=== PATIENT | female | born 1945 | race Caucasian/White ===

== ENCOUNTER 2018-05-29 00:16 | Outpatient (CLI) | payer MEDICARE, MEDICAID, SELFPAY ==
--- NOTE | 2018-05-29 15:05 | DI.MAMMO_ITS ---
SYMPTOMS/DIAGNOSIS: SCREENING, [facility], Z00.00 BILATERAL SCREENING MAMMOGRAM: Comparison is made with exams from 2015 through 2018. The exam is somewhat limited by the patient's inability to stand and somewhat limited tolerance of compression. The breasts are composed of scattered fibroglandular densities, breast density category B. No suspicious masses or suspicious microcalcifications are seen. There has been no significant change. IMPRESSION: Category 1B, negative mammogram. Yearly screening mammography is recommended. [facility] ASSESSMENT OF FINDINGS: Negative. Category 1. Patient will receive a letter notifying them of these results. BI-RADS category B. There are scattered areas of fibroglandular density.
== END 2018-05-29 00:36 ==
PROVIDERS: PCP Physician Assistant Medical; Visit Provider Physician Assistant Medical
DX: Z12.31 Encounter for screening mammogram for malignant neoplasm of breast (principal)
CPT/HCPCS: 77063; 77067

== ENCOUNTER 2018-10-02 02:36 | Outpatient (CLI) | payer MEDICARE, MEDICAID, SELFPAY ==
[2018-10-02 10:41] LABS: ALT 36 U/L (12-78); AST 23 U/L (15-37); Albumin 3.4 g/dL (3.4-5.0); Alkaline Phosphatase 76 U/L (46-116); BUN 20 mg/dL (7-18); Bilirubin, Total 0.8 mg/dL (0.2-1.0); CREATININE 1.03 mg/dL (0.55-1.02); Calcium 9.5 mg/dL (8.5-10.1); Chloride 105 mmol/L (98-107); Cholesterol 167 mg/dL (50-200); Estimated GFR 52.82 (mL/min/1.73m2); Glucose 110 mg/dL (70-100); HDL Cholesterol 54 mg/dL (40-60); LDL CHOLESTEROL 93 mg/dL (<100); Potassium 4.2 mmol/L (3.5-5.1); Sodium 143 mmol/L (136-145); Total Protein 7.1 g/dL (6.4-8.2); Triglyceride 191 mg/dL (30-150)
== END 2018-10-02 02:56 ==
PROVIDERS: PCP Physician Assistant Medical; Visit Provider Physician Assistant Medical
DX: I10 Essential (primary) hypertension (principal); E78.5 Hyperlipidemia, unspecified
CPT/HCPCS: 36415; 80053; 80061; 83721

== ENCOUNTER 2018-10-15 08:51 | Outpatient (CLI) | payer MEDICARE, MEDICAID, SELFPAY ==
[2018-10-15 10:11] LABS: Hemoglobin A1C 5.5 % (4.5-6.2)
== END 2018-10-15 09:11 ==
PROVIDERS: PCP Physician Assistant Medical; Visit Provider Physician Assistant Medical
DX: R73.01 Impaired fasting glucose (principal)
CPT/HCPCS: 83036

== ENCOUNTER 2018-12-16 00:20 | Outpatient (CLI) | payer MEDICARE, MEDICAID, SELFPAY ==
--- NOTE | 2018-12-16 10:06 | DI.US_ITS ---
SYMPTOMS/DIAGNOSIS: F/U [facility], I71.4 ULTRASOUND EXAMINATION OF THE ABDOMINAL AORTA: The proximal abdominal aorta measures 1.7 x 2.2 cm, the mid abdominal aorta 1.7 x 1.9 cm. The right iliac measures 1 x 1.2 cm, the left iliac 1 x 1.1 cm. 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 On a prior study of 06/28/2014, the distal aorta measured 2.9 x 2.8 cm.
== END 2018-12-16 00:40 ==
PROVIDERS: PCP Physician Assistant Medical; Visit Provider Physician Assistant Medical
DX: I71.4 Abdominal aortic aneurysm, without rupture (principal)
CPT/HCPCS: 76775

== ENCOUNTER 2019-05-31 01:09 | Outpatient (CLI) | payer MEDICARE, MEDICAID, SELFPAY ==
--- NOTE | 2019-05-31 09:37 | DI.MAMMO_ITS ---
EXAM: MG MAMMO SCREENING 60 MIN DUR CLINICAL HISTORY: SCREENING, [facility], Z12.31 TECHNIQUE: Bilateral full field digital CC and MLO mammographic images were obtained with 3D tomosyn thesis and utilizing computer aided detection (CAD). COMPARISON: Available for comparison. FINDINGS: Masses/Architectural Distortion: None seen. Microcalcifications: No suspicious pleomorphic-type are seen. Skin Thickening/Nipple Retraction: None. IMPRESSION: 1. No significant interval change with no specific features of malignancy noted. 2. Unless there is more urgent need, screening mammography is recommended, as per [place] [employer] guidelines. ACR BI-RAD Category- 1 Negative Breast Density - Category B - Scattered areas of fibroglandular density A negative radiographic report should not delay biopsy if a dominant or clinically suspicious mass is present. Up to ten percent of cancers are not identified on mammography. A negative report may reinforce clinical impression. Adenosis and dense breasts may obscure an underlying neoplasm. False positive reports average 6 to 10%. Patient will receive a letter notifying them of these results.
== END 2019-05-31 01:29 ==
PROVIDERS: PCP Physician Assistant Medical; Visit Provider Physician Assistant Medical
DX: Z12.31 Encounter for screening mammogram for malignant neoplasm of breast (principal)
CPT/HCPCS: 77063; 77067

== ENCOUNTER 2019-10-26 03:31 | Outpatient (CLI) | payer OTHER, MEDICAID, SELFPAY ==
[2019-10-26 10:24] LABS: Hemoglobin A1C 5.5 % (3.8-5.6)
[2019-10-26 10:40] LABS: ALT 28 U/L (14-59); AST 20 U/L (15-37); Albumin 3.3 g/dL (3.4-5.0); Alkaline Phosphatase 77 U/L (46-116); Anion Gap 8.9 mmol/L (3-11); BUN 15 mg/dL (7-18); Bilirubin, Total 0.7 mg/dL (0.2-1.0); CO2 27.1 mmol/L (21.0-32.0); CREATININE 1.07 mg/dL (0.55-1.02); Calcium 9.7 mg/dL (8.5-10.1); Calculated LDL 81 mg/dL (<100); Chloride 107 mmol/L (98-107); Cholesterol 155 mg/dL (<200); Estimated GFR 50.41 (mL/min/1.73m2); Glucose 98 mg/dL (74-106); HDL Cholesterol 52 mg/dL (40-60); Potassium 4.2 mmol/L (3.5-5.1); Sodium 143 mmol/L (136-145); Total Protein 7.2 g/dL (6.4-8.2); Triglyceride 113 mg/dL (<150)
== END 2019-10-26 03:51 ==
PROVIDERS: PCP Physician Assistant Medical; Visit Provider Nurse Practitioner Family
DX: I10 Essential (primary) hypertension (principal); E78.5 Hyperlipidemia, unspecified; R73.03 Prediabetes
CPT/HCPCS: 36415; 80053; 80061; 83036

== ENCOUNTER 2019-12-13 00:53 | Outpatient (CLI) | payer OTHER, MEDICAID, SELFPAY ==
--- NOTE | 2019-12-13 10:04 | DI.US_ITS ---
EXAM: US [facility] DIAGNOSTIC CLINICAL HISTORY: F/U [facility],I71.4 COMPARISON: No exams were available for comparison FINDINGS: Abdominal Aorta: Proximal: 2.6 cm Mid: 2.5 x 2.5 cm Distal: 3.1 x 3.3 cm Iliac's: Right: 1.2 cm Left: 1.4 cm Calcification and mild mural thrombus is seen throughout.. IMPRESSION: Atherosclerotic changes with mild dilatation of the distal abdominal aorta to 3.3 cm.. DATA REPOSITORY:
== END 2019-12-13 01:13 ==
PROVIDERS: PCP Physician Assistant Medical; Visit Provider Nurse Practitioner Family
DX: I71.4 Abdominal aortic aneurysm, without rupture (principal)
CPT/HCPCS: 76775

== ENCOUNTER 2020-04-17 07:50 | Inpatient (IN) | payer MEDICARE, OTHER, MEDICAID, SELFPAY ==
[2020-04-17] VITALS (31 sets, daily range): BP systolic 124–164; BP diastolic 64–69; PULSE 78–105; RESP 1–30; TEMP 36–38.3; O2SAT 89–98
--- NOTE | 2020-04-17 07:45 | RT.EKG_ITS ---
APPROVED REPORT Exam: Resting ECG Patient Location: E HR:98 bpm ECG Measurements Heart Rate 98 AXIS CO 241 P 38 QRSd 89 QRS 42 QT 333 T 41 QTc 426 Conclusion Sinus rhythm...normal P axis, V-rate 60- 99 Prolonged CO interval...CO >215, V-rate 91-120 Probable left atrial enlargement...P >50mS, <-0.10mV V1 Probable left ventricular hypertrophy...multiple LVH criteria
--- NOTE | 2020-04-17 08:06 | ED.GENADUL_ITS ---
Discharge Plan Disposition Patient Disposition: [facility] INPATIENT Condition: Stable Discharge Details Clinical Impression: Pneumonia, Mass of right lung, Fever, Fall at home, Contusion of left knee, Contusion of arm, left Admit Date/Time: 04/17/20 10:21 Admit Provider: Perry Alan Attending Provider: Perry Alan Primary Care Provider: Rolo Nieves ED Provider: Gertrude Pelaez Discharge Data Discharge Date/Time-TO BE ENTERED AT DEPARTURE: 04/17/20 11:50 Medical Decision Making 0800 -- 74 year-old female with history of hypertension, hyperlipidemia, COPD, CVA with chronic left-sided weakness for which she uses a walker and wheelchair presents for fall this morning out of bed onto her left side and shortness of breath and cough with yellow sputum for the past 2 weeks. Oxygen saturation 80s on room air on arrival. Temp 101 on arrival. She appears dehydrated but nontoxic. Her skin is quite warm to touch. She has scattered wheezing throughout. Abdomen nontender. No meningeal signs. We will obtain CT head, cervical spine, chest abdomen pelvis and left knee x- ray. Will give duo nebs, steroids and fluids and obtain an infectious work-up. Differential diagnosis includes bronchitis, pneumonia, coronavirus, UTI. 0945 --labs and imaging reviewed. White blood cell count of 10. Lactate 1.4. Troponin negative. CT chest notes large right lower lobe pneumonia. CT head and left knee x-ray negative. We will treat for community-acquired pneumonia. Considering patient's age and history, will admit for IV antibiotics, IV fluids and PT. Case discussed with daughter over the phone who feels that patient likely will require increased assistance at home or possibly even assisted living as she has been having increased falls and likely requires more than 3 hours of home health a day. Case discussed with hospitalist who accepts patient for admission. Final CT chest/abdomen report notes: IMPRESSION: 1. There is a large right lower lobe mass which appears malignant with surrounding smaller masses. There is ipsilateral hilar as well as mediastinal adenopathy and subcarinal adenopathy also evident. These findings are superimposed upon severe COPD-emphysematous changes. No large pleural effusions. Minimal amount of increased pleural fluid on the right. No rib destruction. 2. No evidence of obvious soft tissue metastatic disease in the abdomen and pelvis. However, there are lucencies in both sides of the osseous hemipelvis- iliac bones which are probably metastatic. 3. Uterus is slightly prominent as is the endometrial cavity. This could be further studied with ultrasound for added specificity. There are no abnormal adnexal masses and no free fluid in the pelvis. 4. Fusiform infrarenal abdominal aortic aneurysm with maximum diameter 3.2 centimetres. No evidence of leak at this time. These findings were discussed with patient and her daughter. Findings also discussed with the hospitalist who will proceed accordingly with likely follow- up with oncology for bronchoscopy. Medical Records Medical records reviewed: Yes I reviewed the patient's medical records. Imaging Data Radiologic Study: Radiologist's impression: CT HEAD CERVICAL SPINE WO CLINICAL HISTORY: s/p fall, r/o intracranial injury, cerv fx. TECHNIQUE: Imaging Protocol: Axial computed tomography images with coronal and sagittal reformatted images were created and reviewed COMPARISON: No exams were available for comparison FINDINGS: CT Head: There is evidence of prior right craniotomy. Aneurysm clip noted midline. There is no evidence of skull fracture nor layering fluid in the visualized paranasal sinuses and mastoid air cells. Some mucosal thickening is noted in the frontal sinuses. There is no evidence of intracranial hemorrhage, mass effect, or shift of midline structures. There are no extra-axial fluid collections. Ventricles appear symmetrical. There is a large area of encephalomalacia off in the right frontal parietal region which is superimposed upon abundant bilateral periventricular white matter hypodensity. This finding does not have an acute appearance and is most probably related to the prior intracranial event and postsurgical changes. There is symmetrical calcification in the basal ganglia incidentally noted. CT Cervical Spine: Bones: No acute fracture or subluxation. Multilevel chronic degenerative disc disease and facet joint degenerative changes are noted. There is no facet malalignment. IMPRESSION: 1. Evidence of prior right craniotomy. Midline aneurysm clip + prominent area of encephalomalacia right frontal parietal region superimposed upon abundant bilateral periventricular white matter ischemic chronic changes. There are no acute intracranial findings. 2. No acute fracture or subluxation in the cervical spine. CT CHEST PE ABD PELVIS W CLINICAL HISTORY: cough, sob, hypoxia, fall w/ L hip pain. TECHNIQUE: Imaging Protocol: Axial CT angiography was performed with multi- slice acquisition and multi-planar and/or 3D reconstructions. CONTRAST MATERIAL: Intravenous: Omnipaque 350 Contrast volume:100 cc COMPARISON: No exams were available for comparison FINDINGS: Lungs: There is a prominent mass in the right lower lobe suspicious for neoplasm and with adjacent neoplastic appearing nodular densities also evident. The mass measures approximately 7.5 by a 4 centimetres. There is a minimal amount of ipsilateral pleural fluid noted. No invasion of the overlying rib cage. This finding is superimposed upon severe COPD-emphysematous changes. Benign- appearing increased markings are noted in the opposite-left lung base. There are no findings in the trachea and mainstem bronchi. Mediastinum: There is right hilar adenopathy. Also subcarinal adenopathy. Also abnormally enlarged pre and paratracheal lymph nodes. No adenopathy in the opposite-left hilum. Visualized thyroid appears unremarkable. Cardiac: Heart size is upper normal. There is no pericardial effusion. Caliber of the thoracic aorta is within normal limits. No dissection evident. No significant mediastinal hematoma. Pulmonary arteries: No obvious central pulmonary emboli. Osseous: No fractures nor lytic osseous lesions. Abdomen: There is no ascites. There are no focal hepatic lesions seen. No dilatation of intrahepatic ducts. Gallstones are noted. No gallbladder wall edema. CBD is not dilated. No obvious pancreatic mass. No dilatation of the pancreatic duct. The spleen is not enlarged. There are no intrasplenic lesions. The splenic and portal veins are patent. No significant adrenal masses. Small benign cyst in the anterior cortex of the left kidney measuring 10 x 10 millimeters. Slightly smaller cyst is noted in the anterior aspect of the opposite-right kidney. There are no solid renal masses. No calculi nor hydronephrosis.. Slight thickening of the anterior right side of the urinary bladder is noted. Possibly significant. There is an infrarenal abdominal aortic aneurysm which exhibits a maximum diameter of 3.2 centimetres. Abdominal aorta is calcified and common iliac arteries are also calcified but not dilated. There is no para-aortic adenopathy. There is no evidence of significant anterior abdominal hernia. No bowel obstruction or free air. Pelvis: No evidence of appendicitis nor acute diverticulitis. There is no intrapelvic nor inguinal adenopathy. Uterus is slightly prominent as is the endometrial cavity. There are no abnormal adnexal masses and no free fluid no free fluid in the pelvis. Bone windows reveal a round lucent lesion in the left hemipelvis measuring 12 x 12 millimeters. Appears to be associated with some mild cortical thinning. This may be metastatic. No other smaller similar-appearing lesion is seen in the right hemipelvis. There are no fractures evident. IMPRESSION: 1. There is a large right lower lobe mass which appears malignant with surrounding smaller masses. There is ipsilateral hilar as well as mediastinal adenopathy and subcarinal adenopathy also evident. These findings are superimposed upon severe COPD-emphysematous changes. No large pleural e ffusions. Minimal amount of increased pleural fluid on the right. No rib destruction. 2. No evidence of obvious soft tissue metastatic disease in the abdomen and pelvis. However, there are lucencies in both sides of the osseous hemipelvis- iliac bones which are probably metastatic. 3. Uterus is slightly prominent as is the endometrial cavity. This could be further studied with ultrasound for added specificity. There are no abnormal adnexal masses and no free fluid in the pelvis. 4. Fusiform infrarenal abdominal aortic aneurysm with maximum diameter 3.2 centimetres. No evidence of leak at this time. XR KNEE LT 3V AP,LAT,EVELYN CLINICAL HISTORY: No fracture identified. TECHNIQUE: 2D digital imaging was performed. COMPARISON: CR RIGHT KNEE 3 VIEWS from 01/31/2014 FINDINGS: There is no evidence of fracture nor prominent joint effusion. No prominent joint space narrowing. No osseous lesions. Lab Data Lab results reviewed: Yes I reviewed the patient's lab results. Labs: 04/17/20 09:00 Blood Blood Culture - Pending 04/17/20 08:53 Blood Blood Culture - Pending Laboratory Tests Range/Units 04/17/20 04/17/20 04/17/20 08:15 08:15 08:15 WBC (4.4-10.8) 10^3/uL 10.94 H RBC (3.93-5.22) 10^6/uL 5.41 H Hgb (11.2-15.7) g/dL 14.9 Hct (36.0-46.0) % 46.8 H MCV (80-95) fL 86.5 MCH (27.0-33.0) pg 27.5 MCHC (32.0-36.0) % 31.8 L RDW (11.7-14.6) % 14.2 Plt Count (130-400) 10^3/uL 279 MPV (8.0-11.0) fL 9.5 Immature Gran % 0.4 Neutrophils % 70.3 Lymphocytes % 16.1 Monocytes % 9.1 Eosinophils % 3.6 Basophils % 0.5 Nucleated RBC % % 0 Absolute Neutrophils (1.2-6.7) 10^3/uL 7.69 H Absolute Lymphocytes (1.2-3.4) 10^3/uL 1.76 Absolute Monocytes (0.1-0.8) 10^3/uL 1.00 H Absolute Eosinophils (0.0-0.7) 10^3/uL 0.39 Absolute Basophils (0.0-0.2) 10^3/uL 0.05 PT (9.3-11.0) sec INR (0.9-1.1) APTT (21.0-27.5) sec VBG Lactate (0.6-1.4) mmol/L 1.4 Sodium (136-145) mmol/L 138 Potassium (3.5-5.1) mmol/L 4.1 Chloride (98-107) mmol/L 104 Carbon Dioxide (21.0-32.0) mmol/L 28.2 Anion Gap (3-11) mmol/L 5.8 BUN (7-18) mg/dL 11 Creatinine (0.55-1.02) mg/dL 0.88 Estimated GFR/1.73 m2 (mL/min/1.73m2) >= 60.00 Glucose (74-106) mg/dL 103 Calcium (8.5-10.1) mg/dL 9.0 Magnesium (1.8-2.4) mg/dL 1.8 Total Bilirubin (0.2-1.0) mg/dL 0.7 AST (15-37) U/L 21 ALT (14-59) U/L 12 L Alkaline Phosphatase (46-116) U/L 75 Troponin I (<0.06) ng/mL < 0.05 Total Protein (6.4-8.2) g/dL 7.5 Albumin (3.4-5.0) g/dL 2.6 L Procalcitonin ng/mL Urine Color (Yellow) Urine Clarity (Clear) Urine pH (5-8) Ur Specific [place] (1.005-1.025) Urine Protein (Negative) mg/dL Urine Ketones (Negative) mg/dL Urine Blood (Negative) Urine Nitrite (Negative) Urine Bilirubin (Negative) Urine Urobilinogen (Up TO 0.2) EU/dL Ur Leukocyte Esterase (Negative) Urine Glucose (Negative) mg/dL SARS-CoV-2 Source SARS-CoV-2 (PCR) Patient Race Patient Ethnicity Ref Test Method Range/Units 04/17/20 04/17/20 04/17/20 08:15 08:15 08:45 WBC (4.4-10.8) 10^3/uL RBC (3.93-5.22) 10^6/uL Hgb (11.2-15.7) g/dL Hct (36.0-46.0) % MCV (80-95) fL MCH (27.0-33.0) pg MCHC (32.0-36.0) % RDW (11.7-14.6) % Plt Count (130-400) 10^3/uL MPV (8.0-11.0) fL Immature Gran % Neutrophils % Lymphocytes % Monocytes % Eosinophils % Basophils % Nucleated RBC % % Absolute Neutrophils (1.2-6.7) 10^3/uL Absolute Lymphocytes (1.2-3.4) 10^3/uL Absolute Monocytes (0.1-0.8) 10^3/uL Absolute Eosinophils (0.0-0.7) 10^3/uL Absolute Basophils (0.0-0.2) 10^3/uL PT (9.3-11.0) sec 11.1 H INR (0.9-1.1) 1.1 APTT (21.0-27.5) sec 28.1 H VBG Lactate (0.6-1.4) mmol/L Sodium (136-145) mmol/L Potassium (3.5-5.1) mmol/L Chloride (98-107) mmol/L Carbon Dioxide (21.0-32.0) mmol/L Anion Gap (3-11) mmol/L BUN (7-18) mg/dL Creatinine (0.55-1.02) mg/dL Estimated GFR/1.73 m2 (mL/min/1.73m2) Glucose (74-106) mg/dL Calcium (8.5-10.1) mg/dL Magnesium (1.8-2.4) mg/dL Total Bilirubin (0.2-1.0) mg/dL AST (15-37) U/L ALT (14-59) U/L Alkaline Phosphatase (46-116) U/L Troponin I (<0.06) ng/mL Total Protein (6.4-8.2) g/dL Albumin (3.4-5.0) g/dL Procalcitonin ng/mL < 0.1 Urine Color (Yellow) Urine Clarity (Clear) Urine pH (5-8) Ur Specific [place] (1.005-1.025) Urine Protein (Negative) mg/dL Urine Ketones (Negative) mg/dL Urine Blood (Negative) Urine Nitrite (Negative) Urine Bilirubin (Negative) Urine Urobilinogen (Up TO 0.2) EU/dL Ur Leukocyte Esterase (Negative) Urine Glucose (Negative) mg/dL SARS-CoV-2 Source Cancelled SARS-CoV-2 (PCR) Cancelled Patient Race Cancelled Patient Ethnicity Cancelled Ref Test Method Cancelled Range/Units 04/17/20 10:05 WBC (4.4-10.8) 10^3/uL RBC (3.93-5.22) 10^6/uL Hgb (11.2-15.7) g/dL Hct (36.0-46.0) % MCV (80-95) fL MCH (27.0-33.0) pg MCHC (32.0-36.0) % RDW (11.7-14.6) % Plt Count (130-400) 10^3/uL MPV (8.0-11.0) fL Immature Gran % Neutrophils % Lymphocytes % Monocytes % Eosinophils % Basophils % Nucleated RBC % % Absolute Neutrophils (1.2-6.7) 10^3/uL Absolute Lymphocytes (1.2-3.4) 10^3/uL Absolute Monocytes (0.1-0.8) 10^3/uL Absolute Eosinophils (0.0-0.7) 10^3/uL Absolute Basophils (0.0-0.2) 10^3/uL PT (9.3-11.0) sec INR (0.9-1.1) APTT (21.0-27.5) sec VBG Lactate (0.6-1.4) mmol/L Sodium (136-145) mmol/L Potassium (3.5-5.1) mmol/L Chloride (98-107) mmol/L Carbon Dioxide (21.0-32.0) mmol/L Anion Gap (3-11) mmol/L BUN (7-18) mg/dL Creatinine (0.55-1.02) mg/dL Estimated GFR/1.73 m2 (mL/min/1.73m2) Glucose (74-106) mg/dL Calcium (8.5-10.1) mg/dL Magnesium (1.8-2.4) mg/dL Total Bilirubin (0.2-1.0) mg/dL AST (15-37) U/L ALT (14-59) U/L Alkaline Phosphatase (46-116) U/L Troponin I (<0.06) ng/mL Total Protein (6.4-8.2) g/dL Albumin (3.4-5.0) g/dL Procalcitonin ng/mL Urine Color (Yellow) Yellow Urine Clarity (Clear) Clear Urine pH (5-8) 5.5 Ur Specific [place] (1.005-1.025) 1.010 Urine Protein (Negative) mg/dL Negative Urine Ketones (Negative) mg/dL Negative Urine Blood (Negative) Negative Urine Nitrite (Negative) Negative Urine Bilirubin (Negative) Negative Urine Urobilinogen (Up TO 0.2) EU/dL 0.2 Ur Leukocyte Esterase (Negative) Negative Urine Glucose (Negative) mg/dL Negative SARS-CoV-2 Source SARS-CoV-2 (PCR) Patient Race Patient Ethnicity Ref Test Method ECG Data Attestation: I personally reviewed and interpreted this ECG (s) as follows: Interpretation: Rate of 98, sinus, prolonged WA interval at 241. No acute ST-T wave ischemic changes. QRS 89. QTc 426. HPI General Mode of arrival: EMS . Date/Time Provider Initiated Documentation: 04/17/20 08:37 . Limitations to Documentation: physical limitation . Information obtained by: patient . HPI Narrative: Patient is a 74-year-old female with a history of hypertension, hyperlipidemia, CVA with chronic left- sided weakness for which she uses a walker and sometimes a wheelchair who presents for fall out of bed this morning when her wheelchair was not locked. Patient states she attempted to grab off her wheelchair which was not fully locked and she fell out of bed onto her left side. She is complaining of pain in her left upper arm, left hip and left knee. She states she is unsure if she hit her head but denies any LOC or vomiting, headache or neck pain. She states she has also had shortness of breath and a cough with yellow sputum for the past few weeks. She also states her left knee has been bothering her for the past few weeks but denies any injury before today. Patient lives alone and has 2 caregivers that spend approximately 3 hours with her throughout the day to help her with various activities. She was unaware that she had a fever. She is also complaining of fatigue. She states she was at [facility] a few weeks ago to be fitted for a brace for her left leg. She denies any recent travel, recent known sick contacts, recent hospital admissions or recent antibiotics. She denies any recent change in her medications. She denies any chest pain, abdominal pain, nausea, vomiting, diarrhea or urinary symptoms. She states she has no change in her appetite and has been eating well. Related Data Home Medications Medication Instructions Recorded Confirmed ibuprofen 600 mg PO TID PRN 09/20/12 04/17/20 hydrochlorothiazide 12.5 mg PO DAILY 04/27/13 04/17/20 lamotrigine 300 mg PO DIRECTED 04/27/13 04/17/20 omega-3 fatty acids-fish oil [Fish 1 cap PO TID 04/27/13 04/17/20 Oil 1,000 mg Capsule] potassium chloride [Klor-Con M20] 20 meq PO DAILY 04/27/13 04/17/20 simvastatin 40 mg PO DAILY 04/27/13 04/17/20 conjugated estrogens [Premarin 0.5 g VG DAILY #1 tube 11/24/13 04/17/20 Vaginal Cream] albuterol sulfate [ProAir HFA] 2 puff INHALATION Q4H PRN PRN 04/17/20 04/17/20 alendronate 70 mg PO QWEEK 04/17/20 04/17/20 aspirin 81 mg PO DAILY 04/17/20 04/17/20 carboxymethylcellulose sodium 1 drp OPHTHALMIC (EYE) QID PRN PRN 04/17/20 04/17/20 [Refresh Celluvisc] docusate sodium [DOK] 100 mg PO TID 04/17/20 04/17/20 escitalopram oxalate 5 mg PO DAILY 04/17/20 04/17/20 fluticasone propion-salmeterol 1 inh INHALATION BID 04/17/20 04/17/20 polyethylene glycol 3350 17 g PO DAILY PRN PRN 04/17/20 04/17/20 Allergies Allergy/AdvReac Type Severity Reaction Status Date / Time No Known Allergies Allergy Unverified 04/17/20 10:35 General Stated Complaint: GenMedical EDUARDO: 3 Review of Systems All systems reviewed & are unremarkable except as noted in HPI and below Constitutional Constitutional: Reports as per HPI, Denies chills, Reports fatigue and Denies fever(s) Eyes Eyes: Denies blurry vision ENT Ears, Nose, Mouth, and Throat: Denies dizziness, Denies sore throat and Denies throat swelling Cardiovascular Cardiovascular: Denies chest pain and Reports dyspnea Respiratory Respiratory: Reports cough and Reports dyspnea Gastrointestinal Gastrointestinal: Denies abdominal pain, Denies diarrhea and Denies vomiting Genitourinary Genitourinary: Denies hematuria and Denies dysuria Musculoskeletal Musculoskeletal: Denies back pain, Denies numbness and Reports other (L upper arm, hip, knee pain) Integumentary/Breasts Skin/Breast: Denies lesions and Denies rash Neurologic Neurologic: Denies dizziness, Denies localized weakness and Denies numbness Endocrine Endocrine: Reports fatigue Allergic/Immunologic Allergic/Immunologic: Denies throat swelling [facility] Medical History (Updated 04/17/20 @ 11:23 by Gertrude Pelaez DO) Asthma Cerebrovascular accident Depression Essential hypertension Gastroesophageal reflux disease Hemiplegia Hyperlipidemia Polyp of colon Surgical History Cerebral aneurysm repair. Family History Mother Personal history of malignant neoplasm colon cancer Father Heart disease Social History Smoking/Tobacco Use Status: Former Tobacco Use Smoking risk assessment performed?: Yes Alcohol Intake: never Drug use: Never Substance use type: does not use Do you feel safe at home: Yes Do you feel safe in your relationship?: Yes Exam Const General: cooperative and no acute distress Orientation: alert, awake and oriented x3 HENMT Head: normal to inspection Ears: hearing grossly normal bilaterally, external ears normal and TM's normal bilaterally General nose exam: external nose normal Face and sinus: normal facial exam Mouth: oral mucosae normal Teeth and gingiva: dentition normal Throat: posterior oropharynx normal Eyes General: appearance normal, both eyes and all related structures Eyelids: eyelids normal Pupils: PERRL EOM: EOM intact bilaterally Neck Neck: normal visual inspection Lymphatic: no lymphadenopathy noted Chest Chest: normal inspection of the chest Resp Effort & Inspection: normal respiratory effort and able to speak in complete sentences Auscultation: wheezes scattered wheezes Cardio Rate: regular rate Rhythm: regular rhythm GI Inspection: normal to inspection Palpation: soft, not firm, no guarding, no hepatosplenomegaly, no masses and nontender Auscultation: normal bowel sounds Back/Spine/Pelvis Cervical Spine: No cervical spinal tenderness Thoracic/Lumbar Spine: thoracic and lumbar spine normal to inspection, No thoracic spinal tenderness and No lumbar spinal tenderness Pelvis: no pain with anterior-posterior compression Skin General skin exam: no rashes or lesions noted Neuro General: patient alert and patient awake Cognition: normal cognition Speech: speech normal Gait: normal gait Motor: muscle tone normal throughout and strength abnormal (4/5 muscle strength LUE/RUE chronic s/p cva, 5/5 MS RUE/RLE) Sensory Exam: no sensory deficits noted Extrem General: normal to inspection, full ROM and capillary refill normal Psych Appearance: grossly normal Mental Status: mental status grossly normal Speech and Movement: speech and movement normal Affect: normal affect Thought Process: normal Course Vital Signs Vital signs: Vital Signs Temperature 101.0 F H 04/17/20 07:44 Pulse 105 H 04/17/20 07:44 Blood Pressure 164/68 H 04/17/20 07:44 Pulse Oximetry 94 04/17/20 07:44 Temperature 101.0 F H 04/17/20 07:44 Temperature Source Temporal Artery Scan 04/17/20 07:44 Pulse 105 H 04/17/20 07:44 Respiratory Effort Non-Labored 04/17/20 07:50 Blood Pressure 164/68 H 04/17/20 07:44 Blood Pressure Position Supine 04/17/20 07:44 Pulse Oximetry 94 04/17/20 07:44 Oxygen Delivery Method Nasal Cannula 04/17/20 07:44 Oxygen Flow Rate 4 04/17/20 07:44 Pain Level 8 04/17/20 07:44
[2020-04-17 08:30] LABS: Abs Immature Grans 0.04 10^3/uL (0.0-0.06); Absolute Eosinophil Count 0.39 10^3/uL (0.0-0.7); Absolute Lymphocyte Count 1.76 10^3/uL (1.2-3.4); Absolute Neutrophil Count 7.69 10^3/uL (1.2-6.7); Basophils % 0.5; Eosinophils % 3.6; HCT 46.8 % (36.0-46.0); HGB 14.9 g/dL (11.2-15.7); Immature Grans % 0.4; Lactate 1.4 mmol/L (0.6-1.4); Lymphocytes % 16.1; MCH 27.5 pg (27.0-33.0); MCHC 31.8 % (32.0-36.0); MCV 86.5 fL (80-95); MPV 9.5 fL (8.0-11.0); Monocytes % 9.1; Neutrophils % 70.3; Nucleated RBC 0 %; Platelet Count 279 10^3/uL (130-400); RBC 5.41 10^6/uL (3.93-5.22); RDW 14.2 % (11.7-14.6); RDW-SD 44.4 fL; WBC 10.94 10^3/uL (4.4-10.8)
--- NOTE | 2020-04-17 08:30 | DI.CT_ITS ---
EXAM: CT HEAD CERVICAL SPINE WO CLINICAL HISTORY: s/p fall, r/o intracranial injury, cerv fx. TECHNIQUE: Imaging Protocol: Axial computed tomography images with coronal and sagittal reformatted images were created and reviewed COMPARISON: No exams were available for comparison FINDINGS: CT Head: There is evidence of prior right craniotomy. Aneurysm clip noted midline. There is no evidence of s kull fracture nor layering fluid in the visualized paranasal sinuses and mastoid air cells. Some muc osal thickening is noted in the frontal sinuses. There is no evidence of intracranial hemorrhage, mass effect, or shift of midline structures. There are no extra-axial fluid collections. Ventricles appear symmetrical. There is a large area of encep halomalacia off in the right frontal parietal region which is superimposed upon abundant bilateral pe riventricular white matter hypodensity. This finding does not have an acute appearance and is most p robably related to the prior intracranial event and postsurgical changes. There is symmetrical calcification in the basal ganglia incidentally noted. CT Cervical Spine: Bones: No acute fracture or subluxation. Multilevel chronic degenerative disc disease and facet joint degenerative changes are noted. There is no facet malalignment. IMPRESSION: 1. Evidence of prior right craniotomy. Midline aneurysm clip + prominent area of encephalomalacia ri ght frontal parietal region superimposed upon abundant bilateral periventricular white matter ischemi c chronic changes. There are no acute intracranial findings. 2. No acute fracture or subluxation in the cervical spine. RADIATION DOSE DELIVERED: 1,354.02mGy.cm Total DLP DATA REPOSITORY: All CT scans at this facility are submitted to the National Radiology Data Registry (NRDR) Dose Index Registry (DIR) with the [employer] ([employer]). RADIATION OPTIMIZATION: All CT scans at this facility use at least one of these dose optimization te chniques: automated exposure control; mA and/or kV adjustment per patient size (includes targeted exa ms where dose is matched to clinical indication); or iterative reconstruction.
--- NOTE | 2020-04-17 08:30 | DI.CT_ITS ---
EXAM: CT CHEST PE ABD PELVIS W CLINICAL HISTORY: cough, sob, hypoxia, fall w/ L hip pain. TECHNIQUE: Imaging Protocol: Axial CT angiography was performed with multi-slice acquisition and mu lti-planar and/or 3D reconstructions. CONTRAST MATERIAL: Intravenous: Omnipaque 350 Contrast volume:100 cc COMPARISON: No exams were available for comparison FINDINGS: Lungs: There is a prominent mass in the right lower lobe suspicious for neoplasm and with adjacent ne oplastic appearing nodular densities also evident. The mass measures approximately 7.5 by a 4 centim etres. There is a minimal amount of ipsilateral pleural fluid noted. No invasion of the overlying r ib cage. This finding is superimposed upon severe COPD-emphysematous changes. Benign-appearing incr eased markings are noted in the opposite-left lung base. There are no findings in the trachea and ma instem bronchi. Mediastinum: There is right hilar adenopathy. Also subcarinal adenopathy. Also abnormally enlarged pre and paratracheal lymph nodes. No adenopathy in the opposite-left hilum. Visualized thyroid appe ars unremarkable. Cardiac: Heart size is upper normal. There is no pericardial effusion. Caliber of the thoracic aort a is within normal limits. No dissection evident. No significant mediastinal hematoma. Pulmonary arteries: No obvious central pulmonary emboli. Osseous: No fractures nor lytic osseous lesions. Abdomen: There is no ascites. There are no focal hepatic lesions seen. No dilatation of intrahepatic ducts. Gallstones are noted. No gallbladder wall edema. CBD is not dilated. No obvious pancreatic mass. No dilatation of the pancreatic duct. The spleen is not enlarged. Ther e are no intrasplenic lesions. The splenic and portal veins are patent. No significant adrenal mass es. Small benign cyst in the anterior cortex of the left kidney measuring 10 x 10 millimeters. Slig htly smaller cyst is noted in the anterior aspect of the opposite-right kidney. There are no solid r enal masses. No calculi nor hydronephrosis.. Slight thickening of the anterior right side of the ur inary bladder is noted. Possibly significant. There is an infrarenal abdominal aortic aneurysm which exhibits a maximum diameter of 3.2 centimetres . Abdominal aorta is calcified and common iliac arteries are also calcified but not dilated. There is no para-aortic adenopathy. There is no evidence of significant anterior abdominal hernia. No bowel obstruction or free air. Pelvis: No evidence of appendicitis nor acute diverticulitis. There is no intrapelvic nor inguinal adenopathy. Uterus is slightly prominent as is the endometrial cavity. There are no abnormal adnexal masses and no free fluid no free fluid in the pelvis. Bone windows reveal a round lucent lesion in the left hemipelvis measuring 12 x 12 millimeters. Appe ars to be associated with some mild cortical thinning. This may be metastatic. No other smaller sim ilar-appearing lesion is seen in the right hemipelvis. There are no fractures evident. IMPRESSION: . 1. There is a large right lower lobe mass which appears malignant with surrounding smaller masses. T here is ipsilateral hilar as well as mediastinal adenopathy and subcarinal adenopathy also evident. These findings are superimposed upon severe COPD-emphysematous changes. No large pleural effusions. Minimal amount of increased pleural fluid on the right. No rib destruction. 2. No evidence of obvious soft tissue metastatic disease in the abdomen and pelvis. However, there a re lucencies in both sides of the osseous hemipelvis-iliac bones which are probably metastatic. 3. Uterus is slightly prominent as is the endometrial cavity. This could be further studied with ult rasound for added specificity. There are no abnormal adnexal masses and no free fluid in the pelvis. 4. Fusiform infrarenal abdominal aortic aneurysm with maximum diameter 3.2 centimetres. No evidence of leak at this time. RADIATION DOSE DELIVERED: 1,197.63mGy.cm Total DLP DATA REPOSITORY: All CT scans at this facility are submitted to the National Radiology Data Registry (NRDR) Dose Index Registry (DIR) with the [employer] (ACR). RADIATION OPTIMIZATION: All CT scans at this facility use at least one of these dose optimization te chniques: automated exposure control; mA and/or kV adjustment per patient size (includes targeted exa ms where dose is matched to clinical indication); or iterative reconstruction.
[2020-04-17 08:35] LABS: Absolute Basophil Count 0.05 10^3/uL (0.0-0.2)
[2020-04-17 08:46] LABS: INR 1.1 (0.9-1.1); PTT Activated 28.1 sec (21.0-27.5); Prothrombin Time 11.1 sec (9.3-11.0)
[2020-04-17 08:48] LABS: ALT 12 U/L (14-59); AST 21 U/L (15-37); Albumin 2.6 g/dL (3.4-5.0); Alkaline Phosphatase 75 U/L (46-116); Anion Gap 5.8 mmol/L (3-11); BUN 11 mg/dL (7-18); Bilirubin, Total 0.7 mg/dL (0.2-1.0); CO2 28.2 mmol/L (21.0-32.0); CREATININE 0.88 mg/dL (0.55-1.02); Chloride 104 mmol/L (98-107); Glucose 103 mg/dL (74-106); Magnesium 1.8 mg/dL (1.8-2.4); Potassium 4.1 mmol/L (3.5-5.1); Sodium 138 mmol/L (136-145); Total Protein 7.5 g/dL (6.4-8.2)
[2020-04-17 08:55] LABS: Troponin I < 0.05 ng/mL (<0.06)
[2020-04-17] MEDS: Omnipaque 350 MG/ML 100 ML BTL IV (09:06)
[2020-04-17] MEDS: Normal Saline - Diluent 50 ML VIAL IV (09:22)
--- NOTE | 2020-04-17 09:32 | DI.RAD_ITS ---
EXAM: XR KNEE LT 3V AP,LAT,EVELYN CLINICAL HISTORY: No fracture identified. TECHNIQUE: 2D digital imaging was performed. COMPARISON: CR RIGHT KNEE 3 VIEWS from 01/31/2014 FINDINGS: There is no evidence of fracture nor prominent joint effusion. No prominent joint space narrowing. No osseous lesions. IMPRESSION: DATA REPOSITORY: RADIATION DOSE DELIVERED:
[2020-04-17] MEDS: methylPREDNISolone SUCC 125 MG VIAL IVP (09:50)
[2020-04-17] MEDS: Normal Saline 1,000 ML 1000 ML IV (09:50)
[2020-04-17] MEDS: ACETAMINOPHEN 1,000 MG/100 ML BTL 400 MG IVPB (09:51)
[2020-04-17] MEDS: Normal Saline Flush 10 ML SYR IVP ×2 (09:51→22:39)
[2020-04-17] MEDS: Albuterol/Ipratropium 3 ML UPD VIAL UPD ×4 (09:52→23:01)
[2020-04-17 10:18] LABS: Bilirubin Negative (Negative); Blood Negative (Negative); Clarity Clear (Clear); Glucose Negative (Negative); Ketones Negative (Negative); Leukocyte Esterase Negative (Negative); Nitrite Negative (Negative); Urobilinogen 0.2 EU/dL (Up TO 0.2); pH 5.5 (5-8)
[2020-04-17] MEDS: cefTRIAXone 1 GM/50 ML BAG IVPB (10:27)
[2020-04-17] MEDS: DOXYCYCLINE 100 MG in Normal Saline 100 ML IVPB ×2 (10:27→22:39)
--- NOTE | 2020-04-17 11:06 | NUR.NOTE ---
called patient's daughter, Karlene, to let her know that patient is requesting her leg brace, eye glasses and ipad to be dropped off.
[2020-04-17] MEDS: Enoxaparin 40 MG/0.4 ML SYR SC (12:39)
--- NOTE | 2020-04-17 13:08 | RESPIRATORY ---
Spoke with patient concerning if she normally has O2 at home. Patient stated she doesn't normally it and is currently using 4L NC.
[2020-04-17] MEDS: Docusate Sodium 100 MG CAP PO ×2 (13:22→19:42)
[2020-04-17 13:37] LABS: Procalcitonin < 0.1 ng/mL
[2020-04-17] MEDS: Omega-3 Fatty Acids 1000 MG CAP PO ×2 (14:11→19:43)
--- NOTE | 2020-04-17 15:49 | HPE_ITS ---
Date of service: 04/17/20 Time of Service: 15:53 Assessment and Plan Assessment and plan (1) Pneumonia: Status: Acute Assessment and plan: + fever, cough with sputum. No elevated WBC count or procalcitonin. Cont Rocephin and Doxycycline. (2) Mass of right lung: Status: Acute Assessment and plan: Will discuss with [place] [facility] Discuss the possibility of transport [place] [facility] [place] bx and then back to [facility] vs transfer to inpatient at [facility]. (3) Cerebrovascular accident: Status: None Assessment and plan: History of aneurysm rupture / bleed. Residual L sided weakness. Uses a walker or wheelchair for ambulation. PT/OT consults. (4) Asthma: Status: None Assessment and plan: Likely with exacerbation. Hypoxic on admission. Supplemental O2. Duonebs Q6H Prn albuterol nebs. Prednisone 40mg daily. Received IV solu-medrol 125mg in the ED History of Present Illness History of Present Illness Chief Complaint: Left arm, hip, knee after a fall. Narrative: This is a 74 yo female with a h/o asthma, CVA/hemorrhagic, HTN, HLD. She presented to the ED after reaching for her wheelchair from her bed, the wheelchair was not locked, and she fell to the floor onto her left side. She was unsure of whether or not she hit her head. No WELLS, neck pain. She did endorse SOA, cough with yellow sputum for several weeks. No noted fever, abd pain, N/V, CP, palpitations. She lives alone but has caregivers that spend appx 3 hours throughout the day to give her assistance. In the ED her initial O2 saturation was in the 80's on RA. Her temperature was 101F. WBC count was 10. Troponin negative. Procalcitonin was <0.1. CT chest showed a large R lower lobe mass with smaller adjacent masses with malignant appearance. CT head and L knee were negative. She was started on Rocephin and IV doxycycline for presumed CAP. Review of Systems All systems reviewed & are unremarkable except as noted in HPI and below PFSH Medical History Asthma Cerebrovascular accident Depression Essential hypertension Gastroesophageal reflux disease Hemiplegia Hyperlipidemia Polyp of colon Surgical History Cerebral aneurysm repair. Family History Mother Personal history of malignant neoplasm colon cancer Father Heart disease Social History Smoking/Tobacco Use Status: Former Tobacco Use Smoking risk assessment performed?: Yes Alcohol Intake: never Drug use: Never Substance use type: does not use Do you feel safe at home: Yes Do you feel safe in your relationship?: Yes Meds Home Medications and Allergies Home Medications Medication Instructions Recorded Confirmed Type ibuprofen 600 mg PO TID PRN 09/20/12 04/17/20 History hydrochlorothiazide 12.5 mg PO DAILY 04/27/13 04/17/20 History lamotrigine 300 mg PO DIRECTED 04/27/13 04/17/20 History omega-3 fatty acids-fish oil [Fish 1 cap PO TID 04/27/13 04/17/20 History Oil 1,000 mg Capsule] potassium chloride [Klor-Con M20] 20 meq PO DAILY 04/27/13 04/17/20 History simvastatin 40 mg PO DAILY 04/27/13 04/17/20 History conjugated estrogens [Premarin 0.5 g VG DAILY #1 tube 11/24/13 04/17/20 History Vaginal Cream] albuterol sulfate [ProAir HFA] 2 puff INHALATION Q4H PRN PRN 04/17/20 04/17/20 History alendronate 70 mg PO QWEEK 04/17/20 04/17/20 History aspirin 81 mg PO DAILY 04/17/20 04/17/20 History carboxymethylcellulose sodium 1 drp OPHTHALMIC (EYE) QID PRN PRN 04/17/20 04/17/20 History [Refresh Celluvisc] docusate sodium [DOK] 100 mg PO TID 04/17/20 04/17/20 History escitalopram oxalate 5 mg PO DAILY 04/17/20 04/17/20 History fluticasone propion-salmeterol 1 inh INHALATION BID 04/17/20 04/17/20 History polyethylene glycol 3350 17 g PO DAILY PRN PRN 04/17/20 04/17/20 History Allergies Allergy/AdvReac Type Severity Reaction Status Date / Time No Known Allergies Allergy Unverified 04/17/20 10:35 Exam Const General: cooperative and no acute distress (Eating lunch.) Nutritional Appearance: overweight Orientation: alert Eyes Sclera: sclerae normal Pupils: PERRL Resp Effort & Inspection: normal respiratory effort Auscultation: clear to auscultation bilaterally Cardio Rate: regular rate Rhythm: regular rhythm Heart Sounds: S1 normal and S2 normal GI Palpation: soft and nontender Auscultation: normal bowel sounds Skin General skin exam: no rashes or lesions noted Neuro General: patient alert and oriented Patient Orientation: Person and Place Speech: other (mild dysarthria) Motor: other (LLE with 4/5 strength, RLE with 5/5 strength. LUE and RUE with FROM.) Extrem General: no pedal edema and no calf tenderness Results Labs Result diagrams: 04/17/20 08:15 04/17/20 08:15 Labs: Laboratory Results - last 24 hr 04/17/20 04/17/20 04/17/20 08:15 08:15 08:15 WBC 10.94 H RBC 5.41 H Hgb 14.9 Hct 46.8 H MCV 86.5 MCH 27.5 MCHC 31.8 L RDW 14.2 Plt Count 279 MPV 9.5 Immature Gran % 0.4 Neutrophils % 70.3 Lymphocytes % 16.1 Monocytes % 9.1 Eosinophils % 3.6 Basophils % 0.5 Nucleated RBC % 0 Absolute Neutrophils 7.69 H Absolute Lymphocytes 1.76 Absolute Monocytes 1.00 H Absolute Eosinophils 0.39 Absolute Basophils 0.05 PT INR APTT VBG Lactate 1.4 Sodium 138 Potassium 4.1 Chloride 104 Carbon Dioxide 28.2 Anion Gap 5.8 BUN 11 Creatinine 0.88 Estimated GFR/1.73 m2 >= 60.00 Glucose 103 Calcium 9.0 Magnesium 1.8 Total Bilirubin 0.7 AST 21 ALT 12 L Alkaline Phosphatase 75 Troponin I < 0.05 Total Protein 7.5 Albumin 2.6 L Procalcitonin Urine Color Urine Clarity Urine pH Ur Specific [place] Urine Protein Urine Ketones Urine Blood Urine Nitrite Urine Bilirubin Urine Urobilinogen Ur Leukocyte Esterase Urine Glucose SARS-CoV-2 Source SARS-CoV-2 (PCR) Patient Race Patient Ethnicity Ref Test Method 04/17/20 04/17/20 04/17/20 08:15 08:15 08:45 WBC RBC Hgb Hct MCV MCH MCHC RDW Plt Count MPV Immature Gran % Neutrophils % Lymphocytes % Monocytes % Eosinophils % Basophils % Nucleated RBC % Absolute Neutrophils Absolute Lymphocytes Absolute Monocytes Absolute Eosinophils Absolute Basophils PT 11.1 H INR 1.1 APTT 28.1 H VBG Lactate Sodium Potassium Chloride Carbon Dioxide Anion Gap BUN Creatinine Estimated GFR/1.73 m2 Glucose Calcium Magnesium Total Bilirubin AST ALT Alkaline Phosphatase Troponin I Total Protein Albumin Procalcitonin < 0.1 Urine Color Urine Clarity Urine pH Ur Specific [place] Urine Protein Urine Ketones Urine Blood Urine Nitrite Urine Bilirubin Urine Urobilinogen Ur Leukocyte Esterase Urine Glucose SARS-CoV-2 Source Cancelled SARS-CoV-2 (PCR) Cancelled Patient Race Cancelled Patient Ethnicity Cancelled Ref Test Method Cancelled 04/17/20 10:05 WBC RBC Hgb Hct MCV MCH MCHC RDW Plt Count MPV Immature Gran % Neutrophils % Lymphocytes % Monocytes % Eosinophils % Basophils % Nucleated RBC % Absolute Neutrophils Absolute Lymphocytes Absolute Monocytes Absolute Eosinophils Absolute Basophils PT INR APTT VBG Lactate Sodium Potassium Chloride Carbon Dioxide Anion Gap BUN Creatinine Estimated GFR/1.73 m2 Glucose Calcium Magnesium Total Bilirubin AST ALT Alkaline Phosphatase Troponin I Total Protein Albumin Procalcitonin Urine Color Yellow Urine Clarity Clear Urine pH 5.5 Ur Specific [place] 1.010 Urine Protein Negative Urine Ketones Negative Urine Blood Negative Urine Nitrite Negative Urine Bilirubin Negative Urine Urobilinogen 0.2 Ur Leukocyte Esterase Negative Urine Glucose Negative SARS-CoV-2 Source SARS-CoV-2 (PCR) Patient Race Patient Ethnicity Ref Test Method Last Vital Signs Temp 36.8 C 04/17/20 12:10 Pulse 78 04/17/20 13:15 Resp 20 04/17/20 13:15 BP 134/69 04/17/20 12:10 Pulse Ox 98 04/17/20 13:15 COVID-19 Screening Have you, or household traveled for leisure in last 14 days?: No Had IN PERSON contact w/suspected or confirmed C-19 person: No
[2020-04-17] MEDS: Simvastatin 40 MG TAB PO (19:42)
[2020-04-17] MEDS: lamoTRIgine 100 MG TAB PO (19:42)
[2020-04-17] MEDS: Budesonide/Formoterol 160/4.5 6 GM 60 PUFF INH IH (19:43)
[2020-04-17] MEDS: Acetaminophen 325 MG TAB 650 MG PO (20:00)
[2020-04-18] VITALS (11 sets, daily range): BP systolic 126–143; BP diastolic 67; PULSE 73–87; RESP 1–24; TEMP 36.4–36.9; O2SAT 92–95
[2020-04-18] MEDS: Albuterol/Ipratropium 3 ML UPD VIAL UPD ×4 (05:05→23:19)
[2020-04-18 07:32] LABS: Abs Immature Grans 0.06 10^3/uL (0.0-0.06); Absolute Basophil Count 0.04 10^3/uL (0.0-0.2); Absolute Eosinophil Count 0.06 10^3/uL (0.0-0.7); Absolute Lymphocyte Count 2.59 10^3/uL (1.2-3.4); Absolute Monocyte Count 1.28 10^3/uL (0.1-0.8); Basophils % 0.3; Eosinophils % 0.5; HCT 42.6 % (36.0-46.0); HGB 13.7 g/dL (11.2-15.7); Immature Grans % 0.5; Lymphocytes % 20.2; MCH 27.7 pg (27.0-33.0); MCHC 32.2 % (32.0-36.0); MCV 86.1 fL (80-95); Neutrophils % 68.5; Nucleated RBC 0 %; Platelet Count 293 10^3/uL (130-400); RBC 4.95 10^6/uL (3.93-5.22); RDW 14.2 % (11.7-14.6); RDW-SD 44.6 fL; WBC 12.81 10^3/uL (4.4-10.8)
[2020-04-18 07:38] LABS: Absolute Neutrophil Count 8.77 10^3/uL (1.2-6.7)
[2020-04-18 07:46] LABS: Anion Gap 5.2 mmol/L (3-11); BUN 16 mg/dL (7-18); CO2 26.8 mmol/L (21.0-32.0); CREATININE 0.83 mg/dL (0.55-1.02); Calcium 9.1 mg/dL (8.5-10.1); Chloride 110 mmol/L (98-107); Glucose 92 mg/dL (74-106); Potassium 3.6 mmol/L (3.5-5.1); Sodium 142 mmol/L (136-145)
[2020-04-18 08:24] LABS: COVID-19 RT-PCR UVMMC Result Negative (Negative)
--- NOTE | 2020-04-18 08:26 | INITIAL_ITS ---
- If Service Date Differs Date of service: 04/18/20 Time of Service: 08:26 Care Management Initial Assess REASON FOR HOSPITALIZATION:: Pneumonia PAST MEDICAL HISTORY/PAST SURGICAL HISTORY:: Medical History . Asthma. Cerebrovascular accident. Depression. Essential hypertension. Gastroesophageal reflux disease. Hemiplegia. Hyperlipidemia. Polyp of colon. Surgical History . Cerebral aneurysm repair. PREVIOUS FUNCTIONAL STATUS/SOCIAL/FAMILY SUPPORTS:: Francie lives alone at the [facility] in [place], [place] She has [facility] highest needs through the [place] [facility] and her employment case manager is Thania Barbosa. Francie has caregivers who spend about 3 hours a day caring for her. She generally receives one hour in the morning and 2 in the evening. Francie has 3 children and 4 grandsons who are all in the area. She states they are supportive and willing to help her as time allows. Francie uses a walker and wheelchair and occasionally a quad cane. She does require assistance with ADLs which her caregivers provide. CURRENT FUNCTIONAL STATUS:: Francie was sitting up in a chair when CM met with her. She was receptive to conversation and engaged readily with CM. Francie shared that she had a cerebral aneurysm about 12 years ago that left her with left sided weakness. She required several months of hospitalization at [facility] as well as time in rehab in [place] and at [facility]. 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 ADVANCE DIRECTIVES:: none on file - in process, has forms Has patient been provided with info about the portal/API?: Yes Did the patient sign up for the portal?: Yes (previously) CODE STATUS:: Full Code INSURANCE COVERAGE / FINANCIAL ISSUES:: [facility] (Medicare repplacement) CURRENT HOME/COMMUNITY SERVICES/EQUIPMENT:: [employer]- high highest. walker, wheelchair. quadcane. caregivers 3 hours per day PRIMARY CARE PHYSICIAN:: Rolo Nieves POTENTIAL DISCHARGE NEEDS:: Follow up with PCP and discharge plan of care PATIENT/FAMILY EDUCATION NEEDS:: Discharge plan, limitations, follow up plan, Ask Me Three TRANSPORTATION:: via W/C van with RCT PLAN:: Francie will be discharged home with a resumption of caregiver services through [facility]. She may also receive PT for strengthening and conditioning. Francie will transport via w/c van with [facility] and follow up with her community providers. CM will continue to support Francie, her family and discharge planning needs.
[2020-04-18] MEDS: hydroCHLOROthiazide 12.5 MG TAB PO (08:52)
[2020-04-18] MEDS: cefTRIAXone 1 GM/50 ML BAG IVPB (08:52)
[2020-04-18] MEDS: Docusate Sodium 100 MG CAP PO ×3 (08:52→19:32)
[2020-04-18] MEDS: Aspirin E.C. 81 MG TABEC PO (08:52)
[2020-04-18] MEDS: predniSONE 20 MG TAB 40 MG PO (08:52)
[2020-04-18] MEDS: Escitalopram 10 MG TAB 5 MG PO (08:53)
[2020-04-18] MEDS: Omega-3 Fatty Acids 1000 MG CAP PO ×3 (08:53→19:32)
[2020-04-18] MEDS: Potassium Chloride 20 MEQ TABCR PO (08:53)
[2020-04-18] MEDS: lamoTRIgine 100 MG TAB 200 MG PO (08:53)
[2020-04-18] MEDS: Budesonide/Formoterol 160/4.5 6 GM 60 PUFF INH IH ×2 (09:20→19:33)
--- NOTE | 2020-04-18 09:43 | OT.INIE ---
Occupational Therapy Notes Inpatient Occupational Therapy Evaluation Date: 04/18/20 Referring Doctor: Perry Alan MD OT Orders: Non-Urgent, limited ability Precautions: Fall, standard, Full PATIENT PROFILE/ADMITTING DIAGNOSIS: Pt is a 74 year old female who presented to the ED on 04/17/20 and was admitted to Med Surg with a dx of Penumonia, mass on her (R) lung, CVA and asthma. Past Medical History: Medical History Asthma Cerebrovascular accident Depression Essential hypertension Gastroesophageal reflux disease Hemiplegia Hyperlipidemia Polyp of colon Surgical History Cerebral aneurysm repair. Social History/Home Situation: Pt reports that she lives at the [facility] which is somewhat handicap accessible. She states that she has (A) with her bathing, dressing and online communications manager. She states that she transfers to and from the wheelchair and performs everything else as much as she can (I). Equipment owned/DME: wheelchair SUBJECTIVE: Pt was sitting in bed when OT arrived and she was agreeable to OT session. OBJECTIVE: General Observation: pleasant and appropriate, slight verbal slur- not sure if this is patients baseline, IV (R) UE Mental Status: A&Ox3 Pain: no c/o pain ROM: RUE AROM WFL L UE AROM WFL STRENGTH: RUE 4/5 throughout globally LUE 4/5 throughout globally FUNCTIONAL MOBILITY/ADLS: Transfers to and from wheelchair OT went in to assess pts ADLs at todays session, pt states that she would like to hold for today and is able to demonstrate ideal ROM for performance of her ADLs. OT will continue to assess this once pt transfers to a different room and is able to access the bathroom/toilet setting. TOILETING sukumar VAUGHN in place, pt reports that she is (I) with this but is unable to fit her wheelchair into the bathroom. EATING sitting in bed (I) with eating routine. BALANCE: Static sitting Normal Dynamic Sitting Normal SPECIAL TESTS: Daily Activity Limitations Standardized Measure [facility] AM -PAC ?6 clicks? Daily Activity Inpatient Short Form: Raw score: 13 Standardized score: 32.03 CMS score: 63.03% INFORMED CONSENT/EDUCATION: Pt instructed in purpose of OT Consult and plan of care. ASSESSMENT: Patient is a 74-year-old female referred to occupational therapy services with diagnosis of pneumonia, mass (R) lung, CVA, asthma. Patient presents with clinical signs and symptoms consistent with dx, as demonstrated by the following impairment level findings/ functional limitations: Impairments in ADL/IADL and leisure activities, decreased functional activity tolerance, reports of weakness in (B) LE, decreased functional mobility required for ADLs at this time. AMPAC score 13 Patient is assessed as a Low 03935 complexity based on the following: History: see above Examination: see functional limitations as noted above Presentation: evolving Decision Making: AMPAC score 13 GOALS Goals x1 week 1. Grooming- (I) with oral hygiene and brushing hair 2. Dressing- seated position (I) UE 3. Bathing- (I) UE and mod (A) LE 4. Toileting- on toilet (I) 5. Eating- (I) PLAN OF CARE/TREATMENT PLAN: 1x/day, 5 days/ week x 1week Initiate Occupational Therapy Services for bathing, dressing, grooming, toileting, eating, transfer training. DISCHARGE RECOMMENDATIONS Based on pts current level of function, OT recommends that pt return home when medically cleared per MD vs. short term stay at SNF. OT will continue to assess pts level of function and make appropriate recommendations. TREATMENT TIME/MINUTES/CODES 07243, 20 minutes (08:25) [facility]
[2020-04-18] MEDS: DOXYCYCLINE 100 MG in Normal Saline 100 ML IVPB ×2 (09:46→21:57)
--- NOTE | 2020-04-18 09:51 | W.NUTRFU ---
Date of service: 04/18/20 Time of Service: 09:51 Nutritional Follow up NOTE: 74 year old female admitted after fall at home with PNA. PMH: CVA, asthma, HTN, HLD, also presents with lung mass. Following Heart Heatlhy Diet with adequate intake to meet nutrient and fluid needs at this time. Will continue to follow. Time Spent in Nutritional Counseling and Treatment: 0
[2020-04-18] MEDS: Refresh PLUS Eye Drops 0.4ml OP ×3 (10:48→21:59)
[2020-04-18] MEDS: Acetaminophen 325 MG TAB 650 MG PO ×2 (11:28→22:11)
--- NOTE | 2020-04-18 12:35 | PHA.REVIEW ---
Pharmacy Admission Review - Admission Clinical Review (Last Updated 04/17/20 @ 16:10 by Perry Alan MD) Pneumonia (Acute) Mass of right lung (Acute) Fever (Acute) Fall at home (Acute) Contusion of left knee (Acute) Contusion of arm, left (Acute) No Known Allergies Allergy (Unverified 04/17/20 10:35) Height 5 ft 6 in Weight 79.6 kg - Renal Dosing Renal Dosing: BUN 16 mg/dL (7-18) 04/18/20 06:58 Creatinine 0.83 mg/dL (0.55-1.02) 04/18/20 06:58 Medications needing adjustments: Reviewed - Anticoagulation Anticoagulation: Hgb 13.7 g/dL (11.2-15.7) 04/18/20 06:58 Hct 42.6 % (36.0-46.0) 04/18/20 06:58 Plt Count 293 10^3/uL (130-400) 04/18/20 06:58 INR 1.1 (0.9-1.1) 04/17/20 08:15 Creatinine 0.83 mg/dL (0.55-1.02) 04/18/20 06:58 DVT Prohphylaxis: Reviewed Medications: Enoxaparin - Opiate Usage Evaluate Pain Scale/Pains Meds: N/A - Relevant Labs Sodium 142 mmol/L (136-145) 04/18/20 06:58 Potassium 3.6 mmol/L (3.5-5.1) 04/18/20 06:58 Chloride 110 mmol/L (98-107) H 04/18/20 06:58 Magnesium 1.8 mg/dL (1.8-2.4) 04/17/20 08:15 Electrolytes, C-Reactive P, ESR: Reviewed - DM Control DM Control: Glucose 92 mg/dL (74-106) 04/18/20 06:58 Insulin Dosing: N/A - Heart Failure/UT Heart Failure/UT: Troponin I < 0.05 ng/mL (<0.06) 04/17/20 08:15 EF%, WHITLEY's, B-Blockers, Diuretics: Reviewed (HCTZ) - BP Control BP Control: Blood Pressure 135/67 If elevated: Reviewed - Qtc Review List meds needing interventions: QTc 426 - IV to PO Switch IV Medications: Reviewed - Home Meds Home Med List reviewed: Reviewed Relevent Home Meds Not ordered & why?: All ordered; Note: per external RX record lamotrigine has not been refilled since June and at that time directions were 200mg BID - Current meds Current Medication Order Review: Reviewed - Comments Comments/Follow Ups: Ceftriaxone + Doxycycline for CAP; palliative consult today
[2020-04-18] MEDS: Enoxaparin 40 MG/0.4 ML SYR SC (13:01)
--- NOTE | 2020-04-18 13:48 | W.PM.PROGNOT ---
Date of Service Date of service: 04/18/20 Time of Service: 13:48 Assessment and Plan Assessment and plan (1) Cerebrovascular accident: Status: None Assessment and plan: H/O aneurysmal bleed with Left sided residual weakness. Stable Qualifiers: Precerebral and cerebral artery: unspecified cerebral artery (2) COPD (chronic obstructive pulmonary disease): Status: Chronic Assessment and plan: CT chest showed extensive emphysematous changes. Now on Symbicort and Duonebs. PRN albuterol Prednisone 40mg daily. (3) Mass of right lung: Status: Acute Assessment and plan: CT chest sent to IR at [facility] [place] for evaluation on viability of obtaining tissue for pathology. (4) Pneumonia: Status: Acute Assessment and plan: WBC count increased from 10.94 to 12.81, but is on steroids. Cont rocephin and IV doxycycline. Supplemental O2 requirement has improved. Subjective Subjective Patient reports: no new complaints, feels better and tolerating a regular diet; denies nausea and vomiting Interval history since last seen: Cough has improved. Tm was at 0951 yesterday; 38.3 No chills. Exam Const General: cooperative and no acute distress Nutritional Appearance: overweight Orientation: alert and oriented x3 Resp Effort & Inspection: normal respiratory effort Auscultation: diminished lung sounds Cardio Rate: regular rate Rhythm: regular rhythm Heart Sounds: S1 normal and S2 normal GI Palpation: soft and nontender Auscultation: normal bowel sounds Skin General skin exam: no rashes or lesions noted Extrem General: no pedal edema and no calf tenderness Objective Last Vital Signs Temp 36.8 C 04/18/20 08:51 Pulse 77 04/18/20 12:17 Resp 20 04/18/20 12:17 BP 135/67 04/18/20 08:51 Pulse Ox 92 04/18/20 12:17 Laboratory Results - last 24 hr 04/17/20 04/18/20 04/18/20 08:45 06:58 06:58 WBC 12.81 H RBC 4.95 Hgb 13.7 Hct 42.6 MCV 86.1 MCH 27.7 MCHC 32.2 RDW 14.2 Plt Count 293 MPV 9.0 Immature Gran % 0.5 Neutrophils % 68.5 Lymphocytes % 20.2 Monocytes % 10.0 Eosinophils % 0.5 Basophils % 0.3 Nucleated RBC % 0 Absolute Neutrophils 8.77 H Absolute Lymphocytes 2.59 Absolute Monocytes 1.28 H Absolute Eosinophils 0.06 Absolute Basophils 0.04 Sodium 142 Potassium 3.6 Chloride 110 H Carbon Dioxide 26.8 Anion Gap 5.2 BUN 16 Creatinine 0.83 Estimated GFR/1.73 m2 >= 60.00 Glucose 92 Calcium 9.1 COVID-19 PCR Negative Nasopharyn COVID-19 PCR Not Applicable Ref Test Perform Site [facility]
--- NOTE | 2020-04-18 15:02 | CHAPLAIN ---
Francie was up in here chair when I visited. She told me about her three daughters and four grandsons, all of whom live nearby. It seems like her daughters are good supports for her. We did not talk about Francie's medical issues, but I will continue to visit.
--- NOTE | 2020-04-18 16:35 | IN_ITS ---
Date of service: 04/18/20 Time of Service: 16:35 PT Notes Visit Reasons: COMMUNITY ACQUIRED PNEUMONIA Physical Therapy Inpatient Initial Evaluation Date: 04/18/2020 Referring Doctor: Perry Alan MD PT Orders: PT CONSULT: Eval/treat Precautions: Fall. Standard. Activity as tolerated. L AFO and shoes on when out of bed. 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 Patient is diagnosed with pneumonia and a mass in the right lung. PMHX: Medical History Asthma Cerebrovascular accident Depression Essential hypertension Gastroesophageal reflux disease Hemiplegia Hyperlipidemia Polyp of colon Surgical History Cerebral aneurysm repair. Social History/Home Situation: Lives alone on the second floor of the [facility] in [place], [place]. Receives aide assistance one hour each day 6x/week in the mornings and has [facility] home assistants 2-3 hours everyday during the evening. Is able to self-transfer from bed to chair using a stand squat transfer without an assistive device. Requires assistance with wheelchair transport over ramp at the entrance of the building and through the elevator to her apartment with her wheelchair. Equipment Owned/DME: hospital bed, FWW, wheelchair Subjective: Pleasant and cooperative. States that she has fallen 2-3 times already in the past 12 months. In the mornings, her wheelchair is usually placed bby yht side of her bed with one brake put on and the other off so that she can pull on the wheelchair close to bed, lock it, and hold onto it to transfer. She failed to reach the other brake and the wheelchair rolled from under her causing her to fall onto the floor hitting her L arm, hip, and knee. She is hoping to find a place where she can stay in and have somebody look after her needs 09/12. Objective: General Observation: Supine in bed with HOB elevated to about 30 degrees. Mild contusion noted on bilateral knees. Mental Status: Alert and oriented x4 Pain: 8?9/10 pain in the left knee with ambulation activity ROM: Right Upper Extremity: Shoulder Flexion WFL. Shoulder abduction WFL. Elbow flexion WFL. Wrist flexion WFL. Opening and closing of hand WFL. Left Upper Extremity: Shoulder Flexion allows up to 90 degrees. Shoulder abduction allows up to 80 degrees. Elbow flexion WFL. Wrist flexion WFL. Opening and closing of hand WFL. Right Lower Extremity: Hip flexion WFL. Hip abduction WFL. Knee flexion WFL. Ankle dorsiflexion WFL. Ankle plantarflexion WFL. Left Lower Extremity: Hip flexion allows up to 80 degrees. Hip abduction allows up to 20 degrees. Knee flexion up to 80 degrees. Ankle dorsiflexion none beyond neutral. Ankle plantarflexion 10 degrees. Strength: Right Upper Extremity: Shoulder flexors 5/5. Shoulder abductors 5/5. Elbow flexors 5/5. Elbow extensors 5/5. Mess Attendant strong. Left Upper Extremity: Shoulder flexors 3-5. Shoulder abductors 4-/5. Elbow flexors 4-/5. Elbow extensors 4-/5. Mess Attendant weak but functional. Right Lower Extremity: Hip flexors 4/5. Hip abductors 4/5. Knee flexors 4/5. Knee extensors 4/5. Ankle dorsiflexors 4/5. Ankle plantarflexors 4/5. Left Lower Extremity: Hip flexors 3-/5. Hip abductors 3-/5. Knee flexors 3-/5. Knee extensors 3-/5. Ankle dorsiflexors 3-/5. Ankle plantarflexors 3-/5. Sensation: Intact as to pain and pressure on bilateral lower extremities. Bed Mobility/Transfers: Supine to sit moderate assist Sit to stand contact guard assist with FWW and with L AFO and shoes on Stand to sit contact guard assist with FWW and with L AFO and shoes on Bed to chair contact guard assist with FWW and with L AFO and shoes on. Reported 8-9/10 pain in the L knee during activity. Gait: Assisted with and guided through short distance in-room ambulation of 8 small steps from bedside to reclining chair with report of 8-9/10 pain in the L knee. Required use of FWW and cntact guard assist for safety. L AFO and shoes added considerable stability to the ankle. Step height and length decreased. Balance: Static Sitting: Good Dynamic Sitting: Good Static Standing: Fair Dynamic Standing: Fair Special Tests: Mobility Limitations Standardized Measure [facility] AM-PAC 6 clicks Basic Mobility Inpatient Short Form: Raw Score: 14 CMS Score: 61% deficit Informed Consent/Education: Patient instructed in purpose of PT consult and plan of care. Assessment: Francie demonstrates functional mobility decline requiring the use of a front wheeled walker and assistance of 1 person for all transfers and short distance ambulation, generalized weakness, decreased activity tolerance, pain in in the left knee, difficulty with walking, and increased risk for falls due to admitting diagnoses and comorbidities. Patient presents with clinical signs and symptoms consistent with current/admitting diagnoses that have resulted to mobility limitations, gait instability, generalized weakness, and impairment of motor control as demonstrated by the following impairment level findings: 1. Decreased strength to left UE/LE major muscle groups 2. Impaired sitting/standing balance 3. Impaired activity tolerance 4. Limitation of joint range of motion in left UE/LE 5. Pain in the left knee aggravated with weight bearing Impairments are contributing to the following functional limitations: 1. Dependent bed mobility skills 2. Increased dependence with transfers 3. Inability to safely ambulate without assistive device and physical as sistance 4. Increase completion time for mobility ADL performance 5. Increased fall risk 6. Inability to negotiate steps alone safely Patient is assessed as a 50624 high complexity based on the following: History: 74-year-old female with impairment level findings, functional limitations, and past medical history as indicated above Examination: Demonstrable impairment in strength, balance, and mobility level with underlying impairments and functional limitations as documented above Presentation:Evolving Decision Makin high complexity Goals: Goals X1 week 1. Supine-Sit independent using bed rails 2. Sit-Supine independent using bed rails 3. Sit-Stand independent with FWW 4. Stand-Sit independent with FWW 5. Bed-Chair independent with FWW 6. Chair-Bed independent with FWW 7. Standby assist on gait on level surface with use of front wheeled walker for at least 50 feet without report of pain nor dyspnea 8. Good static and dynamic standing balance/tolerance Plan of Care/Treatment Plan: 1-2x/day, 7 days/week x 1 week. Plan of care has been reviewed with the PRESS WRITER providing the service under Physical Therapy direction. Initiate Physical Therapy intervention for strengthening, bed mobility, transfers, gait, stairs, balance training, use of assistive device. DISCHARGE RECOMMENDATIONS: Patient will benefit from home health PT services in order to progress mobility level using front wheeled walker, assess home safety, identify additional equipment needs, and establish a functional maintenance program that will increase ability of patient to remain at home. TREATMENT CODE/TIME: 25749 x 25 minutes, 9753 0 x 12 minutes beginning at 4:35 PM. Thank you for the opportunity to participate in the care of this patient. Jayne Dickerson PT, DPT, CLT [facility] [place], [place]
[2020-04-18] MEDS: Lidocaine 5% Patch 1 PATCH TP (17:21)
[2020-04-18] MEDS: Simvastatin 40 MG TAB PO (19:32)
[2020-04-18] MEDS: lamoTRIgine 100 MG TAB PO (19:33)
--- NOTE | 2020-04-18 20:43 | W.PALLCONSUL ---
Date of service: 04/18/20 History of Present Illness History of Present Illness Chief Complaint: new diagnosis of lung mass in ex-smoker Narrative: I used to be Gerda's (Francie goes by Gerda) PCP years ago, soon after her hemorrhagic stroke in 2004 until 2012. Gerda reports that she had a cough for a couple of weeks before she came to the hospital. She has been notably weaker for about a month. It was hard for her to take a shower. She felt something must be wrong. She had a few falls. Her children became quite worried about her and started talking to her about moving out of her independent living apartment at [facility] to a community prison. They had not yet begun this search in earnest when Gerda fell again and came to the [facility] ER for evaluation. She was found to be febrile, with an elevated white count, and both a pneumonia and a new lung mass on xray. She was in bed, anxious, scared, glad to see a familiar face when I came to see her for palliative care. Consults Consult date: 04/18/20 Requesting physician: Perry Alan Assessment and Plan Assessment and plan (1) Mass of right lung: Status: Chronic Assessment and plan: We discussed the process of her getting a lung biopsy at [facility] [place] Alan was hoping she can go down to [facility] [place] and back, but usually IR can't do biopsy in this manner. Will likely be done as outpatient. Explained that biopsy will determine what kind of cancer she has--if the mass is a cancer, which it appears to be. Then the oncology team will develop a plan, which could include radiation and/or chemo and/or immunotherapy. She definitely wants to proceed with treatment. Despite her stroke and hemiparesis, her QOL is good. She is happy to be alive and wants to continue living. (2) Frequent falls: Status: Chronic Assessment and plan: Gerda reports that she's been falling for the last 2 months, 1-2 x per week. She knew that this meant something was going on. Not losing weight, just weaker. (3) Goals of care, counseling/discussion: Status: Acute Assessment and plan: We did not discuss COLST/CODE STATUS or other bigger issues today. Just focused on her wishes around her lung mass. She does want a full workup and is willing to undergo treatment that will extend her life, as long as the trade-off aren't too serious. (4) Palliative care patient: Status: Chronic Assessment and plan: Will continue to follow. Note that I did try to reach her daughter Vimal (who is her health care agent) ericka, at [phone]. No answer. Left a message. (5) COPD (chronic obstructive pulmonary disease): Status: Chronic Assessment and plan: Used to smoke heavily from age [age]. No surprise at this diagnosis. Dr Alan started her on an inhaler. May qualify for home oxygen at discharge due to this dx, her lung cancer, and hypoxia on room air. (6) Pneumonia: Status: Acute Assessment and plan: on ceftraixone and doxycycline responding to tx was initially on 4L of oxygen, now down to 2 L. No longer febrile. Defer to hospitalist for length of treatment and d/c planning. Review of Systems Constitutional Constitutional: Reports fatigue, Reports fever(s), Reports frequent falls, Reports lethargy and Reports weakness Eyes Eyes: Reports requires corrective lenses ENT Ears, Nose, Mouth, and Throat: Reports dry mouth and Reports disequilibrium Cardiovascular Cardiovascular: Reports dyspnea and Reports dyspnea on exertion Respiratory Respiratory: Reports cough, Denies hemoptysis, Reports dyspnea and Reports dyspnea on exertion Gastrointestinal Gastrointestinal: Reports constipation and Reports early satiety Genitourinary Genitourinary: Reports urinary incontinence Musculoskeletal Musculoskeletal: Reports abnormal gait (in a wheelchair nearly all the time since her stroke), Reports atrophy and Reports muscle weakness Integumentary/Breasts Skin/Breast: Reports dry skin Neurologic Neurologic: Reports abnormal gait (in a wheelchair nearly all the time since her stroke), Reports frequent falls, Reports disequilibrium and Reports weakness Comments: Has residual deficits since her stroke Psychiatric Psychiatric: Reports anxiety and Reports difficulty concentrating Endocrine Endocrine: Reports fatigue Hematologic/Lymphatic Hematologic/Lymphatic: Reports easy bruising [facility] Medical History (Updated 04/18/20 @ 21:18 by Carmen Clifton MD) Asthma Cerebrovascular accident Depression Essential hypertension Frequent falls Gastroesophageal reflux disease Goals of care, counseling/discussion Hemiplegia History of hemorrhagic stroke with residual hemiparesis History of smoking 25-50 pack years Hyperlipidemia Palliative care patient Polyp of colon Wheelchair bound Surgical History Cerebral aneurysm repair. Family History (Updated 04/18/20 @ 20:56 by Carmen Clifton MD) Mother Personal history of malignant neoplasm colon cancer Father Heart disease Daughter No problems noted. Daughter No problems noted. Daughter No problems noted. Social History (Updated 04/18/20 @ 21:01 by Carmen Clifton MD) Smoking/Tobacco Use Status: Former Tobacco Use Tobacco: How many years used: 40 Smoking risk assessment performed?: Yes Alcohol Intake: never Drug use: Never Substance use type: does not use Caregiver/Support person: No Household members: none Housing: apartment Number of Children: 3 number of grandchildren: 4 Communication Needs: Corrective Lenses Education Level: high school Do you need help understanding health information?: Always current occupation: disabled since stroke age 59 Sexually active: No Current gender identity: female What is your relationship status?: How often do you talk on the phone with friends or family?: three or more times per week How often do you get together with friends or relatives?: never Panel score (0-1 are the most socially isolated patients): 1 What type of physical activity do you participate in: occasional exercise and wheelchair-bound Duration: 15-30 minutes/day Frequency: 3-4 times per week Special jac needs: No Seatbelt use: always Working smoke detector in home: Yes Fire extinguisher in home: Yes Do you feel safe at home: Yes Do you feel safe in your relationship?: Yes Additional Social history: Gerda and her late ex- Ismael after her stroke. He then of cancer soon thereafter. Gerda has 3 daughters, all of whom she is close to. Vimal, her eldest, is her DPOA. She has 4 grandsons, too. She is very proud of all of them. She has not smoked since her stroke. She lives at the [facility]. Her daughters have talked to her about moving into a place with 24/7 care, such as a community prison or SNF or Assisted Living. She has not investigated this seriously yet but now facing her likely new cancer diagnosis, she wants more help. Exam Const General: cooperative and anxious Nutritional Appearance: overweight Orientation: alert, awake and oriented x3 HENMT Head: normocephalic and atraumatic Ears: hearing grossly normal bilaterally General nose exam: external nose normal Face and sinus: normal facial exam and face symmetric Eyes Conjunctivae: conjunctivae normal Sclera: sclerae normal Neck Neck: no lymphadenopathy and no JVD Resp Effort & Inspection: normal respiratory effort, able to speak in complete sentences, not labored and other (feels better wearing her oxygen; 92% on 2 L, was 85% on RA) Auscultation: diminished lung sounds Cardio Jugular venous pressure: no JVD Rate: regular rate Rhythm: regular rhythm Heart Sounds: S1 normal and S2 normal GI Inspection: normal to inspection Palpation: soft Auscultation: normal bowel sounds Skin General skin exam: ecchymosis and pallor Lesions: no lesions Rashes: no rashes Trauma: abrasion Nails: clubbing Neuro General: patient alert, patient awake and patient oriented x3 Cognition: normal cognition Speech: speech normal (slight expressive aphasia) Gait: gait assisted Method: wheelchair bound Motor: muscle tone abnormal and strength abnormal Results Last Vital Signs Temp 98.4 F 04/18/20 16:14 Pulse 87 04/18/20 18:21 Resp 20 04/18/20 18:21 BP 143/67 H 04/18/20 16:14 Pulse Ox 95 04/18/20 18:21 Labs Result diagrams: 04/18/20 06:58 04/18/20 06:58 Labs: Laboratory Results - last 24 hr 04/17/20 04/18/20 04/18/20 08:45 06:58 06:58 WBC 12.81 H RBC 4.95 Hgb 13.7 Hct 42.6 MCV 86.1 MCH 27.7 MCHC 32.2 RDW 14.2 Plt Count 293 MPV 9.0 Immature Gran % 0.5 Neutrophils % 68.5 Lymphocytes % 20.2 Monocytes % 10.0 Eosinophils % 0.5 Basophils % 0.3 Nucleated RBC % 0 Absolute Neutrophils 8.77 H Absolute Lymphocytes 2.59 Absolute Monocytes 1.28 H Absolute Eosinophils 0.06 Absolute Basophils 0.04 Sodium 142 Potassium 3.6 Chloride 110 H Carbon Dioxide 26.8 Anion Gap 5.2 BUN 16 Creatinine 0.83 Estimated GFR/1.73 m2 >= 60.00 Glucose 92 Calcium 9.1 COVID-19 PCR Negative Nasopharyn COVID-19 PCR Not Applicable Ref Test Perform Site [facility]
[2020-04-18] MEDS: Normal Saline Flush 10 ML SYR IVP (21:59)
[2020-04-19] VITALS (13 sets, daily range): BP systolic 123–146; BP diastolic 61–78; PULSE 79–103; RESP 2–24; TEMP 36.4–36.6; O2SAT 83–93
[2020-04-19] MEDS: Albuterol/Ipratropium 3 ML UPD VIAL UPD ×3 (05:41→18:12)
[2020-04-19] MEDS: Budesonide/Formoterol 160/4.5 6 GM 60 PUFF INH IH ×2 (08:00→19:47)
[2020-04-19] MEDS: cefTRIAXone 1 GM/50 ML BAG IVPB (08:02)
--- NOTE | 2020-04-19 08:05 | OT.INTREAT ---
Date of service: 04/19/20 Time of Service: 07:45 Occupational Therapy Notes Occupational Therapy Inpatient Treatment Note Date: 04/19/20 PRECAUTIONS: Fall, Standard, full SUBJECTIVE: Pt was sitting in bed when OT arrived. She was agreeable to OT session and notes that she would like to get washed up today. She reports that she would be interested in a shower although doesn't want to perform this till later. She is agreeable to OT session. OBJECTIVE: PAIN:c/o (B) knee pain FUNCTIONAL MOBILITY Rolling L/R: (I) Supine-sit: (I) with (B) UE reach and grab to railings on bed Sit-supine: (I) BATHING: sitting in bed with max (A) set up/clean up Upper Body: (I) face, (B) UE and abdomen, max (A) back Lower Body: (I) linda area, max (A) (B) LE DRESSING: sitting in bed Upper Extremity: min (A) don and doffing [facility] gown Lower Extremity: Max (A) don and doffing (B) socks at this time. GROOMING: sitting in bed (I) with brushing hair ASSESSMENT/PLAN: Pt was an active participant in todays session. She was able to perform with increased (I) but continues to report weakness and fatigue throughout session. She is unable to access the bathroom as her wheelchair will not fit, however she said she would be switching rooms soon. OT will continue to work with pt towards goals established at initial evaluation. TREATMENT CODES/TIME: 37015, 15 minutes (07:45) [facility]
[2020-04-19] MEDS: Polyethylene Glycol 3350 17 GM PACKET PO (08:08)
[2020-04-19] MEDS: Potassium Chloride 20 MEQ TABCR PO (08:09)
[2020-04-19] MEDS: Escitalopram 10 MG TAB 5 MG PO (08:09)
[2020-04-19] MEDS: Docusate Sodium 100 MG CAP PO ×3 (08:09→19:47)
[2020-04-19] MEDS: Omega-3 Fatty Acids 1000 MG CAP PO ×3 (08:10→19:47)
[2020-04-19] MEDS: Aspirin E.C. 81 MG TABEC PO (08:10)
[2020-04-19] MEDS: lamoTRIgine 100 MG TAB 200 MG PO (08:11)
[2020-04-19] MEDS: predniSONE 20 MG TAB 40 MG PO (08:12)
[2020-04-19] MEDS: hydroCHLOROthiazide 12.5 MG TAB PO (08:13)
[2020-04-19] MEDS: Normal Saline Flush 10 ML SYR IVP ×4 (08:13→21:25)
[2020-04-19 09:42] LABS: Abs Immature Grans 0.06 10^3/uL (0.0-0.06); Absolute Eosinophil Count 0.21 10^3/uL (0.0-0.7); Absolute Lymphocyte Count 2.31 10^3/uL (1.2-3.4); Absolute Monocyte Count 1.01 10^3/uL (0.1-0.8); Absolute Neutrophil Count 7.62 10^3/uL (1.2-6.7); Basophils % 0.4; Eosinophils % 1.9; HCT 44.6 % (36.0-46.0); HGB 13.9 g/dL (11.2-15.7); Immature Grans % 0.5; Lymphocytes % 20.5; MCH 27.5 pg (27.0-33.0); MCHC 31.2 % (32.0-36.0); MCV 88.1 fL (80-95); MPV 8.7 fL (8.0-11.0); Neutrophils % 67.7; Nucleated RBC 0 %; Platelet Count 308 10^3/uL (130-400); RBC 5.06 10^6/uL (3.93-5.22); RDW 14.3 % (11.7-14.6); RDW-SD 45.8 fL; WBC 11.25 10^3/uL (4.4-10.8)
[2020-04-19] MEDS: DOXYCYCLINE 100 MG in Normal Saline 100 ML IVPB ×2 (09:45→21:25)
[2020-04-19 10:00] LABS: Absolute Basophil Count 0.05 10^3/uL (0.0-0.2)
[2020-04-19] MEDS: Enoxaparin 40 MG/0.4 ML SYR SC (11:39)
[2020-04-19] MEDS: guaiFENesin 600 MG TABCR PO ×2 (11:39→19:47)
--- NOTE | 2020-04-19 13:25 | W.PM.PROGNOT ---
Date of Service Date of service: 04/19/20 Time of Service: 13:26 Assessment and Plan Assessment and plan (1) Frequent falls: Status: Chronic Assessment and plan: Most recent falls were mechanical. PT working with patient and would benefit from further PT upon d/c. (2) History of hemorrhagic stroke with residual hemiparesis: Status: Acute Assessment and plan: PT/OT (3) COPD (chronic obstructive pulmonary disease): Status: Chronic Assessment and plan: LIkely with exacerbation; improving Now on Symbicort and scheduled Duonebs. Prednsione 40mg daily. Now on supplemental O2. Not on at home. (4) Pneumonia: Status: Acute Assessment and plan: Modest WBC count elevation; could be steroid effect. On Rocephin and doxycyclne. Change to oral antibiotic, possibly, tomorrow. (5) Mass of right lung: Status: Chronic Assessment and plan: Planning outpt evaluation, biopsy. Subjective Subjective Patient reports: no new complaints, tolerating a regular diet, shortness of breath (with exertion) and afebrile Exam Const General: cooperative and no acute distress Nutritional Appearance: overweight Orientation: alert and oriented x3 Resp Effort & Inspection: normal respiratory effort Auscultation: crackles on the right at the base and diminished lung sounds bilaterally in the lower lung west Cardio Rate: regular rate Rhythm: regular rhythm Heart Sounds: S1 normal and S2 normal Extrem General: no pedal edema and no calf tenderness Objective Last Vital Signs Temp 36.5 C 04/19/20 07:06 Pulse 102 H 04/19/20 11:08 Resp 24 04/19/20 11:31 BP 146/78 H 04/19/20 07:06 Pulse Ox 88 L 04/19/20 11:31 Laboratory Results - last 24 hr 04/19/20 09:25 WBC 11.25 H RBC 5.06 Hgb 13.9 Hct 44.6 MCV 88.1 MCH 27.5 MCHC 31.2 L RDW 14.3 Plt Count 308 MPV 8.7 Immature Gran % 0.5 Neutrophils % 67.7 Lymphocytes % 20.5 Monocytes % 9.0 Eosinophils % 1.9 Basophils % 0.4 Nucleated RBC % 0 Absolute Neutrophils 7.62 H Absolute Lymphocytes 2.31 Absolute Monocytes 1.01 H Absolute Eosinophils 0.21 Absolute Basophils 0.05
--- NOTE | 2020-04-19 13:56 | CMPROGNOTE_ITS ---
- If Service Date Differs Date of service: 04/19/20 Time of Service: 13:56 Care Management Progress Note S/O:Francie was sitting up in bed when CM met with her. Dr. Clifton was also present and raised the issue of placement post hospitalization. Per provider, Karlene, one of Francie's daughters, indicated that she felt Francie was no longer safe at home without 24/7 caregivers and was hoping that she could be placed in a SNF for short term rehab then emt intermediate care. Francie currently has [facility] and has caregivers for [address] Clifton advised that SNF placement during the time of Covid can be problematic and suggested that she return home. Francie agreed but then later shared with CM that she would prefer to go to an [facility] home or have 24/7 care givers with her. CM informed her that those would be longer term plans and that she will likely be ready for discharge in a day or 2. PT has indicated that based on their assessment she would be safe to return home with the support that she has. CM contacted Phoebe Barbosa Francie's case hardener through [facility] and advised her of Francie and Karlene's concerns and Phoebe indicated that she would begin the process of investigating alternative living situations for her. A: Francie is a 74 year old woman admitted on 04/17/20 with community acquired pneumonia P:Francie will likely be discharged home with a resumption of caregiver services through [facility]. She may also receive PT for strengthening and conditioning. Francie will transport via w/c van with [facility] and follow up with her community providers. CM will continue to support Francie, her family and discharge planning needs.
[2020-04-19] MEDS: Refresh PLUS Eye Drops 0.4ml OP (15:08)
--- NOTE | 2020-04-19 15:23 | PT.INTREAT ---
Date of service: 04/19/20 Time of Service: 15:23 PT Notes Visit Reasons: COMMUNITY ACQUIRED PNEUMONIA Physical Therapy Inpatient Treatment Note Date: 04/19/2020 Precautions: Fall. Standard. Activity as tolerated. L AFO and shoes on when out of bed. Subjective: Highly anxious about going home and being alone for several hours each day. She hopes to find a place where she can have 24/7 care. Agreeable to session in morning and afternoon. Complained of less pain in L knee. Indicates that today her L leg has turned in more. Patient clarifies that this leg has this tendency even before. Compained of mild to moderate shortness of breath with ambulation activity. Objective: General Observation: RT Ceballos and CRISTHIAN Grace starting with gait oximetry in hallway when PT sawpatient Mental Status: Alert and oriented x4 Pain: 5/10 pain in the left knee with ambulation activity Bed Mobility/Transfers: Supine to sit moderate assist Sit to stand minimal assist from wheelchair with FWW and with L AFO and shoes on Stand to sit contact guard assist with FWW and with L AFO and shoes on Bed to chair minimal assist with FWW and with L AFO and shoes on Gait: Assisted with and guided through level surface ambulation of 40 feet +80 feet in the morning and 40 feet +40 feet +100 feet in the afternoon. Left rotation noticeable and limiting stability of walking. Decreased left knee flexion. Verbal cueing provided to maximize walker management to minimize left LE from hitting the left hind leg of the walker. Patient is on 2 to 4 L of oxygen per minute throughout ambulation with oxygen saturation high of 94% and low of 82% in the morning and 84% and 95% in the afternoon. Morning session gait oximetry was done with RT Ceballos and CRISTHIAN Grace. Balance: Static Sitting: Good Dynamic Sitting: Good Static Standing: Fair Dynamic Standing: Fair Assessment: Francie is anxious about being alone for the majority of the day at home. She does not feel safe to go home at this time even with previous support in place. She is agreeable to continued PT work so she can regain independence with transfers, increase her activity tolerance to improve her breathing, and decreasing her risk for falls at this hospital. DISCHARGE RECOMMENDATIONS: Patient will benefit from [facility] placement for continued skilled physical therapy services in order to progress mobility level, strength, and balance in preparation for a safe discharge to home. TREATMENT CODE/TIME: Session 1??[id number] x 27 minutes beginning at 10:28 AM. Session 2??[id number] x 39 minutes beginning at 1520 3 PM.
--- NOTE | 2020-04-19 16:27 | PGE_ITS ---
Date of Service Date of service: 04/19/20 Time of Service: 16:27 Assessment and Plan Assessment and plan (1) Frequent falls: Status: Chronic Assessment and plan: Questionably progressive weakness per daughter. She is opposed to SNF for rehab. Discussing home with home health and increased services, including PT/OT. Care Management involved. (2) Palliative care patient: Status: Chronic Assessment and plan: Dr Clifton consult appreciated. (3) History of hemorrhagic stroke with residual hemiparesis: Status: Acute Assessment and plan: PT/OT (4) COPD (chronic obstructive pulmonary disease): Status: Chronic Assessment and plan: Likely exacerbation Was not on medications for COPD at home. Now on Symbicort, Duonebs, prednisone. Supplemental O2 currently required. (5) Mass of right lung: Status: Chronic Assessment and plan: Planning outpt biopsy; likely with IR at [facility] (6) Pneumonia: Status: Acute Assessment and plan: On Ceftriaxone and Doxycycline. Planning to change to oral antibiotics tomorrow. Subjective Subjective Patient reports: feels better, shortness of breath and afebrile; denies diarrhea, nausea and vomiting Interval history since last seen: Cough with occasional sputum. No CP. Exam Const General: cooperative and no acute distress Nutritional Appearance: overweight Orientation: alert and oriented x3 Resp Effort & Inspection: normal respiratory effort Auscultation: crackles on the right at the base and diminished lung sounds Cardio Rate: regular rate Rhythm: regular rhythm Heart Sounds: S1 normal and S2 normal GI Palpation: soft and nontender Auscultation: normal bowel sounds Neuro General: patient alert and moves all extremities (Left sided weakness) Speech: abnormal speech (dysarthria but intelligable.) Extrem General: no pedal edema and no calf tenderness Objective Last Vital Signs Temp 36.6 C 04/19/20 15:06 Pulse 89 04/19/20 15:06 Resp 17 04/19/20 15:06 BP 123/61 04/19/20 15:06 Pulse Ox 91 L 04/19/20 15:06 Laboratory Results - last 24 hr 04/19/20 09:25 WBC 11.25 H RBC 5.06 Hgb 13.9 Hct 44.6 MCV 88.1 MCH 27.5 MCHC 31.2 L RDW 14.3 Plt Count 308 MPV 8.7 Immature Gran % 0.5 Neutrophils % 67.7 Lymphocytes % 20.5 Monocytes % 9.0 Eosinophils % 1.9 Basophils % 0.4 Nucleated RBC % 0 Absolute Neutrophils 7.62 H Absolute Lymphocytes 2.31 Absolute Monocytes 1.01 H Absolute Eosinophils 0.21 Absolute Basophils 0.05
[2020-04-19] MEDS: Acetaminophen 325 MG TAB 650 MG PO (18:45)
[2020-04-19] MEDS: lamoTRIgine 100 MG TAB PO (19:48)
[2020-04-19] MEDS: Simvastatin 40 MG TAB PO (19:48)
--- NOTE | 2020-04-19 20:10 | W.PALPGNOTE ---
Date of service: 04/19/20 Assessment and Plan Assessment and plan (1) Goals of care, counseling/discussion: Status: Acute Assessment and plan: She is not feeling safe to go home alone. Daughters agree she needs more care. She would prefer to stay at [facility] on swing bed, if possible. Care management aware. Long-term, she would do better in a community detention than in a SNF, at least for now. Too isolating at a SNF. (2) Frequent falls: Status: Chronic Assessment and plan: Unclear how often she is falling. Spoke to PT and they say they can keep her on Swing bed for REHAB. She has concrete goals she can work on. Has been in her WC 95%+ since July 2004, when she had her hemorrhagic stroke. (3) Mass of right lung: Status: Chronic Assessment and plan: Suspicious for cancer. Gerda is VERY afraid of this. Ex-, Ismael, of cancer a few years ago. He had a hard course. She's worried she's facing the same. Advised that many newer treatments for lung cancer, for which she may be eligible. One step at a time. (4) Oxygen dependent: Status: Acute Assessment and plan: Not sure if temporary or permanent. Has not been as active last 6+ months since [facility] shut down [facility]. She was unaware that she had COPD until recent CT Scan of lungs. Not surprising given her smoking history. Ex- was also a very heavy smoker. (5) Lung cancer: Status: Suspected Assessment and plan: Not definite yet. Will have biopsy. Wants to be aggressive in her cancer care. Subjective Subjective Patient reports: no new complaints Interval history since last seen: Gerda has decided she will definitely get a biopsy as an outpatient. Dr Alan has helped arrange an outpt visit with [facility]. She is very worried about returning home. She feels anxious about living alone now. She lives in the [facility] and has caregivers for 3-4 hrs per day, but she would like 24/7 caregivers available. Explained that this can take a while to set up. She has not had any hemoptysis. No weight loss. She has fallen more than she reported initially. Daughter Vimal very worried about recurrent falls. She says she has no energy. The oxygen is helping her feel better. She was only 85% on RA and is 92% on 2L. Exam Const General: cooperative and no acute distress Nutritional Appearance: overweight Orientation: alert and oriented x3 Resp Effort & Inspection: normal respiratory effort Auscultation: clear to auscultation bilaterally Cardio Rate: regular rate Rhythm: regular rhythm Heart Sounds: S1 normal and S2 normal Skin General skin exam: no rashes or lesions noted Extrem General: no pedal edema and no calf tenderness Objective Last Vital Signs Temp 97.5 F L 04/19/20 19:28 Pulse 96 H 04/19/20 19:28 Resp 18 04/19/20 19:28 BP 129/75 04/19/20 19:28 Pulse Ox 89 L 04/19/20 19:28 Laboratory Results - last 24 hr 04/19/20 09:25 WBC 11.25 H RBC 5.06 Hgb 13.9 Hct 44.6 MCV 88.1 MCH 27.5 MCHC 31.2 L RDW 14.3 Plt Count 308 MPV 8.7 Immature Gran % 0.5 Neutrophils % 67.7 Lymphocytes % 20.5 Monocytes % 9.0 Eosinophils % 1.9 Basophils % 0.4 Nucleated RBC % 0 Absolute Neutrophils 7.62 H Absolute Lymphocytes 2.31 Absolute Monocytes 1.01 H Absolute Eosinophils 0.21 Absolute Basophils 0.05
[2020-04-20] VITALS (13 sets, daily range): BP systolic 136–157; BP diastolic 71–78; PULSE 66–89; RESP 8–19; TEMP 36–36.9; O2SAT 88–99
[2020-04-20] MEDS: Albuterol/Ipratropium 3 ML UPD VIAL UPD ×4 (01:02→18:03)
[2020-04-20] MEDS: Budesonide/Formoterol 160/4.5 6 GM 60 PUFF INH IH ×2 (07:42→19:55)
[2020-04-20] MEDS: Docusate Sodium 100 MG CAP PO ×3 (08:35→19:53)
[2020-04-20] MEDS: guaiFENesin 600 MG TABCR PO ×2 (08:35→19:54)
[2020-04-20] MEDS: cefTRIAXone 1 GM/50 ML BAG IVPB (08:35)
[2020-04-20] MEDS: Omega-3 Fatty Acids 1000 MG CAP PO ×3 (08:35→19:53)
[2020-04-20] MEDS: Polyethylene Glycol 3350 17 GM PACKET PO (08:35)
[2020-04-20] MEDS: hydroCHLOROthiazide 12.5 MG TAB PO (08:35)
[2020-04-20] MEDS: Escitalopram 10 MG TAB 5 MG PO (08:35)
[2020-04-20] MEDS: lamoTRIgine 100 MG TAB 200 MG PO (08:35)
[2020-04-20] MEDS: Aspirin E.C. 81 MG TABEC PO (08:35)
[2020-04-20] MEDS: predniSONE 20 MG TAB 40 MG PO (08:35)
[2020-04-20] MEDS: Potassium Chloride 20 MEQ TABCR PO (08:44)
--- NOTE | 2020-04-20 09:30 | OT.INNT ---
Date of service: 04/20/20 Time of Service: 09:10 Occupational Therapy Notes 04/20/20 OT attempted to see pt, and pt states that she would like to hold till later this afternoon. She was speaking with MD when OT arrived and notes that she is nervous about the next step for her biopsy and that they are getting ready to place an IV into her (R) UE so she wants to hold for today. She states that she would like to resume services tomorrow. Camille Toscano, OTR/[facility] [place]
--- NOTE | 2020-04-20 11:02 | RESPIRATORY ---
RT accompanied PT during exercise walk today to monitor for O2 needs and possible changes. Resting on RA, pt's vitals were SpO2 87%, HR 85, RR 18, RT titrated up to 1L O2. Resting on 1L pt's vitals were SpO2 91%, HR 88, RR 16. We walked with the pt from her room to the nurses station and back with 2 breaks total. During this walk, the pt's O2 needs rapidly increased from 1L to 6L to maintain SpO2 >89%. RT used both the finger probe and the ear probe for comparison and confirmation of this. Compared to the previous day's exercise oximetry test and report from fellow RT, the pt does not appear to have progressed.
--- NOTE | 2020-04-20 12:06 | PDOC.CMPRO ---
- If Service Date Differs Date of service: 04/20/20 Time of Service: 12:06 Care Management Progress Note S/O: Francie was sitting up in a chair when CM met with her. She seemed anxious and distracted and shared that she is really worried that she has lung cancer. She noted that both Dr. Clifton and Dr. Alan have told her that the mass on her chest XRAY is suspicious for cancer and she is really starting to believe it is. She again asserted that she does not want to go home alone because she is afraid. When asked what she is afraid of, she said cancer and falling. At Francie's request, CM again called her daughter Karlene to update her. Karlene noted that Francie is anxious as well. She has instructed her Mom to call one of the 3 girls (her daughters) if she is feeling frightened and/or needs to talk to someone. Dr. Alan is waiting to hear from [facility] re: possible down and back for a lung biopsy to be done in IR. A: Francie is a 74 year old woman admitted on 04/17/20 with community acquired pneumonia P:Francie will likely be discharged home with a resumption of caregiver services through [facility]. She may also receive PT for strengthening and conditioning. Francie will transport via w/c van with [facility] and follow up with her community providers. CM will continue to support Francie, her family and discharge planning needs.
[2020-04-20] MEDS: Acetaminophen 325 MG TAB 650 MG PO (12:33)
[2020-04-20] MEDS: DOXYCYCLINE 100 MG in Normal Saline 100 ML IVPB (12:33)
[2020-04-20] MEDS: Enoxaparin 40 MG/0.4 ML SYR SC (12:33)
--- NOTE | 2020-04-20 12:36 | PGE_ITS ---
Date of Service Date of service: 04/20/20 Time of Service: 10:36 Assessment and Plan Assessment and plan (1) COPD (chronic obstructive pulmonary disease): Status: Chronic Assessment and plan: No previous use of supplemental O2. Now on 2-3 liters Cont Symbicort (previously on Advair at home), Duonebs, Prednisone. (2) Mass of right lung: Status: Chronic Assessment and plan: Her information was sent to [facility] for evaluation by Interventional Radiology. My goal would be for her to go to [facility] for bx of lung mass and return here. (3) Pneumonia: Status: Acute Assessment and plan: Not clear of whether pneumonia is present or not. Change to oral antibiotic. (4) Acute respiratory failure: Status: Acute Assessment and plan: Related to COPD and likely the new findings of lung masses. Titrate supplemental O2 to maintain saturations above 89%. Subjective Subjective Patient reports: tolerating a regular diet and afebrile Interval history since last seen: Ongoing cough but improving. + sputum; character of sputum not known. Pt does look at the sputum C/O left mid back discomfort. Exam Const General: cooperative and no acute distress Nutritional Appearance: overweight Orientation: alert and oriented x3 Resp Effort & Inspection: normal respiratory effort Auscultation: clear to auscultation bilaterally Cardio Rate: regular rate Rhythm: regular rhythm Heart Sounds: S1 normal and S2 normal Skin General skin exam: no rashes or lesions noted Extrem General: no pedal edema and no calf tenderness Objective Last Vital Signs Temp 36.4 C L 04/20/20 11:40 Pulse 89 04/20/20 11:40 Resp 18 04/20/20 11:40 BP 136/71 04/20/20 11:40 Pulse Ox 94 04/20/20 11:40
[2020-04-20] MEDS: Ketorolac 30 MG/ML VIAL IVP (12:40)
--- NOTE | 2020-04-20 15:36 | PT.INTREAT ---
Date of service: 04/20/20 Time of Service: 10:20 PT Notes Visit Reasons: COMMUNITY ACQUIRED PNEUMONIA Inpatient Physical Therapy Treatment Note [facility] Date: 04/20/2020 PRECAUTIONS: Fall, L AFO SUBJECTIVE: Francie is pleasant and agreeable to participating in PT. She reports that she woke up with rib pain this morning, and that is limiting her mobility. She also reports that her L foot is turning in during gait training more than at baseline. OBJECTIVE: PAIN: Patient complained of L rib pain with activity and coughing BED MOBILITY/TRANSFERS Sit-stand: Min a Stand-sit: CGA GAIT Assistive Device: FWW Weight bearing: Full Assist: CGA Distance: 60' x2 in a.m.; 120' in p.m. Deviation: Seated rest x1, c/o L leg turning in, tactile cues for FWW mechanics in a.m.; c/o feeling hot, c/o L foot turning in TOILETING: Patient toileted with SBA for transfers, utilized rail on wall to transfer without physical assist WHEELCHAIR MOBILITY: Patient performed self-propulsion of personal wheelchair x10' in room without assist. ASSESSMENT: Patient tolerated a progression in gait distance utilizing FWW support with CGA. She would benefit from continued gait training as well as global strengthening for overall improved mobility and activity tolerance. PLAN: Continue with global strengthening as well as gait and transfer training TREATMENT CODE/TIME: Session 1: 25 minutes; [id number] x2 Session 2: 20 minutes; [id number]
[2020-04-20] MEDS: Refresh PLUS Eye Drops 0.4ml OP (16:14)
--- NOTE | 2020-04-20 18:30 | NUR.NOTE ---
Nursing Note: Per Balbir, RT, pt. was titrated from 2L of oxygen to 1L of oxygen via nasal cannula at this time. Per RT, pt.'s oxygen saturation is 92 percent on 1L of oxygen. Per RT, pt. has a history of COPD, and this oxygen saturation level is fine. Oxygen saturation checked on pt.'s left ear lobe. Primary RN notified. RN will reassess as necessary.
[2020-04-20] MEDS: Simvastatin 40 MG TAB PO (19:53)
[2020-04-20] MEDS: Amoxicillin 875/Clav. 125 TAB PO (19:54)
[2020-04-20] MEDS: lamoTRIgine 100 MG TAB PO (19:54)
[2020-04-21] VITALS (11 sets, daily range): BP systolic 130–172; BP diastolic 55–76; PULSE 78–87; RESP 2–20; TEMP 36.1–36.7; O2SAT 86–98
[2020-04-21] MEDS: Albuterol/Ipratropium 3 ML UPD VIAL UPD ×5 (00:30→23:50)
[2020-04-21] MEDS: Acetaminophen 325 MG TAB 650 MG PO (05:11)
[2020-04-21 06:44] LABS: HCT 45.9 % (36.0-46.0); HGB 14.3 g/dL (11.2-15.7); MCH 27.4 pg (27.0-33.0); MCHC 31.2 % (32.0-36.0); MCV 87.9 fL (80-95); MPV 8.7 fL (8.0-11.0); Platelet Count 317 10^3/uL (130-400); RBC 5.22 10^6/uL (3.93-5.22); RDW 14.3 % (11.7-14.6); RDW-SD 46.1 fL; WBC 11.27 10^3/uL (4.4-10.8)
--- NOTE | 2020-04-21 07:55 | OTTR_ITS ---
Date of service: 04/21/20 Time of Service: 07:05 Occupational Therapy Notes Occupational Therapy Inpatient Treatment Note Date: 04/21/20 PRECAUTIONS: Fall, Standard, Full SUBJECTIVE: Pt was lying in bed when OT arrived. She has c/o pain in her (R) ribs/back which she states has been worse since last night. OBJECTIVE: PAIN:9/10 pain in (R) back FUNCTIONAL MOBILITY Rolling L/R: (I) Supine-sit: Min (A) Sit-stand: Mod (A) Stand-sit: Mod (A) Bed-Chair: FWW CGA, Stand pivot to wheel chair then (I) in WC BATHING: sitting at sink in wheelchair with max (A) Set up/clean up Upper Body: (I) face, (B) UE and abdomen, max (A) back Lower Body: (I) (B) LE to knees, max (A) below knees DRESSING: sitting in wheelchair at sink Upper Extremity: Min (A) don and doffing hopsital gown Lower Extremity: Sitting on side of the bed max (A) don and doffing (B) sneakers with brace on (L) LE. GROOMING: sitting at the sink in wheelchair (I) with brushing teeth, and (I) with brushing hair TOILETING: Device: commode Assist: min (A) ASSESSMENT/PLAN: Pt was able to perform her functional activities and ADL routines with increased (I). She is progressing well with increased functional activity tolerance. And is able to tolerate her ADLs well. TREATMENT CODES/TIME: [id number], 45 minutes (07:05) Camille Toscano OTR/[facility]
[2020-04-21] MEDS: Budesonide/Formoterol 160/4.5 6 GM 60 PUFF INH IH ×2 (08:03→19:39)
[2020-04-21] MEDS: hydroCHLOROthiazide 12.5 MG TAB PO (08:57)
[2020-04-21] MEDS: Polyethylene Glycol 3350 17 GM PACKET PO (08:57)
[2020-04-21] MEDS: Amoxicillin 875/Clav. 125 TAB PO ×2 (08:57→19:39)
[2020-04-21] MEDS: guaiFENesin 600 MG TABCR PO ×2 (08:57→19:39)
[2020-04-21] MEDS: Docusate Sodium 100 MG CAP PO ×3 (08:57→19:39)
[2020-04-21] MEDS: Omega-3 Fatty Acids 1000 MG CAP PO ×3 (08:58→19:39)
[2020-04-21] MEDS: lamoTRIgine 100 MG TAB 200 MG PO (08:58)
[2020-04-21] MEDS: Potassium Chloride 20 MEQ TABCR PO (08:58)
[2020-04-21] MEDS: Aspirin E.C. 81 MG TABEC PO (08:59)
[2020-04-21] MEDS: Escitalopram 10 MG TAB 5 MG PO (08:59)
[2020-04-21] MEDS: predniSONE 20 MG TAB 40 MG PO (09:00)
[2020-04-21] MEDS: Baclofen 10 MG TAB PO (09:05)
--- NOTE | 2020-04-21 09:30 | PDOC.CMPRO ---
- If Service Date Differs Date of service: 04/21/20 Time of Service: 09:30 Care Management Progress Note S/O: Francie was sitting up in a chair when CM came to see her. She was pleasant and agreeable to conversation. Francie stated that she slept better last night and did not have any pain in her foot or legs. She had requested to keep her [place] stockings on for the night and she feels that helped. She again discussed the fact that she may have cancer and that she is frightened of that. When asked what was the most concerning, she talked about the treatments which might include chemotherapy and/or radiation. She shared that her was treated for cancer and that the process was very difficult. [facility] has not scheduled the lung biopsy as of this time; Francie states that she is anxious to get the information that the biopsy can provide. CM also discussed the possibility of transitioning Francie into SB-1 status early next week if other options for of a safe discharge plan cannot be formulated. A: Francie is a 74 year old woman admitted on 04/17/20 with community acquired pneumonia P:Francie will likely be discharged home with a resumption of caregiver services through [facility]. She may transition into SB-1 statues first for additional PT prior to discharge. Francie may also receive PT for strengthening and conditioning. Francie will transport via w/c van with [facility] and follow up with her community providers. CM will continue to support Francie, her family and discharge planning needs.
--- NOTE | 2020-04-21 10:17 | PGE_ITS ---
Date of Service Date of service: 04/21/20 Time of Service: 10:17 Assessment and Plan Assessment and plan (1) Acute respiratory failure: Status: Acute Assessment and plan: Improving. Cont suppelmental O2 to maintain saturations of 89% or above Etiology: COPD, bronchitis vs pneumonia, pulmonary masses/likely malignant Qualifiers: Respiratory failure complication: hypoxia Qualified Code(s): J96.01 - Acute respiratory failure with hypoxia (2) History of hemorrhagic stroke with residual hemiparesis: Status: Acute Assessment and plan: Stable. Working with PT/OT (3) COPD (chronic obstructive pulmonary disease): Status: Chronic Assessment and plan: Cont Symbicort, Duonebs. Prednisone taper. (4) Pneumonia: Status: Acute Assessment and plan: Vs bronchitis. Now on Augmentin. (5) Mass of right lung: Status: Chronic Assessment and plan: Request made to [facility] [place] of [place] by IR. Waiting for their response after their evaluation of her records. Subjective Subjective Patient reports: no new complaints, still having pain (Left mid back / intermittent. spasm), tolerating a regular diet, shortness of breath (with exertion and improving.) and afebrile; denies nausea and vomiting Exam Const General: cooperative and no acute distress Nutritional Appearance: overweight Orientation: alert and oriented x3 Resp Effort & Inspection: normal respiratory effort Auscultation: diminished lung sounds and rales on the right at the base Cardio Rate: regular rate Rhythm: regular rhythm Heart Sounds: S1 normal and S2 normal GI Palpation: soft and nontender Auscultation: normal bowel sounds Extrem General: no pedal edema and no calf tenderness Objective Last Vital Signs Temp 36.7 C 04/21/20 07:37 Pulse 83 04/21/20 07:37 Resp 18 04/21/20 07:37 BP 172/55 H 04/21/20 07:37 Pulse Ox 93 04/21/20 08:05 Laboratory Results - last 24 hr 04/21/20 06:20 WBC 11.27 H RBC 5.22 Hgb 14.3 Hct 45.9 MCV 87.9 MCH 27.4 MCHC 31.2 L RDW 14.3 Plt Count 317 MPV 8.7
[2020-04-21] MEDS: Lisinopril 20 MG TAB PO (10:18)
--- NOTE | 2020-04-21 15:33 | PTTR_ITS ---
Date of service: 04/21/20 Time of Service: 11:30 PT Notes Visit Reasons: COMMUNITY ACQUIRED PNEUMONIA Inpatient Physical Therapy Treatment Note [facility] Date: 04/21/2020 PRECAUTIONS: Fall, L AFO SUBJECTIVE: Francie is pleasant and agreeable to participating in PT. She reports that she is experiencing L kneecap pain today and that is limiting her mobility. She also reports that her L foot is turning in during gait training more than at baseline. OBJECTIVE: PAIN: Patient complained of L kneecap pain with ther ex and gait training BED MOBILITY/TRANSFERS Supine-sit: I with HOB flat Sit-supine: I with HOB flat Sit-stand: SBA with FWW stabilization Stand-sit: CGA Performed chair?wheelchair transfer requiring stabilization of wheelchair for safety with SBA. Also performed stand?pivot transfer from wheelchair?bed with supervision with stabilization of wheelchair for safety. GAIT Assistive Device: FWW Weight bearing: Full Assist: CGA Distance: ~20' in a.m.; 10' + 80' in p.m. Deviation: L foot turns in, increased SOB VITALS: SaO2: 87-97% on 2?5L O2 via NC with both gait training and at rest TOILETING: Patient toileted with SBA for transfers, utilized rail on wall to transfer without physical assist WHEELCHAIR MOBILITY: Patient performed self-propulsion of personal wheelchair x120', independently. ASSESSMENT: Patient tolerated a progression in self propulsion of wheelchair. She continues to demonstrate increased SOB with gait training with FWW support and CGA, requiring increased oxygen due to decreased oxygen saturations. She w ould benefit from continued gait training as well as global strengthening for overall improved mobility and activity tolerance. PLAN: Continue with global strengthening as well as gait and transfer training TREATMENT CODE/TIME: Session 1: 20 minutes; [id number] Session 2: 25 minutes; 71032, [id number]
--- NOTE | 2020-04-21 16:07 | CHAPLAIN ---
Francie is waiting to hear if she will be transferred to [facility] for a lung biopsy, waiting to hear if a bed is available. She has shared with her [employer] Civil Engineer Bushra that she is worried about the possibility of needing chemo and radiation.
[2020-04-21] MEDS: Lidocaine 5% Patch 1 PATCH TP (18:34)
[2020-04-21] MEDS: lamoTRIgine 100 MG TAB PO (19:40)
[2020-04-21] MEDS: Simvastatin 40 MG TAB PO (19:40)
[2020-04-21] MEDS: Refresh PLUS Eye Drops 0.4ml OP (19:41)
[2020-04-22] VITALS (8 sets, daily range): BP systolic 119–130; BP diastolic 62–73; PULSE 79; RESP 2–19; TEMP 36.4–36.7; O2SAT 91–95
[2020-04-22 01:28] LABS: C Diff PCR Negative (Negative)
[2020-04-22] MEDS: Acetaminophen 325 MG TAB 650 MG PO ×2 (02:45→13:12)
[2020-04-22] MEDS: Albuterol/Ipratropium 3 ML UPD VIAL UPD ×3 (06:59→18:05)
[2020-04-22] MEDS: Budesonide/Formoterol 160/4.5 6 GM 60 PUFF INH IH ×2 (07:57→19:57)
[2020-04-22] MEDS: guaiFENesin 600 MG TABCR PO ×2 (08:49→19:56)
[2020-04-22] MEDS: Omega-3 Fatty Acids 1000 MG CAP PO ×3 (08:49→19:56)
[2020-04-22] MEDS: Escitalopram 10 MG TAB 5 MG PO (08:50)
[2020-04-22] MEDS: Aspirin E.C. 81 MG TABEC PO (08:50)
[2020-04-22] MEDS: predniSONE 10 MG TAB 30 MG PO (08:50)
[2020-04-22] MEDS: Pantoprazole 40 MG TABCR PO (08:51)
[2020-04-22] MEDS: lamoTRIgine 100 MG TAB 200 MG PO (08:51)
[2020-04-22] MEDS: hydroCHLOROthiazide 12.5 MG TAB PO (08:51)
[2020-04-22] MEDS: Docusate Sodium 100 MG CAP PO ×3 (08:51→19:56)
[2020-04-22] MEDS: Lisinopril 20 MG TAB PO (08:52)
[2020-04-22] MEDS: Potassium Chloride 20 MEQ TABCR PO (08:52)
[2020-04-22] MEDS: Amoxicillin 875/Clav. 125 TAB PO ×2 (08:52→19:56)
[2020-04-22] MEDS: Lidocaine 5% Patch 1 PATCH TP ×2 (08:54→18:40)
[2020-04-22] MEDS: Heparin 5,000 UNITS/ML VIAL 5000 UNITS SC ×2 (08:55→16:53)
--- NOTE | 2020-04-22 09:02 | DI.RAD_ITS ---
EXAM: XR PORTABLE CHEST AP CLINICAL HISTORY: follow up PNA TECHNIQUE: COMPARISON: CR CHEST 2 VIEWS PA,LAT from 06/28/2014 FINDINGS: The heart is not enlarged. There are patchy bilateral intrapulmonary radiodensities including areas of relatively dense consolidation in the right mid lung and right lower lung field with obscuration o f the diaphragm on the right. Upper lung zones are mostly clear with question minimal fluffy perihil ar infiltrates. No gross effusion on this frontal film. IMPRESSION: The appearance is suggestive of a bibasilar pneumonia, right greater than left. Appropriate follow-u p films requested. RADIATION DOSE DELIVERED: Total DLP Total DLP
[2020-04-22] MEDS: Refresh PLUS Eye Drops 0.4ml OP ×2 (09:03→19:57)
--- NOTE | 2020-04-22 09:06 | CMPROGNOTE_ITS ---
- If Service Date Differs Date of service: 04/22/20 Time of Service: 09:06 Care Management Progress Note S/O: Francie is sitting in a chair watching television when CM comes to meet with her. She is pleasant and easily engages in conversation. She very clearly states she does not wish to return home as she feels unsafe at home due to having fallen several times. Her preference would be to go to an AFC home. CM discusses with her the possibility of her transitioning to SB1 status prior to discharge from the hospital. Francie required a duo neb last night as her oxygen saturation level dropped to the mid 80s while on O2. A chest x-ray done this morning finds patchy opacities in the right base that may represent mutifocal pneumonia. Francie remains on antibiotics. CM will continue to follow. A: Francie is a 74 year old female admitted to [facility] on 04/17/20 for a community acquired pneumonia. P: No change in plan. Francie will likely be discharged home with a resumption of caregiver services through [facility]. She may transition into SB-1 status first for additional PT prior to discharge. Francie may also receive PT for strengthening and conditioning. Francie will transport via w/c van with [facility] and follow up with her community providers. CM will continue to support Francie, her family and discharge planning needs.
--- NOTE | 2020-04-22 09:19 | DI.VRAD_ITS ---
PROCEDURE INFORMATION: Exam: XR Chest, 1 View Exam date and time: 04/22/2020 9:03 AM Age: 74 years old Clinical indication: Pain; Pleuordynia; Patient HX: F/u pna TECHNIQUE: Imaging protocol: XR of the chest Views: 1 view. COMPARISON: CT CHEST PE ABD PELVIS W 04/17/2020 9:18 AM FINDINGS: Lungs: Patchy opacities in the right base may represent multifocal pneumonia including COVID-19. Pleural space: Unremarkable. No pleural effusion. No pneumothorax. Heart/Mediastinum: Unremarkable. No cardiomegaly. Bones/joints: Unremarkable. IMPRESSION: Patchy opacities in the right base may represent multifocal pneumonia including COVID-19. Dictated and Authenticated by: Jessi Salazar MD. Ordering:CELIA Freitas MD
--- NOTE | 2020-04-22 12:07 | PT.INTREAT ---
PT Notes Visit Reasons: COMMUNITY ACQUIRED PNEUMONIA Inpatient Physical Therapy Treatment Note [facility] Date: 04/22/2020 PRECAUTIONS:fall, L AFO and shoes on when OOB SUBJECTIVE: Francie states that she is doing well today with the exception of left knee pain. OBJECTIVE: [] PAIN: left patella BED MOBILITY/TRANSFERS Sit-stand: SBA/CGA Stand-sit: SBA/CGA GAIT Assistive Device: FWW Weight bearing: AT left Assist: CGA Distance: 25' x 6. Deviation: 3 L of O2 THEREX: global LE strength and stabilization. Attempted right quad strengthening, however held d/t pain. See flowsheet for details. ASSESSMENT: tolerated session well, despite c/o left knee pain. No c/o SOB. PLAN: continue with PT POC, progressing to tolerance. TREATMENT CODE/TIME: 35 min. [id number], [id number].
--- NOTE | 2020-04-22 14:35 | PGE_ITS ---
Date of Service Date of service: 04/22/20 Time of Service: 14:35 Assessment and Plan Assessment and plan (1) Bilateral pneumonia: Status: Acute Assessment and plan: Present on admission. There is probably a post-obstructive component as well as atelectasis. Clinically, the patient is improving, so we will not change her antibiotics today. Encourage IS (2) Acute exacerbation of chronic obstructive pulmonary disease (COPD): Status: Acute Assessment and plan: Due to pneumonia above. Improving. Continue augmentin, scheduled + prn nebs, symbicort, prednisone taper. (3) Hypoxia: Status: Acute Assessment and plan: Down to 1L today, from 4L on admission. Not normally requiring O2 at home. Will need to assess exercise oximetry prior to discharge. (4) Mass of right lung: Status: Acute Assessment and plan: I have placed a call with [facility] transfer center to find out the status of the referral for CT-guided bx. (5) Left knee pain: Status: Acute Assessment and plan: Schedule tylenol. Continue lidocaine patch. Offer cold compresses. (6) DVT prophylaxis: Status: Acute Assessment and plan: SC heparin (7) Discharge planning issues: Status: Acute Assessment and plan: Full code Awaiting [facility] IR plans. Subjective Subjective Interval history since last seen: Ms Marrufo states she is feeling a little better from respiratory stand point - her cough is nonproductive. It does hurt to cough and take a deep breath in her L lower ribs. She denies dizziness, chest pain other than what is described, still somewhat SOB, but better. Denies n/v. Reports occasional L knee pain. Exam Narrative Exam Narrative: General: pleasant middle-aged female, sitting up in a chair HEENT: EOMI, MMM Heart: RRR, no m/r/g Lungs: coarse breath sounds at B base Abdomen: soft, nontender, nondistended Extremities: L knee in a brace, trace edema BLE's Objective Last Vital Signs Temp 36.7 C 04/22/20 07:54 Pulse 79 04/22/20 07:54 Resp 17 04/22/20 07:54 BP 119/62 04/22/20 07:54 Pulse Ox 95 04/22/20 08:55 Laboratory Results - last 24 hr 04/22/20 00:23 Stl C.difficile Tox PCR Negative Objective Narrative Objective Narrative: CXR: The appearance is suggestive of a bibasilar pneumonia, right greater than left. Appropriate follow-up films requested.
[2020-04-22] MEDS: Simvastatin 40 MG TAB PO (19:56)
[2020-04-22] MEDS: lamoTRIgine 100 MG TAB PO (19:56)
[2020-04-22] MEDS: Benzonatate 100 MG CAP PO (19:56)
[2020-04-22] MEDS: Acetaminophen 500 MG TAB 1000 MG PO (21:31)
[2020-04-22] MEDS: Baclofen 10 MG TAB 5 MG PO (21:34)
[2020-04-23] VITALS (7 sets, daily range): BP systolic 113–130; BP diastolic 58–68; PULSE 74–81; RESP 2–24; TEMP 36.3–36.7; O2SAT 90–92
[2020-04-23] MEDS: Heparin 5,000 UNITS/ML VIAL 5000 UNITS SC ×3 (00:05→16:13)
[2020-04-23] MEDS: Albuterol/Ipratropium 3 ML UPD VIAL UPD ×5 (00:05→23:15)
[2020-04-23] MEDS: Acetaminophen 500 MG TAB 1000 MG PO ×3 (06:29→22:15)
[2020-04-23 06:49] LABS: Abs Immature Grans 0.04 10^3/uL (0.0-0.06); Absolute Basophil Count 0.04 10^3/uL (0.0-0.2); Absolute Eosinophil Count 0.24 10^3/uL (0.0-0.7); Absolute Neutrophil Count 6.14 10^3/uL (1.2-6.7); Basophils % 0.4; Eosinophils % 2.4; HCT 43.4 % (36.0-46.0); HGB 13.7 g/dL (11.2-15.7); Immature Grans % 0.4; Lymphocytes % 25.1; MCH 27.2 pg (27.0-33.0); MCHC 31.6 % (32.0-36.0); MCV 86.1 fL (80-95); MPV 8.7 fL (8.0-11.0); Neutrophils % 61.7; Nucleated RBC 0 %; Platelet Count 292 10^3/uL (130-400); RBC 5.04 10^6/uL (3.93-5.22); RDW 14.4 % (11.7-14.6); RDW-SD 45.2 fL; WBC 9.96 10^3/uL (4.4-10.8)
[2020-04-23 07:01] LABS: BUN 13 mg/dL (7-18); CREATININE 0.93 mg/dL (0.55-1.02); Calcium 9.2 mg/dL (8.5-10.1); Chloride 107 mmol/L (98-107); Glucose 88 mg/dL (74-106); Potassium 3.5 mmol/L (3.5-5.1); Sodium 139 mmol/L (136-145)
[2020-04-23 07:55] LABS: NT-proBNP 94 pg/mL (<300)
[2020-04-23] MEDS: Budesonide/Formoterol 160/4.5 6 GM 60 PUFF INH IH ×2 (08:02→20:14)
[2020-04-23] MEDS: Polyethylene Glycol 3350 17 GM PACKET PO (08:05)
[2020-04-23] MEDS: guaiFENesin 600 MG TABCR PO ×2 (08:05→20:14)
[2020-04-23] MEDS: predniSONE 10 MG TAB 30 MG PO (08:06)
[2020-04-23] MEDS: hydroCHLOROthiazide 12.5 MG TAB PO (08:06)
[2020-04-23] MEDS: Docusate Sodium 100 MG CAP PO ×2 (08:06→13:42)
[2020-04-23] MEDS: Aspirin E.C. 81 MG TABEC PO (08:06)
[2020-04-23] MEDS: Amoxicillin 875/Clav. 125 TAB PO ×2 (08:06→20:14)
[2020-04-23] MEDS: Potassium Chloride 20 MEQ TABCR PO (08:06)
[2020-04-23] MEDS: lamoTRIgine 100 MG TAB 200 MG PO (08:06)
[2020-04-23] MEDS: Lisinopril 20 MG TAB PO (08:06)
[2020-04-23] MEDS: Omega-3 Fatty Acids 1000 MG CAP PO ×3 (08:06→20:14)
[2020-04-23] MEDS: Benzonatate 100 MG CAP PO ×3 (08:06→20:14)
[2020-04-23] MEDS: Pantoprazole 40 MG TABCR PO (08:06)
[2020-04-23] MEDS: Escitalopram 10 MG TAB 5 MG PO (08:07)
--- NOTE | 2020-04-23 11:49 | PT.INTREAT ---
PT Notes Visit Reasons: COMMUNITY ACQUIRED PNEUMONIA Inpatient Physical Therapy Treatment Note [facility] Date: 04/23/20 SUBJECTIVE: Francie states that she is tired today. She is not sure how much she will be able to do for me today. She continues to c/o left knee pain. When can I have real food. I am staving. OBJECTIVE: [] PAIN: left knee pain. BED MOBILITY/TRANSFERS Sit-stand: SBA Stand-sit:SBA GAIT Assistive Device:FWW Weight bearing:AT Assist:CGA Distance: 200' Deviation: wc to follow. 2L of O2 VITALS: sats ranged from 87%-94% THEREX: LE strength and stabilization on right. Functional mobility. See flowsheet for details. ASSESSMENT: tolerated session well. Significant progress made with ambulation. Her knee only seems to bother with AROM and quad engagement. No c/o SOB during ambulation, however she report SOB once back to room and sitting. O2 sats recovered after approx 40 sec of deep breathing. PLAN: continue following POC. TREATMENT CODE/TIME: 35 min. [id number], [id number].
[2020-04-23] MEDS: Refresh PLUS Eye Drops 0.4ml OP ×2 (13:43→23:16)
--- NOTE | 2020-04-23 14:32 | PGE_ITS ---
Date of Service Date of service: 04/23/20 Time of Service: 14:32 Assessment and Plan Assessment and plan (1) Bilateral pneumonia: Status: Acute Assessment and plan: Present on admission. Likely with a post-obstructive component as well as atelectasis. Symptoms are improving. No fever, leukocytosis resolved. Continue IS. Continue Augmentin, currently day #7. (2) Acute exacerbation of chronic obstructive pulmonary disease (COPD): Status: Acute Assessment and plan: Due to pneumonia above. Improving. Continue augmentin, scheduled + prn nebs, symbicort, prednisone taper. (3) Hypoxia: Status: Acute Assessment and plan: Down to 1L today, from 4L on admission. She does not have home oxygen. Will need to assess exercise oximetry prior to discharge. (4) Mass of right lung: Status: Acute Assessment and plan: She has been referred to [facility] for CT-guided bx. NPO after midnight for possible procedure tomorrow. (5) Left knee pain: Status: Acute Assessment and plan: Pain began when she fell out of bed and landed on her L knee. Knee x-ray negative. Continue scheduled APAP, offer cold compresses, muscle relaxer as needed. Voltaren gel ordered. Consider further imaging if pain persists. (6) Diarrhea: Status: Acute Assessment and plan: C-diff negative. Add probiotics. (7) DVT prophylaxis: Status: Acute Assessment and plan: SC heparin. Hold after this 1600 dose for possible biopsy tomorrow. (8) Discharge planning issues: Status: Acute Assessment and plan: Full code Awaiting [facility] IR plans. She does not feel comfortable returning to her apartment alone. She would consider living in a community nursing home. She does not want to go to a group home. She will likely require rehab at SNF or swing bed. Follow up with Palliative after discharged. Sooner as needed. Subjective Subjective Interval history since last seen: Francie reports that her breathing is better, she is not SOB at rest, she does have SOB with activity. She is coughing less, her cough is nonproductive, no wheezing. She denies CP/pressure or palpitations. She is eating well, she was on a clear liquid diet for a few days, she was happy to eat solid foods. She denies N/V, she has been having loose stools. She reports fatigue and weakness prior to coming into the hospital. She is sleeping well at night. She is worried about what the biopsy will show. She wants to get it done as soon as possible. She continues to have left knee pain both laterally and superiorly. She has little pain at rest, the pain increases with activity. She also describes intermittent muscle spasms, especially when she is in bed. She fell out of bed prior to presenting at the hospital and landed on her knee. Exam Narrative Exam Narrative: General: very pleasant 74 year old female, appears stated age, sitting up in chair, awake, alert and oriented. HEENT: normocephalic, atraumatic, EOMI, mucous membranes moist. Neck: supple. Cardiovascular: heart has regular rate and rhythm, nontachycardic, no murmur appreciated. Respiratory: respirations appear even and unlabored, no coughing during exam, lungs sound clear, no wheezing or rales noted. GI: normoactive bowel sounds, abdomen soft, nontender on palpation, nondistended. Extremities: left knee with minimal tenderness on palpation to lateral aspect and superiorly, +pain with active ROM, primarily lifting her left leg while sitting. Brace to Left ankle. No significant edema. Objective Last Vital Signs Temp 36.7 C 04/23/20 06:34 Pulse 81 04/23/20 06:34 Resp 24 04/23/20 06:34 BP 130/61 04/23/20 06:34 Pulse Ox 90 L 04/23/20 11:24 Laboratory Results - last 24 hr 04/23/20 04/23/20 06:19 06:19 WBC 9.96 RBC 5.04 Hgb 13.7 Hct 43.4 MCV 86.1 MCH 27.2 MCHC 31.6 L RDW 14.4 Plt Count 292 MPV 8.7 Immature Gran % 0.4 Neutrophils % 61.7 Lymphocytes % 25.1 Monocytes % 10.0 Eosinophils % 2.4 Basophils % 0.4 Nucleated RBC % 0 Absolute Neutrophils 6.14 Absolute Lymphocytes 2.50 Absolute Monocytes 1.00 H Absolute Eosinophils 0.24 Absolute Basophils 0.04 Sodium 139 Potassium 3.5 Chloride 107 Carbon Dioxide 25.0 Anion Gap 7.0 BUN 13 Creatinine 0.93 Estimated GFR/1.73 m2 59.10 Glucose 88 Calcium 9.2 Magnesium 2.0 NT-Pro-B Natriuret Pep 94
--- NOTE | 2020-04-23 15:22 | PDOC.CMPRO ---
- If Service Date Differs Date of service: 04/23/20 Time of Service: 15:22 Care Management Progress Note S/O: Francie is sitting in a chair watching television when CM enters the room. She reports feeling better with an improved ability to breathe, though she continues to have shortness of breath with activity. [facility] [place] [place] still has not provided an appointment date and time for the biopsy. Francie is understandably worried about what the biopsy will find. Her diet was advanced to solid food today, which she is very happy about. Francie again reiterates her desire to go into an AFC home and asks that CM contact Yaz, her [facility] case filler at [place] [facility], to ensure Yaz is working on finding her an AFC home. CM will continue to follow. A: Francie is a 74 year old female admitted to [facility] on 04/17/20 for a community acquired pneumonia. P: No change in plan. Francie will likely be discharged home with a resumption of caregiver services through [facility] while she awaits an AFC home placement. She may transition into SB-1 status first for additional PT prior to discharge. Francie may also receive PT for strengthening and conditioning. Francie will transport via w/c van with [facility] and follow up with her community providers. CM will continue to support Francie, her family and discharge planning needs.
[2020-04-23] MEDS: Diclofenac 1% Gel 100 GM TUBE TP ×2 (16:13→20:13)
[2020-04-23] MEDS: Lidocaine 5% Patch 1 PATCH TP (18:25)
[2020-04-23] MEDS: Lactobacillus Acidophilus CAP 1 CAP PO (20:14)
[2020-04-23] MEDS: Simvastatin 40 MG TAB PO (20:15)
[2020-04-23] MEDS: lamoTRIgine 100 MG TAB PO (20:15)
[2020-04-23] MEDS: Baclofen 10 MG TAB 5 MG PO (23:15)
[2020-04-24 03:15] VITALS: BP 122/56; PULSE 87; RESP 18; TEMP 37; O2SAT 89
[2020-04-24] MEDS: Acetaminophen 500 MG TAB 1000 MG PO ×2 (05:40→13:13)
[2020-04-24] MEDS: Albuterol/Ipratropium 3 ML UPD VIAL UPD ×2 (05:41→11:37)
[2020-04-24 06:54] LABS: Abs Immature Grans 0.04 10^3/uL (0.0-0.06); Absolute Eosinophil Count 0.27 10^3/uL (0.0-0.7); Absolute Lymphocyte Count 2.77 10^3/uL (1.2-3.4); Basophils % 0.2; Eosinophils % 2.2; HCT 44.4 % (36.0-46.0); HGB 13.7 g/dL (11.2-15.7); Immature Grans % 0.3; Lymphocytes % 22.9; MCH 27.1 pg (27.0-33.0); MCHC 30.9 % (32.0-36.0); MCV 87.7 fL (80-95); MPV 9.1 fL (8.0-11.0); Monocytes % 9.9; Neutrophils % 64.5; Nucleated RBC 0 %; Platelet Count 309 10^3/uL (130-400); RBC 5.06 10^6/uL (3.93-5.22); RDW 14.4 % (11.7-14.6); RDW-SD 46.2 fL; WBC 12.08 10^3/uL (4.4-10.8)
[2020-04-24 06:56] LABS: Absolute Basophil Count 0.02 10^3/uL (0.0-0.2); Absolute Neutrophil Count 7.79 10^3/uL (1.2-6.7)
[2020-04-24 06:59] LABS: Anion Gap 7.8 mmol/L (3-11); BUN 20 mg/dL (7-18); CO2 26.2 mmol/L (21.0-32.0); Calcium 9.4 mg/dL (8.5-10.1); Chloride 106 mmol/L (98-107); Estimated GFR 54.35 (mL/min/1.73m2); Glucose 100 mg/dL (74-106); Magnesium 1.9 mg/dL (1.8-2.4); Potassium 3.6 mmol/L (3.5-5.1); Sodium 140 mmol/L (136-145)
[2020-04-24 07:20] VITALS: BP 126/66; PULSE 81; RESP 18; TEMP 36.5; O2SAT 93
[2020-04-24] MEDS: Budesonide/Formoterol 160/4.5 6 GM 60 PUFF INH IH (07:47)
[2020-04-24] MEDS: Aspirin E.C. 81 MG TABEC PO (07:50)
[2020-04-24] MEDS: Pantoprazole 40 MG TABCR PO (07:50)
[2020-04-24] MEDS: Omega-3 Fatty Acids 1000 MG CAP PO ×2 (07:50→13:14)
[2020-04-24] MEDS: Docusate Sodium 100 MG CAP PO (07:50)
[2020-04-24] MEDS: predniSONE 10 MG TAB 30 MG PO (07:50)
[2020-04-24] MEDS: Benzonatate 100 MG CAP PO ×2 (07:50→13:13)
[2020-04-24] MEDS: Escitalopram 10 MG TAB 5 MG PO (07:50)
[2020-04-24] MEDS: hydroCHLOROthiazide 12.5 MG TAB PO (07:50)
[2020-04-24] MEDS: Lactobacillus Acidophilus CAP 1 CAP PO ×2 (07:50→13:13)
[2020-04-24] MEDS: lamoTRIgine 100 MG TAB 200 MG PO (07:50)
[2020-04-24] MEDS: guaiFENesin 600 MG TABCR PO (07:50)
[2020-04-24] MEDS: Lisinopril 20 MG TAB PO (07:50)
[2020-04-24] MEDS: Amoxicillin 875/Clav. 125 TAB PO (07:50)
[2020-04-24] MEDS: Potassium Chloride 20 MEQ TABCR PO (07:51)
--- NOTE | 2020-04-24 08:09 | OT.INNT ---
Date of service: 04/24/20 Time of Service: 08:09 Occupational Therapy Notes 04/24/20 OT attempted to see pt who reports that she performed her ADLs (I) this morning. She denies the need for skilled OT services at this time. Camille Toscano, OTR/L [facility]
--- NOTE | 2020-04-24 10:23 | NUR.NOTE ---
Pt being discharged from acute to swingbed. Nursing Note:
[2020-04-24 10:35] LABS: Bilirubin Negative (Negative); Blood Negative (Negative); Clarity Clear (Clear); Glucose Negative (Negative); Ketones Negative (Negative); Leukocyte Esterase Negative (Negative); Nitrite Negative (Negative); Specific Gravity >= 1.030 (1.005-1.025); Urobilinogen 0.2 EU/dL (Up TO 0.2); pH 5.5 (5-8)
[2020-04-24] MEDS: Refresh PLUS Eye Drops 0.4ml OP (10:59)
--- NOTE | 2020-04-24 11:03 | DSE_ITS ---
Date of service: 04/24/20 Time of Service: 11:03 DS: Diagnosis Discharge Diagnosis (1) Bilateral pneumonia: Status: Resolved Asessment and Plan: Found on admission, cough and fever, bibasilar pneumonia, right greater than left by imaging. Improving, sputum with normal phil, Blood cultures no growth, she was transitioned to augmentin and will finish the course of treatment for 2 more days for a total of 10 days. At this time she is awaiting biopsy with IR for right lung mass. She is a COPD. At 1 liter at this time of oxygen, Denies cough, afebrile. Continue IS Leukocytosis resolved. She will be placed in SB status until able to have this done, likely toward end of week. (2) Acute exacerbation of chronic obstructive pulmonary disease (COPD): Start date: 04/24/20 Start time: 11:10 Status: Resolved Asessment and Plan: Due to pneumonia as above. Continue nebs prn, symbicort and prednisone taper (3) Hypoxia: Start date: 04/24/20 Start time: 11:12 Status: Acute Asessment and Plan: Down to 1 L from 4 on admission. Likely cause is from below COVID negative (4) Mass of right lung: Start date: 04/24/20 Start time: 11:13 Status: Acute Asessment and Plan: She has been referred to [facility] for [place]-guided bx. Waiting to schedule procedure for down and back, likely at the end of the week. Will make npo night before and hold heparin day before scheduled procedure, not scheduled at this time. (5) Left knee pain: Start date: 04/24/20 Start time: 11:14 Status: Chronic Asessment and Plan: Per patient chronic pain Knee xray negative, RICE, scheduled APAP, voltaren gel, muscle relaxer prn (6) Diarrhea: Start date: 04/24/20 Start time: 11:15 Status: Acute Asessment and Plan: cdiff r/o above case discussed with Dr. Aragon who is in agreement. Discharge Plan Disposition Patient Disposition: [facility] SWING BED LEVEL 1 Condition: Stable Discharge Details Reason For Visit: COMMUNITY ACQUIRED PNEUMONIA Admit Date/Time: 04/17/20 10:21 Admit Provider: Perry Alan Attending Provider: Perry Alan Primary Care Provider: Rolo Nieves Hospital Course Hospital Course: This is a 74 yo female with a h/o asthma, CVA/hemorrhagic, HTN, HLD. She presented to the ED after reaching for her wheelchair from her bed, the wheelchair was not locked, and she fell to the floor onto her left side. She was unsure of whether or not she hit her head. No WELLS, neck pain. She did endorse SOA, cough with yellow sputum for several weeks. No noted fever, abd pain, N/V, CP, palpitations. She lives alone but has caregivers that spend appx 3 hours throughout the day to give her assistance. In the ED her initial O2 saturation was in the 80's on RA. Her temperature was 101F. WBC count was 10. Troponin negative. Procalcitonin was <0.1. CT chest showed a large R lower lobe mass with smaller adjacent masses with malignant appearance. CT head and L knee were negative. She was started on Rocephin and IV doxycycline for presumed CAP, and admitted for further management. She was transitioned to augmentin, afebrile, leukocytosis resolved. She was started on steroid taper, she improved with treatment. Due to right sided mass on imaging, [facility] was consulted for biopsy. She has improved and is feeling better, oxygen level down to 1 L from 4 L on admission. She did have loose stool on admission, cdiff negative and stools have improved. She has been having muscle spasms and pain with movement but improving. She would benefit from rehabilitation, however at this time she is being placed into SB 1 status until bx completed. She is requiring PT/OT at this time. She denies CP, SOB, N/V/D. Home Meds and New Rx's Prescriptions: No Action Premarin 45 GM cream 0.5 g VG DAILY Qty: 1 RF: 2 ibuprofen 600 MG tablet 600 mg PO TID PRNRF: 0 lamotrigine 200 MG tablet 300 mg PO DIRECTED RF: 0 simvastatin 40 MG tablet 40 mg PO DAILY RF: 0 potassium chloride [Klor-Con M20] 20 MEQ tablet,ER particles/crystals 20 meq PO DAILY RF: 0 hydrochlorothiazide 25 MG tablet 12.5 mg PO DAILY RF: 0 Fish Oil 1 EACH capsule 1 cap PO TID RF: 0 aspirin 81 mg tablet,delayed release (DR/EC) 81 mg PO DAILY RF: 0 escitalopram oxalate 10 mg tablet 5 mg PO DAILY RF: 0 alendronate 70 mg tablet 70 mg PO QWEEK RF: 0 Refresh Celluvisc 1 % dropperette,gel 1 drp ophthalmic (eye) QID PRN PRN (Reason: Eye Irritation) RF: 0 fluticasone propion-salmeterol 250-50 mcg/dose blister with device 1 inh INHALATION BID RF: 0 albuterol sulfate [ProAir HFA] 90 mcg/actuation HFA aerosol inhaler 2 puff inhalation Q4H PRN PRNRF: 0 docusate sodium [DOK] 100 mg capsule 100 mg PO TID RF: 0 polyethylene glycol 3350 17 gram/dose powder 17 g PO DAILY PRN PRNRF: 0 Discharge Instructions Additional Instructions: Transition to SB status Activity:: Activity as Tolerated Equipment/Supplies:: No Equipment Needed Diet:: Low Sodium Discharge Orders Discharge Orders: Discharge Order (Routine); Ordered 04/24/20 Ordered By: Christina Moreno DS: Summary Status at Discharge Functional status at discharge: wheelchair bound Overall status at discharge: patient is not back to baseline Mental Status: mental status grossly normal Speech and Movement: speech and movement normal Mood: congruent mood Affect: normal affect Exam Narrative Exam Narrative: General: very pleasant 74 year old female, appears stated age, sitting up in chair, awake, alert and oriented. HEENT: normocephalic, atraumatic, EOMI, mucous membranes moist. Neck: supple. Cardiovascular: heart has regular rate and rhythm, nontachycardic, no murmur appreciated. Respiratory: respirations appear even and unlabored, no coughing during exam, lungs sound clear, no wheezing or rales noted. GI: normoactive bowel sounds, abdomen soft, nontender on palpation, nondistended. Extremities: left knee with minimal tenderness on palpation to lateral aspect and superiorly, +pain with active ROM, primarily lifting her left leg while sitting. Brace to Left ankle. No significant edema. Psych Mental Status: mental status grossly normal Speech and Movement: speech and movement normal Mood: congruent mood Affect: normal affect DS: Data Vitals/I&O Vitals and I&O: Vital Signs Temperature 36.5 C 04/24/20 07:20 Temperature Source Temporal Artery Scan 04/24/20 07:20 Pulse 81 04/24/20 07:20 Pulse Rhythm Regular 04/24/20 07:22 Pulse 84 04/17/20 11:50 Respiratory Rate 18 04/24/20 07:20 Respiratory Effort Non-Labored 04/24/20 07:22 Respiratory Depth Normal 04/24/20 07:22 Respiratory Pattern Normal 04/24/20 07:22 Blood Pressure 126/66 04/24/20 07:20 Blood Pressure Mean 92 04/17/20 07:45 Blood Pressure Position Supine 04/17/20 07:44 Pulse Oximetry 93 04/24/20 07:20 Oxygen Delivery Method Nasal Cannula 04/24/20 07:20 Oxygen Flow Rate 1.5 04/24/20 07:20 Pain Level 1 04/24/20 07:20 Comment 04/23/20 06:34 Intake & Output 04/23/20 04/23/20 04/24/20 11:59 23:59 11:59 Intake Total 540 / 1020 480 / 1020 Output Total 150 / 150 Balance 540 / 870 330 / 870 Intake: Oral 540 / 1020 480 / 1020 Output: Urine 150 / 150 Other: Urine Color Yellow Yellow Yellow Urine Appearance Clear Urine Odor Strong Comment Mixed with stool. Stool Size Small Small Stool Characteristics Soft Soft Liquid Brown Brown Voiding Methods Bedside Commode Bedside Commode Data Completed and Pending Pending studies at discharge: Exam(s) a CT:CT chest PE abd & pelvis w EXAM: CT CHEST PE ABD PELVIS W CLINICAL HISTORY: cough, sob, hypoxia, fall w/ L hip pain. TECHNIQUE: Imaging Protocol: Axial CT angiography was performed with multi- slice acquisition and multi-planar and/or 3D reconstructions. CONTRAST MATERIAL: Intravenous: Omnipaque 350 Contrast volume:100 cc COMPARISON: No exams were available for comparison FINDINGS: Lungs: There is a prominent mass in the right lower lobe suspicious for neoplasm and with adjacent neoplastic appearing nodular densities also evident. The mass measures approximately 7.5 by a 4 centimetres. There is a minimal amount of ipsilateral pleural fluid noted. No invasion of the overlying rib cage. This finding is superimposed upon severe COPD-emphysematous changes. Benign-appearing increased markings are noted in the opposite-left lung base. There are no findings in the trachea and mainstem bronchi. Mediastinum: There is right hilar adenopathy. Also subcarinal adenopathy. Also abnormally enlarged pre and paratracheal lymph nodes. No adenopathy in the opposite-left hilum. Visualized thyroid appears unremarkable. Cardiac: Heart size is upper normal. There is no pericardial effusion. Caliber of the thoracic aorta is within normal limits. No dissection evident. No significant mediastinal hematoma. Pulmonary arteries: No obvious central pulmonary emboli. Osseous: No fractures nor lytic osseous lesions. Abdomen: There is no ascites. There are no focal hepatic lesions seen. No dilatation of intrahepatic ducts. Gallstones are noted. No gallbladder wall edema. CBD is not dilated. No obvious pancreatic mass. No dilatation of the pancreatic duct. The spleen is not enlarged. There are no intrasplenic lesions. The splenic and portal veins are patent. No significant adrenal masses. Small benign cyst in the anterior cortex of the left kidney measuring 10 x 10 millimeters. Slightly smaller cyst is noted in the anterior aspect of the opposite-right kidney. There are no solid renal masses. No calculi nor hydronephrosis.. Slight thickening of the anterior right side of the urinary bladder is noted. Possibly significant. There is an infrarenal abdominal aortic aneurysm which exhibits a maximum diameter of 3.2 centimetres. Abdominal aorta is calcified and common iliac arteries are also calcified but not dilated. There is no para-aortic adenopathy. There is no evidence of significant anterior abdominal hernia. No bowel obstruction or free air. Pelvis: No evidence of appendicitis nor acute diverticulitis. There is no intrapelvic nor inguinal adenopathy. Uterus is slightly prominent as is the endometrial cavity. There are no abnormal adnexal masses and no free fluid no free fluid in the pelvis. Bone windows reveal a round lucent lesion in the left hemipelvis measuring 12 x 12 millimeters. Appears to be associated with some mild cortical thinning. This may be metastatic. No other smaller similar-appearing lesion is seen in the right hemipelvis. There are no fractures evident. IMPRESSION: . 1. There is a large right lower lobe mass which appears malignant with surrounding smaller masses. There is ipsilateral hilar as well as mediastinal adenopathy and subcarinal adenopathy also evident. These findings are superimposed upon severe COPD-emphysematous changes. No large pleural effusions. Minimal amount of increased pleural fluid on the right. No rib destruction. 2. No evidence of obvious soft tissue metastatic disease in the abdomen and pelvis. However, there are lucencies in both sides of the osseous hemipelvis- iliac bones which are probably metastatic. 3. Uterus is slightly prominent as is the endometrial cavity. This could be further studied with ultrasound for added specificity. There are no abnormal adnexal masses and no free fluid in the pelvis. 4. Fusiform infrarenal abdominal aortic aneurysm with maximum diameter 3.2 centimetres. No evidence of leak at this time. FINDINGS: CT Head: There is evidence of prior right craniotomy. Aneurysm clip noted midline. There is no evidence of skull fracture nor layering fluid in the visualized paranasal sinuses and mastoid air cells. Some mucosal thickening is noted in the frontal sinuses. There is no evidence of intracranial hemorrhage, mass effect, or shift of midline structures. There are no extra-axial fluid collections. Ventricles appear symmetrical. There is a large area of encephalomalacia off in the right frontal parietal region which is superimposed upon abundant bilateral periventricular white matter hypodensity. This finding does not have an acute appearance and is most probably related to the prior intracranial event and postsurgical changes. There is symmetrical calcification in the basal ganglia incidentally noted. CT Cervical Spine: Bones: No acute fracture or subluxation. Multilevel chronic degenerative disc disease and facet joint degenerative changes are noted. There is no facet malalignment. IMPRESSION: 1. Evidence of prior right craniotomy. Midline aneurysm clip + prominent area of encephalomalacia right frontal parietal region superimposed upon abundant bilateral periventricular white matter ischemic chronic changes. There are no acute intracranial findings. 2. No acute fracture or subluxation in the cervical spine. Exam(s) a RAD:XR knee LT 3V AP,lat,adriana EXAM: XR KNEE LT 3V AP,LAT,ADRIANA CLINICAL HISTORY: No fracture identified. TECHNIQUE: 2D digital imaging was performed. COMPARISON: CR RIGHT KNEE 3 VIEWS from 01/31/2014 FINDINGS: There is no evidence of fracture nor prominent joint effusion. No prominent joint space narrowing. No osseous lesions. Exam(s) PROCEDURE INFORMATION: Exam: XR Chest, 1 View Exam date and time: 04/22/2020 9:03 AM Age: 74 years old Clinical indication: Pain; Pleuordynia; Patient HX: F/u pna TECHNIQUE: Imaging protocol: XR of the chest Views: 1 view. COMPARISON: CT CHEST PE ABD PELVIS W 04/17/2020 9:18 AM FINDINGS: Lungs: Patchy opacities in the right base may represent multifocal pneumonia including COVID-19. Pleural space: Unremarkable. No pleural effusion. No pneumothorax. Heart/Mediastinum: Unremarkable. No cardiomegaly. Bones/joints: Unremarkable. IMPRESSION: Patchy opacities in the right base may represent multifocal pneumonia including COVID-19. Labs on day of discharge: Labs from last 24 hours 04/24/20 04/24/20 04/24/20 10:10 06:26 06:26 WBC 12.08 H RBC 5.06 Hgb 13.7 Hct 44.4 MCV 87.7 MCH 27.1 MCHC 30.9 L RDW 14.4 Plt Count 309 MPV 9.1 Immature Gran % 0.3 Neutrophils % 64.5 Lymphocytes % 22.9 Monocytes % 9.9 Eosinophils % 2.2 Basophils % 0.2 Nucleated RBC % 0 Absolute Neutrophils 7.79 H Absolute Lymphocytes 2.77 Absolute Monocytes 1.20 H Absolute Eosinophils 0.27 Absolute Basophils 0.02 Sodium 140 Potassium 3.6 Chloride 106 Carbon Dioxide 26.2 Anion Gap 7.8 BUN 20 H D Creatinine 1.00 Estimated GFR/1.73 m2 54.35 Glucose 100 Calcium 9.4 Magnesium 1.9 Urine Color Yellow Urine Clarity Clear Urine pH 5.5 Ur Specific [place] >= 1.030 H Urine Protein Negative Urine Ketones Negative Urine Blood Negative Urine Nitrite Negative Urine Bilirubin Negative Urine Urobilinogen 0.2 Ur Leukocyte Esterase Negative Urine Glucose Negative [facility] Medical History Asthma Cerebrovascular accident Depression Essential hypertension Frequent falls Gastroesophageal reflux disease Goals of care, counseling/discussion Hemiplegia History of hemorrhagic stroke with residual hemiparesis History of smoking 25-50 pack years Hyperlipidemia Lung cancer Oxygen dependent Palliative care patient Polyp of colon Wheelchair bound Surgical History Cerebral aneurysm repair. Family History Mother Personal history of malignant neoplasm colon cancer Father Heart disease Daughter No problems noted. Daughter No problems noted. Daughter No problems noted. Social History Smoking/Tobacco Use Status: Former Tobacco Use Tobacco: How many years used: 40 Smoking risk assessment performed?: Yes Alcohol Intake: never Drug use: Never Substance use type: does not use Caregiver/Support person: No Household members: none Housing: apartment Number of Children: 3 number of grandchildren: 4 Communication Needs: Corrective Lenses Education Level: high school Do you need help understanding health information?: Always current occupation: disabled since stroke age 59 Sexually active: No Current gender identity: female What is your relationship status?: How often do you talk on the phone with friends or family?: three or more times per week How often do you get together with friends or relatives?: never Panel score (0-1 are the most socially isolated patients): 1 What type of physical activity do you participate in: occasional exercise and wheelchair-bound Duration: 15-30 minutes/day Frequency: 3-4 times per week Special jac needs: No Seatbelt use: always Working smoke detector in home: Yes Fire extinguisher in home: Yes Do you feel safe at home: Yes Do you feel safe in your relationship?: Yes Additional Social history: Gerda and her late ex- Ismael aft er her stroke. He then of cancer soon thereafter. Gerda has 3 daughters, all of whom she is close to. Vimal, her eldest, is her DPOA. She has 4 grandsons, too. She is very proud of all of them. She has not smoked since her stroke. She lives at the [facility]. Her daughters have talked to her about moving into a place with 24/7 care, such as a community prison or SNF or Assisted Living. She has not investigated this seriously yet but now facing her likely new cancer diagnosis, she wants more help.
--- NOTE | 2020-04-24 11:10 | PT.INDS ---
Date of service: 04/24/20 Time of Service: 11:10 PT Notes Visit Reasons: COMMUNITY ACQUIRED PNEUMONIA Physical Therapy Inpatient Discharge Summary Date: 04/24/2020 Dates of service: 04/18/2020 through 04/24/2020 Referring Doctor: Perry Alan MD PT Orders: PT CONSULT: Eval/treat Precautions: Fall. Standard. Activity as tolerated. L AFO and shoes on when out of bed. 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 Patient is diagnosed with pneumonia and a mass in the right lung. Marissa converts to swing bed level 1 as of today and will be re-evaluated for continued physical therapy services with receipt of another referral. PMHX: Medical History Asthma Cerebrovascular accident Depression Essential hypertension Gastroesophageal reflux disease Hemiplegia Hyperlipidemia Polyp of colon Surgical History Cerebral aneurysm repair. Social History/Home Situation: Lives alone on the second floor of the [facility] in [place], [place]. Receives aide assistance one hour each day 6x/week in the mornings and has [facility] home assistants 2-3 hours everyday during the evening. Is able to self-transfer from bed to chair using a stand squat transfer without an assistive device. Requires assistance with wheelchair transport over ramp at the entrance of the building and through the elevator to her apartment with her wheelchair. Equipment Owned/DME: hospital bed, FWW, wheelchair Subjective: Pleasant and cooperative. Anxious about being able to go to [facility] today for her lung biopsy. Has been NPO since last noc. Objective: General Observation: Seated on reclining chair. L AFO and shoes on. Mental Status: Alert and oriented x4 Pain: 8?9/10 pain in the left knee with ambulation activity ROM: Right Upper Extremity: Shoulder Flexion WFL. Shoulder abduction WFL. Elbow flexion WFL. Wrist flexion WFL. Opening and closing of hand WFL. Left Upper Extremity: Shoulder Flexion allows up to 110 degrees. Shoulder abduction allows up to 100 degrees. Elbow flexion WFL. Wrist flexion WFL. Opening and closing of hand WFL. Right Lower Extremity: Hip flexion WFL. Hip abduction WFL. Knee flexion WFL. Ankle dorsiflexion WFL. Ankle plantarflexion WFL. Left Lower Extremity: Hip flexion allows up to 80 degrees. Hip abduction allows up to 20 degrees. Knee flexion up to 80 degrees. Ankle dorsiflexion none beyond neutral. Ankle plantarflexion 10 degrees. Strength: Right Upper Extremity: Shoulder flexors 5/5. Shoulder abductors 5/5. Elbow flexors 5/5. Elbow extensors 5/5. Application Helper strong. Left Upper Extremity: Shoulder flexors 4-5. Shoulder abductors 4-/5. Elbow flexors 4-/5. Elbow extensors 4-/5. Application Helper weak but functional. Right Lower Extremity: Hip flexors 4/5. Hip abductors 4/5. Knee flexors 4/5. Knee extensors 4/5. Ankle dorsiflexors 4/5. Ankle plantarflexors 4/5. Left Lower Extremity: Hip flexors 3-/5. Hip abductors 3-/5. Knee flexors 3-/5. Knee extensors 3-/5. Ankle dorsiflexors 3-/5. Ankle plantarflexors 3-/5. Sensation: Intact as to pain and pressure on bilateral lower extremities. Bed Mobility/Transfers: Sit to stand contact guard assist with FWW, L AFO and shoes needed. FWW needs to be stabilized by PT for safety. Stand to sit contact guard assist with FWW, L AFO and shoes needed. FWW needs to be stabilized by PT for safety. Bed to chair contact guard assist with FWW, L AFO and shoes needed. Reports to 8-9/10 pain in the L knee during and after activity. Gait: Able to navigate level surface ambulation of up to 200 feet using front wheeled walker and contact-guard assist with wheelchair follow of his second caregiver. Left AFO loose and ill fitting which results to to increase left tibial internal rotation decreased left knee extension and left foot supination contributing to increase left knee pain. Balance: Static Sitting: Good Dynamic Sitting: Good Static Standing: Fair Dynamic Standing: Fair Assessment: Francie continues to demonstrate functional mobility decline requiring the use of a front wheeled walker and assistance of 1 person for all transfers and wheelchair follow short distance ambulation, lack of coordination, impulsiveness, generalized weakness, decreased activity tolerance, pain in in the left knee, difficulty with walking, and increased risk for falls due to admitting diagnoses and co-morbidities. Patient continues to present with clinical signs and symptoms consistent with current/admitting diagnoses that have resulted to mobility limitations, gait instability, generalized weakness, and impairment of motor control as demonstrated by the following impairment level findings: 1. Decreased strength to left UE/LE major muscle groups 2. Impaired sitting/standing balance 3. Impaired activity tolerance 4. Limitation of joint range of motion in left UE/LE 5. Pain in the left knee aggravated with weight bearing Impairments are continuing to contribute to the following functional limitations: 1. Dependent bed mobility skills 2. Increased dependence with transfers 3. Inability to safely ambulate without assistive device and physical assistance 4. Increase completion time for mobility ADL performance 5. Increased fall risk 6. Inability to negotiate steps alone safely Goals: Goals X1 week 1. Supine-Sit independent using bed rails NOT MET 2. Sit-Supine independent using bed rails NOT MET 3. Sit-Stand independent with FWW NOT MET 4. Stand-Sit independent with FWW NOT MET 5. Bed-Chair independent with FWW NOT MET 6. Chair-Bed independent with FWW NOT MET 7. Standby assist on gait on level surface with use of front wheeled walker for at least 50 feet without report of pain nor dyspnea NOT MET 8. Good static and dynamic standing balance/tolerance NOT MET DISCHARGE RECOMMENDATIONS: For continued physical therapy services under swing bed level 1 upon receipt of new referral. Patient will benefit from [facility] facility placement for continued skilled physical therapy services in order to progress mobility level, strength, and balance in preparation for a safe discharge to home. TREATMENT CODE/TIME: 75537 x 32 minutes beginning at 11:10 PM. Thank you for the opportunity to participate in the care of this patient. Jayne Dickerson PT, DPT, CLT [facility] [place], [place]
[2020-04-24 11:37] VITALS: RESP 1; RESP 18
[2020-04-24] MEDS: Diclofenac 1% Gel 100 GM TUBE TP (11:45)
--- NOTE | 2020-04-24 16:44 | PDOC.CMPRO ---
- If Service Date Differs Date of service: 04/24/20 Time of Service: 16:44 Care Management Progress Note S/O: Francie was sitting up in a chair when CM met with her. She again expressed disappointment at not going to [facility] for the lung biopsy. She stated that she feels that the results of the biopsy are necessary for her to be able to formulate a safe plan. PT identified that Francie's AFO brace needs replacement. CM was able to determine that she was seen and measured on 04/11/20 and that the company ([employer]) is awaiting medical documentation from her PCP to process the order. Additionally, CM was able to ascertain that her pillowcase sewer Phoebe Barbosa through [facility] has sent referrals to [facility] and [facility] seeking placement in an AFC home. A: Francie is a 74 year old woman admitted on 04/17/21 with community acquired pneumonia. P: Francie will transition to SB-1 today for continued PT. She will likely be discharged home with a resumption of caregiver services through [facility] while she awaits an AFC home placement. Francie will transport via w/c van with [facility] and follow up with her community providers. CM will continue to support Francie, her family and discharge planning needs.
--- NOTE | 2020-04-25 07:18 | OT.INDS ---
Date of service: 04/25/20 Time of Service: 07:18 Occupational Therapy Notes Occupational Therapy Inpatient Discharge Summary Date: 04/25/20 for 04/24/20 Dates of Service: 04/18/20-04/24/20 Referring Doctor: Perry Alan MD OT Orders: Non-Urgent, limited ability Precautions: Fall, standard, Full *This document serves as a summary of care, no skilled OT services provided for this documentation* PATIENT PROFILE/ADMITTING DIAGNOSIS: Pt is a 74 year old female who presented to the ED on 04/17/20 and was admitted to Med Surg with a dx of Penumonia, mass on her (R) lung, CVA and asthma. Past Medical History: Medical History Asthma Cerebrovascular accident Depression Essential hypertension Gastroesophageal reflux disease Hemiplegia Hyperlipidemia Polyp of colon Surgical History Cerebral aneurysm repair. Social History/Home Situation: Pt reports that she lives at the [facility] which is somewhat handicap accessible. She states that she has (A) with her bathing, dressing and bottom brusher. She states that she transfers to and from the wheelchair and performs everything else as much as she can (I). Equipment owned/DME: wheelchair SUBJECTIVE: NT OBJECTIVE: ROM: RUE AROM WFL L UE AROM WFL STRENGTH: RUE 4/5 throughout globally LUE 4/5 throughout globally FUNCTIONAL MOBILITY/ADLS: Rolling L/R: (I) Supine-sit: Min (A) Sit-stand: Mod (A) Stand-sit: Mod (A) Bed-Chair: FWW CGA, Stand pivot to wheel chair then (I) in WC BATHING: sitting at sink in wheelchair with max (A) Set up/clean up Upper Body: (I) face, (B) UE and abdomen, max (A) back Lower Body: (I) (B) LE to knees, max (A) below knees DRESSING: sitting in wheelchair at sink Upper Extremity: Min (A) don and doffing hopsital gown Lower Extremity: Sitting on side of the bed max (A) don and doffing (B) sneakers with brace on (L) LE. GROOMING: sitting at the sink in wheelchair (I) with brushing teeth, and (I) with brushing hair TOILETING: Device: commode Assist: min (A) BALANCE: Static sitting Normal Dynamic Sitting Normal ASSESSMENT: Patient is a 74-year-old female referred to occupational therapy services with diagnosis of pneumonia, mass (R) lung, CVA, asthma. Pt was seen for 3 skilled OT sessions, she is making increased gains towards her baseline level of function. She transitioned under [facility] B1 level of care on 04/24/20 and is formally discharged from acute level of care. OT will re-assess under [facility]. GOALS 1. Grooming- (I) with oral hygiene and brushing hair- met 2. Dressing- seated position (I) UE- not met 3. Bathing- (I) UE and mod (A) LE- met 4. Toileting- on toilet (I)- not met 5. Eating- (I)- met PLAN OF CARE/TREATMENT PLAN: Discharge from acute level of care and re-evaluate under [facility] level of care. DISCHARGE RECOMMENDATIONS Based on pts current level of function, OT recommends that pt return home when medically cleared per MD vs. short term stay at SNF. OT will continue to assess pts level of function and make appropriate recommendations. TREATMENT TIME/MINUTES/CODES N/A Camille Toscano OTR/L [facility]
== END 2020-04-24 14:33 | disposition swing bed (61) | DRG 193 ==
LOC: ER 11:23 → MS 11:53
PROVIDERS: General Practice; Internal Medicine; Nurse Practitioner Family; Admitting Provider Family Medicine; Emergency Provider Physician Assistant; PCP Physician Assistant Medical; Visit Provider Family Medicine
DX: J18.9 Pneumonia, unspecified organism (principal); J96.01 Acute respiratory failure with hypoxia; I69.354 Hemiplegia and hemiparesis following cerebral infarction affecting left non-dominant side; J44.0 Chronic obstructive pulmonary disease with (acute) lower respiratory infection; R09.02 Hypoxemia; I10 Essential (primary) hypertension; E78.5 Hyperlipidemia, unspecified; K21.9 Gastro-esophageal reflux disease without esophagitis; Z87.891 Personal history of nicotine dependence; R29.6 Repeated falls; R53.1 Weakness; R91.8 Other nonspecific abnormal finding of lung field; M25.562 Pain in left knee; R19.7 Diarrhea, unspecified; W06.XXXA Fall from bed, initial encounter
CPT/HCPCS: 36410; 36415; 71275; 73562; 74177; 80048; 80053; 84145; 85027; 87040; 87493; 93005; 94618; 94640; 96361; 96365; 96367; 96368; 96375; 97110; 97163; 97165; 97530; 97535; 99222; 99232; 99233; 99239; 99255; 99285; J1650; U0003; 70450; 71045; 72125; 81003; 83605; 83735; 83880; 84484; 85025; 85610; 85730; 87070; 87205; 93010; 94668; J0131; J0696; J1644; J1885; J2930; J3490; J7512; J7620

== ENCOUNTER 2020-04-24 11:28 | Inpatient (IN) | payer OTHER, MEDICAID, SELFPAY ==
--- NOTE | 2020-04-24 11:30 | HPE_ITS ---
Date of service: 04/24/20 Time of Service: 11:30 Assessment and Plan Assessment and plan (1) Mass of right lung: Start date: 04/24/20 Start time: 11:32 Status: Acute Assessment and plan: Found by imaging on admission. Awaiting for lung bx at [facility], they will call with scheduled time, will make NPO the night before and hold heparin Denies unintentional wt loss, likely cancer with mets Anxious for the procedure and results. Continues to require one liter of oxygen down from 4 continue symbicort, inhalers and duonebs (2) Bilateral pneumonia: Start date: 04/24/20 Start time: 11:32 Status: Resolved Assessment and plan: Found on admission, cough and fever, bibasilar pneumonia, right greater than left by imaging. Improving, sputum with normal phil, Blood cultures no growth, she was transitioned to augmentin and will finish the course of treatment for 2 more days for a total of 10 days. At this time she is awaiting biopsy with IR for right lung mass. She is a COPD. At 1 liter at this time of oxygen, Denies cough, afebrile. Continue IS Leukocytosis resolved. (3) Hypoxia: Start date: 04/24/20 Start time: 11:34 Status: Acute Assessment and plan: Due to above (4) Ambulatory dysfunction: Start date: 04/24/20 Start time: 11:34 Status: Acute Assessment and plan: Fall at home from , placed in SB status for further work with PT/OT. Would benefit from SNIF above case discussed with Dr Aragon who is in agreement. History of Present Illness History of Present Illness Chief Complaint: Mass of right lung, ambulatory dysfunction Narrative: This is a 74 yo female with a h/o asthma, CVA/hemorrhagic, HTN, HLD. She presented to the ED after reaching for her wheelchair from her bed, the wheelchair was not locked, and she fell to the floor onto her left side. She was unsure of whether or not she hit her head. No WELLS, neck pain. She did endorse SOA, cough with yellow sputum for several weeks. No noted fever, abd pain, N/V, CP, palpitations. She lives alone but has caregivers that spend appx 3 hours throughout the day to give her assistance. In the ED her initial O2 saturation was in the 80's on RA. Her temperature was 101F. WBC count was 10. Troponin negative. Procalcitonin was <0.1. CT chest showed a large R lower lobe mass with smaller adjacent masses with malignant appearance. CT head and L knee were negative. She was started on Rocephin and IV doxycycline for presumed CAP, and admitted for further management. She was transitioned to augmentin, afebrile, leukocytosis resolved. She was started on steroid taper, she improved with treatment. Due to right sided mass on imaging, [facility] was consulted for biopsy. She has improved and is feeling better, oxygen level down to 1 L from 4 L on admission. She did have loose stool on admission, cdiff negative and stools have improved. She has been having muscle spasms and pain with movement but improving. She would benefit from rehabilitation, however at this time she is being placed into SB 1 status until bx completed. She is requiring PT/OT at this time. She denies CP, SOB, N/V/D. Review of Systems All systems reviewed & are unremarkable except as noted in HPI and below PFSH Medical History Asthma Cerebrovascular accident Depression Essential hypertension Frequent falls Gastroesophageal reflux disease Goals of care, counseling/discussion Hemiplegia History of hemorrhagic stroke with residual hemiparesis History of smoking 25-50 pack years Hyperlipidemia Lung cancer Oxygen dependent Palliative care patient Polyp of colon Wheelchair bound Surgical History Cerebral aneurysm repair. Family History Mother Personal history of malignant neoplasm colon cancer Father Heart disease Daughter No problems noted. Daughter No problems noted. Daughter No problems noted. Social History Smoking/Tobacco Use Status: Former Tobacco Use Tobacco: How many years used: 40 Smoking risk assessment performed?: Yes Alcohol Intake: never Drug use: Never Substance use type: does not use Caregiver/Support person: No Household members: none Housing: apartment Number of Children: 3 number of grandchildren: 4 Communication Needs: Corrective Lenses Education Level: high school Do you need help understanding health information?: Always current occupation: disabled since stroke age 59 Sexually active: No Current gender identity: female What is your relationship status?: How often do you talk on the phone with friends or family?: three or more times per week How often do you get together with friends or relatives?: never Panel score (0-1 are the most socially isolated patients): 1 What type of physical activity do you participate in: occasional exercise and wheelchair-bound Duration: 15-30 minutes/day Frequency: 3-4 times per week Special jac needs: No Seatbelt use: always Working smoke detector in home: Yes Fire extinguisher in home: Yes Do you feel safe at home: Yes Do you feel safe in your relationship?: Yes Additional Social history: Gerda and her late ex- Ismael after her stroke. He then of cancer soon thereafter. Gerda has 3 daughters, all of whom she is close to. Vimal, her eldest, is her DPOA. She has 4 grandsons, too. She is very proud of all of them. She has not smoked since her stroke. She lives at the [facility]. Her daughters have talked to her about moving into a place with 24/7 care, such as a community shelter or SNF or Assisted Living. She has not investigated this seriously yet but now facing her likely new cancer diagnosis, she wants more help. Meds Home Medications and Allergies Home Medications Medication Instructions Recorded Confirmed Type ibuprofen 600 mg PO TID PRN 09/20/12 04/17/20 History hydrochlorothiazide 12.5 mg PO DAILY 04/27/13 04/17/20 History lamotrigine 300 mg PO DIRECTED 04/27/13 04/17/20 History omega-3 fatty acids-fish oil [Fish 1 cap PO TID 04/27/13 04/17/20 History Oil 1,000 mg Capsule] potassium chloride [Klor-Con M20] 20 meq PO DAILY 04/27/13 04/17/20 History simvastatin 40 mg PO DAILY 04/27/13 04/17/20 History conjugated estrogens [Premarin 0.5 g VG DAILY #1 tube 11/24/13 04/17/20 History Vaginal Cream] albuterol sulfate [ProAir HFA] 2 puff INHALATION Q4H PRN PRN 04/17/20 04/17/20 History alendronate 70 mg PO QWEEK 04/17/20 04/17/20 History aspirin 81 mg PO DAILY 04/17/20 04/17/20 History carboxymethylcellulose sodium 1 drp OPHTHALMIC (EYE) QID PRN PRN 04/17/20 04/17/20 History [Refresh Celluvisc] docusate sodium [DOK] 100 mg PO TID 04/17/20 04/17/20 History escitalopram oxalate 5 mg PO DAILY 04/17/20 04/17/20 History fluticasone propion-salmeterol 1 inh INHALATION BID 04/17/20 04/17/20 History polyethylene glycol 3350 17 g PO DAILY PRN PRN 04/17/20 04/17/20 History Allergies Allergy/AdvReac Type Severity Reaction Status Date / Time No Known Allergies Allergy Unverified 04/17/20 10:35 Exam Narrative Exam Narrative: General: very pleasant 74 year old female, appears stated age, sitting up in chair, awake, alert and oriented. HEENT: normocephalic, atraumatic, EOMI, mucous membranes moist. Neck: supple. Cardiovascular: heart has regular rate and rhythm, nontachycardic, no murmur appreciated. Respiratory: respirations appear even and unlabored, no coughing during exam, lungs sound clear, no wheezing or rales noted. GI: normoactive bowel sounds, abdomen soft, nontender on palpation, nondistended. Extremities: left knee with minimal tenderness on palpation to lateral aspect and superiorly, +pain with active ROM, primarily lifting her left leg while sitting. Brace to Left ankle. No significant edema. Mental Status: mental status grossly normal Speech and Movement: speech and movement normal Mood: congruent mood Affect: normal affect COVID-19 Screening Have you, or household traveled for leisure in last 14 days?: No
--- NOTE | 2020-04-24 13:50 | PT.INIE ---
Date of service: 04/24/20 Time of Service: 13:50 PT Notes Visit Reasons: MASS OF RIGHT LUNG, AMBULATORY DYSFUNCTION Physical Therapy Inpatient Swing Bed Level 1 Initial Evaluation Date: 04/24/2020 Referring Doctor: Perry Alan MD PT Orders: PT CONSULT: Eval/treat Precautions: Fall. Standard. Activity as tolerated. L AFO and shoes on when out of bed. 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 Patient is diagnosed with pneumonia and a mass in the right lung. Francie converts to swing bed level 1 as of today and is re-evaluated for continued physical therapy services. PMHX: Medical History Asthma Cerebrovascular accident Depression Essential hypertension Gastroesophageal reflux disease Hemiplegia Hyperlipidemia Polyp of colon Surgical History Cerebral aneurysm repair. Social History/Home Situation: Lives alone on the second floor of the [facility] in [place], [place]. Receives aide assistance one hour each day 6x/week in the mornings and has [facility] home assistants 2-3 hours everyday during the evening. Is able to self-transfer from bed to chair using a stand squat transfer without an assistive device. Requires assistance with wheelchair transport over ramp at the entrance of the building and through the elevator to her apartment with her wheelchair. Equipment Owned/DME: hospital bed, FWW, wheelchair Subjective: Pleasant and cooperative. Anxious about being able to go to [facility] today for her lung biopsy. Has been NPO since last noc. Objective: General Observation: Seated on reclining chair. L AFO and shoes on. Mental Status: Alert and oriented x4 Pain: 8?9/10 pain in the left knee with ambulation activity ROM: Right Upper Extremity: Shoulder Flexion WFL. Shoulder abduction WFL. Elbow flexion WFL. Wrist flexion WFL. Opening and closing of hand WFL. Left Upper Extremity: Shoulder Flexion allows up to 110 degrees. Shoulder abduction allows up to 100 degrees. Elbow flexion WFL. Wrist flexion WFL. Opening and closing of hand WFL. Right Lower Extremity: Hip flexion WFL. Hip abduction WFL. Knee flexion WFL. Ankle dorsiflexion WFL. Ankle plantarflexion WFL. Left Lower Extremity: Hip flexion allows up to 80 degrees. Hip abduction allows up to 20 degrees. Knee flexion up to 80 degrees. Ankle dorsiflexion none beyond neutral. Ankle plantarflexion 10 degrees. Strength: Right Upper Extremity: Shoulder flexors 5/5. Shoulder abductors 5/5. Elbow flexors 5/5. Elbow extensors 5/5. Registered Nurses strong. Left Upper Extremity: Shoulder flexors 4-5. Shoulder abductors 4-/5. Elbow flexors 4-/5. Elbow extensors 4-/5. Registered Nurses weak but functional. Right Lower Extremity: Hip flexors 4/5. Hip abductors 4/5. Knee flexors 4/5. Knee extensors 4/5. Ankle dorsiflexors 4/5. Ankle plantarflexors 4/5. Left Lower Extremity: Hip flexors 3-/5. Hip abductors 3-/5. Knee flexors 3-/5. Knee extensors 3-/5. Ankle dorsiflexors 3-/5. Ankle plantarflexors 3-/5. Sensation: Intact as to pain and pressure on bilateral lower extremities. Bed Mobility/Transfers: Sit to stand:contact guard assist with FWW, L AFO and shoes needed. FWW needs to be stabilized by PT for safety. Maximal cues given to avoid patient from letting go of both hands simultaneously to grab the walker. Stand to sit:contact guard assist with FWW, L AFO and shoes needed. FWW needs to be stabilized by PT for safety. Maximal cues given to avoid patient from letting go of both hands simultaneously to grab the walker. Bed to chair:contact guard assist with FWW, L AFO and shoes needed. Reports to 8-9/10 pain in the L knee during and after activity. Maximal cues given to avoid patient from letting go of both hands simultaneously to grab the walker. Gait: Guided patient with safe ambulation over level surface ambulation of 80 feet +120 feet using front wheeled walker and contact-guard assist with wheelchair follow of his second caregiver. Left AFO loose and ill fitting which results to to increase left tibial internal rotation, decreased left knee extension, and left foot supination contributing to increase left knee pain. TALYA ACT: Worked on task segmentation for sit<>stand transfer skills as follows: 1. forward scoot in chair 2. B LE positioning 3. B UE/hand placement 4. COG forward placement/trunk flexion 5. maintain squat position while hands are on arm rests 6. walker management 7. static standing with FWW Balance: Static Sitting: Normal Dynamic Sitting: Normal Static Standing: Fair Dynamic Standing: Fair Assessment: Francie continues to demonstrate functional mobility decline requiring the use of a front wheeled walker and assistance of 1 person for all transfers and wheelchair follow for short distance ambulation, lack of coordination, impulsiveness, generalized weakness, decreased activity tolerance, pain in in the left knee, difficulty with walking, and increased risk for falls due to admitting diagnoses and co-morbidities. Her L AFO has not been replaced since five years ago and is now ill-fitting which has resulted to increased L tibial internal rotation, L foot supination, and decreased L knee extension throughout the gait cycle which contribute to L knee pain, impaired gait pattern, and increased fall risk. Swing bed level goals will focus on task segmentation for bed<>wheelchair and bed<>bedside commode transfer to increase mastery, coordination, and self-reliance in regaining premorbid independent transfer task performance. Care management team has been requested to expedite procurement of new AFO in order to facilitate achievement of swing bed level 1 goals. Patient presents with clinical signs and symptoms consistent with current/admitting diagnoses that have resulted to mobility limitations, gait instability, generalized weakness, and impairment of motor control as demonstrated by the following impairment level findings: 1. Decreased strength to left UE/LE major muscle groups 2. Impaired standing balance 3. Impaired activity tolerance 4. Limitation of joint range of motion in left UE/LE 5. Pain in the left knee aggravated with weight bearing 6. Lack of coordination, impaired motor planning 7. Increased L tibial internal rotation, L ankle supination, and decreased L knee flexion contributing to L knee pain, impaired gait mechanics, and instability Impairments are contributing to the following functional limitations: 1. Dependent bed mobility skills 2. Increased dependence with transfers 3. Inability to safely ambulate without assistive device and physical assistance 4. Increase completion time for mobility ADL performance 5. Increased fall risk 6. Inability to negotiate steps alone safely Goals: Goals X1 week 1. Supine-Sit independent using bed rails 2. Sit-Supine independent using bed rails 3. Sit-Stand independent with FWW 4. Stand-Sit independent with FWW 5. Bed-Chair independent with FWW 6. Chair-Bed independent with FWW 7. Standby assist on gait on level surface with use of front wheeled walker and proper fitting L AFO for at least 50 feet without report of L knee pain nor dyspnea 8. Good static and dynamic standing balance/tolerance DISCHARGE RECOMMENDATIONS: Patient will benefit from long term facility placement for continued skilled physical therapy services in order to progress mobility level, strength, and balance. TREATMENT CODE/TIME: 86240 x 30 minutes, 84539 x 30 minutes beginning at 13:50 PM. Thank you for the opportunity to participate in the care of this patient. Jayne Dickerson PT, DPT, CLT [facility] [place], [place]
--- NOTE | 2020-04-24 14:49 | NUR.NOTE ---
pt admitted from acute to swingbed. Nursing Note:
--- NOTE | 2020-04-24 15:05 | PHA.REVIEW ---
Pharmacy Admission Review - Admission Clinical Review (Last Reviewed 04/24/20 @ 11:31 by Christina Moreno NP) Ambulatory dysfunction (Acute) Hypoxia (Acute) Mass of right lung (Acute) No Known Allergies Allergy (Unverified 04/17/20 10:35) - Renal Dosing Medications needing adjustments: Reviewed List of meds needing interventions: ecrcl 46.9ml/min, orders ok - Anticoagulation DVT Prohphylaxis: Reviewed Medications: Heparin - Opiate Usage Evaluate Pain Scale/Pains Meds: N/A - Relevant Labs Electrolytes, C-Reactive P, ESR: N/A - DM Control Insulin Dosing: N/A - Heart Failure/MT EF%, WHITLEY's, B-Blockers, Diuretics: Reviewed - BP Control If elevated: Reviewed - Qtc Review If Elevated: N/A - IV to PO Switch IV Medications: Reviewed - Home Meds Home Med List reviewed: Reviewed Relevent Home Meds Not ordered & why?: alendronate, restasis, premarin cream - Current meds Current Medication Order Review: Reviewed - Comments Comments/Follow Ups: 2 more days of Augmentin (day 810) for tx of CAP
[2020-04-24 16:09] VITALS: BP 121/61; PULSE 68; RESP 18; TEMP 36.3; O2SAT 93
--- NOTE | 2020-04-24 17:02 | CM.SBPSYCH ---
- If Service Date Differs Date of service: 04/24/20 Time of Service: 17:02 SB Psychosocial/Act.Assessment - Hospital Admission Admission Date: 04/17/20 Admission From:: ED Diagnosis:: Community Acquired Pneumonia - Swing Bed Admission Swing Bed Admit Date:: 04/24/20 Swing Bed Level of Care: Level 1/SNF - Social Supports PREVIOUS FUNCTIONAL STATUS/SOCIAL/FAMILY SUPPORTS:: Francie lives alone at the [facility] in [place] She has [facility] highest needs through the [place] [facility] and her shoe parts caser is Thania Barbosa. Francie has caregivers who spend about 3 hours a day caring for her. She generally receives one hour in the morning and 2 in the evening. Francie has 3 children and 4 grandsons who are all in the area. She states they are supportive and willing to help her as time allows. Francie uses a walker and wheelchair and occasionally a quad cane. She does require assistance with ADLs which her caregivers provide. - Prior to Admission Living Arrangements/Environment Prior to Admission:: see above - Medical History PAST MEDICAL HISTORY/PAST SURGICAL HISTORY:: Medical History . Asthma. Cerebrovascular accident. Depression. Essential hypertension. Gastroesophageal reflux disease. Hemiplegia. Hyperlipidemia. Polyp of colon. Surgical History . Cerebral aneurysm repair.
--- NOTE | 2020-04-24 17:08 | CM.SWINGPC ---
- If Service Date Differs Date of service: 04/24/20 Time of Service: 17:08 Swingbed Plan of Care Plan of care: SWING BED PROGRAM ACTIVITIES/DISCHARGE PLAN OF CARE ACTIVITIES PLAN Date:04/24/20 Identified Need: Intervention/Plan: Initials DISCHARGE PLAN Date:04/24/20 Identified Need: Intervention/Plan: Initials
[2020-04-24] MEDS: Lidocaine 5% Patch 1 PATCH TP (17:50)
[2020-04-24 17:55] VITALS: PULSE 79; RESP 1; RESP 18; RESP 8; O2SAT 94
[2020-04-24] MEDS: Albuterol/Ipratropium 3 ML UPD VIAL UPD (17:55)
[2020-04-24] MEDS: Omega-3 Fatty Acids 1000 MG CAP PO (19:52)
[2020-04-24] MEDS: Simvastatin 40 MG TAB PO (19:52)
[2020-04-24] MEDS: Benzonatate 100 MG CAP PO (19:52)
[2020-04-24] MEDS: Amoxicillin 875/Clav. 125 TAB PO (19:52)
[2020-04-24] MEDS: guaiFENesin 600 MG TABCR PO (19:52)
[2020-04-24] MEDS: Docusate Sodium 100 MG CAP PO (19:52)
[2020-04-24] MEDS: Lactobacillus Acidophilus CAP 1 CAP PO (19:53)
[2020-04-24] MEDS: lamoTRIgine 100 MG TAB PO (19:53)
[2020-04-24] MEDS: Budesonide/Formoterol 160/4.5 6 GM 60 PUFF INH IH (19:53)
[2020-04-24] MEDS: Diclofenac 1% Gel 100 GM TUBE TP (19:54)
[2020-04-24] MEDS: Acetaminophen 500 MG TAB 1000 MG PO (22:05)
[2020-04-24] MEDS: Heparin 5,000 UNITS/ML VIAL 5000 UNITS SC (22:06)
[2020-04-25 03:10] VITALS: BP 136/65; PULSE 78; RESP 18; TEMP 37.1; O2SAT 91
[2020-04-25] MEDS: Acetaminophen 500 MG TAB 1000 MG PO ×3 (06:22→21:34)
[2020-04-25] MEDS: Albuterol/Ipratropium 3 ML UPD VIAL UPD (06:23)
[2020-04-25] MEDS: Heparin 5,000 UNITS/ML VIAL 5000 UNITS SC ×3 (06:23→21:34)
[2020-04-25 06:39] LABS: HCT 44.1 % (36.0-46.0); HGB 13.7 g/dL (11.2-15.7); MCH 27.4 pg (27.0-33.0); MCHC 31.1 % (32.0-36.0); MCV 88.2 fL (80-95); MPV 8.8 fL (8.0-11.0); Platelet Count 316 10^3/uL (130-400); RDW 14.6 % (11.7-14.6); RDW-SD 46.4 fL; WBC 12.26 10^3/uL (4.4-10.8)
[2020-04-25 07:15] VITALS: BP 136/91; PULSE 71; RESP 18; TEMP 36.5; O2SAT 93
[2020-04-25] MEDS: Budesonide/Formoterol 160/4.5 6 GM 60 PUFF INH IH ×2 (07:45→19:56)
[2020-04-25] MEDS: Diclofenac 1% Gel 100 GM TUBE TP ×3 (08:27→19:56)
[2020-04-25] MEDS: Refresh PLUS Eye Drops 0.4ml OP (08:28)
[2020-04-25] MEDS: Potassium Chloride 20 MEQ TABCR PO (08:29)
[2020-04-25] MEDS: Pantoprazole 40 MG TABCR PO (08:29)
[2020-04-25] MEDS: predniSONE 20 MG TAB PO (08:29)
[2020-04-25] MEDS: Lactobacillus Acidophilus CAP 1 CAP PO ×3 (08:29→19:55)
[2020-04-25] MEDS: Escitalopram 10 MG TAB 5 MG PO (08:29)
[2020-04-25] MEDS: guaiFENesin 600 MG TABCR PO ×2 (08:29→19:55)
[2020-04-25] MEDS: Amoxicillin 875/Clav. 125 TAB PO ×2 (08:29→19:53)
[2020-04-25] MEDS: Lisinopril 20 MG TAB PO (08:30)
[2020-04-25] MEDS: lamoTRIgine 100 MG TAB 200 MG PO (08:30)
[2020-04-25] MEDS: Aspirin E.C. 81 MG TABEC PO (08:30)
[2020-04-25] MEDS: hydroCHLOROthiazide 12.5 MG TAB PO (08:30)
[2020-04-25] MEDS: Omega-3 Fatty Acids 1000 MG CAP PO ×3 (08:30→19:54)
[2020-04-25] MEDS: Benzonatate 100 MG CAP PO ×3 (08:31→19:54)
--- NOTE | 2020-04-25 08:35 | OT.INNT ---
Date of service: 04/25/20 Time of Service: 08:35 Occupational Therapy Notes 04/25/20 OT consult received and pts chart was reviewed for initial consult for SWG B1 status. OT attempted to see pt who reports that she performed her ADLs (I) this morning including dressing, bathing and oral hygiene. She notes that she is not interested in performing any other ADLs at this time. OT will attempt to perform initial consult tomorrow. Camille Toscano, OTR/[facility]
--- NOTE | 2020-04-25 14:45 | CHAPLAIN ---
Francie was up in her chair when I visited. She said she's been in touch with one daughter. She uses her iPad to stay in touch with people because she doesn't have a cell phone. Francie was being changed to swing bed today.
[2020-04-25 15:32] VITALS: BP 137/75; PULSE 76; RESP 18; TEMP 36.5; O2SAT 88
--- NOTE | 2020-04-25 16:20 | PTTR_ITS ---
Date of service: 04/25/20 Time of Service: 16:20 PT Notes Visit Reasons: MASS OF RIGHT LUNG, AMBULATORY DYSFUNCTION Physical Therapy Inpatient Swing Bed Level 1 Treatment Note Date: 04/25/2020 Precautions: Fall. Standard. Activity as tolerated. L AFO and shoes on when out of bed. Subjective: Remains anxious about going home and being alone from 9 am through 5 pm. Hoping that she can finally get an answer about her lung mass. Objective: General Observation: Seated on reclining chair. L AFO and shoes on. Mental Status: Alert and oriented x4 Pain: 7/10 pain in the left knee with ambulation activity Transfers: Sit to stand: SBA from wheelchair and edge of bed, contact guard assist with FWW, L AFO and shoes needed. FWW needs to be stabilized by PT for safety. Maximal cues given to avoid patient from letting go of both hands simultaneously to grab the walker. Stand to sit: SBA from wheelchair and edge of bed, contact guard assist with FWW, L AFO and shoes needed. FWW needs to be stabilized by PT for safety. Maximal cues given to avoid patient from letting go of both hands simultaneously to grab the walker. Bed to chair: contact guard assist with FWW, L AFO and shoes needed. Reports to 8-9/10 pain in the L knee during and after activity. Maximal cues given to avoid patient from letting go of both hands simultaneously to grab the walker. Gait: Patient limited to bed to toilet seat ambulation only with FWW and SBA of 1 caregiver until new L AFO is procured THERA ACT: Continued to work on task segmentation for transfer skills as follows: 1. forward scoot in chair 2. B LE positioning 3. B UE/hand placement and chair push up 4. COG forward placement/trunk flexion 5. maintain squat position while hands are on arm rests 6. walker management 7. static standing with FWW Balance: Static Sitting: Normal Dynamic Sitting: Normal Static Standing: Fair Dynamic Standing: Fair Assessment: Francie continues to demonstrate the need for set up and stand by assist for all transfer task performance. Swing bed level 1 goal of achieving independence with all transfer task performance remains unachievable at this time due to the following barriers: 1) loose wheelchair breaks (will reach out to the maintenance department about tightening same); 2) loose-fitting 5-years-old L AFO; 3) additional oxygen tubing that needs to be managed to avoid tripping/entanglement that can increase fall risk; 4) impaired ability/decreased awareness/perceptual limitation to estimate distance and placement of self onto transfer surface; 5) increased impulsiveness; 6) impaired balance posterior balance awareness; and 7) limited activity tolerance due to recently diagnosed lung mass. DISCHARGE RECOMMENDATIONS: Patient will benefit from retirement facility placement for continued skilled physical therapy services in order to progress mobility level, strength, and balance. TREATMENT CODE/TIME: Session 1??27631 x 34 minutes beginning at 11:23 AM. Session 2??[id number] x 50 minutes beginning at 16:20 PM.
[2020-04-25] MEDS: Lidocaine 5% Patch 1 PATCH TP (17:09)
[2020-04-25] MEDS: lamoTRIgine 100 MG TAB PO (19:55)
[2020-04-25] MEDS: Simvastatin 40 MG TAB PO (19:55)
[2020-04-25 23:35] VITALS: BP 117/65; PULSE 81; RESP 18; TEMP 36.6; O2SAT 90
[2020-04-25 23:46] VITALS: O2SAT 92
[2020-04-26 02:29] VITALS: O2SAT 92
[2020-04-26] MEDS: Heparin 5,000 UNITS/ML VIAL 5000 UNITS SC ×3 (05:51→22:00)
[2020-04-26] MEDS: Acetaminophen 500 MG TAB 1000 MG PO ×3 (05:52→22:00)
[2020-04-26 08:01] VITALS: BP 132/69; PULSE 68; RESP 17; TEMP 35.9; O2SAT 93
[2020-04-26 08:10] VITALS: O2SAT 95
[2020-04-26] MEDS: Budesonide/Formoterol 160/4.5 6 GM 60 PUFF INH IH ×2 (08:10→20:09)
[2020-04-26] MEDS: Diclofenac 1% Gel 100 GM TUBE TP ×4 (08:29→20:11)
[2020-04-26 08:30] VITALS: O2SAT 92
[2020-04-26] MEDS: Potassium Chloride 20 MEQ TABCR PO (08:30)
[2020-04-26] MEDS: Aspirin E.C. 81 MG TABEC PO (08:30)
[2020-04-26] MEDS: Amoxicillin 875/Clav. 125 TAB PO ×2 (08:30→20:11)
[2020-04-26] MEDS: Lisinopril 20 MG TAB PO (08:30)
[2020-04-26] MEDS: hydroCHLOROthiazide 12.5 MG TAB PO (08:30)
[2020-04-26] MEDS: Omega-3 Fatty Acids 1000 MG CAP PO ×3 (08:30→20:12)
[2020-04-26] MEDS: guaiFENesin 600 MG TABCR PO ×2 (08:30→20:11)
[2020-04-26] MEDS: Escitalopram 10 MG TAB 5 MG PO (08:31)
[2020-04-26] MEDS: Docusate Sodium 100 MG CAP PO ×3 (08:31→20:13)
[2020-04-26] MEDS: Lactobacillus Acidophilus CAP 1 CAP PO ×3 (08:32→20:11)
[2020-04-26] MEDS: lamoTRIgine 100 MG TAB 200 MG PO (08:32)
[2020-04-26] MEDS: predniSONE 20 MG TAB PO (08:32)
[2020-04-26] MEDS: Pantoprazole 40 MG TABCR PO (08:32)
[2020-04-26] MEDS: Benzonatate 100 MG CAP PO ×3 (08:32→20:13)
--- NOTE | 2020-04-26 08:56 | OT.INDS ---
Date of service: 04/26/20 Time of Service: 08:25 Occupational Therapy Notes 04/26/20 OT attempted to consult with pt for SWG B1 evaluation. After discussion with pt it was determined that pt feels that she is at her baseline level of function in regards to her ADL/IADL routines. She notes that she has (A) at baseline and that she is able to perform her bathing and dressing with the same amount of (A) that she could prior to admission. Pt states that she got washed up today with set up (A). She also used the commode while OT was in the room which she was also able to perform at her baseline per pt report. OT did ask pt if she felt that she may benefit from further OT sessions and she notes that she feels that she is not totally (I) but wasn't before she came. She states that she is feeling stronger and feels that her transfers are improving with Physical Therapy. Due to refusal for further OT services, OT will formally discharge from skilled OT services at this time. Camille Toscano, OTR/L [facility] [place]
--- NOTE | 2020-04-26 13:19 | PTTR_ITS ---
Date of service: 04/26/20 Time of Service: 13:19 PT Notes Visit Reasons: MASS OF RIGHT LUNG, AMBULATORY DYSFUNCTION Physical Therapy Inpatient Swing Bed Level 1 Treatment Note Date: 04/26/2020 Precautions: Fall. Standard. Activity as tolerated. L AFO and shoes on when out of bed. Subjective: States that she goes to [facility] for more testing on her lung mass on the . Agrees that she is not safe to be transferring yet on her own with continued breathing issue. Claims that her L knee is a little swollen today. Reports significant pain in L knee as she lifts foot up and propels wheelchair forward to position it close to bed. Knows that she needs to slow down when she transfers but admits that she frequently can be impulsive about it. Objective: General Observation: Seated on reclining chair. L AFO and shoes on. L knee minimally swollen and warm. Mental Status: Alert and oriented x4 Pain: 7-8/10 pain in the left knee with movement and weight-bearing Transfers: Sit to stand: SBA from wheelchair and edge of bed, contact guard assist with FWW, L AFO and shoes needed. FWW needs to be stabilized by PT for safety. Maximal cues given to avoid patient from letting go of both hands simultaneously to grab the walker. Stand to sit: SBA from wheelchair and edge of bed, contact guard assist with FWW, L AFO and shoes needed. FWW needs to be stabilized by PT for safety. Maximal cues given to avoid patient from letting go of both hands simultaneously to grab the walker. Bed to chair: contact guard assist with FWW, L AFO and shoes needed. Reports to 7-8/10 pain in the L knee during and after activity. Maximal cues given to avoid patient from letting go of both hands simultaneously to grab the walker. Unable to safely estimate how far to back up and center self onot transfer surface, requires moderate cues for safety. Gait: Patient limited to bed to toilet seat ambulation only with FWW and SBA of 1 caregiver until new L AFO is procured THERA ACT: Continued to work on task segmentation using walker and without walker for transfer skills as follows: 1. forward scoot in chair 2. B LE positioning 3. B UE/hand placement and chair push up 4. COG forward placement/trunk flexion 5. maintain squat position while hands are on arm rests 6. walker management (if used) 7. static standing with FWW Balance: Static Sitting: Normal Dynamic Sitting: Normal Static Standing: Fair Dynamic Standing: Fair Assessment: Francie continues to demonstrate the need for set up and stand by assist for all transfer task performance. Swing bed level 1 goal of achieving independence with all transfer task performance remains unachievable at this time due to the following barriers: 1) loose wheelchair breaks (will reach out to the maintenance department about tightening same); 2) loose-fitting 5 -years-old L AFO; 3) additional oxygen tubing that needs to be managed to avoid tripping/entanglement that can increase fall risk; 4) impaired ability/decreased awareness/perceptual limitation to estimate distance and center self onto transfer surface; 5) increased impulsiveness; 6) impaired posterior balance awareness; and 7) limited activity tolerance due to recently diagnosed lung mass. DISCHARGE RECOMMENDATIONS: Patient will benefit from [facility] facility placement for continued skilled physical therapy services in order to progress mobility level, strength, and balance. TREATMENT CODE/TIME: Session 1??[id number] x 34 minutes beginning at 10:58 AM. Session 2??[id number] x 42 minutes beginning at 13:19 PM.
[2020-04-26] MEDS: Refresh PLUS Eye Drops 0.4ml OP ×2 (13:38→20:18)
--- NOTE | 2020-04-26 15:55 | PDOC.CMPRO ---
- If Service Date Differs Date of service: 04/26/20 Time of Service: 15:55 Care Management Progress Note S/O: Gerda was sitting up in a chair when CM met with her. She shared that she was disappointed that she would not be able to have her lung biopsy until later in the month. She does not understand why she can't just go down to [facility], have the procedure and return. NADIA explained that it was an outpatient procedure and that often hospitals have to prioritize their own critically ill inpatients. Gerda also talked about the possibility of going to [facility] which is an assisted living facility. NADIA explained that it was likely she would not meet criteria because her nees are greater than what can be provided in that setting. Gerda also shared the name of a home provider that she knows who is looking for a client and would like to have Gerda. At Gerda's request. NADIA contacted her friend, Fang Maza and she confirmed that she is an AF home provider through [facility] and knows Gerda and would be amenable to having her as a client. NADIA relayed this information to Gerda's upper caser at [facility]. P: Francie remains in SB1 status. She is seeking placement in an AFC home and referrals have been sent. She is working with PT on gaining more independence with transfers. She continues to maintain that she does not feel safe discharging home alone.
[2020-04-26 15:59] VITALS: BP 119/56; PULSE 75; RESP 18; TEMP 36.4; O2SAT 94
[2020-04-26] MEDS: Lidocaine 5% Patch 1 PATCH TP (17:30)
[2020-04-26] MEDS: Simvastatin 40 MG TAB PO (20:13)
[2020-04-26] MEDS: lamoTRIgine 100 MG TAB PO (20:13)
[2020-04-26 23:25] VITALS: BP 114/58; PULSE 80; RESP 17; TEMP 36.6; O2SAT 93
[2020-04-27] MEDS: Heparin 5,000 UNITS/ML VIAL 5000 UNITS SC ×3 (06:37→22:12)
[2020-04-27] MEDS: Pantoprazole 40 MG TABCR PO (06:37)
[2020-04-27] MEDS: Acetaminophen 500 MG TAB 1000 MG PO ×3 (06:37→22:12)
[2020-04-27] MEDS: Refresh PLUS Eye Drops 0.4ml OP ×2 (06:41→20:37)
[2020-04-27 07:12] LABS: HCT 48.7 % (36.0-46.0); HGB 15.1 g/dL (11.2-15.7); MCH 27.3 pg (27.0-33.0); MCV 88.1 fL (80-95); MPV 8.8 fL (8.0-11.0); Platelet Count 336 10^3/uL (130-400); RBC 5.53 10^6/uL (3.93-5.22); RDW 14.5 % (11.7-14.6); RDW-SD 46.2 fL; WBC 11.34 10^3/uL (4.4-10.8)
[2020-04-27 07:29] VITALS: BP 142/80; PULSE 68; RESP 17; TEMP 37.1; O2SAT 94
[2020-04-27 08:03] VITALS: O2SAT 95
[2020-04-27] MEDS: Budesonide/Formoterol 160/4.5 6 GM 60 PUFF INH IH ×2 (08:04→20:36)
[2020-04-27] MEDS: lamoTRIgine 100 MG TAB 200 MG PO (09:03)
[2020-04-27] MEDS: Lisinopril 20 MG TAB PO (09:04)
[2020-04-27] MEDS: Docusate Sodium 100 MG CAP PO ×3 (09:04→20:20)
[2020-04-27] MEDS: Potassium Chloride 20 MEQ TABCR PO (09:04)
[2020-04-27] MEDS: Omega-3 Fatty Acids 1000 MG CAP PO ×3 (09:04→20:19)
[2020-04-27] MEDS: guaiFENesin 600 MG TABCR PO ×2 (09:04→20:18)
[2020-04-27] MEDS: Aspirin E.C. 81 MG TABEC PO (09:04)
[2020-04-27] MEDS: hydroCHLOROthiazide 12.5 MG TAB PO (09:04)
[2020-04-27] MEDS: Benzonatate 100 MG CAP PO ×3 (09:04→20:20)
[2020-04-27] MEDS: Lactobacillus Acidophilus CAP 1 CAP PO ×3 (09:05→20:18)
[2020-04-27] MEDS: Escitalopram 10 MG TAB 5 MG PO (09:05)
[2020-04-27] MEDS: predniSONE 20 MG TAB PO (09:05)
[2020-04-27] MEDS: Diclofenac 1% Gel 100 GM TUBE TP ×4 (09:51→20:36)
--- NOTE | 2020-04-27 10:53 | W.NUTRFU ---
Date of service: 04/27/20 Time of Service: 10:54 Nutritional Follow up NOTE: Francie continues on heart healthy diet with excellent intake (>75% of meals). Weight has been stable, here for rehab services. Not at nutritional risk at this time. Will continue to follow. Time Spent in Nutritional Counseling and Treatment: 0
--- NOTE | 2020-04-27 15:39 | PTTR_ITS ---
Date of service: 04/27/20 Time of Service: 11:00 PT Notes Visit Reasons: MASS OF RIGHT LUNG, AMBULATORY DYSFUNCTION Inpatient Physical Therapy Treatment Note [facility] Date: 04/27/2020 PRECAUTIONS: Fall SUBJECTIVE: Francie is pleasant and agreeable to participating in PT. OBJECTIVE: PAIN: No complaints of pain BED MOBILITY/TRANSFERS Supine-sit: I with HOB flat Sit-supine: I with HOB flat Sit-stand: SBA Stand-sit: SBA Patient was instructed in transfer training with wheelchair, including wheelchai r<>chair, wheelchair<>toilet, wheelchair<>bed x3 each. Training focused on speed and pacing for safety, hand placement, and wheelchair positioning. Barriers to progression to independence with transfers include loose fitting AFO, loose wheelchair locks, and oxygen tubing management. Patient was also instructed on appropriate and safe ways for donning/doffing undergarments without assistance during toileting process. Patient toileted with SBA for transfers and donning/doffing undergarments. ASSESSMENT: Patient demonstrates improved ability to perform transfers to and from wheelchair, although barriers are observed at present progression to independence with these transfers, including loose fitting AFO, loose wheelchair locks, and oxygen tubing management. PLAN: Continue with transfer training and instruction for improved safety techniques. TREATMENT CODE/TIME: 30 minutes; 96189 x2
[2020-04-27 16:05] VITALS: BP 132/63; PULSE 80; RESP 16; TEMP 36.7; O2SAT 88
[2020-04-27] MEDS: Lidocaine 5% Patch 1 PATCH TP (18:07)
[2020-04-27] MEDS: Simvastatin 40 MG TAB PO (20:18)
[2020-04-27] MEDS: lamoTRIgine 100 MG TAB PO (20:19)
[2020-04-27 23:20] VITALS: BP 110/59; PULSE 70; RESP 17; TEMP 35.5; O2SAT 93
[2020-04-28] MEDS: Acetaminophen 500 MG TAB 1000 MG PO ×3 (06:32→21:40)
[2020-04-28] MEDS: Heparin 5,000 UNITS/ML VIAL 5000 UNITS SC ×3 (06:33→21:39)
[2020-04-28] MEDS: Pantoprazole 40 MG TABCR PO (06:33)
[2020-04-28] MEDS: Budesonide/Formoterol 160/4.5 6 GM 60 PUFF INH IH ×2 (07:55→20:34)
[2020-04-28 08:09] VITALS: BP 114/63; PULSE 73; RESP 18; TEMP 36.8; O2SAT 94
[2020-04-28] MEDS: Diclofenac 1% Gel 100 GM TUBE TP ×4 (08:15→20:37)
[2020-04-28] MEDS: guaiFENesin 600 MG TABCR PO (08:17)
[2020-04-28] MEDS: Escitalopram 10 MG TAB 5 MG PO (08:18)
[2020-04-28] MEDS: hydroCHLOROthiazide 12.5 MG TAB PO (08:18)
[2020-04-28] MEDS: Lactobacillus Acidophilus CAP 1 CAP PO ×3 (08:18→20:31)
[2020-04-28] MEDS: Docusate Sodium 100 MG CAP PO ×3 (08:18→20:32)
[2020-04-28] MEDS: Omega-3 Fatty Acids 1000 MG CAP PO ×3 (08:18→20:31)
[2020-04-28] MEDS: Lisinopril 20 MG TAB PO (08:19)
[2020-04-28] MEDS: Benzonatate 100 MG CAP PO ×3 (08:19→20:32)
[2020-04-28] MEDS: Potassium Chloride 20 MEQ TABCR PO (08:19)
[2020-04-28 08:20] VITALS: O2SAT 94
[2020-04-28] MEDS: predniSONE 10 MG TAB PO (08:20)
[2020-04-28] MEDS: Aspirin E.C. 81 MG TABEC PO (08:20)
[2020-04-28] MEDS: lamoTRIgine 100 MG TAB 200 MG PO (08:20)
--- NOTE | 2020-04-28 14:11 | PTTR_ITS ---
Date of service: 04/28/20 Time of Service: 11:00 PT Notes Visit Reasons: MASS OF RIGHT LUNG, AMBULATORY DYSFUNCTION Inpatient Physical Therapy Treatment Note [facility] Date: 04/28/2020 PRECAUTIONS: Fall SUBJECTIVE: Francie is pleasant and agreeable to participating in PT. She states that she would like to work on walking with a walker today. OBJECTIVE: PAIN: No complaints of pain BED MOBILITY/TRANSFERS Sit-stand: SBA Stand-sit: SBA Patient was instructed in transfer training with wheelchair, including wheelchair<>chair, wheelchair<>toilet, wheelchair<>bed x2 each. Training focused on speed and pacing for safety, hand placement, and wheelchair positioning. Barriers to progression to independence with transfers include loose fitting AFO, loose wheelchair locks, and oxygen tubing management. Patient was also instructed on appropriate and safe ways for donning/doffing und ergarments without assistance during toileting process. Patient toileted with SBA for transfers and donning/doffing undergarments. GAIT Assistive Device: FWW Weight bearing: Full Assist: SBA Distance: 30' x4 Deviation: Ill-fitting brace, unable to manage oxygen tubing independently. ASSESSMENT: Patient demonstrates improved ability to perform transfers to and from wheelchair, although barriers are observed at present progression to ind ependence with these transfers, including loose fitting AFO, loose wheelchair locks, and oxygen tubing management. PLAN: Patient unable to progress beyond SBA for transfers at this time due to equipment barriers. Will discharge from PT services. TREATMENT CODE/TIME: 30 minutes; [id number] x2
--- NOTE | 2020-04-28 16:00 | PT.INDS ---
Date of service: 05/04/20 Time of Service: 09:11 PT Notes Visit Reasons: MASS OF RIGHT LUNG, AMBULATORY DYSFUNCTION Physical Therapy Inpatient Swing Bed Level 1 Discharge Summary Date: 04/28/2020 Dates of Service: 04/18/2020 through 04/28/2020 Referring Doctor: Perry Alan MD PT Orders: PT CONSULT: Eval/treat Precautions: Fall. Standard. Activity as tolerated. L AFO and shoes on when out of bed. 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 Patient is diagnosed with pneumonia and a mass in the right lung. Francie converts to swing bed level 1 as of today and is re-evaluated for continued physical therapy services. PMHX: Medical History Asthma Cerebrovascular accident Depression Essential hypertension Gastroesophageal reflux disease Hemiplegia Hyperlipidemia Polyp of colon Surgical History Cerebral aneurysm repair. Social History/Home Situation: Lives alone on the second floor of the [facility] in [place], [place]. Receives HH aide assistance one hour each day 6x/week in the mornings and has [facility] home assistants 2-3 hours everyday during the evening. Is able to self-transfer from bed to chair using a stand squat transfer without an assistive device. Requires assistance with wheelchair transport over ramp at the entrance of the building and through the elevator to her apartment with her wheelchair. Equipment Owned/DME: hospital bed, FWW, wheelchair Subjective: NT. See most recent MANUFACTURING ASSEMBLER notes. Objective: General Observation: NT. See most recent MANUFACTURING ASSEMBLER notes. Mental Status:NT. See most recent MANUFACTURING ASSEMBLER notes. Pain: NT. See most recent MANUFACTURING ASSEMBLER notes. ROM: Right Upper Extremity: Shoulder Flexion WFL. Shoulder abduction WFL. Elbow flexion WFL. Wrist flexion WFL. Opening and closing of hand WFL. Left Upper Extremity: Shoulder Flexion allows up to 110 degrees. Shoulder abduction allows up to 100 degrees. Elbow flexion WFL. Wrist flexion WFL. Opening and closing of hand WFL. Right Lower Extremity: Hip flexion WFL. Hip abduction WFL. Knee flexion WFL. Ankle dorsiflexion WFL. Ankle plantarflexion WFL. Left Lower Extremity: Hip flexion allows up to 80 degrees. Hip abduction allows up to 20 degrees. Knee flexion up to 80 degrees. Ankle dorsiflexion none beyond neutral. Ankle plantarflexion 10 degrees. Strength: Right Upper Extremity: Shoulder flexors 5/5. Shoulder abductors 5/5. Elbow flexors 5/5. Elbow extensors 5/5. Button Sewer Hand strong. Left Upper Extremity: Shoulder flexors 4-5. Shoulder abductors 4-/5. Elbow flexors 4-/5. Elbow extensors 4-/5. Button Sewer Hand weak but functional. Right Lower Extremity: Hip flexors 4/5. Hip abductors 4/5. Knee flexors 4/5. Knee extensors 4/5. Ankle dorsiflexors 4/5. Ankle plantarflexors 4/5. Left Lower Extremity: Hip flexors 3-/5. Hip abductors 3-/5. Knee flexors 3-/5. Knee extensors 3-/5. Ankle dorsiflexors 3-/5. Ankle plantarflexors 3-/5. Sensation: Intact as to pain and pressure on bilateral lower extremities. Transfers: Sit to stand: SBA from wheelchair and edge of bed, contact guard assist with FWW, L AFO and shoes needed. FWW needs to be stabilized by PT for safety. Maximal cues given to avoid patient from letting go of both hands simultaneously to grab the walker. Stand to sit: SBA from wheelchair and edge of bed, contact guard assist with FWW, L AFO and shoes needed. FWW needs to be stabilized by PT for safety. Maximal cues given to avoid patient from letting go of both hands simultaneously to grab the walker. Bed to chair: contact guard assist with FWW, L AFO and shoes needed. Reports to 7-8/10 pain in the L knee during and after activity. Maximal cues given to avoid patient from letting go of both hands simultaneously to grab the walker. Unable to safely estimate how far to back up and center self onot transfer surface, requires moderate cues for safety. Gait: Gait: Patient limited to bed to toilet seat ambulation only with FWW and SBA of 1 caregiver until new L AFO is procured. Able to tolerate up to 120 feet using front wheeled walker and contact-guard assist with wheelchair follow of his second caregiver. However, loose and ill-fitting L AFO result to to increase left tibial internal rotation, decreased left knee extension, and left foot supination contributing to increase left knee pain. THERA ACT: For swing bed level 1, treatment focused on task segmentation using walker and without walker for transfer skills as follows: 1. forward scoot in chair 2. B LE positioning 3. B UE/hand placement and chair push up 4. COG forward placement/trunk flexion 5. maintain squat position while hands are on arm rests 6. walker management (if used) 7. static standing with FWW Balance: Static Sitting: Normal Dynamic Sitting: Normal Static Standing: Fair Dynamic Standing: Fair Assessment: Francie is now at her highest functional level requiring stand by assist for all mobility ADL performance for safety. Francie continues to demonstrate the need for set up and stand by assist for all transfer task performance. Swing bed level 1 goal of achieving independence with all transfer task performance remains unachievable at this time due to the following barriers: 1) loose-fitting 5-years-old L AFO; 2) additional oxygen tubing that needs to be managed to avoid tripping/entanglement that can increase fall risk; 3) impaired ability/decreased awareness/perceptual limitation to estimate distance and center self onto transfer surface; 4) increased impulsiveness; 6) impaired posterior balance awareness; and 5) limited activity tolerance due to recently diagnosed lung mass. Patient continues to present with clinical signs and symptoms consistent with current/admitting diagnoses that have resulted to mobility limitations, gait instability, generalized weakness, and impairment of motor control as demonstrated by the following impairment level findings: 1. Decreased strength to left UE/LE major muscle groups 2. Impaired standing balance 3. Impaired activity tolerance 4. Limitation of joint range of motion in left UE/LE 5. Pain in the left knee aggravated with weight bearing 6. Lack of coordination, impaired motor planning 7. Increased L tibial internal rotation, L ankle supination, and decreased L knee flexion contributing to L knee pain, impaired gait mechanics, and instability Impairments are continuing to contribute to the following functional limitations: 1. Inability to safely ambulate without assistive device and supervision 2. Increase completion time for mobility ADL performance 3. Increased fall risk Goals: Goals X1 week 1. Supine-Sit independent using bed rails MET 2. Sit-Supine independent using bed rails MET 3. Sit-Stand independent with FWW NOT MET 4. Stand-Sit independent with FWW NOT MET 5. Bed-Chair independent with FWW NOT MET 6. Chair-Bed independent with FWW NOT MET 7. Standby assist on gait on level surface with use of front wheeled walker and proper fitting L AFO for at least 50 feet without report of L knee pain nor dyspnea NOT MET 8. Good static and dynamic standing balance/tolerance NOT MET DISCHARGE RECOMMENDATIONS: Continue with nursing support for all transfer and short distance ambulation using the FWW. Hold off on all long distance ambulation until new AFO is delivered to avoid undue stress on the L knee and reduce fall risk. May ambulate from edge of bed to toilet seat as needed. Patient will benefit from placement in a detention with 24/7 supervision in order to ensure safety and reduce fall risk. Will look at requesting PT re-evalution once new AFOs are delivered. TREATMENT CODE/TIME: NC. Thank you for the opportunity to participate in the care of this patient. Jayne Dickerson PT, DPT, CLT [facility] [place], [place]
[2020-04-28 16:04] VITALS: BP 109/64; PULSE 75; RESP 21; TEMP 36.3; O2SAT 93
--- NOTE | 2020-04-28 17:41 | NUR.NOTE ---
1515 patient stating she is missing her foot pedals from her wheelchair from home. Patient states they have been missing and no one can find them. RN checked with Physical therapy and they mentioned she has been looking for them for 2 weeks. RN asked AFTER SCHOOL DRIVER/typing secretary Sierra to call ER and check if they have them.
[2020-04-28] MEDS: Lidocaine 5% Patch 1 PATCH TP (17:53)
[2020-04-28] MEDS: lamoTRIgine 100 MG TAB PO (20:32)
[2020-04-28] MEDS: Simvastatin 40 MG TAB PO (20:32)
[2020-04-28 23:15] VITALS: BP 124/74; PULSE 75; RESP 18; TEMP 36.4; O2SAT 96
[2020-04-29] MEDS: Acetaminophen 500 MG TAB 1000 MG PO ×3 (05:56→22:25)
[2020-04-29] MEDS: Heparin 5,000 UNITS/ML VIAL 5000 UNITS SC ×3 (05:56→22:26)
[2020-04-29 07:25] LABS: HGB 15.1 g/dL (11.2-15.7); MCH 27.7 pg (27.0-33.0); MCHC 31.5 % (32.0-36.0); MCV 87.9 fL (80-95); MPV 9.2 fL (8.0-11.0); Platelet Count 341 10^3/uL (130-400); RBC 5.46 10^6/uL (3.93-5.22); RDW 14.7 % (11.7-14.6); RDW-SD 47.2 fL; WBC 12.07 10^3/uL (4.4-10.8)
[2020-04-29] MEDS: Budesonide/Formoterol 160/4.5 6 GM 60 PUFF INH IH ×2 (07:37→19:43)
[2020-04-29 07:40] VITALS: BP 177/97; PULSE 88; RESP 18; TEMP 37.6; O2SAT 99
[2020-04-29] MEDS: Diclofenac 1% Gel 100 GM TUBE TP ×4 (09:50→19:43)
[2020-04-29] MEDS: Docusate Sodium 100 MG CAP PO ×3 (09:51→19:42)
[2020-04-29] MEDS: hydroCHLOROthiazide 12.5 MG TAB PO (09:51)
[2020-04-29] MEDS: lamoTRIgine 100 MG TAB 200 MG PO (09:51)
[2020-04-29] MEDS: predniSONE 10 MG TAB PO (09:51)
[2020-04-29] MEDS: Lactobacillus Acidophilus CAP 1 CAP PO ×3 (09:51→19:42)
[2020-04-29] MEDS: Aspirin E.C. 81 MG TABEC PO (09:52)
[2020-04-29] MEDS: Escitalopram 10 MG TAB 5 MG PO (09:52)
[2020-04-29] MEDS: Potassium Chloride 20 MEQ TABCR PO (09:52)
[2020-04-29] MEDS: Omega-3 Fatty Acids 1000 MG CAP PO ×3 (09:52→19:42)
[2020-04-29] MEDS: Pantoprazole 40 MG TABCR PO (09:53)
[2020-04-29] MEDS: Benzonatate 100 MG CAP PO ×3 (09:53→19:42)
[2020-04-29] MEDS: Lisinopril 20 MG TAB PO (09:53)
[2020-04-29 09:55] VITALS: O2SAT 99
[2020-04-29 16:09] VITALS: BP 106/62; PULSE 74; RESP 19; TEMP 36.6; O2SAT 94
[2020-04-29] MEDS: Lidocaine 5% Patch 1 PATCH TP (18:11)
[2020-04-29] MEDS: Simvastatin 40 MG TAB PO (19:42)
[2020-04-29] MEDS: lamoTRIgine 100 MG TAB PO (19:42)
[2020-04-29 23:39] VITALS: BP 110/65; PULSE 82; RESP 19; TEMP 36.2; O2SAT 94
[2020-04-30] MEDS: Heparin 5,000 UNITS/ML VIAL 5000 UNITS SC ×3 (06:50→21:02)
[2020-04-30] MEDS: Acetaminophen 500 MG TAB 1000 MG PO ×3 (06:50→21:00)
[2020-04-30] MEDS: Budesonide/Formoterol 160/4.5 6 GM 60 PUFF INH IH ×2 (07:29→19:40)
[2020-04-30 07:54] VITALS: BP 145/70; PULSE 71; RESP 18; TEMP 36.5; O2SAT 93
[2020-04-30] MEDS: Omega-3 Fatty Acids 1000 MG CAP PO ×3 (08:28→19:39)
[2020-04-30] MEDS: Diclofenac 1% Gel 100 GM TUBE TP ×3 (08:28→19:41)
[2020-04-30] MEDS: Escitalopram 10 MG TAB 5 MG PO (08:28)
[2020-04-30] MEDS: hydroCHLOROthiazide 12.5 MG TAB PO (08:28)
[2020-04-30] MEDS: lamoTRIgine 100 MG TAB 200 MG PO (08:28)
[2020-04-30] MEDS: Potassium Chloride 20 MEQ TABCR PO (08:29)
[2020-04-30] MEDS: Lactobacillus Acidophilus CAP 1 CAP PO ×3 (08:29→19:40)
[2020-04-30] MEDS: Benzonatate 100 MG CAP PO ×3 (08:29→19:40)
[2020-04-30] MEDS: Docusate Sodium 100 MG CAP PO ×2 (08:29→19:39)
[2020-04-30] MEDS: predniSONE 10 MG TAB PO (08:29)
[2020-04-30] MEDS: Pantoprazole 40 MG TABCR PO (08:29)
[2020-04-30] MEDS: Aspirin E.C. 81 MG TABEC PO (08:29)
[2020-04-30] MEDS: Lisinopril 20 MG TAB PO (08:29)
[2020-04-30] MEDS: Refresh PLUS Eye Drops 0.4ml OP ×2 (12:19→21:01)
[2020-04-30 16:11] VITALS: BP 105/61; PULSE 81; RESP 18; TEMP 37.7; O2SAT 92
[2020-04-30] MEDS: Simvastatin 40 MG TAB PO (19:39)
[2020-04-30] MEDS: lamoTRIgine 100 MG TAB PO (19:39)
[2020-04-30 23:48] VITALS: BP 110/68; PULSE 77; RESP 19; TEMP 36.5; O2SAT 95
[2020-05-01] MEDS: Acetaminophen 500 MG TAB 1000 MG PO ×3 (05:27→21:41)
[2020-05-01] MEDS: Heparin 5,000 UNITS/ML VIAL 5000 UNITS SC ×3 (05:27→21:41)
[2020-05-01 06:53] LABS: HCT 45.3 % (36.0-46.0); HGB 14.3 g/dL (11.2-15.7); MCH 27.4 pg (27.0-33.0); MCHC 31.6 % (32.0-36.0); MCV 86.9 fL (80-95); MPV 8.9 fL (8.0-11.0); Platelet Count 284 10^3/uL (130-400); RBC 5.21 10^6/uL (3.93-5.22); RDW 14.9 % (11.7-14.6); WBC 13.18 10^3/uL (4.4-10.8)
[2020-05-01] MEDS: Diclofenac 1% Gel 100 GM TUBE TP ×4 (07:24→20:12)
[2020-05-01] MEDS: Omega-3 Fatty Acids 1000 MG CAP PO ×3 (07:25→20:13)
[2020-05-01] MEDS: Refresh PLUS Eye Drops 0.4ml OP ×2 (07:25→21:43)
[2020-05-01] MEDS: Lactobacillus Acidophilus CAP 1 CAP PO ×3 (07:25→20:13)
[2020-05-01] MEDS: Potassium Chloride 20 MEQ TABCR PO (07:25)
[2020-05-01] MEDS: Escitalopram 10 MG TAB 5 MG PO (07:25)
[2020-05-01] MEDS: hydroCHLOROthiazide 12.5 MG TAB PO (07:25)
[2020-05-01] MEDS: Aspirin E.C. 81 MG TABEC PO (07:26)
[2020-05-01] MEDS: Docusate Sodium 100 MG CAP PO ×3 (07:26→20:13)
[2020-05-01] MEDS: lamoTRIgine 100 MG TAB 200 MG PO (07:26)
[2020-05-01] MEDS: Budesonide/Formoterol 160/4.5 6 GM 60 PUFF INH IH ×2 (07:26→20:11)
[2020-05-01] MEDS: Lisinopril 20 MG TAB PO (07:26)
[2020-05-01] MEDS: Benzonatate 100 MG CAP PO ×3 (07:26→20:13)
[2020-05-01] MEDS: Pantoprazole 40 MG TABCR PO (07:26)
[2020-05-01 07:34] VITALS: BP 104/62; PULSE 69; RESP 18; TEMP 36.6; O2SAT 93
[2020-05-01] MEDS: predniSONE 5 MG TAB PO (07:34)
[2020-05-01 08:02] VITALS: O2SAT 92
[2020-05-01 17:00] VITALS: BP 127/72; PULSE 93; RESP 18; TEMP 36.1; O2SAT 93
[2020-05-01] MEDS: lamoTRIgine 100 MG TAB PO (20:13)
[2020-05-01] MEDS: Simvastatin 40 MG TAB PO (20:13)
[2020-05-01 23:10] VITALS: BP 114/69; PULSE 78; RESP 18; TEMP 37.1; O2SAT 93
[2020-05-02 00:55] VITALS: O2SAT 92
[2020-05-02] MEDS: Acetaminophen 500 MG TAB 1000 MG PO ×2 (06:12→14:53)
[2020-05-02] MEDS: Heparin 5,000 UNITS/ML VIAL 5000 UNITS SC ×3 (06:13→21:40)
[2020-05-02 06:15] VITALS: O2SAT 92
[2020-05-02 07:28] VITALS: BP 120/80; PULSE 86; RESP 19; TEMP 36.5; O2SAT 94
[2020-05-02] MEDS: Aspirin E.C. 81 MG TABEC PO (08:40)
[2020-05-02] MEDS: Escitalopram 10 MG TAB 5 MG PO (08:40)
[2020-05-02] MEDS: Docusate Sodium 100 MG CAP PO ×3 (08:40→20:18)
[2020-05-02] MEDS: Lactobacillus Acidophilus CAP 1 CAP PO ×3 (08:40→20:19)
[2020-05-02] MEDS: Omega-3 Fatty Acids 1000 MG CAP PO ×3 (08:41→20:18)
[2020-05-02] MEDS: Pantoprazole 40 MG TABCR PO (08:41)
[2020-05-02] MEDS: predniSONE 5 MG TAB PO (08:41)
[2020-05-02] MEDS: hydroCHLOROthiazide 12.5 MG TAB PO (08:41)
[2020-05-02] MEDS: lamoTRIgine 100 MG TAB 200 MG PO (08:41)
[2020-05-02] MEDS: Lisinopril 20 MG TAB PO (08:42)
[2020-05-02] MEDS: Potassium Chloride 20 MEQ TABCR PO (08:42)
[2020-05-02] MEDS: Budesonide/Formoterol 160/4.5 6 GM 60 PUFF INH IH ×2 (09:16→20:15)
[2020-05-02 16:14] VITALS: BP 112/63; PULSE 75; RESP 18; TEMP 36.6; O2SAT 93
[2020-05-02] MEDS: lamoTRIgine 100 MG TAB PO (20:18)
[2020-05-02] MEDS: Simvastatin 40 MG TAB PO (20:18)
[2020-05-02] MEDS: Refresh PLUS Eye Drops 0.4ml OP (21:40)
[2020-05-02] MEDS: Acetaminophen 500 MG TAB PO (23:21)
[2020-05-02 23:46] VITALS: BP 130/70; PULSE 99; RESP 18; TEMP 36.7; O2SAT 92
[2020-05-03 00:12] VITALS: O2SAT 96
--- NOTE | 2020-05-03 01:25 | NUR.NOTE ---
Nursing Note: Pt restless on bed. , Tylenol @ 2345 given for generalized discomfort. Out of bed to bedside commode, voided in small amount., Unsteady gait even w/ left brace in used. Requested to get Voltaren ointment for left knee applied. Had right leg cramping. Repositioned on bed. Continue on O2 @ 1L/NC with O2 Sat of 97%. Continue to monitor.
[2020-05-03] MEDS: Heparin 5,000 UNITS/ML VIAL 5000 UNITS SC ×3 (05:59→22:35)
[2020-05-03 06:37] LABS: HCT 49.4 % (36.0-46.0); HGB 15.4 g/dL (11.2-15.7); MCH 27.1 pg (27.0-33.0); MCHC 31.2 % (32.0-36.0); MPV 9.1 fL (8.0-11.0); Platelet Count 274 10^3/uL (130-400); RBC 5.68 10^6/uL (3.93-5.22); RDW 15.1 % (11.7-14.6); RDW-SD 47.9 fL; WBC 12.16 10^3/uL (4.4-10.8)
[2020-05-03 07:36] VITALS: BP 107/65; PULSE 79; RESP 18; TEMP 36.7; O2SAT 97
[2020-05-03] MEDS: Budesonide/Formoterol 160/4.5 6 GM 60 PUFF INH IH ×2 (07:43→19:58)
[2020-05-03 07:46] VITALS: O2SAT 97
[2020-05-03] MEDS: Lactobacillus Acidophilus CAP 1 CAP PO ×3 (07:58→19:44)
[2020-05-03] MEDS: Escitalopram 10 MG TAB 5 MG PO (07:58)
[2020-05-03] MEDS: Docusate Sodium 100 MG CAP PO ×3 (07:58→19:45)
[2020-05-03] MEDS: predniSONE 5 MG TAB PO (07:59)
[2020-05-03] MEDS: Potassium Chloride 20 MEQ TABCR PO (07:59)
[2020-05-03] MEDS: Pantoprazole 40 MG TABCR PO (07:59)
[2020-05-03] MEDS: lamoTRIgine 100 MG TAB 200 MG PO (07:59)
[2020-05-03] MEDS: Lisinopril 20 MG TAB PO (07:59)
[2020-05-03] MEDS: Omega-3 Fatty Acids 1000 MG CAP PO ×3 (07:59→19:45)
[2020-05-03] MEDS: hydroCHLOROthiazide 12.5 MG TAB PO (07:59)
[2020-05-03] MEDS: Aspirin E.C. 81 MG TABEC PO (08:00)
--- NOTE | 2020-05-03 09:39 | PDOC.CMPRO ---
- If Service Date Differs Date of service: 05/03/20 Time of Service: 09:39 Care Management Progress Note S/O: Gerda was sitting up in a chair when CM met with her. She expressed frustration with being at [facility] for so long and indicated that she really did not want to return after her biopsy at [facility]. She clarified that she meant that she hoped to have a new place to go by then. CM contacted Gerda's human services case manager Phoebe at [facility] but she did not have any updates regarding the referrals sent for AF home placements. CM contacted another [facility] agency - [facility]. They have recently had a discharge from one of their best providers and are looking to fill the vacancy. Discussions were held with Gerda, NADIA and the agency and a formal referral was made. Although the home is in [place], a ways away, Gerda is willing to go there as the home sounds ideal. P: Francie is now in SB2 status. She is seeking placement in an AF home and referrals have been sent. A new referral was sent today to [facility] and it looks like a promising option. NADIA will continue to assist with the process as it moves forward. It is hoped that Gerda and her daughter Karlene will be able to go for a home visit soon.
[2020-05-03 09:54] VITALS: O2SAT 94
--- NOTE | 2020-05-03 12:23 | W.PALPGNOTE ---
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 She can walk short distances with a walker, at her baseline, but usually is in a WC. (2) Discharge planning issues: Status: Acute Assessment and plan: At first, Gerda was very frightened and anxious about going home. Her 3 daughters would prefer she not go back to the [facility]. She has case management services through the [facility]. SHe has a life line already. Given the shortage of community nursing home beds, she may need to go back to the [facility] with increased services until something opens up. She is feeling back to her baseline currently. (3) Mass of right lung: Status: Chronic Assessment and plan: Suspicious for lung cancer. Biopsy scheduled for 05/08/20, at [facility]. (4) Palliative care patient: Status: Chronic Assessment and plan: Will see her at home, wherever that may be, in a month. (5) Wheelchair bound: Status: Acute Subjective Subjective Patient reports: no new complaints and feels better Interval history since last seen: I saw Gerda in her room. She is now on swing bed status. Care management has been looking for community nursing home placement for her, but not many (any?) options are open currently. She understands that she may have to be discharged home with increased services at the end of her swing bed stay. She is awaiting a [id number] trip to [facility] for her lung biopsy, scheduled for 05/08. She presumes it is lung cancer, as do her doctors. We discussed that some lung cancers now can be treated to allow prolonged life expectancies, depending on their tumor markers. She's hoping that she has a cancer that can be treated. She would like to live for several more years. She is not requiring oxygen currently. She is not short of breath. If she hadn't developed an acute cough and fallen, requiring routine xrays, her cancer would not have been identified. Exam Narrative Exam Narrative: General: very pleasant 74 year old female, appears stated age, sitting up in chair, awake, alert and oriented. HEENT: normocephalic, atraumatic, EOMI, mucous membranes moist. Neck: supple. Cardiovascular: heart has regular rate and rhythm, nontachycardic, no murmur appreciated. Respiratory: respirations appear even and unlabored, no coughing during exam, lungs sound clear, no wheezing or rales noted. GI: normoactive bowel sounds, abdomen soft, nontender on palpation, nondistended. Extremities: left knee with minimal tenderness on palpation to lateral aspect and superiorly, +pain with active ROM, primarily lifting her left leg while sitting. Brace to Left ankle. No significant edema. Mental Status: mental status grossly normal Speech and Movement: speech and movement normal Mood: congruent mood Affect: normal affect Objective Last Vital Signs Temp 98.1 F 05/03/20 07:36 Pulse 79 05/03/20 07:36 Resp 18 05/03/20 07:36 BP 107/65 05/03/20 07:36 Pulse Ox 94 05/03/20 09:54 Laboratory Results - last 24 hr 05/03/20 06:30 WBC 12.16 H RBC 5.68 H Hgb 15.4 Hct 49.4 H MCV 87.0 MCH 27.1 MCHC 31.2 L RDW 15.1 H Plt Count 274 MPV 9.1
[2020-05-03 15:32] VITALS: BP 134/63; PULSE 80; RESP 19; TEMP 36.4; O2SAT 92
[2020-05-03] MEDS: Refresh PLUS Eye Drops 0.4ml OP ×2 (15:48→22:40)
[2020-05-03] MEDS: lamoTRIgine 100 MG TAB PO (19:45)
[2020-05-03] MEDS: Simvastatin 40 MG TAB PO (19:45)
[2020-05-03] MEDS: Diclofenac 1% Gel 100 GM TUBE TP (19:58)
[2020-05-03 23:40] VITALS: BP 120/59; RESP 18; TEMP 37.7
[2020-05-04] VITALS: BP 108/60; PULSE 91; RESP 18; TEMP 37.5; O2SAT 91
[2020-05-04] MEDS: Heparin 5,000 UNITS/ML VIAL 5000 UNITS SC ×2 (06:04→13:20)
[2020-05-04] MEDS: Budesonide/Formoterol 160/4.5 6 GM 60 PUFF INH IH ×2 (07:42→19:20)
[2020-05-04 07:51] VITALS: BP 127/72; PULSE 89; RESP 18; TEMP 36.5; O2SAT 90
[2020-05-04] MEDS: Potassium Chloride 20 MEQ TABCR PO (07:57)
[2020-05-04] MEDS: Omega-3 Fatty Acids 1000 MG CAP PO ×3 (07:57→19:21)
[2020-05-04] MEDS: hydroCHLOROthiazide 12.5 MG TAB PO (07:57)
[2020-05-04] MEDS: Lactobacillus Acidophilus CAP 1 CAP PO ×3 (07:57→19:21)
[2020-05-04] MEDS: Aspirin E.C. 81 MG TABEC PO (07:58)
[2020-05-04] MEDS: Pantoprazole 40 MG TABCR PO (07:58)
[2020-05-04] MEDS: lamoTRIgine 100 MG TAB 200 MG PO (07:58)
[2020-05-04] MEDS: Lisinopril 20 MG TAB PO (07:58)
[2020-05-04] MEDS: Escitalopram 10 MG TAB 5 MG PO (07:58)
[2020-05-04] MEDS: Docusate Sodium 100 MG CAP PO ×3 (07:58→19:22)
[2020-05-04] MEDS: Diclofenac 1% Gel 100 GM TUBE TP ×3 (08:00→19:20)
--- NOTE | 2020-05-04 14:08 | CHAPLAIN ---
I visited with Francie yesterday. She is very frustrated about being here as she'd like to move into an adult fci, but Care Managers have not been able to locate one for Francie. She is also scheduled to got to [facility] on 05/08, down and back for biopsy of a mass on her lungs. Doctors are assuming that it's cancerous. For Francie, it has been difficult to wait all this time for the biopsy and she was hoping not to return here afterward. According to Dr. Clifton's PC notes, she may need to go back to her apartment in the [facility], with more supports.
[2020-05-04 15:16] VITALS: BP 99/62; PULSE 84; RESP 18; TEMP 37.8; O2SAT 96
[2020-05-04] MEDS: lamoTRIgine 100 MG TAB PO (19:21)
[2020-05-04] MEDS: Simvastatin 40 MG TAB PO (19:21)
[2020-05-04] MEDS: Refresh PLUS Eye Drops 0.4ml OP (19:21)
[2020-05-04 22:55] VITALS: BP 116/57; PULSE 61; RESP 18; TEMP 36.2; O2SAT 94
[2020-05-05] MEDS: Acetaminophen 500 MG TAB PO ×2 (04:07→19:41)
[2020-05-05] MEDS: Pantoprazole 40 MG TABCR PO (06:35)
[2020-05-05] MEDS: Lactobacillus Acidophilus CAP 1 CAP PO ×3 (07:45→19:41)
[2020-05-05] MEDS: Docusate Sodium 100 MG CAP PO ×3 (07:45→19:41)
[2020-05-05] MEDS: hydroCHLOROthiazide 12.5 MG TAB PO (07:46)
[2020-05-05] MEDS: Omega-3 Fatty Acids 1000 MG CAP PO (07:46)
[2020-05-05] MEDS: Potassium Chloride 20 MEQ TABCR PO (07:46)
[2020-05-05] MEDS: Escitalopram 10 MG TAB 5 MG PO (07:46)
[2020-05-05] MEDS: Lisinopril 20 MG TAB PO (07:46)
[2020-05-05] MEDS: Aspirin E.C. 81 MG TABEC PO (07:46)
[2020-05-05] MEDS: lamoTRIgine 100 MG TAB 200 MG PO (07:46)
[2020-05-05] MEDS: Diclofenac 1% Gel 100 GM TUBE TP ×2 (07:48→19:43)
[2020-05-05 07:53] VITALS: BP 119/61; PULSE 79; RESP 17; TEMP 36.2; O2SAT 91
[2020-05-05] MEDS: Budesonide/Formoterol 160/4.5 6 GM 60 PUFF INH IH ×2 (09:16→19:42)
[2020-05-05 15:25] VITALS: BP 112/67; PULSE 60; RESP 20; TEMP 36.1; O2SAT 95
[2020-05-05] MEDS: Simvastatin 40 MG TAB PO (19:40)
[2020-05-05] MEDS: lamoTRIgine 100 MG TAB PO (19:41)
[2020-05-05] MEDS: Refresh PLUS Eye Drops 0.4ml OP (19:43)
[2020-05-05 23:26] VITALS: BP 109/56; PULSE 67; RESP 18; TEMP 37.4; O2SAT 94
--- NOTE | 2020-05-06 | DI.RAD_ITS ---
EXAM: XR PORTABLE CHEST AP CLINICAL HISTORY: Fever, cough TECHNIQUE: 2D digital imaging was performed. COMPARISON: CT CT CHEST PE ABD PELVIS W from 04/17/2020 CR,XR XR PORTABLE CHEST AP from 04/22/2020 FINDINGS: MEDIASTINUM: Normal. HEART: Normal. PULMONARY VASCULATURE: Normal. LUNGS: The lungs are hyperinflated consistent with underlying COPD. There is again seen a right lowe r lobe pulmonary mass and pulmonary nodules present. There are bilateral interstitial infiltrates pr esent. PLEURAL SPACE: There is blunting of the right costophrenic angle suggesting a small right pleural eff usion. No left pleural effusion is seen. No pneumothorax is present. BONE:Within normal limits for the patient's age. OTHER FINDINGS:Normal. IMPRESSION: 1. Bilateral pulmonary infiltrates which may represent atelectasis or pneumonia. 2. Right lower lobe pulmonary mass and pulmonary nodules most suggestive of a neoplasm and metastatic disease. 3. Small right pleural effusion. DATA REPOSITORY: RADIATION DOSE DELIVERED:
[2020-05-06] MEDS: Pantoprazole 40 MG TABCR PO (07:38)
[2020-05-06] MEDS: lamoTRIgine 100 MG TAB 200 MG PO (07:38)
[2020-05-06] MEDS: Docusate Sodium 100 MG CAP PO ×3 (07:38→20:11)
[2020-05-06] MEDS: Lisinopril 20 MG TAB PO (07:38)
[2020-05-06] MEDS: Potassium Chloride 20 MEQ TABCR PO (07:38)
[2020-05-06] MEDS: hydroCHLOROthiazide 12.5 MG TAB PO (07:38)
[2020-05-06] MEDS: Escitalopram 10 MG TAB 5 MG PO (07:39)
[2020-05-06] MEDS: Lactobacillus Acidophilus CAP 1 CAP PO ×3 (07:39→20:11)
[2020-05-06 07:46] VITALS: BP 108/69; PULSE 90; RESP 18; TEMP 36.7; O2SAT 92
[2020-05-06] MEDS: Budesonide/Formoterol 160/4.5 6 GM 60 PUFF INH IH ×2 (07:53→20:10)
[2020-05-06] MEDS: Preparation H 28 GM TUBE PR (13:10)
[2020-05-06] MEDS: Benzonatate 100 MG CAP PO (14:54)
[2020-05-06 15:35] VITALS: BP 99/59; PULSE 88; RESP 18; TEMP 37.9; O2SAT 90
[2020-05-06 15:43] VITALS: TEMP 38
[2020-05-06] MEDS: Diclofenac 1% Gel 100 GM TUBE TP ×2 (15:46→20:11)
[2020-05-06 16:15] LABS: Source Nasopharynx
--- NOTE | 2020-05-06 16:44 | DI.VRAD_ITS ---
PROCEDURE INFORMATION: Exam: XR Chest, 1 View Exam date and time: 05/06/2020 4:27 PM Age: 74 years old Clinical indication: Other: Fever, cough TECHNIQUE: Imaging protocol: XR of the chest Views: 1 view. COMPARISON: CR XR PORTABLE CHEST AP 04/22/2020 8:50 AM FINDINGS: Lungs: Bilateral pulmonary infiltrates, right greater than left. Multilobar pneumonia is suspected. Pleural space: Unremarkable. No pleural effusion. No pneumothorax. Heart/Mediastinum: Unremarkable. No cardiomegaly. Vasculature: Atherosclerosis. Bones/joints: Unremarkable. IMPRESSION: Bilateral pulmonary infiltrates, right greater than left. Multilobar pneumonia is suspected. Consider CT for further evaluation. Dictated and Authenticated by: Agusto Smith MD. Ordering:CELIA Freitas MD
[2020-05-06 16:55] LABS: COVID-19 PCR Negative (Negative); Influenza A PCR Negative (Negative); Influenza B PCR Negative (Negative); RSV PCR Negative (Negative)
[2020-05-06 16:58] LABS: HCT 46.7 % (36.0-46.0); HGB 14.8 g/dL (11.2-15.7); MCH 27.8 pg (27.0-33.0); MCHC 31.7 % (32.0-36.0); MCV 87.8 fL (80-95); MPV 9.4 fL (8.0-11.0); Platelet Count 232 10^3/uL (130-400); RBC 5.32 10^6/uL (3.93-5.22); RDW 15.5 % (11.7-14.6); RDW-SD 48.8 fL; WBC 11.53 10^3/uL (4.4-10.8)
[2020-05-06] MEDS: levoFLOXacin 500 MG, levoFLOXacin 250 MG 750 MG PO (18:07)
[2020-05-06] MEDS: Acetaminophen 500 MG TAB PO (18:07)
[2020-05-06] MEDS: lamoTRIgine 100 MG TAB PO (20:11)
[2020-05-06] MEDS: Simvastatin 40 MG TAB PO (20:11)
[2020-05-06 20:30] VITALS: RESP 17; TEMP 36.5; O2SAT 93
[2020-05-07 01:16] VITALS: BP 110/70; PULSE 75; RESP 17; TEMP 36.4; O2SAT 90
[2020-05-07 02:46] LABS: Bilirubin Negative (Negative); Blood Negative (Negative); Clarity Clear (Clear); Glucose Negative (Negative); Ketones Negative (Negative); Leukocyte Esterase Small (Negative); Nitrite Negative (Negative); Specific Gravity 1.025 (1.005-1.025); Urobilinogen 0.2 EU/dL (Up TO 0.2); pH 5.5 (5-8)
[2020-05-07 02:51] LABS: Bacteria Few HPF (Negative); C & S Indicated? C&S Done As Ordered; Casts Negative LPF (Negative); Crystals Negative HPF (Negative); Epithelial Cells Moderate HPF (Negative); Mucus Negative (Negative); RBC 0-2 HPF (0-2)
[2020-05-07 07:56] VITALS: BP 111/59; PULSE 77; RESP 17; TEMP 36.1; O2SAT 90
[2020-05-07] MEDS: Budesonide/Formoterol 160/4.5 6 GM 60 PUFF INH IH ×2 (08:13→19:53)
[2020-05-07] MEDS: Escitalopram 10 MG TAB 5 MG PO (08:17)
[2020-05-07] MEDS: Lisinopril 20 MG TAB PO (08:18)
[2020-05-07] MEDS: Lactobacillus Acidophilus CAP 1 CAP PO ×3 (08:18→19:52)
[2020-05-07] MEDS: Docusate Sodium 100 MG CAP PO ×3 (08:18→19:52)
[2020-05-07] MEDS: lamoTRIgine 100 MG TAB 200 MG PO (08:18)
[2020-05-07] MEDS: Pantoprazole 40 MG TABCR PO (08:18)
[2020-05-07] MEDS: hydroCHLOROthiazide 12.5 MG TAB PO (08:18)
[2020-05-07] MEDS: Refresh PLUS Eye Drops 0.4ml OP ×2 (08:19→19:54)
[2020-05-07] MEDS: Potassium Chloride 20 MEQ TABCR PO (08:20)
--- NOTE | 2020-05-07 11:26 | PGE_ITS ---
Date of Service Date of service: 05/07/20 Time of Service: 11:26 Assessment and Plan Assessment and plan (1) Bilateral pneumonia: Status: Acute Assessment and plan: Likely recurrent PNA. Started on levofloxacin (today is day 2), improving. Continue levofloxacin. This should not delay the patient's getting biopsy tomorrow. (2) Hypoxia: Status: Acute Assessment and plan: Wean O2 as tolerated. Encourage IS. (3) Mass of right lung: Status: Chronic Assessment and plan: Planned for biopsy tomorrow. Will ensure paperwork is filled out. Subjective Subjective Interval history since last seen: Patient seen in light of a temp of 38.0 at the same time as resumption of supplemental O2 (1.5 L at this time). Her CXR was suggestive of bibasilar PNA. COVID/Flu/RSV negative. The patient states that she did feel more short of breath yesterday and weaker overall. She feels better today. Denies dizziness, chest pain, shortness of breath while on 1.5 L of O2, nausea, abdominal pain. Endorses skin irritation in the left groin. Exam Narrative Exam Narrative: General: middle-aged female, awake, sitting up in a chair with supplemental O2 on (1.5 L), no dyspnea/tachypnea/cyanosis/cough HEENT: EOMI, MMM Heart: RRR with an occasional gallop Lungs: Diminished at B bases Abdomen: soft, nontender, nondistended Extremities: no edema BLE's Objective Last Vital Signs Temp 36.1 C L 05/07/20 07:56 Pulse 77 05/07/20 07:56 Resp 17 05/07/20 07:56 BP 111/59 L 05/07/20 07:56 Pulse Ox 90 L 05/07/20 07:56 Laboratory Results - last 24 hr 05/06/20 05/06/20 05/07/20 16:08 16:50 02:26 WBC 11.53 H RBC 5.32 H Hgb 14.8 Hct 46.7 H MCV 87.8 MCH 27.8 MCHC 31.7 L RDW 15.5 H Plt Count 232 MPV 9.4 Urine Color Yellow Urine Clarity Clear Urine pH 5.5 Ur Specific [place] 1.025 Urine Protein Negative Urine Ketones Negative Urine Blood Negative Urine Nitrite Negative Urine Bilirubin Negative Urine Urobilinogen 0.2 Ur Leukocyte Esterase Small H Urine RBC 0-2 Urine WBC 10-20 H Ur Epithelial Cells Moderate Urine Crystals Negative Urine Bacteria Few Urine Casts Negative Urine Mucus Negative Ur Culture Indicated? C&s done as ordered Urine Glucose Negative COVID-19 Source Nasopharynx SARS-CoV-2 (PCR) Negative Influenza Type A (PCR) Negative Influenza Type B (PCR) Negative RSV (PCR) Negative Objective Narrative Objective Narrative: CXR 05/06/2020: 1. Bilateral pulmonary infiltrates which may represent atelectasis or pneumonia. 2. Right lower lobe pulmonary mass and pulmonary nodules most suggestive of a neoplasm and metastatic disease. 3. Small right pleural effusion.
[2020-05-07] MEDS: Nystatin POWDER 60 GM JAR TP ×2 (14:02→19:54)
[2020-05-07 15:21] VITALS: BP 101/61; PULSE 83; RESP 18; TEMP 36.6; O2SAT 92
--- NOTE | 2020-05-07 16:24 | NUR.NOTE ---
Nursing Note: Pt reports feeling very anxious about biopsy procedure tomorrow @ [facility]. States she is nervous about the ambulance ride and what to expect during procedure. Pt reassured that being nervous is normal, especially with the unknown, and nursing offered supportive listening. CC notified of Pt's anxiousness and concerns.
[2020-05-07] MEDS: Simvastatin 40 MG TAB PO (19:51)
[2020-05-07] MEDS: Lidocaine 5% Patch 1 PATCH TP (19:53)
[2020-05-07] MEDS: lamoTRIgine 100 MG TAB PO (19:53)
[2020-05-07] MEDS: Diclofenac 1% Gel 100 GM TUBE TP (19:55)
[2020-05-07 23:58] VITALS: BP 102/58; PULSE 91; RESP 18; TEMP 37.4; O2SAT 94
[2020-05-08] MEDS: diazePAM 5 MG TAB PO (05:28)
--- NOTE | 2020-05-08 10:29 | W.NUTRFU ---
Date of service: 05/08/20 Time of Service: 10:29 Nutritional Follow up NOTE: Francie continues on Heart Healthy Diet with excellent intake. Meeting nutrient and fluid needs. Not at nutritional risk at this time. Will continue to monitor. Time Spent in Nutritional Counseling and Treatment: 0
[2020-05-08 14:06] VITALS: BP 131/66; PULSE 97; RESP 18; TEMP 36.7; O2SAT 91
[2020-05-08] MEDS: Diclofenac 1% Gel 100 GM TUBE TP ×2 (14:38→19:52)
[2020-05-08] MEDS: Lactobacillus Acidophilus CAP 1 CAP PO ×2 (14:51→19:51)
[2020-05-08] MEDS: Potassium Chloride 20 MEQ TABCR PO (14:52)
[2020-05-08] MEDS: Escitalopram 10 MG TAB 5 MG PO (14:52)
[2020-05-08] MEDS: hydroCHLOROthiazide 12.5 MG TAB PO (14:52)
[2020-05-08] MEDS: Docusate Sodium 100 MG CAP PO ×2 (14:53→19:51)
[2020-05-08] MEDS: lamoTRIgine 100 MG TAB 200 MG PO (14:53)
[2020-05-08] MEDS: Lisinopril 20 MG TAB PO (14:54)
[2020-05-08] MEDS: Nystatin POWDER 60 GM JAR TP ×2 (14:54→19:52)
[2020-05-08] MEDS: Acetaminophen 500 MG TAB PO (16:06)
[2020-05-08] MEDS: Baclofen 10 MG TAB 5 MG PO (16:25)
[2020-05-08] MEDS: Lidocaine 5% Patch 1 PATCH TP (16:26)
[2020-05-08] MEDS: levoFLOXacin 500 MG, levoFLOXacin 250 MG 750 MG PO (18:59)
[2020-05-08 19:44] VITALS: BP 96/55; PULSE 71; RESP 18; TEMP 36.9; O2SAT 91
[2020-05-08] MEDS: Simvastatin 40 MG TAB PO (19:51)
[2020-05-08] MEDS: Budesonide/Formoterol 160/4.5 6 GM 60 PUFF INH IH (19:51)
[2020-05-08 23:37] VITALS: BP 105/58; PULSE 79; RESP 18; TEMP 36.8; O2SAT 93
--- NOTE | 2020-05-09 | DI.RAD_ITS ---
EXAM: XR PORTABLE CHEST AP CLINICAL HISTORY: post CT-guided bx; concern for PTX TECHNIQUE: 2D digital imaging was performed. COMPARISON: CT CT CHEST PE ABD PELVIS W from 04/17/2020 CR,XR XR PORTABLE CHEST AP from 05/06/2020 FINDINGS: MEDIASTINUM: Normal. HEART: Normal. PULMONARY VASCULATURE: Atherosclerosis. LUNGS: There is increased opacity in the right lung base compared to 05/06/2020. There again seen pu lmonary nodules in the right lung base consistent with the patient's known right lower lobe mass and metastases. The left lung appears stable. No new infiltrates are seen. PLEURAL SPACE: No pneumothorax or left pleural effusion. There may be a small right pleural effusion . BONE:Within normal limits for the patient's age. OTHER FINDINGS:Normal. IMPRESSION: 1. Increase in the infiltrate in the right lung base. 2. Pulmonary masses consistent with metastatic disease. 3. Possible small right pleural effusion. DATA REPOSITORY: RADIATION DOSE DELIVERED:
[2020-05-09 05:40] VITALS: BP 101/50; PULSE 76; RESP 18; TEMP 36.4; O2SAT 90
[2020-05-09] MEDS: Acetaminophen 500 MG TAB PO ×2 (05:46→18:42)
[2020-05-09] MEDS: Diclofenac 1% Gel 100 GM TUBE TP ×4 (07:39→20:37)
[2020-05-09 07:40] VITALS: O2SAT 93
[2020-05-09] MEDS: Lactobacillus Acidophilus CAP 1 CAP PO ×3 (07:40→20:34)
[2020-05-09] MEDS: Escitalopram 10 MG TAB 5 MG PO (07:40)
[2020-05-09] MEDS: hydroCHLOROthiazide 12.5 MG TAB PO (07:40)
[2020-05-09] MEDS: Nystatin POWDER 60 GM JAR TP ×3 (07:40→20:36)
[2020-05-09] MEDS: Lisinopril 20 MG TAB PO (07:41)
[2020-05-09] MEDS: Docusate Sodium 100 MG CAP PO ×3 (07:41→20:35)
[2020-05-09] MEDS: Potassium Chloride 20 MEQ TABCR PO (07:41)
[2020-05-09] MEDS: Pantoprazole 40 MG TABCR PO (07:41)
[2020-05-09] MEDS: lamoTRIgine 100 MG TAB 200 MG PO (07:42)
[2020-05-09] MEDS: Budesonide/Formoterol 160/4.5 6 GM 60 PUFF INH IH ×2 (09:14→20:39)
[2020-05-09 09:25] VITALS: BP 110/60; PULSE 75; RESP 20; TEMP 36; O2SAT 97
[2020-05-09] MEDS: Baclofen 10 MG TAB 5 MG PO (10:05)
--- NOTE | 2020-05-09 15:31 | CHAPLAIN ---
Francie said she's tired today after a trip to [facility] yesterday for a lung biopsy. She said she left early in the morning and didn't return until the evening. Francie continues to be in touch with her daughters by phone. She is here waiting to be placed in a [facility] as she doesn't want to live by herself any longer.
[2020-05-09 16:13] VITALS: BP 103/58; PULSE 81; RESP 18; TEMP 36.3; O2SAT 96
[2020-05-09] MEDS: Lidocaine 5% Patch 1 PATCH TP (18:41)
[2020-05-09] MEDS: lamoTRIgine 100 MG TAB PO (20:35)
[2020-05-09] MEDS: Simvastatin 40 MG TAB PO (20:35)
[2020-05-09 23:35] VITALS: BP 107/60; PULSE 80; RESP 17; TEMP 36.9; O2SAT 93
[2020-05-10] VITALS (7 sets, daily range): BP systolic 106–120; BP diastolic 65–68; PULSE 72–86; RESP 17–20; TEMP 36–38; O2SAT 87–96
[2020-05-10] MEDS: Escitalopram 10 MG TAB 5 MG PO (07:54)
[2020-05-10] MEDS: hydroCHLOROthiazide 12.5 MG TAB PO (07:54)
[2020-05-10] MEDS: lamoTRIgine 100 MG TAB 200 MG PO (07:55)
[2020-05-10] MEDS: Pantoprazole 40 MG TABCR PO (07:55)
[2020-05-10] MEDS: Lactobacillus Acidophilus CAP 1 CAP PO ×3 (07:55→19:22)
[2020-05-10] MEDS: Lisinopril 20 MG TAB PO (07:56)
[2020-05-10] MEDS: Docusate Sodium 100 MG CAP PO ×3 (07:56→19:22)
[2020-05-10] MEDS: Budesonide/Formoterol 160/4.5 6 GM 60 PUFF INH IH ×2 (07:56→19:23)
[2020-05-10] MEDS: Potassium Chloride 20 MEQ TABCR PO (07:56)
[2020-05-10] MEDS: Diclofenac 1% Gel 100 GM TUBE TP ×4 (07:57→19:23)
[2020-05-10] MEDS: Nystatin POWDER 60 GM JAR TP ×3 (07:57→18:57)
--- NOTE | 2020-05-10 10:53 | PDOC.CMPRO ---
- If Service Date Differs Date of service: 05/10/20 Time of Service: 10:53 Care Management Progress Note S/O: Gerda was sitting up in a chair when CM met with her. CM provided her with contact information for [facility] services re: her potential AFC placement. eGrda asked about how she would transport to the home for a visit. Because of the Covid pandemic, travel arrangements may need to be different. CM posed the question to Nursing Administration and is awaiting a determination. Gerda continues in SB-2 status. She keeps busy writing out [employer] Cards, talking with friends and family on the phone and playing games and reading on her tablet. She has previously received items from the activity cart. P: Francie is now in SB2 status. She is seeking placement in an AFC home and referrals have been sent. The referral sent to [facility] looks like a promising option. [facility] will continue to assist with the process as it moves forward. It is hoped that Gerda and her daughter Karlene will be able to go for a home visit soon.
[2020-05-10] MEDS: Baclofen 10 MG TAB 5 MG PO (14:56)
[2020-05-10] MEDS: Acetaminophen 500 MG TAB PO (15:31)
[2020-05-10] MEDS: diazePAM 2 MG TAB PO (18:47)
[2020-05-10] MEDS: Lidocaine 5% Patch 1 PATCH TP (18:48)
[2020-05-10] MEDS: levoFLOXacin 500 MG, levoFLOXacin 250 MG 750 MG PO (18:49)
[2020-05-10] MEDS: Refresh PLUS Eye Drops 0.4ml OP (18:50)
[2020-05-10] MEDS: Simvastatin 40 MG TAB PO (19:22)
[2020-05-10] MEDS: Gabapentin 100 MG CAP PO (19:22)
[2020-05-10] MEDS: lamoTRIgine 100 MG TAB PO (19:22)
[2020-05-11] VITALS (8 sets, daily range): BP systolic 105–125; BP diastolic 50–76; PULSE 61–88; RESP 16–24; TEMP 35–37; O2SAT 86–97
[2020-05-11] MEDS: Diclofenac 1% Gel 100 GM TUBE TP ×3 (07:45→19:50)
[2020-05-11] MEDS: Pantoprazole 40 MG TABCR PO (07:46)
[2020-05-11] MEDS: Gabapentin 100 MG CAP PO ×3 (07:46→19:50)
[2020-05-11] MEDS: Aspirin E.C. 81 MG TABEC PO (07:46)
[2020-05-11] MEDS: Potassium Chloride 20 MEQ TABCR PO (07:46)
[2020-05-11] MEDS: Lactobacillus Acidophilus CAP 1 CAP PO ×3 (07:47→19:49)
[2020-05-11] MEDS: Docusate Sodium 100 MG CAP PO ×3 (07:47→19:50)
[2020-05-11] MEDS: lamoTRIgine 100 MG TAB 200 MG PO (07:47)
[2020-05-11] MEDS: Escitalopram 10 MG TAB 5 MG PO (07:47)
[2020-05-11] MEDS: hydroCHLOROthiazide 12.5 MG TAB PO (07:47)
[2020-05-11] MEDS: Lisinopril 20 MG TAB PO (07:47)
[2020-05-11] MEDS: Budesonide/Formoterol 160/4.5 6 GM 60 PUFF INH IH ×2 (09:32→19:46)
--- NOTE | 2020-05-11 13:20 | DI.RAD_ITS ---
EXAM: XR HIP AND PELVIS ADULT BL CLINICAL HISTORY: s/p fall. TECHNIQUE: 2D digital imaging was performed. COMPARISON: CR RT HIP COMPLETE AP PELVIS from 01/31/2014 DX DEXA BONE DENSITY WITH MARLA from 06/30/[address] CHEST PE ABD PELVIS W from 04/17/2020 CR,XR XR LUMBAR SPINE COMPLETE from 05/11/2020 FINDINGS: BONES: No acute fracture is present. No bony destructive lesion is seen. JOINTS: No dislocation present. SOFT TISSUE: Normal. There is a question of slight deformity of the left pubic rami, not definitely seen on previous CT. T here is deformity of the right femoral neck, which appears unchanged. No acute femoral fracture is se en. The SI joints are partially obscured by stool and bowel gas. Enthesophytes are noted at the great er trochanters. IMPRESSION: Questionable deformity of the left pubic ramus could be projectional. Clinical correlation is recomme nded. DATA REPOSITORY: RADIATION DOSE DELIVERED:
--- NOTE | 2020-05-11 13:20 | DI.RAD_ITS ---
EXAM: XR LUMBAR SPINE COMPLETE CLINICAL HISTORY: s/p fall; lower back pain TECHNIQUE: 2D digital imaging was performed. COMPARISON: DX DEXA BONE DENSITY WITH MARLA from 06/30/[address] CHEST PE ABD PELVIS W from 04/17/[address] CHEST PE ABD PELVIS W from 04/17/2020 FINDINGS: The vertebral bodies are well maintained in height. No spondylolysis, spondylolisthesis or significa nt scoliosis is present. There are degenerative disc changes greatest at L4-5. Calcification is aga in noted in the distal aortic aneurysm, grossly unchanged from previous CT. IMPRESSION: Degenerative changes. No acute abnormality.
--- NOTE | 2020-05-11 13:50 | DI.VRAD_ITS ---
PROCEDURE INFORMATION: Exam: XR Lumbosacral Spine, 4 or 5 Views Exam date and time: 05/11/2020 1:26 PM Age: 74 years old Clinical indication: Other: S/P fall TECHNIQUE: Imaging protocol: XR of the lumbosacral spine, 4 or 5 views. COMPARISON: CR LUMBAR SPINE COMPLETE 12/30/2013 2:23 PM FINDINGS: Bones/joints: Lumbar vertebral body heights are well maintained. Alignment is well preserved without significant listhesis. Bony degenerative changes are mild. Soft tissues: unremarkable soft tissues. IMPRESSION: No acute fracture or dislocation. Dictated and Authenticated by: Mika Vera MD. Ordering:CELIA Freitas MD
--- NOTE | 2020-05-11 13:53 | DI.VRAD_ITS ---
PROCEDURE INFORMATION: Exam: XR Right Hip with Pelvis when Performed Exam date and time: 05/11/2020 11:49 AM Age: 74 years old Clinical indication: Other: S/P fall; Lower back pain TECHNIQUE: Imaging protocol: XR Right hip with pelvis when performed. Views: 2 or 3 views. COMPARISON: CT CHEST PE ABD PELVIS W 04/17/2020 9:18 AM FINDINGS: Bones/joints: Bony irregularity along the left pubic bone adjacent to the pubic symphysis. No other convincing evidence of an acute fracture or dislocation. Scattered bony degenerative changes including suspected enthesopathic changes along the left greater trochanter. Soft tissues: Unremarkable soft tissues. IMPRESSION: Bony irregularity of the left pubic rami medially may be projectional. Correlation with point tenderness is advised as presence of fracture not excluded. Dictated and Authenticated by: Mika Vera MD. Ordering:CELIA Freitas MD
--- NOTE | 2020-05-11 15:00 | DI.CT_ITS ---
EXAM: CT LOWER EXTREMITY LT WO CLINICAL HISTORY: fall, ?left pubic ramus fracture; left thigh pain. TECHNIQUE: Imaging Protocol: Axial computed tomography images with coronal and sagittal reformatted images were created and reviewed. CONTRAST MATERIAL: Intravenous: Omnipaque 350 Contrast volume:Noncontrast- COMPARISON: CR,XR XR HIP PELVIS ADULT BL from 05/11/2020 FINDINGS: The field of view includes the left side of of the mid pelvis through the left knee. There is no evidence pelvic or femoral fracture. There is no evidence of hematoma. The bones appear osteopenic. There is acetabular spurring and mild hip joint space narrowing. A small enthesophyte is seen at the greater trochanter. Vascular calcifications are present. The bladder and uterus are unremarkable. IMPRESSION: No acute abnormality. RADIATION DOSE DELIVERED: 479.52mGy.cm Total DLP DATA REPOSITORY: All CT scans at this facility are submitted to the National Radiology Data Registry (NRDR) Dose Index Registry (DIR) with the [employer] (A[employer]). RADIATION OPTIMIZATION: All CT scans at this facility use at least one of these dose optimization te chniques: automated exposure control; mA and/or kV adjustment per patient size (includes targeted exa ms where dose is matched to clinical indication); or iterative reconstruction.
[2020-05-11] MEDS: Acetaminophen 500 MG TAB PO (15:19)
--- NOTE | 2020-05-11 15:24 | DI.VRAD_ITS ---
PROCEDURE INFORMATION: Exam: CT Left Lower Extremity Without Contrast; Thigh Exam date and time: 05/11/2020 2:24 PM Age: 74 years old Clinical indication: Injury or trauma; Fall; Sprain or strain; Thigh or upper leg; Patient HX: ? FX left pubic rami. Left thigh pain; Additional info: Patient hurts in the knee area as well. TECHNIQUE: Imaging protocol: CT of the Left lower extremity without contrast was performed. Exam focused on the thigh. Radiation optimization: All CT scans at this facility use at least one of these dose optimization techniques: automated exposure control; mA and/or kV adjustment per patient size (includes targeted exams where dose is matched to clinical indication); or iterative reconstruction. COMPARISON: CR XR KNEE LT 3V AP,LAT,EVELYN 04/17/2020 9:21 AM FINDINGS: Bones/joints: Bony degenerative changes. No acute fracture or dislocation. Soft tissues: mild soft tissue swelling along the left lateral thigh. Image 71 series 3. Unremarkable superficial soft tissues otherwise. Vasculature: Scattered vascular calcifications. Bowel: Nonobstructed appearance of the visualized bowel. Intraperitoneal space: Suspected medication related injection changes along the anterior abdominal/pelvic wall. Bladder: Bladder poorly distended limiting evaluation but grossly unremarkable. Reproductive: Suspected uterine fibroid. Uterus is somewhat prominent for patient's age. Somewhat prominent left adnexa/ovary for age. Unremarkable right adnexa. IMPRESSION: 1. No acute fracture or dislocation. 2. Soft tissue swelling along the left lateral thigh may be traumatic in nature. 3. Somewhat prominent uterus and left adnexa for the patient's age. Correlate with use of hormonal therapy and if none consider further evaluation with pelvic ultrasound. This may be obtained non emergently. Dictated and Authenticated by: Mika Vera MD. Ordering:CELIA Freitas MD
[2020-05-11] MEDS: Lidocaine 5% Patch 1 PATCH TP (18:48)
[2020-05-11] MEDS: Simvastatin 40 MG TAB PO (19:50)
[2020-05-11] MEDS: Nystatin POWDER 60 GM JAR TP (19:50)
[2020-05-11] MEDS: lamoTRIgine 100 MG TAB PO (19:50)
[2020-05-12] MEDS: Budesonide/Formoterol 160/4.5 6 GM 60 PUFF INH IH ×2 (07:40→19:46)
[2020-05-12] MEDS: Potassium Chloride 20 MEQ TABCR PO (07:55)
[2020-05-12] MEDS: Pantoprazole 40 MG TABCR PO (07:56)
[2020-05-12] MEDS: Lisinopril 20 MG TAB PO (07:56)
[2020-05-12] MEDS: Gabapentin 100 MG CAP PO ×3 (07:56→19:45)
[2020-05-12] MEDS: Aspirin E.C. 81 MG TABEC PO (07:56)
[2020-05-12] MEDS: lamoTRIgine 100 MG TAB 200 MG PO (07:56)
[2020-05-12] MEDS: Lactobacillus Acidophilus CAP 1 CAP PO ×3 (07:56→19:44)
[2020-05-12] MEDS: Docusate Sodium 100 MG CAP PO ×3 (07:56→19:45)
[2020-05-12] MEDS: hydroCHLOROthiazide 12.5 MG TAB PO (07:56)
[2020-05-12] MEDS: Nystatin POWDER 60 GM JAR TP ×2 (07:57→19:46)
[2020-05-12] MEDS: Escitalopram 10 MG TAB 5 MG PO (07:57)
[2020-05-12 08:00] VITALS: BP 108/68; PULSE 78; RESP 18; TEMP 36.7; O2SAT 91
[2020-05-12] MEDS: Diclofenac 1% Gel 100 GM TUBE TP ×4 (08:14→19:46)
[2020-05-12 15:50] VITALS: BP 118/61; PULSE 96; RESP 20; TEMP 37.2; O2SAT 94
--- NOTE | 2020-05-12 16:11 | PGE_ITS ---
Date of Service Date of service: 05/12/20 Time of Service: 16:11 Subjective Subjective Interval history since last seen: Ms Marrufo was informed of her biopsy results (that evidently no suspicious histopathology was seen on the sample extracted). I explained to her that this likely means that the biopsy had missed the spot with the tumor in it and that further workup will be necessary. I am sending a referral to [facility] pulmonology, though it being , scheduling of any further procedures will have to be postponed until 05/15/2020. The patient fell today. Her XR showed a possible pelvic lucency, but this was not confirmed by CT. The patient was informed of the results. Objective Last Vital Signs Temp 36.7 C 05/12/20 08:00 Pulse 78 05/12/20 08:00 Resp 18 05/12/20 08:00 BP 108/68 05/12/20 08:00 Pulse Ox 91 L 05/12/20 08:00
[2020-05-12] MEDS: levoFLOXacin 500 MG, levoFLOXacin 250 MG 750 MG PO (17:03)
[2020-05-12] MEDS: Lidocaine 5% Patch 1 PATCH TP (17:04)
[2020-05-12] MEDS: lamoTRIgine 100 MG TAB PO (19:44)
[2020-05-12] MEDS: Simvastatin 40 MG TAB PO (19:45)
[2020-05-12 23:32] VITALS: BP 120/61; PULSE 89; RESP 18; TEMP 37.1; O2SAT 94
[2020-05-13 07:16] VITALS: BP 109/65; PULSE 72; RESP 18; TEMP 36.5; O2SAT 94
[2020-05-13 07:42] VITALS: O2SAT 95
[2020-05-13] MEDS: Budesonide/Formoterol 160/4.5 6 GM 60 PUFF INH IH ×2 (07:42→20:01)
[2020-05-13] MEDS: hydroCHLOROthiazide 12.5 MG TAB PO (07:46)
[2020-05-13] MEDS: Lactobacillus Acidophilus CAP 1 CAP PO ×3 (07:46→20:01)
[2020-05-13] MEDS: Aspirin E.C. 81 MG TABEC PO (07:46)
[2020-05-13] MEDS: Gabapentin 100 MG CAP PO ×3 (07:46→20:01)
[2020-05-13] MEDS: Escitalopram 10 MG TAB 5 MG PO (07:47)
[2020-05-13] MEDS: Pantoprazole 40 MG TABCR PO (07:47)
[2020-05-13] MEDS: Lisinopril 20 MG TAB PO (07:47)
[2020-05-13] MEDS: Diclofenac 1% Gel 100 GM TUBE TP ×4 (07:47→20:02)
[2020-05-13] MEDS: Docusate Sodium 100 MG CAP PO ×3 (07:47→20:00)
[2020-05-13] MEDS: Potassium Chloride 20 MEQ TABCR PO (07:47)
[2020-05-13] MEDS: lamoTRIgine 100 MG TAB 200 MG PO (07:47)
[2020-05-13] MEDS: Nystatin POWDER 60 GM JAR TP ×3 (07:48→20:13)
[2020-05-13 07:55] VITALS: O2SAT 92
[2020-05-13 10:45] LABS: Procalcitonin < 0.1 ng/mL
--- NOTE | 2020-05-13 12:26 | IN_ITS ---
Date of service: 05/13/20 Time of Service: 11:30 PT Notes Visit Reasons: MASS OF RIGHT LUNG, AMBULATORY DYSFUNCTION Inpatient Physical Therapy Swingbed Evaluation Date: 05/13/20 Referring Doctor: Zena Aragon MD PT Orders: Fall safety assessment Precautions: Fall. Standard. Activity as tolerated. L AFO and shoes on when out of bed. 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 Patient is diagnosed with pneumonia and a mass in the right lung. Francie has been on swing bed with new PT orders for fall safety assessment. She has not received new AFO yet. Witnessed fall did occur on 05/12/20 in standing with FWW with nurses aide. She reports landing on buttock. PMHX: Medical History Asthma Cerebrovascular accident Depression Essential hypertension Gastroesophageal reflux disease Hemiplegia Hyperlipidemia Polyp of colon Surgical History Cerebral aneurysm repair. Social History/Home Situation: Lives alone on the second floor of the [facility] in [place], [place]. Receives HH aide assistance one hour each day 6x/week in the mornings and has [facility] home assistants 2-3 hours everyday during the evening. Is able to self-transfer from bed to chair using a stand squat transfer without an assistive device. Requires assistance with wheelchair transport over ramp at the entrance of the building and through the elevator to her apartment with her wheelchair. Equipment Owned/DME: hospital bed, FWW, wheelchair Subjective: Pleasant and cooperative. Patient left with lunch in recliner and ice to left knee. Objective: General Observation: Seated on reclining chair. L AFO and shoes on. On 1L O2 via NC. Mental Status: Alert and oriented x4 Pain: 8/10 pain in the left knee at rest ROM: Right Upper Extremity: Shoulder Flexion WFL. Shoulder abduction WFL. Elbow flexion WFL. Wrist flexion WFL. Opening and closing of hand WFL. Left Upper Extremity: Shoulder Flexion allows up to 110 degrees. Shoulder abduction allows up to 100 degrees. Elbow flexion WFL. Wrist flexion WFL. Opening and closing of hand WFL. Right Lower Extremity: Hip flexion WFL. Hip abduction WFL. Knee flexion WFL. Ankle dorsiflexion WFL. Ankle plantarflexion WFL. Left Lower Extremity: Hip flexion allows up to 80 degrees. Hip abduction allows up to 20 degrees. Knee flexion up to 80 degrees. Ankle dorsiflexion none beyond neutral. Ankle plantarflexion 10 degrees. Strength: Right Upper Extremity: Shoulder flexors 5/5. Shoulder abductors 5/5. Elbow flexors 5/5. Elbow extensors 5/5. Escalator Service Mechanic strong. Left Upper Extremity: Shoulder flexors 4-5. Shoulder abductors 4-/5. Elbow flexors 4-/5. Elbow extensors 4-/5. Escalator Service Mechanic weak but functional. Right Lower Extremity: Hip flexors 4/5. Hip abductors 4/5. Knee flexors 4/5. Knee extensors 4/5. Ankle dorsiflexors 4/5. Ankle plantarflexors 4/5. Left Lower Extremity: Hip flexors 3-/5. Hip abductors 3-/5. Knee flexors 3-/5. Knee extensors 3-/5. Ankle dorsiflexors 3-/5. Ankle plantarflexors 3-/5. Sensation: Intact as to pain and pressure on bilateral lower extremities. Bed Mobility/Transfers: Sit to stand: moderate assist with FWW, L AFO and shoes needed. FWW needs to be stabilized by PT for safety. Stand to sit: contact guard assist with FWW, L AFO and shoes needed. FWW needs to be stabilized by PT for safety. Maximal cues given to avoid dropping to surface. Gait: CGA ambulation of 60 feet using FWW and contact-guard assist and 1L O2. Poor mobility with left LE and she demonstrates decreased left hip extension which causes step to gait as well as left lower extremity positioned into ER. Therapeutic Exercise (21731) for strength and endurance: 1. Seated left LAQ 5# 2x10 2. Seated left july 5# 2x10 3. Seated left hamstring curl blue band 2x10 4. Biceps curls, bilaterally performed, 4# x20 Balance: Static Sitting: Normal Dynamic Sitting: Normal Static Standing: Fair Dynamic Standing: Poor INFORMED CONSENT/EDUCATION: Pt instructed in purpose of PT Consult and plan of care Assessment: Francie continues to demonstrate functional mobility decline requiring the use of a front wheeled walker and assistance of 1 person for all transfers and wheelchair follow for short distance ambulation, lack of coordination, impulsiveness, generalized weakness, decreased activity tolerance, pain in in the left knee, difficulty with walking, and increased risk for falls due to admitting diagnoses and co-morbidities. Her L AFO has not been replaced since five years ago and is now ill-fitting which has resulted to increased L tibial internal rotation, L foot supination, and decreased L knee extension throughout the gait cycle which contribute to L knee pain, impaired gait pattern, and increased fall risk. Swing bed level goals will focus on task segmentation for bed<>wheelchair and bed<>bedside commode transfer to increase mastery, coordination, and self-reliance in regaining premorbid independent transfer task performance, as well as cardio tasks for endurance. New AFO has still not been acquired. She reports fatigue with ambulation of 60 feet to PT gym. She was able to do therapeutic exercise and upon sit to stand appeared unsteady on her feet. Transported back to room via wheelchair. Patient presents with clinical signs and symptoms consistent with current/admitting diagnoses that have resulted to mobility limitations, gait instability, generalized weakness, and impairment of motor control as demonstrated by the following impairment level findings: 1. Decreased strength to left UE/LE major muscle groups 2. Impaired standing balance 3. Impaired activity tolerance 4. Limitation of joint range of motion in left UE/LE 5. Pain in the left knee aggravated with weight bearing 6. Lack of coordination, impaired motor planning 7. Increased L tibial internal rotation, L ankle supination, and decreased L knee flexion contributing to L knee pain, impaired gait mechanics, and instability Impairments are contributing to the following functional limitations: 1. Dependent bed mobility skills 2. Increased dependence with transfers 3. Inability to safely ambulate without assistive device and physical assistance 4. Increase completion time for mobility ADL performance 5. Increased fall risk 6. Inability to negotiate steps alone safely Patient is assessed as a high 01161 complexity based on the following: o History: See above o Examination: See above o Presentation: Evolving o Decision Making: High Goals: Goals X1 week 1. Supine-Sit independent using bed rails 2. Sit-Supine independent using bed rails 3. Sit-Stand CGA with FWW 4. Stand-Sit CGA with FWW 5. Bed-Chair CGA with FWW 6. Chair-Bed CGA with FWW 7. Standby assist on gait on level surface with use of front wheeled walker and proper fitting L AFO for at least 50 feet without report of L knee pain nor dyspnea 8. Good static and dynamic standing balance/tolerance Plan of Care/Treatment Plan: 1-2x/day, 4 days/week x 1 week. Plan of care has been reviewed with the [employer] providing the service under Physical Therapy direction. Initiate Physical Therapy intervention for strengthening, bed mobility, transfers, gait, stairs, balance training, cardio and use of assistive device. DISCHARGE RECOMMENDATIONS: Patient will benefit from placement in a intermediate with 24/7 supervision in order to ensure safety and reduce fall risk. TREATMENT CODE/TIME: [id number], [id number] 11:30-12:17
[2020-05-13 15:30] VITALS: BP 120/67; PULSE 90; RESP 20; TEMP 36.3; O2SAT 90
[2020-05-13] MEDS: Acetaminophen 500 MG TAB PO (16:33)
[2020-05-13] MEDS: Lidocaine 5% Patch 1 PATCH TP (18:27)
[2020-05-13] MEDS: lamoTRIgine 100 MG TAB PO (20:00)
[2020-05-13] MEDS: Simvastatin 40 MG TAB PO (20:01)
[2020-05-13] MEDS: Refresh PLUS Eye Drops 0.4ml OP (20:13)
[2020-05-13 23:35] VITALS: BP 111/62; PULSE 77; RESP 18; TEMP 36.5; O2SAT 88
[2020-05-13 23:45] VITALS: O2SAT 93
[2020-05-14] MEDS: Budesonide/Formoterol 160/4.5 6 GM 60 PUFF INH IH ×2 (07:38→21:28)
[2020-05-14] MEDS: Aspirin E.C. 81 MG TABEC PO (07:40)
[2020-05-14] MEDS: Lactobacillus Acidophilus CAP 1 CAP PO ×3 (07:40→21:17)
[2020-05-14] MEDS: Gabapentin 100 MG CAP PO ×3 (07:40→21:17)
[2020-05-14] MEDS: Lisinopril 20 MG TAB PO (07:40)
[2020-05-14] MEDS: lamoTRIgine 100 MG TAB 200 MG PO (07:40)
[2020-05-14] MEDS: hydroCHLOROthiazide 12.5 MG TAB PO (07:40)
[2020-05-14] MEDS: Potassium Chloride 20 MEQ TABCR PO (07:40)
[2020-05-14] MEDS: Docusate Sodium 100 MG CAP PO ×2 (07:40→15:31)
[2020-05-14] MEDS: Nystatin POWDER 60 GM JAR TP ×3 (07:41→21:18)
[2020-05-14] MEDS: Pantoprazole 40 MG TABCR PO (07:41)
[2020-05-14] MEDS: Diclofenac 1% Gel 100 GM TUBE TP ×2 (07:41→14:45)
[2020-05-14] MEDS: Escitalopram 10 MG TAB 5 MG PO (07:41)
[2020-05-14 07:52] VITALS: BP 119/71; PULSE 74; RESP 18; TEMP 36.9; O2SAT 92
--- NOTE | 2020-05-14 08:30 | CMPROGNOTE_ITS ---
- If Service Date Differs Date of service: 05/14/20 Time of Service: 08:30 Care Management Progress Note S/O: Gerda was sitting up in a chair when CM met with her. She expressed that she is sad and depressed and tired of being at [facility]. She has had second thoughts about going to the [facility] home in [place], [place] and is hopeful she can be accepted at [facility]. After a lengthy conversation, Gerda agreed to go to the [facility] home for a site visit, acknowledging that she should give it a chance. She now un derstands how difficult it is to find placement and that she may be at [facility] considerably longer if she passes up this opportunity and is not accepted at [facility]. Several other SNF referrals were sent early in her hospital stay and no bed offers were received. A conversation took place exploring Gerda's sadness and depression and she shared that she often gets this way in the winter time. What she misses most by being at [facility] she said is visitors. She clearly has many people who care about her as she has many, many Malini cards in her room as well as a half dozen or more plants, myrick and [place] arrangements. She does use her tablet to facetime with friends and family, but she notes that it is not the same. P: Francie is now in SB2 status. She is seeking placement in an [facility] home or nursing home care facility and referrals have been sent. The referral sent to [facility] looks like a promising option. A new referral was also sent to [facility] this weekend at Gerda's request. [facility] will continue to assist with the process as it moves forward. It is hoped that Gerda and her daughter Karlene will be able to go for a home visit soon.
--- NOTE | 2020-05-14 08:30 | PDOC.CMPRO ---
- If Service Date Differs Date of service: 05/14/20 Time of Service: 08:30 Care Management Progress Note S/O: Gerda was sitting up in a chair when CM met with her. She expressed that she is sad and depressed and tired of being at [facility]. She has had second thoughts about going to the [facility] home in [place], [place] and is hopeful she can be accepted at [facility]. After a lengthy conversation, Gerda agreed to go to the [facility] home for a site visit, acknowledging that she should give it a chance. She now understands how difficult it is to find placement and that she may be at [facility] considerably longer if she passes up this opportunity and is not accepted at [facility]. Several other SNF referrals were sent early in her hospital stay and no bed offers were received. A conversation took place exploring Gerda's sadness and depression and she shared that she often gets this way in the winter time. What she misses most by being at [facility] she said is visitors. She clearly has many people who care about her as she has many, many [employer] cards in her room as well as a half dozen or more plants, myrick and Malini arrangements. She does use her tablet to facetime with friends and family, but she notes that it is not the same. P: Francie is now in SB2 status. She is seeking placement in an [facility] home or credit intern care facility and referrals have been sent. The referral sent to [facility] looks like a promising option. A new referral was also sent to [facility] this weekend at Gerda's request. [facility] will continue to assist with the process as it moves forward. It is hoped that Gerda and her daughter aKrlene will be able to go for a home visit soon.
--- NOTE | 2020-05-14 09:50 | PTTR_ITS ---
PT Notes Visit Reasons: MASS OF RIGHT LUNG, AMBULATORY DYSFUNCTION 05/14/2020 SUBJECTIVE: Stating she is doing well today. She is agreeable to PT treatment. OBJECTIVE: 87430, [id number] TRANSFERS Supine to sit: Min A Sit to stand: Mod A Stand to sit: CGA, verbal cues GAIT Device: FWW Weight bearing: Full Assist: CGA Distance: 75'+30' Deviation: L AFO donned, 2 L NC THEREX: Performs 3 minutes on the nustep today L5. Assist with getting on and off the equipment. ASSESSMENT: Tolerates PT well today. She does need to sit and rest for a few minutes and she feels SOB but recovers quickly. PLAN: Continue to progress cardiovascular conditioning as she tolerates. Treatment time: 30' Sujatha Duran PTA Clinic location: [facility] [place], [place]
[2020-05-14 16:19] VITALS: BP 102/63; PULSE 86; RESP 19; TEMP 37.1; O2SAT 94
[2020-05-14] MEDS: Lidocaine 5% Patch 1 PATCH TP (18:14)
[2020-05-14] MEDS: lamoTRIgine 100 MG TAB PO (21:17)
[2020-05-14] MEDS: Simvastatin 40 MG TAB PO (21:17)
[2020-05-14] MEDS: Refresh PLUS Eye Drops 0.4ml OP (21:28)
[2020-05-14 23:21] VITALS: BP 106/62; PULSE 84; RESP 19; TEMP 37; O2SAT 95
[2020-05-15 07:17] VITALS: BP 110/60; PULSE 80; RESP 18; TEMP 36.9; O2SAT 91
[2020-05-15 07:32] VITALS: O2SAT 92
[2020-05-15] MEDS: Budesonide/Formoterol 160/4.5 6 GM 60 PUFF INH IH ×2 (07:32→20:23)
[2020-05-15] MEDS: Lactobacillus Acidophilus CAP 1 CAP PO ×3 (07:34→20:24)
[2020-05-15] MEDS: Gabapentin 100 MG CAP PO ×3 (07:35→20:24)
[2020-05-15] MEDS: Lisinopril 20 MG TAB PO (07:35)
[2020-05-15] MEDS: Docusate Sodium 100 MG CAP PO ×3 (07:35→20:25)
[2020-05-15] MEDS: Aspirin E.C. 81 MG TABEC PO (07:35)
[2020-05-15] MEDS: Pantoprazole 40 MG TABCR PO (07:35)
[2020-05-15] MEDS: Potassium Chloride 20 MEQ TABCR PO (07:35)
[2020-05-15] MEDS: lamoTRIgine 100 MG TAB 200 MG PO (07:35)
[2020-05-15] MEDS: hydroCHLOROthiazide 12.5 MG TAB PO (07:35)
[2020-05-15] MEDS: Escitalopram 10 MG TAB 5 MG PO (07:35)
[2020-05-15] MEDS: Diclofenac 1% Gel 100 GM TUBE TP (07:36)
[2020-05-15] MEDS: Nystatin POWDER 60 GM JAR TP ×2 (07:36→20:23)
--- NOTE | 2020-05-15 11:14 | NT_ITS ---
Date of service: 05/15/20 Time of Service: 11:14 PT Notes Visit Reasons: MASS OF RIGHT LUNG, AMBULATORY DYSFUNCTION PT services are deferred for today as patient remains under swing bed II. Will await patient conversion to swing bed level I and a new referral from hospitalist before PT re-evaluation is done . Thank you for the opportunity to participate in the care of this patient. Jayne Dickerson PT, DPT, CLT [facility] [place], [place]
--- NOTE | 2020-05-15 12:40 | W.NUTRFU ---
Date of service: 05/15/20 Time of Service: 12:40 Nutritional Follow up NOTE: Francie continues on regular diet with excellent intake 9>75%). Awaiting LTC placement. Not at nutritional risk. Will continue to follow. Time Spent in Nutritional Counseling and Treatment: 0
--- NOTE | 2020-05-15 14:53 | W.PM.DS.N ---
Date of service: 05/15/20 Time of Service: 14:53 DS: Diagnosis Discharge Diagnosis (1) Bilateral pneumonia: Start date: 05/15/20 Start time: 14:54 Status: Resolved Asessment and Plan: Was treated with levaquin for 7 days, afebrile, continues to require oxygen, however there is concern for lung cancer. Biopsy done 05/08/2020, results of her biopsy evidently no suspicious histopathology was seen on the sample extracted, per Dr. Aragon note she explained to patient this likely means that the biopsy had missed the spot with the tumor in it and further workup will be necessary. Referral sent to [facility] pulmonology for follow up and further work up. She is being discharged to H/R for further mangement. (2) Hypoxia: Start date: 05/15/20 Start time: 15:21 Status: Acute Asessment and Plan: Continues to require 02, continue IS (3) Mass of right lung: Start date: 05/15/20 Start time: 15:22 Status: Chronic Asessment and Plan: as above. Will need follow up with [facility] pulmonology above case discussed with Dr. Marquez who is in agreement. Discharge Plan Disposition Patient Disposition: [facility] (LEVEL 2) [facility] Condition: Stable Discharge Details Reason For Visit: MASS OF RIGHT LUNG, AMBULATORY DYSFUNCTION Admit Date/Time: 04/24/20 11:28 Admit Provider: Zena Aragon Attending Provider: Zena Aragon Primary Care Provider: Rolo Nieves Hospital Course Hospital Course: This is a 74 yo female with a h/o asthma, CVA/hemorrhagic, HTN, HLD. She presented to the ED after reaching for her wheelchair from her bed, the wheelchair was not locked, and she fell to the floor onto her left side. She was unsure of whether or not she hit her head. No WELLS, neck pain. She did endorse SOA, cough with yellow sputum for several weeks. No noted fever, abd pain, N/V, CP, palpitations. She lives alone but has caregivers that spend appx 3 hours throughout the day to give her assistance. In the ED her initial O2 saturation was in the 80's on RA. Her temperature was 101F. WBC count was 10. Troponin negative. Procalcitonin was <0.1. CT chest showed a large R lower lobe mass with smaller adjacent masses with malignant appearance. CT head and L knee were negative. She was started on Rocephin and IV doxycycline for presumed CAP, and admitted for further management. She was transitioned to augmentin, afebrile, and leukocytosis resolved. She was started on steroid taper, she improved with treatment. She has improved and is feeling better, oxygen level down to 1 L from 4 L on admission. She did have loose stool on admission, cdiff negative and stools have improved. Due to right sided mass on imaging, [facility] IR was consulted for biopsy. Biopsy done 05/08/2020, results of her biopsy evidently no suspicious histopathology was seen on the sample extracted, per Dr. Aragon note she explained to patient this likely means that the biopsy had missed the spot with the tumor in it and further workup will be necessary. Referral sent to [facility] pulmonology for follow up and further work up. She was placed on SB level 2 and is now being discharged to H/R for further management. CM to work on referral. Patient denies CP, N/V/D. Total time spent discharging patient was 65 mins Home Meds and New Rx's Prescriptions: New docusate sodium [Colace] 100 mg Capsule 100 mg PO TID Qty: 60 RF: 0 diazepam 2 mg Tablet 2 mg PO TID PRN PRNQty: 20 RF: 0 diclofenac sodium [Voltaren] 1 % Gel 2 g topical QID PRN PRNQty: 100 RF: 0 gabapentin 100 mg Capsule 100 mg PO TID Qty: 30 RF: 0 lidocaine [Lidoderm] 5 % Adhesive Patch,Medicated 1 patch topical Q24H Qty: 15 RF: 0 acidophilus-pectin, citrus 25 million cell -100 mg Tablet 1 cap PO TID Qty: 90 RF: 0 lisinopril 20 mg Tablet 20 mg PO DAILY Qty: 20 RF: 0 nystatin 100,000 unit/gram Powder 1 applic topical TID Qty: 15 RF: 0 pantoprazole 40 mg Tablet,Delayed Release (Dr/Ec) 40 mg PO DAILY@0730 Qty: 30 RF: 0 Continued Premarin 45 GM cream 0.5 g VG DAILY Qty: 1 RF: 2 ibuprofen 600 MG tablet 600 mg PO TID PRNRF: 0 lamotrigine 200 MG tablet 300 mg PO DIRECTED RF: 0 simvastatin 40 MG tablet 40 mg PO DAILY RF: 0 potassium chloride [Klor-Con M20] 20 MEQ tablet,ER particles/crystals 20 meq PO DAILY RF: 0 hydrochlorothiazide 25 MG tablet 12.5 mg PO DAILY RF: 0 Fish Oil 1 EACH capsule 1 cap PO TID RF: 0 aspirin 81 mg tablet,delayed release (DR/EC) 81 mg PO DAILY RF: 0 escitalopram oxalate 10 mg tablet 5 mg PO DAILY RF: 0 alendronate 70 mg tablet 70 mg PO QWEEK RF: 0 Refresh Celluvisc 1 % dropperette,gel 1 drp ophthalmic (eye) QID PRN PRN (Reason: Eye Irritation) RF: 0 fluticasone propion-salmeterol 250-50 mcg/dose blister with device 1 inh INHALATION BID RF: 0 albuterol sulfate [ProAir HFA] 90 mcg/actuation HFA aerosol inhaler 2 puff inhalation Q4H PRN PRNRF: 0 docusate sodium [DOK] 100 mg capsule 100 mg PO TID RF: 0 polyethylene glycol 3350 17 gram/dose powder 17 g PO DAILY PRN PRNRF: 0 Discharge Instructions Instructions: Lung Cancer (DC), Community Acquired Pneumonia (DC), Pneumonia (DC), Lung Abscess (DC), Needle Biopsy of the Lung (DC) Additional Instructions: Follow up with [facility] for further work up of lung mass Follow up with PCP in 1 week. Referrals: [facility] [Outside] - 05/08/20 8:00 am (STOP ASPIRIN, FISH OIL, IBUPROFEN 05/03/20. BLOOD WORKS WILL BE DONE AT [facility] 05/08/20. PATIENT SHOULD REPORT TO INSTRUMENT LENS INSPECTOR DESK 3L @0800 THEN RECPETION DESK 3Z @ 0840 TO REPORT FOR BIOPSY. [facility] NURSING STAFF WILL CALL PATIENT ON THE 05/03/20 TO REVIEW INSTRUCTIONS. PT MUST BE NOTHING BY MOUTH @MIDNIGHT THE NIGHT PRIOR TO PROCEDURE. PT MUST HAVE A RELEASE COORDINATOR WITH HER ON THE DAY OF PROCEDURE.) PULMONOLOGY,[facility] [OTHER] - (RLL mass with likely metastases, unsuccessful CT-guided biopsy 05/08/2020. ) Activity:: Activity as Tolerated Equipment/Supplies:: No Equipment Needed Diet:: As Tolerated DS: Summary Status at Discharge Functional status at discharge: independent ambulation Overall status at discharge: patient is back to baseline Mental Status: mental status grossly normal Speech and Movement: speech and movement normal Mood: congruent mood Affect: normal affect Exam Narrative Exam Narrative: General: very pleasant 74 year old female, appears stated age, sitting up in chair, awake, alert and oriented. HEENT: normocephalic, atraumatic, EOMI, mucous membranes moist. Neck: supple. Cardiovascular: heart has regular rate and rhythm, nontachycardic, no murmur appreciated. Respiratory: respirations appear even and unlabored, no coughing during exam, lungs sound clear, no wheezing or rales noted. GI: normoactive bowel sounds, abdomen soft, nontender on palpation, nondistended. Extremities: left knee with minimal tenderness on palpation to lateral aspect and superiorly, +pain with active ROM, primarily lifting her left leg while sitting. Brace to Left ankle. No significant edema. Mental Status: mental status grossly normal Speech and Movement: speech and movement normal Mood: congruent mood Affect: normal affect Psych Mental Status: mental status grossly normal Speech and Movement: speech and movement normal Mood: congruent mood Affect: normal affect DS: Data Vitals/I&O Vitals and I&O: Vital Signs Temperature 36.9 C 05/15/20 07:17 Temperature Source Tympanic 05/15/20 07:17 Pulse 80 05/15/20 07:17 Pulse Rhythm Regular 05/15/20 07:35 Respiratory Rate 18 05/15/20 07:17 Respiratory Effort Non-Labored 05/15/20 07:35 Respiratory Depth Normal 05/15/20 07:35 Respiratory Pattern Normal 05/15/20 07:35 Blood Pressure 110/60 05/15/20 07:17 Pulse Oximetry 92 05/15/20 07:32 Oxygen Delivery Method Nasal Cannula 05/15/20 07:32 Oxygen Flow Rate 2 05/15/20 07:32 Pain Level 0 05/15/20 07:17 Comment 05/11/20 23:41 Intake & Output 05/14/20 05/15/20 05/15/20 23:59 11:59 23:59 Intake Total 630 / 980 240 / 240 Balance 630 / 830 240 / 240 Intake: Oral 630 / 980 240 / 240 Other: Urine Color Yellow Yellow Urine Appearance Clear Clear Urine Odor Strong Comment Pt voided in the toliet, missed the hat in the toliet. Unable to measure the amount. Stool Size Small Stool Characteristics Formed Voiding Methods Toilet Toilet Toilet Data Completed and Pending Labs on day of discharge: Labs from last 24 hours 05/15/20 Unknown COVID-19 Source Pending SARS-CoV-2 (PCR) Pending [facility] Medical History Asthma Cerebrovascular accident Depression Essential hypertension Frequent falls Gastroesophageal reflux disease Goals of care, counseling/discussion Hemiplegia History of hemorrhagic stroke with residual hemiparesis History of smoking 25-50 pack years Hyperlipidemia Lung cancer Oxygen dependent Palliative care patient Polyp of colon Wheelchair bound Surgical History Cerebral aneurysm repair. Family History Mother Personal history of malignant neoplasm colon cancer Father Heart disease Daughter No problems noted. Daughter No problems noted. Daughter No problems noted. Social History Smoking/Tobacco Use Status: Former Tobacco Use Tobacco: How many years used: 40 Smoking risk assessment performed?: Yes Alcohol Intake: never Drug use: Never Substance use type: does not use Caregiver/Support person: No Household members: none Housing: apartment Number of Children: 3 number of grandchildren: 4 Communication Needs: Corrective Lenses Education Level: high school Do you need help understanding health information?: Always current occupation: disabled since stroke age 59 Sexually active: No Current gender identity: female What is your relationship status?: How often do you talk on the phone with friends or family?: three or more times per week How often do you get together with friends or relatives?: never Panel score (0-1 are the most socially isolated patients): 1 What type of physical activity do you participate in: occasional exercise and wheelchair-bound Duration: 15-30 minutes/day Frequency: 3-4 times per week Special jac needs: No Seatbelt use: always Working smoke detector in home: Yes Fire extinguisher in home: Yes Do you feel safe at home: Yes Do you feel safe in your relationship?: Yes Additional Social history: Gerda and her late ex- Ismael after her stroke. He then of cancer soon thereafter. Gerda has 3 daughters, all of whom she is close to. Vimal, her eldest, is her DPOA. She has 4 grandsons, too. She is very proud of all of them. She has not smoked since her stroke. She lives at the [facility]. Her daughters have talked to her about moving into a place with 24/7 care, such as a community group home or SNF or Assisted Living. She has not investigated this seriously yet but now facing her likely new cancer diagnosis, she wants more help.
[2020-05-15 15:18] VITALS: BP 101/64; PULSE 72; RESP 20; TEMP 37.1; O2SAT 94
[2020-05-15 15:19] LABS: Source Nasopharynx
--- NOTE | 2020-05-15 15:45 | CMPROGNOTE_ITS ---
- If Service Date Differs Date of service: 05/15/20 Time of Service: 15:46 Care Management Progress Note S/O: Gerda was sitting up in a chair when NADIA met with her. NADIA informed her that she has been accepted at [facility] for transfer tomorrow. Gerda verbalized that she was pleased and that she now has something to look forward. She will transfer as level 1 for PT and then transition to level 2. NADIA contacted her daughter Jamil to inform her of the transfer. P: Francie is now in SB2 status. A new referral was sent to [facility] this weekend at Gerda's request. She has decided that the [facility] home in [place] is too far from her family. She has received and accepted a bed offer at [facility] and will transfer tomorrow at 1pm via w/c van.
[2020-05-15 16:43] LABS: COVID-19 PCR Negative (Negative); Influenza A PCR Negative (Negative); Influenza B PCR Negative (Negative); RSV PCR Negative (Negative)
[2020-05-15] MEDS: Lidocaine 5% Patch 1 PATCH TP ×2 (17:57→20:21)
[2020-05-15] MEDS: lamoTRIgine 100 MG TAB PO (20:25)
[2020-05-15] MEDS: Simvastatin 40 MG TAB PO (20:25)
[2020-05-16 03:38] VITALS: BP 109/65; PULSE 72; RESP 19; TEMP 37.3; O2SAT 93
[2020-05-16] MEDS: Budesonide/Formoterol 160/4.5 6 GM 60 PUFF INH IH ×2 (07:36→19:57)
[2020-05-16] MEDS: Nystatin POWDER 60 GM JAR TP ×3 (08:50→19:57)
[2020-05-16] MEDS: Docusate Sodium 100 MG CAP PO ×3 (08:51→19:57)
[2020-05-16] MEDS: Aspirin E.C. 81 MG TABEC PO (08:51)
[2020-05-16] MEDS: Lisinopril 20 MG TAB PO (08:51)
[2020-05-16] MEDS: hydroCHLOROthiazide 12.5 MG TAB PO (08:51)
[2020-05-16] MEDS: Potassium Chloride 20 MEQ TABCR PO (08:52)
[2020-05-16] MEDS: Lactobacillus Acidophilus CAP 1 CAP PO ×3 (08:52→19:57)
[2020-05-16] MEDS: lamoTRIgine 100 MG TAB 200 MG PO (08:52)
[2020-05-16] MEDS: Gabapentin 100 MG CAP PO ×3 (08:52→19:57)
[2020-05-16] MEDS: Pantoprazole 40 MG TABCR PO (08:52)
[2020-05-16] MEDS: Escitalopram 10 MG TAB 5 MG PO (08:52)
[2020-05-16] MEDS: Diclofenac 1% Gel 100 GM TUBE TP (08:53)
[2020-05-16 15:04] VITALS: BP 101/68; PULSE 81; RESP 18; TEMP 37.2; O2SAT 92
[2020-05-16] MEDS: Lidocaine 5% Patch 1 PATCH TP (19:56)
[2020-05-16] MEDS: Refresh PLUS Eye Drops 0.4ml OP (19:56)
[2020-05-16] MEDS: lamoTRIgine 100 MG TAB PO (19:57)
[2020-05-16] MEDS: Simvastatin 40 MG TAB PO (19:57)
[2020-05-16 23:11] VITALS: BP 107/65; PULSE 76; RESP 18; TEMP 36.7; O2SAT 92
[2020-05-17] MEDS: Normal Saline 1,000 ML 125 ML IV (00:35)
[2020-05-17] MEDS: Nystatin POWDER 60 GM JAR TP ×2 (15:13→19:48)
[2020-05-17] MEDS: Lactobacillus Acidophilus CAP 1 CAP PO ×2 (15:14→19:47)
[2020-05-17] MEDS: Docusate Sodium 100 MG CAP PO ×2 (15:14→19:47)
[2020-05-17] MEDS: Gabapentin 100 MG CAP PO ×2 (15:14→19:47)
[2020-05-17 15:23] VITALS: BP 118/83; PULSE 88; RESP 28; TEMP 35.8; O2SAT 92
[2020-05-17] MEDS: Refresh PLUS Eye Drops 0.4ml OP (19:46)
[2020-05-17] MEDS: Simvastatin 40 MG TAB PO (19:47)
[2020-05-17] MEDS: lamoTRIgine 100 MG TAB PO (19:47)
[2020-05-17] MEDS: Lidocaine 5% Patch 1 PATCH TP (19:47)
[2020-05-17] MEDS: Budesonide/Formoterol 160/4.5 6 GM 60 PUFF INH IH (19:47)
[2020-05-17 23:23] VITALS: BP 102/59; PULSE 79; RESP 16; TEMP 36.1; O2SAT 90
[2020-05-18] MEDS: Acetaminophen 500 MG TAB PO (06:23)
[2020-05-18] MEDS: Docusate Sodium 100 MG CAP PO ×3 (07:34→19:58)
[2020-05-18] MEDS: Pantoprazole 40 MG TABCR PO (07:34)
[2020-05-18] MEDS: Escitalopram 10 MG TAB 5 MG PO (07:34)
[2020-05-18] MEDS: Lactobacillus Acidophilus CAP 1 CAP PO ×3 (07:34→19:59)
[2020-05-18] MEDS: hydroCHLOROthiazide 12.5 MG TAB PO (07:34)
[2020-05-18] MEDS: lamoTRIgine 100 MG TAB 200 MG PO (07:35)
[2020-05-18] MEDS: Lisinopril 20 MG TAB PO (07:35)
[2020-05-18] MEDS: Nystatin POWDER 60 GM JAR TP ×2 (07:35→19:59)
[2020-05-18] MEDS: Aspirin E.C. 81 MG TABEC PO (07:35)
[2020-05-18] MEDS: Gabapentin 100 MG CAP PO ×3 (07:35→19:58)
[2020-05-18] MEDS: Potassium Chloride 20 MEQ TABCR PO (07:35)
[2020-05-18] MEDS: Budesonide/Formoterol 160/4.5 6 GM 60 PUFF INH IH ×2 (07:49→19:59)
[2020-05-18 07:52] VITALS: BP 117/64; PULSE 81; RESP 17; TEMP 36.7; O2SAT 94
--- NOTE | 2020-05-18 08:00 | DI.MRI_ITS ---
EXAM: MR BRAIN WO/W CLINICAL HISTORY: metastatic lung cancer; evaluate for BOLT LOADER mets TECHNIQUE: Multiplanar multisequence MRI of the brain was performed. Both noninfused and contrast i nfused sequences were performed. IV Contrast injected was 16 cc Dotarem. COMPARISON: CT CT HEAD CERVICAL SPINE WO from 04/17/[address] HEAD CERVICAL SPINE WO from 04/17/2020 FINDINGS: CEREBRAL PARENCHYMA: Again noted evidence of prior right craniotomy. Artifact from previously described midline aneurysm clip is noted. Again noted is the large area of encephalomalacia which actually appears por- encephalic from prior i ntracranial event and surgery. There also multiple foci of periventricular FLAIR bright signal foci in the white matter which are most probably post ischemic changes. None of these exhibit evidence of hemorrhage or surrounding asymmetric edema nor enhancement. Indeed, there are no ring enhancing les ions in the brain. No significant meningeal enhancement. PITUITARY GLAND: No mass nor parasellar abnormality. No obvious abnormality in the cavernous sinuses. FLOW VOIDS: The expected flow void are noted. No evidence of obvious aneurysm nor obvious vascular ma lformation. PARANASAL SINUSES: There is focal mucosal thickening-retention cysts is seen in the posterior lateral aspect of the right frontal sinus. ORBITS: No obvious abnormal findings. IMPRESSION: 1. Findings as above which are a combination of post prior event and surgery and chronic ischemic mathew nges. 2. There are no enhancing metastatic lesions evident in the brain and there is no significant abnorma l meningeal enhancement, focal nor diffuse. DATA REPOSITORY:
[2020-05-18] MEDS: diazePAM 5 MG TAB PO (11:12)
[2020-05-18] MEDS: Normal Saline Flush 10 ML SYR IVP ×2 (13:02→20:16)
[2020-05-18] MEDS: Gadoterate meglumine 20 ML VIAL 16 ML IVP (13:03)
--- NOTE | 2020-05-18 15:22 | CHAPLAIN ---
Kaylene was waiting for another test when I visited this morning. She said that aftter her recent [place] [facility] she was told that she likely had cancer. I didn't want to hear that, she said. Along with not knowing for sure, she also has no treatment plan yet, which said makes her uneasy. Her daughters are aware of her likely diagnosis. Care Management notes stated later that Kaylene will be going to [facility] for PT and that Kaylene is pleased about this.
[2020-05-18 16:15] VITALS: BP 101/63; PULSE 76; RESP 19; TEMP 36.6; O2SAT 93
[2020-05-18] MEDS: lamoTRIgine 100 MG TAB PO (19:58)
[2020-05-18] MEDS: Simvastatin 40 MG TAB PO (19:58)
[2020-05-18 23:32] VITALS: BP 136/74; PULSE 71; RESP 18; TEMP 36.3; O2SAT 94
[2020-05-19] MEDS: Budesonide/Formoterol 160/4.5 6 GM 60 PUFF INH IH ×2 (07:55→19:59)
[2020-05-19] MEDS: lamoTRIgine 100 MG TAB 200 MG PO (08:03)
[2020-05-19] MEDS: Docusate Sodium 100 MG CAP PO ×3 (08:03→20:00)
[2020-05-19] MEDS: Potassium Chloride 20 MEQ TABCR PO (08:04)
[2020-05-19] MEDS: Escitalopram 10 MG TAB 5 MG PO (08:04)
[2020-05-19] MEDS: hydroCHLOROthiazide 12.5 MG TAB PO (08:04)
[2020-05-19] MEDS: Aspirin E.C. 81 MG TABEC PO (08:04)
[2020-05-19] MEDS: Gabapentin 100 MG CAP PO ×3 (08:04→20:00)
[2020-05-19] MEDS: Benzonatate 100 MG CAP PO (08:04)
[2020-05-19] MEDS: Pantoprazole 40 MG TABCR PO (08:04)
[2020-05-19] MEDS: Lisinopril 20 MG TAB PO (08:04)
[2020-05-19] MEDS: Lactobacillus Acidophilus CAP 1 CAP PO ×3 (08:04→20:00)
[2020-05-19] MEDS: Nystatin POWDER 60 GM JAR TP ×3 (08:05→20:00)
[2020-05-19] MEDS: Acetaminophen 500 MG TAB PO ×2 (08:05→19:13)
[2020-05-19 08:06] VITALS: BP 151/71; PULSE 94; RESP 20; TEMP 36.5; O2SAT 91
[2020-05-19 15:13] VITALS: BP 102/62; PULSE 79; RESP 20; TEMP 36.3; O2SAT 90
[2020-05-19] MEDS: Diclofenac 1% Gel 100 GM TUBE TP ×2 (15:19→18:12)
[2020-05-19 19:10] VITALS: BP 124/71; PULSE 80; RESP 17; TEMP 37.3; O2SAT 97
[2020-05-19] MEDS: lamoTRIgine 100 MG TAB PO (20:00)
[2020-05-19] MEDS: Simvastatin 40 MG TAB PO (20:00)
[2020-05-19 23:55] VITALS: BP 100/54; PULSE 83; RESP 20; TEMP 36.8; O2SAT 90
[2020-05-20 07:35] VITALS: BP 132/72; PULSE 73; RESP 21; TEMP 36.5; O2SAT 89
[2020-05-20] MEDS: Escitalopram 10 MG TAB 5 MG PO (07:50)
[2020-05-20] MEDS: Gabapentin 100 MG CAP PO ×3 (07:50→19:35)
[2020-05-20] MEDS: Lisinopril 20 MG TAB PO (07:50)
[2020-05-20] MEDS: lamoTRIgine 100 MG TAB 200 MG PO (07:50)
[2020-05-20] MEDS: Docusate Sodium 100 MG CAP PO ×3 (07:57→19:35)
[2020-05-20] MEDS: Aspirin E.C. 81 MG TABEC PO (07:57)
[2020-05-20] MEDS: Refresh PLUS Eye Drops 0.4ml OP (07:57)
[2020-05-20] MEDS: Pantoprazole 40 MG TABCR PO (07:57)
[2020-05-20] MEDS: hydroCHLOROthiazide 12.5 MG TAB PO (07:57)
[2020-05-20] MEDS: Acetaminophen 500 MG TAB PO ×2 (07:57→19:47)
[2020-05-20] MEDS: Potassium Chloride 20 MEQ TABCR PO (07:57)
[2020-05-20] MEDS: Nystatin POWDER 60 GM JAR TP ×3 (07:58→19:36)
[2020-05-20] MEDS: Lactobacillus Acidophilus CAP 1 CAP PO ×3 (07:59→19:35)
[2020-05-20 08:20] VITALS: O2SAT 87
[2020-05-20] MEDS: Budesonide/Formoterol 160/4.5 6 GM 60 PUFF INH IH ×2 (08:27→19:35)
[2020-05-20 08:30] VITALS: O2SAT 93
[2020-05-20] MEDS: diazePAM 2 MG TAB PO ×2 (13:57→18:07)
[2020-05-20] MEDS: Diclofenac 1% Gel 100 GM TUBE TP ×2 (13:58→17:40)
[2020-05-20 15:43] VITALS: BP 128/80; PULSE 81; RESP 20; TEMP 37.2; O2SAT 89
[2020-05-20] MEDS: lamoTRIgine 100 MG TAB PO (19:35)
[2020-05-20] MEDS: Simvastatin 40 MG TAB PO (19:35)
[2020-05-20 23:57] VITALS: BP 118/60; PULSE 90; RESP 19; TEMP 37.6; O2SAT 90
--- NOTE | 2020-05-21 | DI.RAD_ITS ---
EXAM: XR CHEST 2V PA LATERAL CLINICAL HISTORY: cough, lung cancer TECHNIQUE: COMPARISON: CR XR PORTABLE CHEST AP from 05/09/2020 FINDINGS: AP and lateral views were obtained. The patient reportedly has a history of lung cancer with a domin ant right lower lobe mass. Today's examination is compared with prior radiographs of May 09. There is mildly increased right pleural effusion and increased prominence of right basilar radiodens ities in comparison with the prior study. Multiple areas of questionable nodularity identified elsew here in both lungs. No definite left pleural effusion seen. IMPRESSION: Increasing right pleural effusion in patient with known right pulmonary carcinoma. No other signific ant change. Possibility of obscured consolidation in the right lung base is not excluded. RADIATION DOSE DELIVERED: Total DLP
[2020-05-21] MEDS: Budesonide/Formoterol 160/4.5 6 GM 60 PUFF INH IH ×2 (07:58→19:50)
[2020-05-21 08:00] VITALS: BP 110/70; PULSE 86; RESP 21; TEMP 36.8; O2SAT 92
[2020-05-21] MEDS: Escitalopram 10 MG TAB 5 MG PO (08:13)
[2020-05-21] MEDS: Potassium Chloride 20 MEQ TABCR PO (08:15)
[2020-05-21] MEDS: Aspirin E.C. 81 MG TABEC PO (08:15)
[2020-05-21] MEDS: Benzonatate 100 MG CAP PO ×2 (08:15→19:40)
[2020-05-21] MEDS: Lactobacillus Acidophilus CAP 1 CAP PO ×3 (08:15→19:49)
[2020-05-21] MEDS: Docusate Sodium 100 MG CAP PO ×3 (08:15→19:49)
[2020-05-21] MEDS: Gabapentin 100 MG CAP PO ×3 (08:16→19:49)
[2020-05-21] MEDS: lamoTRIgine 100 MG TAB 200 MG PO (08:16)
[2020-05-21] MEDS: Lisinopril 20 MG TAB PO (08:16)
[2020-05-21] MEDS: Pantoprazole 40 MG TABCR PO (08:16)
[2020-05-21] MEDS: hydroCHLOROthiazide 12.5 MG TAB PO (08:16)
[2020-05-21] MEDS: Nystatin POWDER 60 GM JAR TP ×3 (08:17→19:50)
[2020-05-21] MEDS: Diclofenac 1% Gel 100 GM TUBE TP (09:10)
--- NOTE | 2020-05-21 10:04 | DI.VRAD_ITS ---
PROCEDURE INFORMATION: Exam: XR Chest, 2 Views Exam date and time: 05/21/2020 9:41 AM Age: 74 years old Clinical indication: Patient HX: Cough. Lung CA TECHNIQUE: Imaging protocol: XR of the chest Views: 2 views. COMPARISON: CR XR PORTABLE CHEST AP 05/09/2020 8:57 AM FINDINGS: Lungs: Multiple nodules in the right hemithorax may reflect the lung cancer described in the history.. Opacities in the right base may represent atelectasis or pneumonia. . Pleural space: There may be mild to moderate right pleural effusion Heart/Mediastinum: Stable cardiac silhouette Bones/joints: Stable osseous structures IMPRESSION: 1. Multiple nodules in the right hemithorax may reflect the lung cancer described in the history.. 2. Opacities in the right base may represent atelectasis or pneumonia. . Dictated and Authenticated by: Jessi Salazar MD. Ordering:CONSTANTIN Amador MD
[2020-05-21 10:20] LABS: Abs Immature Grans 0.05 10^3/uL (0.0-0.06); Absolute Basophil Count 0.05 10^3/uL (0.0-0.2); Absolute Eosinophil Count 0.56 10^3/uL (0.0-0.7); Absolute Lymphocyte Count 1.94 10^3/uL (1.2-3.4); Absolute Monocyte Count 1.15 10^3/uL (0.1-0.8); Absolute Neutrophil Count 8.38 10^3/uL (1.2-6.7); Basophils % 0.4; Eosinophils % 4.6; HCT 45.5 % (36.0-46.0); HGB 14.1 g/dL (11.2-15.7); Immature Grans % 0.4; MCH 27.3 pg (27.0-33.0); Monocytes % 9.5; Neutrophils % 69.1; Nucleated RBC 0 %; Platelet Count 329 10^3/uL (130-400); RBC 5.17 10^6/uL (3.93-5.22); RDW 15.3 % (11.7-14.6); RDW-SD 48.7 fL; WBC 12.13 10^3/uL (4.4-10.8)
[2020-05-21 10:52] LABS: Procalcitonin 0.1 ng/mL
[2020-05-21 10:55] LABS: Anion Gap 4.2 mmol/L (3-11); BUN 17 mg/dL (7-18); CO2 31.8 mmol/L (21.0-32.0); CREATININE 0.92 mg/dL (0.55-1.02); Calcium 9.8 mg/dL (8.5-10.1); Chloride 104 mmol/L (98-107); Estimated GFR 59.84 (mL/min/1.73m2); Glucose 85 mg/dL (74-106); Potassium 4.3 mmol/L (3.5-5.1); Sodium 140 mmol/L (136-145)
[2020-05-21] MEDS: Acetaminophen 500 MG TAB PO (14:36)
[2020-05-21] MEDS: diazePAM 2 MG TAB PO (14:36)
[2020-05-21 15:35] VITALS: BP 104/56; PULSE 82; RESP 20; TEMP 37.5; O2SAT 92
[2020-05-21] MEDS: lamoTRIgine 100 MG TAB PO (19:48)
[2020-05-21] MEDS: Simvastatin 40 MG TAB PO (19:49)
[2020-05-21] MEDS: Refresh PLUS Eye Drops 0.4ml OP (19:52)
[2020-05-21 23:20] VITALS: BP 105/58; PULSE 77; RESP 19; TEMP 36.8; O2SAT 94
[2020-05-22] MEDS: Diclofenac 1% Gel 100 GM TUBE TP (02:27)
[2020-05-22 07:40] VITALS: BP 126/68; PULSE 90; RESP 20; TEMP 36.7; O2SAT 91
[2020-05-22] MEDS: Aspirin E.C. 81 MG TABEC PO (07:46)
[2020-05-22] MEDS: hydroCHLOROthiazide 12.5 MG TAB PO (07:46)
[2020-05-22] MEDS: Lactobacillus Acidophilus CAP 1 CAP PO ×3 (07:46→20:46)
[2020-05-22] MEDS: Pantoprazole 40 MG TABCR PO (07:46)
[2020-05-22] MEDS: Docusate Sodium 100 MG CAP PO ×3 (07:46→20:47)
[2020-05-22] MEDS: Gabapentin 100 MG CAP PO ×3 (07:47→20:46)
[2020-05-22] MEDS: Lisinopril 20 MG TAB PO (07:47)
[2020-05-22] MEDS: Escitalopram 10 MG TAB 5 MG PO (07:47)
[2020-05-22] MEDS: Potassium Chloride 20 MEQ TABCR PO (07:47)
[2020-05-22] MEDS: lamoTRIgine 100 MG TAB 200 MG PO (07:47)
[2020-05-22] MEDS: Budesonide/Formoterol 160/4.5 6 GM 60 PUFF INH IH ×2 (07:48→20:48)
[2020-05-22] MEDS: Nystatin POWDER 60 GM JAR TP ×3 (07:49→20:48)
--- NOTE | 2020-05-22 08:50 | W.PM.PROGNOT ---
Date of Service Date of service: 05/21/20 Time of Service: 14:35 Assessment and Plan Assessment and plan (1) Mass of right lung: Status: Chronic Assessment and plan: Pathology report indicates adenocarcinoma. Discussed the findings with the patient and her daughter (with patients permission), Karlene Marrufo. Plan is to schedule full body PET scan for staging and arrange oncology appointment. Subjective Subjective Patient reports: no new complaints, tolerating a regular diet, shortness of breath and afebrile Exam Const General: cooperative and no acute distress Resp Effort & Inspection: normal respiratory effort Auscultation: clear to auscultation bilaterally and diminished lung sounds bilaterally Cardio Rate: regular rate Rhythm: regular rhythm Heart Sounds: S1 normal and S2 normal Extrem General: no pedal edema and no calf tenderness Objective Last Vital Signs Temp 36.7 C 05/22/20 07:40 Pulse 90 05/22/20 07:40 Resp 20 05/22/20 07:40 BP 126/68 05/22/20 07:40 Pulse Ox 91 L 05/22/20 07:40 Laboratory Results - last 24 hr 05/21/20 05/21/20 05/21/20 10:07 10:07 10:07 WBC 12.13 H RBC 5.17 Hgb 14.1 Hct 45.5 MCV 88.0 MCH 27.3 MCHC 31.0 L RDW 15.3 H Plt Count 329 MPV 9.0 Immature Gran % 0.4 Neutrophils % 69.1 Lymphocytes % 16.0 Monocytes % 9.5 Eosinophils % 4.6 Basophils % 0.4 Nucleated RBC % 0 Absolute Neutrophils 8.38 H Absolute Lymphocytes 1.94 Absolute Monocytes 1.15 H Absolute Eosinophils 0.56 Absolute Basophils 0.05 Sodium 140 Potassium 4.3 Chloride 104 Carbon Dioxide 31.8 Anion Gap 4.2 BUN 17 Creatinine 0.92 Estimated GFR/1.73 m2 59.84 Glucose 85 Calcium 9.8 Procalcitonin 0.1
--- NOTE | 2020-05-22 12:49 | PT.INIE ---
Date of service: 05/22/20 Time of Service: 12:49 PT Notes Visit Reasons: MASS OF RIGHT LUNG, AMBULATORY DYSFUNCTION Physical Therapy Inpatient Swing Bed Level 1 Initial Evaluation Date: 05/22/2020 Referring Doctor: Perry Alan MD PT Orders: PT CONSULT: Eval/treat Precautions: Fall. Standard. Activity as tolerated. L AFO and shoes on when out of bed. Patient Profile/Admitting Diagnosis: Converts to swing bed level 1 as of 05/22/2020. 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 Patient is diagnosed with pneumonia and a mass in the right lung. Francie converts to swing bed level 1 as of today and is re-evaluated for safety assessment and discharge planning. As of 05/21/2020, patient's biopsy result confirmed adenocarcinoma of R lung. Patient is scheduled to have a PET scan at [facility] for cancer staging. PMHX: Medical History Asthma Cerebrovascular accident Depression Essential hypertension Gastroesophageal reflux disease Hemiplegia Hyperlipidemia Polyp of colon Surgical History Cerebral aneurysm repair. Social History/Home Situation: Lives alone on the second floor of the [facility] in [place], [place]. Receives aide assistance one hour each day 6x/week in the mornings and has [facility] home assistants 2-3 hours everyday during the evening. Is able to self-transfer from bed to chair using a stand squat transfer without an assistive device. Requires assistance with wheelchair transport over ramp at the entrance of the building and through the elevator to her apartment with her wheelchair. Equipment Owned/DME: hospital bed, FWW, wheelchair Subjective: Pleasant and cooperative. Agreeable to working with care management to set up home so that she can perform transfers with modified independence using a vertical and horizontal grab bar in the living room and in the bedroom. She expresses that feels more secure if she is able to receive assistance with meal preparation, medication management, self-care tasks BID on a daily basis at home. Objective: General Observation: Seated on reclining chair. L AFO and shoes on. Mental Status: Alert and oriented x4 Pain: None reported during session ROM: Right Upper Extremity: Shoulder Flexion WFL. Shoulder abduction WFL. Elbow flexion WFL. Wrist flexion WFL. Opening and closing of hand WFL. Left Upper Extremity: Shoulder Flexion allows up to 110 degrees. Shoulder abduction allows up to 100 degrees. Elbow flexion WFL. Wrist flexion WFL. Opening and closing of hand WFL. Right Lower Extremity: Hip flexion WFL. Hip abduction WFL. Knee flexion WFL. Ankle dorsiflexion WFL. Ankle plantarflexion WFL. Left Lower Extremity: Hip flexion allows up to 80 degrees. Hip abduction allows up to 20 degrees. Knee flexion up to 80 degrees. Ankle dorsiflexion none beyond neutral. Ankle plantarflexion 10 degrees. Strength: Right Upper Extremity: Shoulder flexors 5/5. Shoulder abductors 5/5. Elbow flexors 5/5. Elbow extensors 5/5. [employer] strong. Left Upper Extremity: Shoulder flexors 3-/5. Shoulder abductors 3-/5. Elbow flexors 4-/5. Elbow extensors 4-/5. [employer] Representative [employer] weak but functional. Right Lower Extremity: Hip flexors 4/5. Hip abductors 4/5. Knee flexors 4/5. Knee extensors 4/5. Ankle dorsiflexors 4/5. Ankle plantarflexors 4/5. Left Lower Extremity: Hip flexors 3-/5. Hip abductors 3-/5. Knee flexors 3-/5. Knee extensors 3-/5. Ankle dorsiflexors 3-/5. Ankle plantarflexors 3-/5. Sensation: Intact as to pain and pressure on bilateral lower extremities. Transfers: Sit to stand:contact guard assist with FWW, L AFO and shoes needed. FWW needs to be stabilized by PT for safety. Maximal cues given to avoid patient from letting go of both hands simultaneously to grab the walker. Stand to sit:contact guard assist with FWW, L AFO and shoes needed. FWW needs to be stabilized by PT for safety. Maximal cues given to avoid patient from letting go of both hands simultaneously to grab the walker. Bed to chair:contact guard assist with FWW, L AFO and shoes needed. Maximal cues given to avoid patient from letting go of both hands simultaneously to grab the walker. Gait: Short distance ambulation from reclining chair to the toilet and back using the FWW. With caregiver, patient may cover short distances up to 30 feet using FWW with CGA. Longer distances may need the use of wheelchair for safety. Balance: Static Sitting: Normal Dynamic Sitting: Normal Static Standing: Fair Dynamic Standing: Fair Assessment: PLEASE SEE RECOMMENDATIONS BELOW. Francie continues to demonstrate functional mobility decline requiring the use of a front wheeled walker and assistance of 1 person for all transfers and for short distance ambulation, lack of coordination, impulsiveness, generalized weakness, decreased activity tolerance, pain in in the left knee, difficulty with walking, and increased risk for falls due to admitting diagnoses and co-morbidities. Her L AFO has not been replaced since five years ago and has been ill-fitting which has resulted to increased L tibial internal rotation, L foot supination, and decreased L knee extension throughout the gait cycle which contribute to L knee pain, impaired gait pattern, and increased fall risk. Swing bed level goals will focus on therapy discharge planning to maximize safety at home. Henrietta's ability to thrive at home is highly dependent on fulfillment of recenommdations listed below. She will require increased services daily at least twice a day for meal preparation, pill management, self-care tasks, and short distance ambulation. PT/OT will be needed for functional mobility progression and DME retraining. Patient presents with clinical signs and symptoms consistent with current/admitting diagnoses that have resulted to mobility limitations, gait instability, generalized weakness, and impairment of motor control as demonstrated by the following impairment level findings: 1. Decreased strength to left UE/LE major muscle groups 2. Impaired standing balance 3. Impaired activity tolerance 4. Limitation of joint range of motion in left UE/LE 5. Pain in the left knee aggravated with weight bearing 6. Lack of coordination, impaired motor planning 7. Increased L tibial internal rotation, L ankle supination, and decreased L knee flexion contributing to L knee pain, impaired gait mechanics, and instability Impairments are contributing to the following functional limitations: 1. Inability to safely ambulate without assistive device and physical assistance 2. Increase completion time for mobility ADL performance 3. Increased fall risk 4. Inability to negotiate steps alone safely 5. Need for a vertical and horizontal bar for safe and independent stand pivot transfers Goals: Goals X 3 days 1. Stand-sit transfer modified independent using a horizontal/vertical bar 2. Reclining chair-bedside commode transfer modified independent using a horizontal/vertical bar 3. Standing tolerance of 10 minutes while holding onto horizontal/vertical bar to perform LB dressing pulling up and down 4. Standing tolerance of 10 minutes while holding onto horizontal/vertical bar to perform pericare after toileting PLAN OF CARE: 1-2x/day for 3 days. DISCHARGE RECOMMENDATIONS: 1) Set up living room area so that reclining chair is as close to bedside commode to facilitate transfers with modified independence while reducing fall risk 2) Set up bedroom area so that bed is as close to bedside commode to facilitate transfers with modified independence while reducing fall risk 3) Install 18-inch horizontal and vertical bars in the living room and in the bedroom to facilitate modified independent transfers when patient is alone during the day 4) Assistance with meal preparation, medication management, and self-care tasks to be provided daily in the morning and late afternoon/evening to reduce fall risk 5) HH PT to reassess fit and retrain new AFO once delivered 6) HH PT to reassess wheelchair/cushion fit once delivered TREATMENT CODE/TIME: 71320 x 30 minutes, 41881 x 11 minutes beginning at 12:49 PM. Thank you for the opportunity to participate in the care of this patient. Jayne Dickerson PT, DPT, CLT [facility] [place], [place]
[2020-05-22 15:11] VITALS: BP 99/59; PULSE 79; RESP 19; TEMP 36.8; O2SAT 92
[2020-05-22 15:56] VITALS: BP 100/61; PULSE 77; RESP 20; TEMP 37.1; O2SAT 91
[2020-05-22] MEDS: Acetaminophen 500 MG TAB PO (16:28)
--- NOTE | 2020-05-22 17:02 | PDOC.CMPRO ---
- If Service Date Differs Date of service: 05/22/20 Time of Service: 17:02 Care Management Progress Note S/O: Gerda was sitting up in a chair when CM met with her. CM informed her that she no longer has a bed offer at [facility]. According to the Food Equipment Service Technician, Gerda's daughter Jamil called and discussed Gerda's behaviors and indicated that she has spells where she can be verbally abusive and even physically aggressive. None of these behaviors have been noted at [facility]. Gerda was very disappointed with this news, stating that she was really excited about going to [facility]. She is no longer interested in the [facility] home in [place], so a return to home was discussed. PT conducted another evaluation today to determine if Gerda would be considered safe to go home (see PT note). The evaluation determined that Gerda would be safe if she had vertical and horizontal grab bars installed in her living room and bedroom to allow for safe transfers from bed to commode and chair to commode. Additionally she would need increased services to allow for caregivers morning and night for meal preparation , medication management and assistance with ADLs. CM contacted Gerda's showcase trimmer through [place] [employer], Phoebe Barbosa, and shared the new discharge plan with her. Previously, [facility] has requested an update on a new wheelchair for Gerda as hers has been deemed unsafe by PT. The brakes don't function properly and there are no legs on the chair. Gerda is also supposed to have a new AFO brace which PT has stated is essential for safe ambulation. Phoebe agreed to contact [facility] for assistance with the grab bars and she will pursue other options for additional caregivers. She also agreed to follow up with Greda's PCP re: the wheelchair and brace. The results of Gerda's biopsy came back over the weekend and confirmed that she has lung cancer. She is scheduled to have a PET scan at [facility] on Friday. P: Francie is now in SB1 status and continues to work with PT in preparation for discharge. The bed offer from [facility] has been rescinded (see above) and Gerda is no longer willing to go to the [facility] home in [place]. A new discharge plan to go home has been formulated. In order to be safe, additional hours of care will be needed as well as some modifications to her apartment. Gerda will go to [facility] on Friday for a PET scan for staging her newly diagnosed cancer. will continue to work with [facility], [facility], [facility] and Gerda, to effect a safe discharge, hopefully by the end of the week.
[2020-05-22] MEDS: Simvastatin 40 MG TAB PO (20:47)
[2020-05-22] MEDS: lamoTRIgine 100 MG TAB PO (20:47)
[2020-05-23 05:27] VITALS: PULSE 75; RESP 1; RESP 2; RESP 20; RESP 7; RESP 8; O2SAT 89
[2020-05-23] MEDS: Albuterol/Ipratropium 3 ML UPD VIAL UPD (05:27)
[2020-05-23 05:46] VITALS: BP 106/61; PULSE 75; RESP 20; TEMP 36.7; O2SAT 89
[2020-05-23 05:57] VITALS: PULSE 87; RESP 20; O2SAT 91
[2020-05-23 07:30] VITALS: BP 112/62; PULSE 76; RESP 20; TEMP 36.8; O2SAT 92
[2020-05-23 07:40] VITALS: O2SAT 93
[2020-05-23] MEDS: Budesonide/Formoterol 160/4.5 6 GM 60 PUFF INH IH (07:41)
[2020-05-23] MEDS: hydroCHLOROthiazide 12.5 MG TAB PO (08:21)
[2020-05-23] MEDS: Lisinopril 20 MG TAB PO (08:22)
[2020-05-23] MEDS: Lactobacillus Acidophilus CAP 1 CAP PO (08:22)
[2020-05-23] MEDS: Pantoprazole 40 MG TABCR PO (08:22)
[2020-05-23] MEDS: Docusate Sodium 100 MG CAP PO (08:22)
[2020-05-23] MEDS: lamoTRIgine 100 MG TAB 200 MG PO (08:22)
[2020-05-23] MEDS: Gabapentin 100 MG CAP PO (08:22)
[2020-05-23] MEDS: Aspirin E.C. 81 MG TABEC PO (08:22)
[2020-05-23] MEDS: Potassium Chloride 20 MEQ TABCR PO (08:23)
[2020-05-23] MEDS: Escitalopram 10 MG TAB 5 MG PO (08:23)
[2020-05-23] MEDS: Nystatin POWDER 60 GM JAR TP (08:23)
[2020-05-23] MEDS: Diclofenac 1% Gel 100 GM TUBE TP ×2 (09:31→12:09)
--- NOTE | 2020-05-23 10:13 | PT.INTREAT ---
Date of service: 05/23/20 Time of Service: 09:30 PT Notes Visit Reasons: MASS OF RIGHT LUNG, AMBULATORY DYSFUNCTION Inpatient Physical Therapy Treatment Note [facility] Date: 05/23/2020 PRECAUTIONS: Fall, left-sided hemiplegia SUBJECTIVE: Francie is pleasant and agreeable to participating in PT. She states that she has not performed standing exercises in quite some time, and is finding that her tolerance for standing activities has decreased. OBJECTIVE: Patient donned underwear and pants in standing position with SBA. PAIN: Patient c/o B hip soreness following gait training BED MOBILITY/TRANSFERS Sit-stand: S with handrail bar CGA from wheelchair Stand-sit: SBA with handrail bar CGA to wheelchair GAIT Assistive Device: FWW Weight bearing: Full Assist: CGA Distance: 80' Deviation: L LE IR, L foot supination, minimal knee flexion L. THEREX: Patient was instructed in several global strengthening exercises, performed in a standing position, as per flow sheet. Patient required a seated rest between exercises due to increased fatigue. She was able to tolerate standing activities 2x5 minutes. ASSESSMENT: Patient demonstrates B LE weakness, only able to tolerate standing activities 2 x5 minutes, requiring seated rest due to fatigue. She would benefit from continued global strengthening and transfer training for improved activity tolerance and progression toward performing daily tasks with modified independence. PLAN: Continue with global strengthening and transfer training TREATMENT CODE/TIME: 35 minutes; 76138, [id number]
[2020-05-23 11:38] LABS: COVID-19 PCR Negative (Negative); Influenza A PCR Negative (Negative); Influenza B PCR Negative (Negative); RSV PCR Negative (Negative)
--- NOTE | 2020-05-23 11:41 | DSE_ITS ---
Date of service: 05/23/20 Time of Service: 11:41 DS: Diagnosis Discharge Diagnosis (1) Adenocarcinoma of right lung: Status: Acute (2) Respiratory failure with hypoxia: Status: Acute (3) Acute exacerbation of chronic obstructive pulmonary disease (COPD): Status: Resolved (4) Bilateral pneumonia: Status: Resolved (5) Pleural effusion, right: Status: Acute Asessment and Plan: ?malignant. (6) Ambulatory dysfunction: Status: Chronic (7) History of hemorrhagic stroke with residual hemiparesis: Status: Chronic (8) COVID-19 ruled out by laboratory testing: Status: Ruled-out Discharge Plan Disposition Patient Disposition: SNF (LEVEL 1) [facility] Condition: Stable Discharge Details Reason For Visit: MASS OF RIGHT LUNG, AMBULATORY DYSFUNCTION Admit Date/Time: 04/24/20 11:28 Admit Provider: Zena Aragon Attending Provider: Zena Aragon Primary Care Provider: Rolo Nieves Hospital Course Hospital Course: Ms Marrufo is a 74 year-old female with PMHx of previously non-oxygen dependent COPD, asthma, CVA/hemorrhagic, HTN, HLD, tobacco abuse, who was admitted to [facility] hospitalist service on 04/17/2020 with bilateral pneumonia, COPD exacerbation, and hypoxia. She was treated with empiric antibiotics, which were effective. Blood cultures were negative. She received systemic steroids and nebulizer treatments. COVID-19 was ruled out. Oxygen requirement temporarily improved, but worsened later during her course with us, likely due to recurrent post-obstructive pneumonia, as her workup also revealed a right lung mass with likely metastatic spread. She completed levofloxacin on 05/14/2020. She remains on 3L of O2. The patient was transitioned to swing bed level 1 status on 04/24/2020. She was downgraded to SB2 on 05/03/2020. She underwent a CT-guided biopsy on 05/08/2020 at [facility] [place], though it appears that this biopsy missed the malignancy. She was referred to [facility] [place] pulmonology and underwent bronchoscopy/endobronchial biopsies on 05/17/2020, pathology revealing diagnosis of adenocarcinoma of lung origin. PET-CT was ordered for 05/24/2020 at [facility] [place] and an oncology referral has been placed. MRI brain did not reveal brain metastases. She will need to follow up with [facility] pulmonology as well as with oncology. It also should be mentioned that on 05/11/2020, the patient sustained a mechanical fall, which did not result in any injury, as confirmed by imaging. The patient was upgraded back to Swing bed level 1, as she was felt to again require PT. She was accepted at [facility], to which she is being discharged today. Care for patient as well as completion of her discharge summary took 45 minutes on day of discharge. Home Meds and New Rx's Prescriptions: New docusate sodium [Colace] 100 mg Capsule 100 mg PO TID Qty: 60 RF: 0 diazepam 2 mg Tablet 2 mg PO TID PRN PRNQty: 20 RF: 0 diclofenac sodium [Voltaren] 1 % Gel 2 g topical QID PRN PRNQty: 100 RF: 0 gabapentin 100 mg Capsule 100 mg PO TID Qty: 30 RF: 0 lidocaine [Lidoderm] 5 % Adhesive Patch,Medicated 1 patch topical Q24H Qty: 15 RF: 0 acidophilus-pectin, citrus 25 million cell -100 mg Tablet 1 cap PO TID Qty: 90 RF: 0 lisinopril 20 mg Tablet 20 mg PO DAILY Qty: 20 RF: 0 nystatin 100,000 unit/gram Powder 1 applic topical TID Qty: 15 RF: 0 pantoprazole 40 mg Tablet,Delayed Release (Dr/Ec) 40 mg PO DAILY@0730 Qty: 30 RF: 0 Continued Premarin 45 GM cream 0.5 g VG DAILY Qty: 1 RF: 2 ibuprofen 600 MG tablet 600 mg PO TID PRNRF: 0 lamotrigine 200 MG tablet 300 mg PO DIRECTED RF: 0 simvastatin 40 MG tablet 40 mg PO DAILY RF: 0 potassium chloride [Klor-Con M20] 20 MEQ tablet,ER particles/crystals 20 meq PO DAILY RF: 0 hydrochlorothiazide 25 MG tablet 12.5 mg PO DAILY RF: 0 Fish Oil 1 EACH capsule 1 cap PO TID RF: 0 aspirin 81 mg tablet,delayed release (DR/EC) 81 mg PO DAILY RF: 0 escitalopram oxalate 10 mg tablet 5 mg PO DAILY RF: 0 alendronate 70 mg tablet 70 mg PO QWEEK RF: 0 Refresh Celluvisc 1 % dropperette,gel 1 drp ophthalmic (eye) QID PRN PRN (Reason: Eye Irritation) RF: 0 fluticasone propion-salmeterol 250-50 mcg/dose blister with device 1 inh INHALATION BID RF: 0 albuterol sulfate [ProAir HFA] 90 mcg/actuation HFA aerosol inhaler 2 puff inhalation Q4H PRN PRNRF: 0 docusate sodium [DOK] 100 mg capsule 100 mg PO TID RF: 0 polyethylene glycol 3350 17 gram/dose powder 17 g PO DAILY PRN PRNRF: 0 Discharge Instructions Instructions: Lung Cancer (DC), Community Acquired Pneumonia (DC), Needle Biopsy of the Lung (DC) Additional Instructions: Follow up with your [facility] concrete paving supervisor as well as establish care with Hematology/oncology. Return to the hospital with any fever, bleeding, chest pain, or shortness of breath. O2 at 3L. Stand Alone Forms: Nursing Discharge Form Referrals: HEMATOLOGY/ONC,[facility] [place] [OTHER] - (New diagnosis of adenocarcinoma of the lung. PET-CT scheduled for 05/24/2019. Needs to establish care.) Activity:: Activity as Tolerated Equipment/Supplies:: FWW Diet:: As Tolerated Discharge Orders Discharge Orders: Discharge Order (Routine); Ordered 05/23/20 Ordered By: Zena Aragon DS: Summary Status at Discharge Functional status at discharge: uses cane/walker Overall status at discharge: patient is not back to baseline Mental Status: mental status grossly normal Speech and Movement: speech and movement normal Mood: congruent mood Affect: normal affect Exam Narrative Exam Narrative: General: middle-aged female, HEENT: EOMI, MMM Heart: RRR with an occasional gallop Lungs: Diminished at B bases Abdomen: soft, nontender, nondistended Extremities: no edema BLE's Psych Mental Status: mental status grossly normal Speech and Movement: speech and movement normal Mood: congruent mood Affect: normal affect DS: Data Vitals/I&O Vitals and I&O: Vital Signs Temperature 36.8 C 05/23/20 07:30 Temperature Source Tympanic 05/23/20 07:30 Pulse 76 05/23/20 07:30 Pulse Rhythm Regular 05/23/20 05:10 Respiratory Rate 20 05/23/20 07:30 Respiratory Effort 05/23/20 05:10 Respiratory Depth Normal 05/23/20 05:10 Respiratory Pattern Normal 05/23/20 05:10 Blood Pressure 112/62 05/23/20 07:30 Pulse Oximetry 93 05/23/20 07:40 Oxygen Delivery Method Nasal Cannula 05/23/20 07:40 Oxygen Flow Rate 3 05/23/20 07:40 Pain Level 0 05/23/20 07:30 Comment 05/23/20 05:46 Intake & Output 05/22/20 05/22/20 05/23/20 11:59 23:59 11:59 Intake Total 240 / 720 480 / 720 120 / 120 Balance 240 / 720 480 / 720 120 / 120 Intake: Oral 240 / 720 480 / 720 120 / 120 Other: Urine Color Yellow Yellow Urine Appearance Clear Clear Clear Urine Odor None Comment pt voided x1 toilet and diaper Stool Size Small Moderate Stool Characteristics Soft Soft Brown Formed Voiding Methods Toilet Diaper Incontinent Data Completed and Pending Completed studies during hospitalization [Text1]: CXR 05/21/2019: Increasing right pleural effusion in patient with known right pulmonary carcinoma. No other significant change. Possibility of obscured consolidation in the right lung base is not excluded. MRI brain w/w/o contrast 05/18/2020: 1. Findings as above which are a combination of post prior event and surgery and chronic ischemic changes. 2. There are no enhancing metastatic lesions evident in the brain and there is no significant abnormal meningeal enhancement, focal nor diffuse. CT LLE 05/11/2020 (post fall): No acute abnormality. XR lumbar spine 05/11/2020: Degenerative changes. No acute abnormality. XR hip/pelvis 05/11/2020: Questionable deformity of the left pubic ramus could be projectional. Clinical correlation is recommended. CXR 05/09/2020: 1. Increase in the infiltrate in the right lung base. 2. Pulmonary masses consistent with metastatic disease. 3. Possible small right pleural effusion. CXR 05/06/2020: 1. Bilateral pulmonary infiltrates which may represent atelectasis or pneumonia. 2. Right lower lobe pulmonary mass and pulmonary nodules most suggestive of a neoplasm and metastatic disease. 3. Small right pleural effusion. CXR 04/22/2020: The appearance is suggestive of a bibasilar pneumonia, right greater than left. Appropriate follow-up films requested. XR L knee 04/17/2020: There is no evidence of fracture nor prominent joint effusion. No prominent joint space narrowing. No osseous lesions. CT head/C-spine 04/17/2020: 1. Evidence of prior right craniotomy. Midline aneurysm clip + prominent area of encephalomalacia right frontal parietal region superimposed upon abundant bilateral periventricular white matter ischemic chronic changes. There are no acute intracranial findings. 2. No acute fracture or subluxation in the cervical spine. CT chest/abdomen/pelvis 04/17/2020: 1. There is a large right lower lobe mass which appears malignant with surrounding smaller masses. There is ipsilateral hilar as well as mediastinal adenopathy and subcarinal adenopathy also evident. These findings are superimposed upon severe COPD-emphysematous changes. No large pleural effusions. Minimal amount of increased pleural fluid on the right. No rib destruction. 2. No evidence of obvious soft tissue metastatic disease in the abdomen and pelvis. However, there are lucencies in both sides of the osseous hemipelvis- iliac bones which are probably metastatic. 3. Uterus is slightly prominent as is the endometrial cavity. This could be further studied with ultrasound for added specificity. There are no abnormal adnexal masses and no free fluid in the pelvis. 4. Fusiform infrarenal abdominal aortic aneurysm with maximum diameter 3.2 centimetres. No evidence of leak at this time. Labs on day of discharge: Labs from last 24 hours 05/23/20 10:50 COVID-19 Source Pending SARS-CoV-2 (PCR) Pending [facility] Medical History (Updated 05/23/20 @ 12:19 by Zena Aragon MD) Asthma Cerebrovascular accident Depression Essential hypertension Frequent falls Gastroesophageal reflux disease Goals of care, counseling/discussion Hemiplegia History of hemorrhagic stroke with residual hemiparesis History of smoking 25-50 pack years Hyperlipidemia Lung cancer Oxygen dependent Palliative care patient Polyp of colon Wheelchair bound Surgical History (Updated 05/23/20 @ 11:45 by Zena Aragon MD) Cerebral aneurysm repair. History of bronchoscopy History of lung biopsy Family History Mother Personal history of malignant neoplasm colon cancer Father Heart disease Daughter No problems noted. Daughter No problems noted. Daughter No problems noted. Social History Smoking/Tobacco Use Status: Former Tobacco Use Tobacco: How many years used: 40 Smoking risk assessment performed?: Yes Alcohol Intake: never Drug use: Never Substance use type: does not use Caregiver/Support person: No Household members: none Housing: apartment Number of Children: 3 number of grandchildren: 4 Communication Needs: Corrective Lenses Education Level: high school Do you need help understanding health information?: Always current occupation: disabled since stroke age 59 Sexually active: No Current gender identity: female What is your relationship status?: How often do you talk on the phone with friends or family?: three or more times per week How often do you get together with friends or relatives?: never Panel score (0-1 are the most socially isolated patients): 1 What type of physical activity do you participate in: occasional exercise and wheelchair-bound Duration: 15-30 minutes/day Frequency: 3-4 times per week Special jac needs: No Seatbelt use: always Working smoke detector in home: Yes Fire extinguisher in home: Yes Do you feel safe at home: Yes Do you feel safe in your relationship?: Yes Additional Social history: Gerda and her late ex- Ismael after her stroke. He then of cancer soon thereafter. Gerda has 3 daughters, all of whom she is close to. Vimal, her eldest, is her DPOA. She has 4 grandsons, too. She is very proud of all of them. She has not smoked since her stroke. She lives at the [facility]. Her daughters have talked to her about moving into a place with 24/7 care, such as a community fdc or SNF or Assisted Living. She has not investigated this seriously yet but now facing her likely new cancer diagnosis, she wants more help.
[2020-05-23 11:45] LABS: Source Nasopharynx
[2020-05-23] MEDS: Acetaminophen 500 MG TAB PO (12:09)
--- NOTE | 2020-05-23 12:30 | PT.INDS ---
Date of service: 05/23/20 Time of Service: 17:57 PT Notes Visit Reasons: MASS OF RIGHT LUNG, AMBULATORY DYSFUNCTION Physical Therapy Inpatient Swing Bed Level 1 Discharge Summary Date: 05/23/2020 Referring Doctor: Perry Alan MD PT Orders: PT CONSULT: Eval/treat Precautions: Fall. Standard. Activity as tolerated. L AFO and shoes on when out of bed. Patient Profile/Admitting Diagnosis: Converts to swing bed level 1 as of 05/22/2020. 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 Patient is diagnosed with pneumonia and a mass in the right lung. Francie converts to swing bed level 1 as of today and is re-evaluated for safety assessment and discharge planning. As of 05/21/2020, patient's biopsy result confirmed adenocarcinoma of R lung. Patient is scheduled to have a PET scan at [facility] for cancer staging. PMHX: Medical History Asthma Cerebrovascular accident Depression Essential hypertension Gastroesophageal reflux disease Hemiplegia Hyperlipidemia Polyp of colon Surgical History Cerebral aneurysm repair. Social History/Home Situation: Lives alone on the second floor of the [facility] in [place], [place]. Receives aide assistance one hour each day 6x/week in the mornings and has [facility] home assistants 2-3 hours everyday during the evening. Is able to self-transfer from bed to chair using a stand squat transfer without an assistive device. Requires assistance with wheelchair transport over ramp at the entrance of the building and through the elevator to her apartment with her wheelchair. Equipment Owned/DME: hospital bed, FWW, wheelchair Subjective: NT. See most recent TELEVISION ANTENNA INSTALLER notes. Objective: General Observation: NT. See most recent TELEVISION ANTENNA INSTALLER notes. N. Mental Status: NT. See most recent TELEVISION ANTENNA INSTALLER notes. Pain: NT. See most recent TELEVISION ANTENNA INSTALLER notes. ROM: Right Upper Extremity: Shoulder Flexion WFL. Shoulder abduction WFL. Elbow flexion WFL. Wrist flexion WFL. Opening and closing of hand WFL. Left Upper Extremity: Shoulder Flexion allows up to 110 degrees. Shoulder abduction allows up to 100 degrees. Elbow flexion WFL. Wrist flexion WFL. Opening and closing of hand WFL. Right Lower Extremity: Hip flexion WFL. Hip abduction WFL. Knee flexion WFL. Ankle dorsiflexion WFL. Ankle plantarflexion WFL. Left Lower Extremity: Hip flexion allows up to 80 degrees. Hip abduction allows up to 20 degrees. Knee flexion up to 80 degrees. Ankle dorsiflexion none beyond neutral. Ankle plantarflexion 10 degrees. Strength: Right Upper Extremity: Shoulder flexors 5/5. Shoulder abductors 5/5. Elbow flexors 5/5. Elbow extensors 5/5. Rework Operator strong. Left Upper Extremity: Shoulder flexors 3-/5. Shoulder abductors 3-/5. Elbow flexors 4-/5. Elbow extensors 4-/5. Rework Operator weak but functional. Right Lower Extremity: Hip flexors 4/5. Hip abductors 4/5. Knee flexors 4/5. Knee extensors 4/5. Ankle dorsiflexors 4/5. Ankle plantarflexors 4/5. Left Lower Extremity: Hip flexors 3-/5. Hip abductors 3-/5. Knee flexors 3-/5. Knee extensors 3-/5. Ankle dorsiflexors 3-/5. Ankle plantarflexors 3-/5. Sensation: Intact as to pain and pressure on bilateral lower extremities. Transfers: Sit to stand:contact guard assist with FWW, L AFO and shoes needed. FWW needs to be stabilized by PT for safety. Maximal cues given to avoid patient from letting go of both hands simultaneously to grab the walker. Stand to sit:contact guard assist with FWW, L AFO and shoes needed. FWW needs to be stabilized by PT for safety. Maximal cues given to avoid patient from letting go of both hands simultaneously to grab the walker. Bed to chair:contact guard assist with FWW, L AFO and shoes needed. Maximal cues given to avoid patient from letting go of both hands simultaneously to grab the walker. Gait: Able to negotiate up to 80 feet of level surface ambulation but with complaints of bilateral hip fatigue and weakness afterwards. Moderate verbal cueing provided for safe and correct gait pattern and for walker mechanics. Balance: Static Sitting: Normal Dynamic Sitting: Normal Static Standing: Fair Dynamic Standing: Fair Assessment: Francie continues to demonstrate functional mobility decline requiring the use of a front wheeled walker and assistance of 1 person for all transfers and for short distance ambulation, lack of coordination, impulsiveness, generalized weakness, decreased activity tolerance, pain in in the left knee, difficulty with walking, and increased risk for falls due to admitting diagnoses and co-morbidities. Her L AFO has not been replaced since five years ago and has been ill-fitting which has resulted to increased L tibial internal rotation, L foot supination, and decreased L knee extension throughout the gait cycle which contribute to L knee pain, impaired gait pattern, and increased fall risk. Swing bed level goals will focus on therapy discharge planning to maximize safety at home. Henrietta's ability to thrive at home is highly dependent on fulfillment of recenommdations listed below. She will require increased services daily at least twice a day for meal preparation, pill management, self-care tasks, and short distance ambulation. HH PT/OT will be needed for functional mobility progression and DME retraining. Patient continues to present with clinical signs and symptoms consistent with current/admitting diagnoses that have resulted to mobility limitations, gait instability, generalized weakness, and impairment of motor control as demonstrated by the following impairment level findings: 1. Decreased strength to left UE/LE major muscle groups 2. Impaired standing balance 3. Impaired activity tolerance 4. Limitation of joint range of motion in left UE/LE 5. Pain in the left knee aggravated with weight bearing 6. Lack of coordination, impaired motor planning 7. Increased L tibial internal rotation, L ankle supination, and decreased L knee flexion contributing to L knee pain, impaired gait mechanics, and instability Impairments are continuing to contributing to the following functional limitations: 1. Inability to safely ambulate without assistive device and physical assistance 2. Increase completion time for mobility ADL performance 3. Increased fall risk 4. Inability to negotiate steps alone safely 5. Need for a vertical and horizontal bar for safe and independent stand pivot transfers Goals: Goals X 3 days 1. Stand-sit transfer modified independent using a horizontal/vertical bar NOT MET 2. Reclining chair-bedside commode transfer modified independent using a horizontal/vertical bar NOT MET 3. Standing tolerance of 10 minutes while holding onto horizontal/vertical bar to perform LB dressing pulling up and down NOT MET 4. Standing tolerance of 10 minutes while holding onto horizontal/vertical bar to perform pericare after toileting NOT MET DISCHARGE RECOMMENDATIONS: Patient will benefit from shelter facility placement for continued skilled physical therapy services in order to progress mobility level, strength, and balance in preparation for a safe discharge to home. To facilitate safety of mobility ADL perrfromance at home the following was recommended. 1) Set up living room area so that reclining chair is as close to bedside commode to facilitate transfers with modified independence while reducing fall risk 2) Set up bedroom area so that bed is as close to bedside commode to facilitate transfers with modified independence while reducing fall risk 3) Install 18-inch horizontal and vertical bars in the living room and in the bedroom to facilitate modified independent transfers when patient is alone during the day 4) Assistance with meal preparation, medication management, and self-care tasks to be provided daily in the morning and late afternoon/evening to reduce fall risk 5) HH PT to reassess fit and retrain new AFO once delivered 6) HH PT to reassess wheelchair/cushion fit once delivered with the followingmeasurements taken as of today 05/23/2019: seat width 19 seat depth 18 minus 2 arm rest height 9 back rest height 18 seat height 18 (will require 2-inch thick cushion) TREATMENT CODE/TIME: 97499 x 10 minutes from 12:30 PM. Thank you for the opportunity to participate in the care of this patient. Jayne Dickreson PT, DPT, CLT [facility] [place], [place]
--- NOTE | 2020-05-23 13:00 | PDOC.CMDIS ---
- If Service Date Differs Date of service: 05/23/20 Time of Service: 13:00 LACE Index Scoring Tool - Questions: Length of Stay (in days): 14 or more Acuity (Admit via E.D.?): Yes Comorbidities: Cerebrovascular Disease, Metastatic Solid Tumor E.D. Visits: 1 - Answers: Total Score: 16 Risk of Readmission: High Risk Care Management Discharge Reason for Hospitalization: Bilateral pneumonia Discharge Plan: Delonte will be transferred to [facility] this afternoon. After additional conversations, it was learned that Gerda has been cooperative, pleasant and appropriate throughout her hospital stay. The isolated incidents that were shared with [facility] staff occurrred in the past at home with family members. Gerda will transfer as SNF level 1 for continued rehab for strengthening and balance. She will follow up with the Hematology/Oncology service at [facility] and will transfer there and back tomorrow for a PET scan. Gerda will transport via facility wheelchair van coordinated by CM. Patient/Family Education Needs: Expectations, limitations, facility guidelines and plan of care
== END 2020-05-23 13:41 | disposition skilled nursing facility (03) | DRG 180 ==
PROVIDERS: Family Medicine; General Practice; Internal Medicine; Admitting Provider Internal Medicine; PCP Physician Assistant Medical; Visit Provider Internal Medicine
DX: C34.31 Malignant neoplasm of lower lobe, right bronchus or lung (principal); J18.9 Pneumonia, unspecified organism; J96.01 Acute respiratory failure with hypoxia; J44.0 Chronic obstructive pulmonary disease with (acute) lower respiratory infection; I69.351 Hemiplegia and hemiparesis following cerebral infarction affecting right dominant side; J91.0 Malignant pleural effusion; J44.1 Chronic obstructive pulmonary disease with (acute) exacerbation; W05.0XXA Fall from non-moving wheelchair, initial encounter; I10 Essential (primary) hypertension; E78.5 Hyperlipidemia, unspecified; R26.2 Difficulty in walking, not elsewhere classified; M62.838 Other muscle spasm; F32.9 Major depressive disorder, single episode, unspecified; R29.6 Repeated falls; K21.9 Gastro-esophageal reflux disease without esophagitis; Z87.891 Personal history of nicotine dependence; Z99.3 Dependence on wheelchair; Z99.81 Dependence on supplemental oxygen
CPT/HCPCS: 36415; 70553; 73521; 80048; 84145; 85027; 87040; 87637; 94640; 97110; 97163; 97530; 99232; 99306; 99307; 99308; 99316; NC; 71045; 71046; 72110; 73700; 81003; 81015; 85025; 87086; A0422; A0425; A0428; J1644; J3490; J7512; J7620

== ENCOUNTER 2020-05-24 16:46 | Outpatient (REF) | payer OTHER, MEDICAID, SELFPAY | END 2020-05-24 17:06 | LOC: LBN 16:46 | PROVIDERS: PCP Physician Assistant Medical; Visit Provider Nurse Practitioner Adult Health | DX: J09.X2 Influenza due to identified novel influenza A virus with other respiratory manifestations (principal); J44.9 Chronic obstructive pulmonary disease, unspecified; C34.91 Malignant neoplasm of unspecified part of right bronchus or lung | CPT/HCPCS: 87449 ==

== ENCOUNTER 2020-05-27 16:07 | Outpatient (REF) | payer OTHER, MEDICAID, SELFPAY ==
[2020-05-27 16:30] LABS: Abs Immature Grans 0.06 10^3/uL (0.0-0.06); Absolute Basophil Count 0.07 10^3/uL (0.0-0.2); Absolute Eosinophil Count 0.45 10^3/uL (0.0-0.7); Absolute Lymphocyte Count 2.53 10^3/uL (1.2-3.4); Absolute Monocyte Count 1.48 10^3/uL (0.1-0.8); Absolute Neutrophil Count 7.17 10^3/uL (1.2-6.7); Basophils % 0.6; Eosinophils % 3.8; HCT 46.3 % (36.0-46.0); HGB 14.2 g/dL (11.2-15.7); Immature Grans % 0.5; Lymphocytes % 21.5; MCH 26.8 pg (27.0-33.0); MCHC 30.7 % (32.0-36.0); MCV 87.5 fL (80-95); MPV 9.2 fL (8.0-11.0); Monocytes % 12.6; Nucleated RBC 0 %; Platelet Count 309 10^3/uL (130-400); RBC 5.29 10^6/uL (3.93-5.22); RDW 15.4 % (11.7-14.6); RDW-SD 49.1 fL; WBC 11.76 10^3/uL (4.4-10.8)
[2020-05-29 13:16] LABS: COVID-19 RT-PCR Result Not Detected ((See Note))
== END 2020-05-27 16:27 ==
LOC: LBN 16:07
PROVIDERS: Nurse Practitioner Adult Health; PCP Physician Assistant Medical; Visit Provider Family Medicine
DX: R50.9 Fever, unspecified (principal)
CPT/HCPCS: U0003; 85025

== ENCOUNTER 2020-06-11 18:10 | Outpatient (REF) | payer OTHER, MEDICAID, SELFPAY ==
[2020-06-11 18:31] LABS: Abs Immature Grans 0.04 10^3/uL (0.0-0.06); Absolute Basophil Count 0.06 10^3/uL (0.0-0.2); Absolute Eosinophil Count 0.47 10^3/uL (0.0-0.7); Absolute Lymphocyte Count 2.37 10^3/uL (1.2-3.4); Absolute Monocyte Count 1.01 10^3/uL (0.1-0.8); Absolute Neutrophil Count 6.74 10^3/uL (1.2-6.7); Basophils % 0.6; Eosinophils % 4.4; HCT 42.6 % (36.0-46.0); HGB 13.1 g/dL (11.2-15.7); Immature Grans % 0.4; Lymphocytes % 22.2; MCH 26.8 pg (27.0-33.0); MCHC 30.8 % (32.0-36.0); MCV 87.1 fL (80-95); MPV 9.5 fL (8.0-11.0); Monocytes % 9.4; Nucleated RBC 0 %; Platelet Count 371 10^3/uL (130-400); RBC 4.89 10^6/uL (3.93-5.22); RDW 15.8 % (11.7-14.6); RDW-SD 50.4 fL; WBC 10.69 10^3/uL (4.4-10.8)
[2020-06-11 18:54] LABS: ALT 12 U/L (14-59); AST 13 U/L (15-37); Albumin 2.5 g/dL (3.4-5.0); Alkaline Phosphatase 95 U/L (46-116); Anion Gap 2.8 mmol/L (3-11); BUN 12 mg/dL (7-18); Bilirubin, Total 0.5 mg/dL (0.2-1.0); CO2 32.2 mmol/L (21.0-32.0); CREATININE 0.84 mg/dL (0.55-1.02); Calcium 9.4 mg/dL (8.5-10.1); Chloride 103 mmol/L (98-107); FREE T4 1.31 ng/dL (0.76-1.46); Glucose 106 mg/dL (74-106); LDH 258 U/L (81-234); Potassium 4.6 mmol/L (3.5-5.1); Sodium 138 mmol/L (136-145); TSH 0.98 uIU/mL (0.36-3.74); Total Protein 7.3 g/dL (6.4-8.2)
== END 2020-06-11 18:30 ==
LOC: LBN 18:10
PROVIDERS: PCP Family Medicine; Visit Provider Family Medicine
DX: C34.91 Malignant neoplasm of unspecified part of right bronchus or lung (principal)
CPT/HCPCS: 80053; 83615; 84439; 84443; 85025

== ENCOUNTER 2020-06-13 18:47 | Outpatient (REF) | payer OTHER, MEDICAID, SELFPAY ==
[2020-06-16 09:08] LABS: COVID-19 RT-PCR Result Not Detected ((See Note))
== END 2020-06-13 19:07 ==
LOC: LBN 18:47
PROVIDERS: PCP Family Medicine; Visit Provider Nurse Practitioner Adult Health
DX: Z11.52 Encounter for screening for COVID-19 (principal)
CPT/HCPCS: U0003

== ENCOUNTER 2020-06-15 09:49 | Inpatient (IN) | payer OTHER, MEDICAID, SELFPAY ==
[2020-06-15] VITALS (81 sets, daily range): BP systolic 67–124; BP diastolic 36–85; PULSE 46–131; RESP 13–33; TEMP 36.3–36.7; O2SAT 91–97
--- NOTE | 2020-06-15 09:45 | RT.EKG_ITS ---
APPROVED REPORT Exam: Resting ECG Patient Location: E HR:87 bpm ECG Measurements Heart Rate 87 AXIS FL 190 P 50 QRSd 87 QRS 52 QT 347 T 29 QTc 418 Conclusion Sinus rhythm...normal P axis, V-rate 60- 99 Probable left atrial enlargement...P >50mS, <-0.10mV V1 biphasic v3
[2020-06-15] MEDS: Normal Saline Flush 10 ML SYR IVP ×2 (10:05→18:25)
[2020-06-15 10:13] LABS: Lactate 1.4 mmol/L (0.6-1.4)
[2020-06-15 10:19] LABS: Source Nasopharynx
[2020-06-15 10:23] LABS: Abs Immature Grans 0.07 10^3/uL (0.0-0.06); Absolute Basophil Count 0.06 10^3/uL (0.0-0.2); Absolute Lymphocyte Count 1.38 10^3/uL (1.2-3.4); Absolute Monocyte Count 1.09 10^3/uL (0.1-0.8); Absolute Neutrophil Count 8.82 10^3/uL (1.2-6.7); Basophils % 0.5; Eosinophils % 1.7; HCT 40.5 % (36.0-46.0); HGB 12.5 g/dL (11.2-15.7); Immature Grans % 0.6; Lymphocytes % 11.9; MCH 26.6 pg (27.0-33.0); MCHC 30.9 % (32.0-36.0); MCV 86.2 fL (80-95); MPV 9.4 fL (8.0-11.0); Monocytes % 9.4; Neutrophils % 75.9; Nucleated RBC 0 %; Platelet Count 326 10^3/uL (130-400); RDW 15.9 % (11.7-14.6); RDW-SD 50.2 fL; WBC 11.62 10^3/uL (4.4-10.8)
[2020-06-15 10:30] LABS: Bilirubin Negative (Negative); Blood Negative (Negative); Clarity Clear (Clear); Glucose Negative (Negative); Ketones Negative (Negative); Leukocyte Esterase Negative (Negative); Nitrite Negative (Negative); Urobilinogen 0.2 EU/dL (Up TO 0.2)
[2020-06-15 10:31] LABS: ALT 11 U/L (14-59); AST 19 U/L (15-37); Albumin 2.2 g/dL (3.4-5.0); Alkaline Phosphatase 84 U/L (46-116); Anion Gap 4.7 mmol/L (3-11); BUN 20 mg/dL (7-18); Bilirubin, Total 0.5 mg/dL (0.2-1.0); CO2 28.3 mmol/L (21.0-32.0); Calcium 7.7 mg/dL (8.5-10.1); Chloride 102 mmol/L (98-107); Estimated GFR 54.35 (mL/min/1.73m2); Glucose 140 mg/dL (74-106); Potassium 3.8 mmol/L (3.5-5.1); Sodium 135 mmol/L (136-145); Total Protein 7.1 g/dL (6.4-8.2)
[2020-06-15 11:00] LABS: COVID-19 PCR Negative (Negative); Influenza A PCR Negative (Negative); Influenza B PCR Negative (Negative); RSV PCR Negative (Negative)
--- NOTE | 2020-06-15 11:01 | W.ED.GENAD ---
Discharge Plan Disposition Patient Disposition: [facility] INPATIENT Condition: Serious Discharge Details Chief Complaint: Fever Clinical Impression: Elevated troponin, Pneumonia, Malignant pleural effusion Admit Date/Time: 06/15/20 14:44 Admit Provider: Zena Aragon Attending Provider: Zena Aragon Primary Care Provider: Lavon Pichardo ED Provider: Kishan Flores Discharge Data Discharge Date/Time-TO BE ENTERED AT DEPARTURE: 06/15/20 16:10 Medical Decision Making 11:00 -?74-year-old female with multiple medical problems including history of COPD, adenocarcinoma of the right lung on immunomodulator, here with fever this morning. Patient has persistent unchanged chronic cough. She does have some rales noted left lung. Consider pneumonia. Patient is not tachycardic, she is saturating well and in no respiratory distress. Screening ECG was reviewed and interpreted by me: Sinus rhythm 87 bpm, normal axis, biphasic component to T waves V3, no STEMI. Initial labs reviewed and troponin is elevated at 0.7. Patient denies chest pain. Patient does have leukocytosis that is mild. Lactate normal. Consider COVID-19. Plan to obtain rapid Covid testing. Chest x-ray pending. 12:05 --Covid test negative. Chest x-ray was reviewed and interpreted by radiology: Persistent right pleural effusion, unchanged in size from 05/21/2020. Also some infiltrate in the right lung base again noted. I reviewed past medical record, patient was admitted here for bilateral pneumonia and discharged on 05/23/2020. Consider partially treated infectious pulmonary process. I will cover with empiric antibiotics. Plan to repeat troponin. Patient has had no chest pain. -- Repeat labs reviewed, troponin down trending. Spoke with hospitalist and CT chest ordered to assess for PE. CT chest interpreted by radiology: please see report, no PE. Spoke with hospitalist Dr. Aragon who will admit patient. Requests echocardiogram be performed as tech not available tomorrow. Dr. Aragon to consult cardiology. Care transitioned to hospitalist service at time of admission. I did call and update daughter as to plan. HPI General Mode of arrival: ambulatory. Date/Time Provider Initiated Documentation: 06/15/20 09:54. Limitations to Documentation: no limitations. Information obtained by: patient and EMS. 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 Patient notes she had fever earlier today. She notes chronic unchanged cough. Denies urinary symptoms. Patient denies pain and specifically no headache and no chest pain. No rash. Fever was as high as 102 F, she did take Tylenol this morning with seems to have helped, no other modifiers. Related Data Home Medications Medication Instructions Recorded Confirmed ibuprofen 600 mg PO TID PRN 09/20/12 06/15/20 Fish Oil 1 cap PO TID 04/27/13 06/15/20 hydrochlorothiazide 12.5 mg PO DAILY 04/27/13 06/15/20 potassium chloride [Klor-Con M20] 20 meq PO DAILY 04/27/13 06/15/20 simvastatin 40 mg PO DAILY 04/27/13 06/15/20 Premarin 0.5 g VG DAILY #1 tube 11/24/13 06/15/20 Refresh Celluvisc 1 drp OPHTHALMIC (EYE) QID PRN PRN 04/17/20 06/15/20 albuterol sulfate [ProAir HFA] 2 puff INHALATION Q4H PRN PRN 04/17/20 06/15/20 aspirin 81 mg PO DAILY 04/17/20 06/15/20 escitalopram oxalate 5 mg PO DAILY 04/17/20 06/15/20 polyethylene glycol 3350 17 g PO DAILY PRN PRN 04/17/20 06/15/20 acidophilus-pectin, citrus 1 cap PO TID #90 tab 05/15/20 06/15/20 diazepam 2 mg PO TID PRN PRN #20 tab 05/15/20 06/15/20 diclofenac sodium [Voltaren] 2 g TOPICAL QID PRN PRN #100 g 05/15/20 06/15/20 docusate sodium [Colace] 100 mg PO TID #60 cap 05/15/20 06/15/20 gabapentin 100 mg PO TID #30 cap 05/15/20 06/15/20 lidocaine [Lidoderm] 1 patch TOPICAL Q24H #15 ea 05/15/20 06/15/20 lisinopril 20 mg PO DAILY #20 tab 05/15/20 06/15/20 pantoprazole 40 mg PO DAILY@0730 #30 tab 05/15/20 06/15/20 acetaminophen 650 mg PO Q4H PRN PRN 06/15/20 06/15/20 calcium carbonate-vitamin D3 1 tab PO DAILY 06/15/20 06/15/20 [Carlyle-600 With Vitamin D] Previous Rx's Medication Instructions Recorded acidophilus-pectin, citrus 1 cap PO TID #90 tab 05/15/20 diazepam 2 mg PO TID PRN PRN #20 tab 05/15/20 diclofenac sodium [Voltaren] 2 g TOPICAL QID PRN PRN #100 g 05/15/20 docusate sodium [Colace] 100 mg PO TID #60 cap 05/15/20 gabapentin 100 mg PO TID #30 cap 05/15/20 lidocaine [Lidoderm] 1 patch TOPICAL Q24H #15 ea 05/15/20 lisinopril 20 mg PO DAILY #20 tab 05/15/20 pantoprazole 40 mg PO DAILY@0730 #30 tab 05/15/20 Allergies Allergy/AdvReac Type Severity Reaction Status Date / Time No Known Allergies Allergy Unverified 06/15/20 10:07 General Stated Complaint: Fever EDUARDO: 3 Review of Systems All systems reviewed & are unremarkable except as noted in HPI and below Constitutional Constitutional: Denies body ache(s) and Reports fever(s) Respiratory Respiratory: Reports as per HPI [facility] Medical History (Updated 06/15/20 @ 21:37 by Kishan Flores MD) Asthma Cerebrovascular accident Depression Essential hypertension Frequent falls Gastroesophageal reflux disease Goals of care, counseling/discussion Hemiplegia History of hemorrhagic stroke with residual hemiparesis History of smoking 25-50 pack years Hyperlipidemia Lung cancer Oxygen dependent Palliative care patient Polyp of colon Wheelchair bound Surgical History (Updated 05/23/20 @ 11:45 by Zena Aragon MD) Cerebral aneurysm repair. History of bronchoscopy History of lung biopsy Family History Mother Personal history of malignant neoplasm colon cancer Father Heart disease Daughter No problems noted. Daughter No problems noted. Daughter No problems noted. Social History Smoking/Tobacco Use Status: Former Tobacco Use Tobacco: How many years used: 40 Smoking risk assessment performed?: Yes Alcohol Intake: never Drug use: Never Substance use type: does not use Caregiver/Support person: No Household members: none Housing: apartment Number of Children: 3 number of grandchildren: 4 Communication Needs: Corrective Lenses Education Level: high school Do you need help understanding health information?: Always current occupation: disabled since stroke age 59 Sexually active: No Current gender identity: female What is your relationship status?: How often do you talk on the phone with friends or family?: three or more times per week How often do you get together with friends or relatives?: never Panel score (0-1 are the most socially isolated patients): 1 What type of physical activity do you participate in: occasional exercise and wheelchair-bound Duration: 15-30 minutes/day Frequency: 3-4 times per week Special jac needs: No Seatbelt use: always Working smoke detector in home: Yes Fire extinguisher in home: Yes Do you feel safe at home: Yes Do you feel safe in your relationship?: Yes Additional Social history: Gerda and her late ex- Ismael after her stroke. He then of cancer soon thereafter. Gerda has 3 daughters, all of whom she is close to. Vimal, her eldest, is her DPOA. She has 4 grandsons, too. She is very proud of all of them. She has not smoked since her stroke. She lives at the [facility]. Her daughters have talked to her about moving into a place with 24/7 care, such as a community long-term or SNF or Assisted Living. She has not investigated this seriously yet but now facing her likely new cancer diagnosis, she wants more help. Exam Const General: cooperative and no acute distress [facility] Head: normocephalic and atraumatic Mouth: moist mucous membranes Eyes Conjunctivae: normal conjunctivae Sclera: normal sclerae Neck Neck: trachea midline and supple Resp Effort & Inspection: normal respiratory effort and not labored Auscultation: rales on the left and no wheezes Cardio Jugular venous pressure: no JVD Rate: regular rate and not tachycardic Rhythm: regular rhythm GI Palpation: soft, not firm, no guarding, no masses, not rigid and nontender Skin General skin exam: no rashes or lesions noted Neuro General: patient alert, patient awake and tone normal Extrem General: no calf tenderness and no edema Psych Appearance: grossly normal Mental Status: mental status grossly normal Speech and Movement: speech and movement normal Course Vital Signs Vital signs: Vital Signs Temperature 36.7 C 06/15/20 09:55 Pulse 90 06/15/20 09:55 Respiratory Rate 18 06/15/20 09:55 Blood Pressure 104/53 L 06/15/20 09:55 Pulse Oximetry 93 06/15/20 09:55 Temperature 36.7 C 06/15/20 09:55 Temperature Source Temporal Artery Scan 06/15/20 09:55 Pulse 90 06/15/20 09:55 Respiratory Rate 18 06/15/20 09:55 Respiratory Effort 06/15/20 10:04 Blood Pressure 104/53 L 06/15/20 09:55 Blood Pressure Position Supine 06/15/20 09:55 Pulse Oximetry 93 06/15/20 09:55 Oxygen Delivery Method Nasal Cannula 06/15/20 09:55 Oxygen Flow Rate 3 06/15/20 09:55 Pain Level 0 06/15/20 09:55 Lab/Test Results Lab/Test Results: 06/15/20 10:25 Blood Blood Culture - Pending 06/15/20 10:05 Blood Blood Culture - Pending Laboratory Tests Range/Units 06/15/20 06/15/20 06/15/20 10:05 10:05 10:05 WBC (4.4-10.8) 10^3/uL 11.62 H RBC (3.93-5.22) 10^6/uL 4.70 Hgb (11.2-15.7) g/dL 12.5 Hct (36.0-46.0) % 40.5 MCV (80-95) fL 86.2 MCH (27.0-33.0) pg 26.6 L MCHC (32.0-36.0) % 30.9 L RDW (11.7-14.6) % 15.9 H Plt Count (130-400) 10^3/uL 326 MPV (8.0-11.0) fL 9.4 Immature Gran % 0.6 Neutrophils % 75.9 Lymphocytes % 11.9 Monocytes % 9.4 Eosinophils % 1.7 Basophils % 0.5 Nucleated RBC % % 0 Absolute Neutrophils (1.2-6.7) 10^3/uL 8.82 H Absolute Lymphocytes (1.2-3.4) 10^3/uL 1.38 Absolute Monocytes (0.1-0.8) 10^3/uL 1.09 H Absolute Eosinophils (0.0-0.7) 10^3/uL 0.20 Absolute Basophils (0.0-0.2) 10^3/uL 0.06 VBG Lactate (0.6-1.4) mmol/L 1.4 Sodium (136-145) mmol/L 135 L Potassium (3.5-5.1) mmol/L 3.8 Chloride (98-107) mmol/L 102 Carbon Dioxide (21.0-32.0) mmol/L 28.3 Anion Gap (3-11) mmol/L 4.7 BUN (7-18) mg/dL 20 H Creatinine (0.55-1.02) mg/dL 1.0 Estimated GFR/1.73 m2 (mL/min/1.73m2) 54.35 Glucose (74-106) mg/dL 140 H Calcium (8.5-10.1) mg/dL 7.7 L Total Bilirubin (0.2-1.0) mg/dL 0.5 AST (15-37) U/L 19 ALT (14-59) U/L 11 L Alkaline Phosphatase (46-116) U/L 84 Troponin I (<0.06) ng/mL 0.70 H* Total Protein (6.4-8.2) g/dL 7.1 Albumin (3.4-5.0) g/dL 2.2 L Urine Color (Yellow) Urine Clarity (Clear) Urine pH (5-8) Ur Specific [place] (1.005-1.025) Urine Protein (Negative) mg/dL Urine Ketones (Negative) mg/dL Urine Blood (Negative) Urine Nitrite (Negative) Urine Bilirubin (Negative) Urine Urobilinogen (Up TO 0.2) EU/dL Ur Leukocyte Esterase (Negative) Urine Glucose (Negative) mg/dL Range/Units 06/15/20 10:13 WBC (4.4-10.8) 10^3/uL RBC (3.93-5.22) 10^6/uL Hgb (11.2-15.7) g/dL Hct (36.0-46.0) % MCV (80-95) fL MCH (27.0-33.0) pg MCHC (32.0-36.0) % RDW (11.7-14.6) % Plt Count (130-400) 10^3/uL MPV (8.0-11.0) fL Immature Gran % Neutrophils % Lymphocytes % Monocytes % Eosinophils % Basophils % Nucleated RBC % % Absolute Neutrophils (1.2-6.7) 10^3/uL Absolute Lymphocytes (1.2-3.4) 10^3/uL Absolute Monocytes (0.1-0.8) 10^3/uL Absolute Eosinophils (0.0-0.7) 10^3/uL Absolute Basophils (0.0-0.2) 10^3/uL VBG Lactate (0.6-1.4) mmol/L Sodium (136-145) mmol/L Potassium (3.5-5.1) mmol/L Chloride (98-107) mmol/L Carbon Dioxide (21.0-32.0) mmol/L Anion Gap (3-11) mmol/L BUN (7-18) mg/dL Creatinine (0.55-1.02) mg/dL Estimated GFR/1.73 m2 (mL/min/1.73m2) Glucose (74-106) mg/dL Calcium (8.5-10.1) mg/dL Total Bilirubin (0.2-1.0) mg/dL AST (15-37) U/L ALT (14-59) U/L Alkaline Phosphatase (46-116) U/L Troponin I (<0.06) ng/mL Total Protein (6.4-8.2) g/dL Albumin (3.4-5.0) g/dL Urine Color (Yellow) Yellow Urine Clarity (Clear) Clear Urine pH (5-8) 6.0 Ur Specific [place] (1.005-1.025) 1.020 Urine Protein (Negative) mg/dL Negative Urine Ketones (Negative) mg/dL Negative Urine Blood (Negative) Negative Urine Nitrite (Negative) Negative Urine Bilirubin (Negative) Negative Urine Urobilinogen (Up TO 0.2) EU/dL 0.2 Ur Leukocyte Esterase (Negative) Negative Urine Glucose (Negative) mg/dL Negative
--- NOTE | 2020-06-15 11:29 | DI.RAD_ITS ---
EXAM: XR PORTABLE CHEST AP CLINICAL HISTORY: cough. TECHNIQUE: 2D digital imaging was performed. COMPARISON: CR,XR XR CHEST 2V PA LATERAL from 05/21/2020 FINDINGS: Heart size is normal. The mediastinum is not widened. There is no radiographic improvement in the size of the right pleural effusion in this patient with k nown pulmonary malignancy. Nodular density noted in this region. Platelike atelectasis in the later al left lung base is noted. No obvious pleural effusion evident on the left side IMPRESSION: Persistent right pleural effusion, unchanged in size from 05/21/2020. Also some infiltrate in the ri ght lung base again noted. DATA REPOSITORY: RADIATION DOSE DELIVERED:
--- NOTE | 2020-06-15 12:00 | RT.EKG_ITS ---
APPROVED REPORT Exam: Resting ECG Patient Location: E HR:78 bpm ECG Measurements Heart Rate 78 AXIS PA 210 P 37 QRSd 85 QRS 35 QT 380 T 9 QTc 434 Conclusion Sinus rhythm...normal P axis, V-rate 60- 99 biphasic v3
[2020-06-15] MEDS: cefTRIAXone 2 GM/50 ML BAG IVPB (12:25)
[2020-06-15 12:38] LABS: Troponin I 0.59 ng/mL (<0.06)
[2020-06-15] MEDS: CLINDAMYCIN 600 MG/50 ML BAG 100 MG IVPB (12:55)
--- NOTE | 2020-06-15 13:21 | NUR.NOTE ---
pt provided with meal tray Nursing Note:
--- NOTE | 2020-06-15 13:37 | DI.CT_ITS ---
EXAM: CT CHEST PE CTA CLINICAL HISTORY: elevated trop, immobility, cancer. TECHNIQUE: Imaging Protocol: CT angiography of the chest was performed using pulmonary embolus dev col. Multi planar reconstructions were performed. CONTRAST MATERIAL: Intravenous: Omnipaque 350 Contrast volume: 69 cc COMPARISON: CT CT CHEST PE ABD PELVIS W from 04/17/2020 FINDINGS: CHEST: PULMONARY ARTERIES: There are no intraluminal filling defects to suggest acute pulmonary emboli. LUNGS: The size of the right pleural effusion has further increased when compared to 04/17/2020. Rig ht pleural effusion size is presently moderate and most probably malignant effusion given the adjacen t lung and pleural is again noted the previously described prominent malignant-appearing mass which e xtends out towards the pleural surface from the hilar region and there also multiple pleural based no dular densities which are most probably metastatic, the largest of these measuring 12 x 13 millimeter s. Also another parenchymal nodule measuring 2 cm x 1.7 cm in the medial right lung. The right lowe r lobe consolidated lung is most probably a combination of necrotic neoplasm and atelectasis. Cannot exclude the possibility of lung abscess in the opposite-left lung there also emphysematous changes. This small pleural based nodular infiltrate noted in the posterior basal segment left lower lobe. N o left pleural effusion evident. No focal findings in trachea mainstem bronchi. MEDIASTINUM: There is mediastinal and subcarinal adenopathy. Also right sided hilar adenopathy. Vis ualized thyroid unremarkable. CARDIAC: Cardiomegaly is again noted. There is no pericardial effusion.Caliber of the thoracic aorta is within normal limits. There is no evidence of shift of the interventricular septum. PARTIALLY VISUALIZED UPPERMOST ABDOMEN: Gallstones noted. OSSEOUS: There appears to be a lytic lesion in the posterior aspect of the left 2nd rib.. IMPRESSION: 1. No evidence of acute pulmonary emboli. 2. Increasing size right pleural effusion which is most probably malignant as well as increasing pleu ral based and pulmonary right lung nodules which are most probably malignant. Large area involvement of the right lower lobe with neoplasm which is probably necrotic, given the appearance. Also right hilar and mediastinal adenopathy and subcarinal adenopathy again noted. 3. There is a lytic appearing lesion in the posterior aspect of the left 2nd rib which was not eviden t on CT scan of March 2020. RADIATION DOSE DELIVERED: LINK-TO-SR Total DLP DATA REPOSITORY: All CT scans at this facility are submitted to the National Radiology Data Registry (NRDR) Dose Index Registry (DIR) with the [employer] (ACR). RADIATION OPTIMIZATION: All CT scans at this facility use at least one of these dose optimization te chniques: automated exposure control; mA and/or kV adjustment per patient size (includes targeted exa ms where dose is matched to clinical indication); or iterative reconstruction.
[2020-06-15] MEDS: Omnipaque 350 MG/ML 100 ML BTL IJ (13:50)
[2020-06-15] MEDS: Normal Saline - Diluent 50 ML VIAL IV (13:51)
--- NOTE | 2020-06-15 14:01 | DI.US_ITS ---
APPROVED REPORT EXAM: Comprehensive 2D, Doppler, and color-flow Echocardiogram Patient Location: ER Room/Bed: 2 Mold Holder: Katia Hernandez RDCS (AE) Indications: Elevated troponin, Fever, Cough Other Information Study Quality: Fair. Technically limited study due to inability to position patient. Conclusion Left Ventricle : The left ventricle is normal size. The left ventricular systolic function is normal. The left ventricular ejection fraction is within the normal range. There is normal left ventricular wall thickness. There is normal LV segmental wall motion. The left ventricular diastolic function is normal. LVEF is 55%. Right Ventricle : The right ventricle is normal size. The right ventricular systolic function is norm al. The RVSP is 29.6mmHg. Atria : Left atrium is borderline dilated. The right atrium size is normal. Valves: There are no hemodynamically significant valvular lesions. Great Vessels : The aortic root is normal in size. The ascending aorta is normal in size. Aortic arch is not well visualized. IVC is normal in size and collapses >50% with inspiration. Please see remainder of study for further details. Wall motion Left Ventricle The left ventricle is normal size. The left ventricular systolic function is normal. The left ventric ular ejection fraction is within the normal range. There is normal left ventricular wall thickness. T here is normal LV segmental wall motion. The left ventricular diastolic function is normal. There is no ventricular septal defect visualized. LVEF is 55%. Right Ventricle The right ventricle is normal size. The right ventricular systolic function is normal. The RVSP is 29 .6mmHg. Atria Left atrium is borderline dilated. The right atrium size is normal. The interatrial septum is intact with no evidence for an atrial septal defect. Aortic Valve The Aortic valve is sclerotic. Aortic valve is trileaflet. There is no aortic valvular stenosis. No a ortic regurgitation is present. Mitral Valve Mild mitral annular calcification. No evidence of mitral valve stenosis. Trace mitral regurgitation. Tricuspid Valve The tricuspid valve is normal in structure. There is no tricuspid valve stenosis. Trace tricuspid reg urgitation. Pulmonic Valve The pulmonary valve is normal in structure. There is no pulmonic valvular stenosis. There is no pulmo lisset valvular regurgitation. Great Vessels The aortic root is normal in size. The ascending aorta is normal in size. Aortic arch is not well vis ualized. IVC is normal in size and collapses >50% with inspiration. Pericardium There is no pericardial effusion. 2D Dimensions IVSD d PLAX 0.96 cm F: 0.6-1.0 LV Vol A2C d MOD 79.1 mL LVPW d PLAX 0.96 cm F: 0.6 - 1.0 LV Vol A4C d MOD 74.2 mL LVID d PLAX 4.83 cm F: 3.8 - 5.2 LA vol/ BSA A2C s A-L 35.1 mL/m2 LVDs 3.30 cm F: 2.2 - 3.5 LA vol/ BSA A4C s A-L 13.5 mL/m2 Ao Root d 2.55 cm F: 2.7 - 3.3 LA Vol/ BSA Biplane s A-L 23.4 mL/m2 RA Area A4C 18.46 cm2 LA Area A4C s MOD 11.39 cm2 RA Vol/ BSA A4C s A-L 29.1 mL/m2 LA Area A2C s MOD 19.70 cm2 Ao Asc Diam d 2.90 cm F: 2.3 - 3.1 LV EF A4C MOD 50.0 % LV EF Teichholz 58.2 % LV EF A2C MOD 57.2 % LVEF (Flores's) 55.00 % F: 54 - 74 LV EF Biplane MOD 55.0 % LV Volume 60.38 mL F: 46 - 106 SV 43.38 mL LV Volume Index 32.11 mL/m2 F: 29 - 61 SV Index 23.04 mL/m2 LV Vol Biplane MOD 78.9 mL FS 30.75 % M-Mode TAPSE 2.03 cm (M/F) >1.7 LV Diastology MV E' medial 0.096 (>0.07 m/s) E/A Ratio 1.0 LV E/e MED 8.90 (<14) MV E Vmax 0.85 (0.4-1.3 m/s) MV E' lateral 0.089 (>0.1 m/s) MV A Vmax 0.85 (0.4-1.3 m/s) LV E/e LAT 9.55 (<14) MV E/A Ratio 0.95 MV E/E' medial 8.91 MV E/E' lateral 9.59 Aortic Valve LVOT Area 2.86 cm2 AoV Area Vmax 2.37 cm2 LVOT Vmax 1.38 m/s AoV Area/ BSA (Vmax) 1.26 cm2/m2 LVOT Mean Chi. 0.89 m/s DORIS Mean Chi. 2.24 cm2 LVOT Peak Grad 7.7 mmHg DORIS Mean Chi. Index 1.19 cm2/m2 LVOT Mean Grad 3.7 mmHg LVOT VTI 0.291 m LVOT Diam s 1.90 cm AoV Vmax 1.67 m/s Velocity Ratio 0.82 AoV Mean Chi. 1.14 m/s AoV Peak Grad 11.2 mmHg LVOT SV 83.22 mL AoV Mean Grad 5.9 mmHg AoV VTI 0.372 m AoV Area VTI 2.24 cm2 AoV Area/ BSA (VTI) 1.19 cm/m2 Mitral Valve MV DT 221 (160-240 msec) MV PHT 64 msec MV Area PHT 3.43 cm2 MV VTI 0.326 m MV Area VTI 2.56 (4.0-6.0 cm2) Pulmonary Valve PV Vmax 0.88 (0.5-1.5 m/s) RVOT Peak Gr. 0.90 mmHg PV Peak Grad 3.1 mmHg RVOT Mean Gr. 0.55 mmHg PV Mean Grad 1.6 mmHg RVOT VTI 0.088 m PV VTI 0.199 m RVOT Vmax 0.47 m/s Tricuspid Valve TR Peak Grad 21.5 mmHg TR Vmax 2.32 m/s RA Pressure 8.00 mmHg RVSP (TR) 29.6 mmHg
[2020-06-15 15:45] LABS: NT-proBNP 3197 pg/mL (<300)
--- NOTE | 2020-06-15 15:50 | DI.CT_ITS ---
EXAM: CT HEAD WO CLINICAL HISTORY: H/O lung ca, ?brain mets. TECHNIQUE: Imaging Protocol: Axial computed tomography images with coronal and sagittal reformatted images were created and reviewed COMPARISON: CT CT HEAD CERVICAL SPINE WO from 04/17/2020 FINDINGS: Again noted is evidence of right frontal craniotomy. Larger white matter hypodensity-encephalomalac ia the territory of the right middle of right anterior cerebral artery is again noted, unchanged. In addition there is abundant bilateral periventricular hypodensity also evident on the opposite-left s hector, unchanged. Density of the middle cerebral arteries is unchanged. Calcification both basal gang nazanin is unchanged. No new posterior fossa findings. Ventricular size is unchanged. No evidence of intracranial hemorrhage, intra or extra-axial. IMPRESSION: As above but without significant change compared to the prior noninfused CT scan of 04/17/2020. RADIATION DOSE DELIVERED: 758.52mGy.cm Total DLP DATA REPOSITORY: All CT scans at this facility are submitted to the National Radiology Data Registry (NRDR) Dose Index Registry (DIR) with the [employer] (ACR). RADIATION OPTIMIZATION: All CT scans at this facility use at least one of these dose optimization te chniques: automated exposure control; mA and/or kV adjustment per patient size (includes targeted exa ms where dose is matched to clinical indication); or iterative reconstruction.
--- NOTE | 2020-06-15 16:17 | DI.VRAD_ITS ---
PROCEDURE INFORMATION: Exam: CT Head Without Contrast Exam date and time: 06/15/2020 3:51 PM Age: 74 years old Clinical indication: Other: H/o lung CA - ? brain mets; Additional info: H/o aneurism 15 years ago TECHNIQUE: Imaging protocol: Computed tomography of the head without contrast. Radiation optimization: All CT scans at this facility use at least one of these dose optimization techniques: automated exposure control; mA and/or kV adjustment per patient size (includes targeted exams where dose is matched to clinical indication); or iterative reconstruction. COMPARISON: CT HEAD CERVICAL SPINE WO 04/17/2020 8:58 AM FINDINGS: Brain: Right frontal craniotomy with gliosis in the underlying right frontal and parietal lobes There is nonspecific white matter disease, likely related to chronic ischemic demyelination. Surgical clips along the anterior falx. No definite evidence of metastatic disease. Sliver of hyperdensity in the lying the right frontal craniotomy flap. This could represent scarring or a vessel. This was present on the prior exam. It measures 1 mm thick. Cerebral ventricles: No ventriculomegaly. Bones/joints: No significant abnormality. Paranasal sinuses: Mucosal thickening in the bilateral frontal, left maxillary and right ethmoid sinuses. Remaining paranasal air sinuses are normal. Mastoid air cells: Visualized mastoid air cells are well aerated. Vasculature: No acute arterial territory stroke is noted. Soft tissues: Unremarkable. IMPRESSION: No definite evidence of metastatic disease. Evaluation is limited without IV contrast for detecting masses. Dictated and Authenticated by: Agusto Smith MD. Ordering:CELIA Freitas MD
--- NOTE | 2020-06-15 16:18 | HPE_ITS ---
Date of service: 06/15/20 Time of Service: 16:18 Assessment and Plan Assessment and plan (1) NSTEMI (non-ST elevated myocardial infarction): Status: Acute Assessment and plan: Admit to ICU. Due to likely malignant pleural effusion, not considered to be a candidate for intervention - prognosis 3-12 months. Echo without wall motion abnormalities, and no PE on CTA. Myocarditis from pembrolizumab needs to also be considered. COVID-19 ruled out. Will treat as an NSTEMI: asa + heparin gtt x 48 hrs. Repeat EKG in am. (2) Fever: Status: Acute Assessment and plan: No evidence of PNA on CTA; however, there seems to be necrosis, which could be the cause of fever. Because it is hard to rule out infection in a necrotizing lung, I do think zosyn would be a good idea. Blood cultures were obtained. (3) Metastatic adenocarcinoma to lung: Status: Acute Assessment and plan: T3N3M1 (when bone mets were not yet known). We forwarded images to [facility] onc. I do think it would be worthwhile to know whether the pleural effusion is malignant, as it appears to be radiographically, and a thoracenthesis should be considered, whether this is inpatient or outpatient. This will change her prognosis. Consult palliative care. (4) Malignant pleural effusion: Status: Acute Assessment and plan: As above. (5) Chronic respiratory failure with hypoxia: Status: Chronic Assessment and plan: At baseline. Target O2 sat> 88% (6) COVID-19 ruled out by laboratory testing: Status: Ruled-out (7) DVT prophylaxis: Status: Acute Assessment and plan: Therapeutic anticoagulation with heparin gtt (8) Discharge planning issues: Status: Acute Assessment and plan: DNR/DNI Consult palliative care Admit to the ICU Total Critical Care Time 45 minutes History of Present Illness History of Present Illness Chief Complaint: Fever Narrative: Ms Marrufo is a 74 year old female with h/o adenocarcinoma of the lung (T3N3M1), initiated on pembrolizumab and Xgeva on 06/12, as well as h/o O2-dependent COPD, chronic hyp oxic respiratory failure, 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 She tested negative for COVID-19 with a nasopharyngeal PCR. She had an elevated troponin of 0.70 which went down to 0.59 without any chest pain. Her CT chest revealed no PE, increase in size of a likely malignant right pleural effusion, and now necrotizing RLL mass. Lytic lesion in her left 2nd rib was new. Hospitalists were asked to assume care of patient. I have discussed the cased with cardiology (Dr Young): it is felt the patient would not be a candidate for intervention given her prognosis, and medical therapy with asa and heparin gtt x [address]. Her [address] head is negative for malignancy, and per neurology, her h/o clipped aneurysm is not a contraindication to anticoagulation. The patient is being admitted to the ICU. The patient states she has had some diarrhea, but not so much today (she had it yesterday). She denies dizziness, chest pain/pressure, palpitations, shortness of breath, changes to her cough, nausea. Review of Systems All systems reviewed & are unremarkable except as noted in HPI and below PFSH Medical History (Updated 06/15/20 @ 16:47 by Zena Aragon MD) Asthma Cerebrovascular accident Depression Essential hypertension Frequent falls Gastroesophageal reflux disease Goals of care, counseling/discussion Hemiplegia History of hemorrhagic stroke with residual hemiparesis History of smoking 25-50 pack years Hyperlipidemia Lung cancer Oxygen dependent Palliative care patient Polyp of colon Wheelchair bound Surgical History (Updated 05/23/20 @ 11:45 by Zena Aragon MD) Cerebral aneurysm repair. History of bronchoscopy History of lung biopsy Family History Mother Personal history of malignant neoplasm colon cancer Father Heart disease Daughter No problems noted. Daughter No problems noted. Daughter No problems noted. Social History Smoking/Tobacco Use Status: Former Tobacco Use Tobacco: How many years used: 40 Smoking risk assessment performed?: Yes Alcohol Intake: never Drug use: Never Substance use type: does not use Caregiver/Support person: No Household members: none Housing: apartment Number of Children: 3 number of grandchildren: 4 Communication Needs: Corrective Lenses Education Level: high school Do you need help understanding health information?: Always current occupation: disabled since stroke age 59 Sexually active: No Current gender identity: female What is your relationship status?: How often do you talk on the phone with friends or family?: three or more times per week How often do you get together with friends or relatives?: never Panel score (0-1 are the most socially isolated patients): 1 What type of physical activity do you participate in: occasional exercise and wheelchair-bound Duration: 15-30 minutes/day Frequency: 3-4 times per week Special jac needs: No Seatbelt use: always Working smoke detector in home: Yes Fire extinguisher in home: Yes Do you feel safe at home: Yes Do you feel safe in your relationship?: Yes Additional Social history: Gerda and her late ex- Ismael after her stroke. He then of cancer soon thereafter. Gerda has 3 daughters, all of whom she is close to. Vimal, her eldest, is her DPOA. She has 4 grandsons, too. She is very proud of all of them. She has not smoked since her stroke. She lives at the [facility]. Her daughters have talked to her about moving into a place with 24/7 care, such as a community nursing home or SNF or Assisted Living. She has not investigated this seriously yet but now facing her likely new cancer diagnosis, she wants more help. Meds Home Medications and Allergies Home Medications Medication Instructions Recorded Confirmed Type ibuprofen 600 mg PO TID PRN 09/20/12 06/15/20 History Fish Oil 1 cap PO TID 04/27/13 06/15/20 History hydrochlorothiazide 12.5 mg PO DAILY 04/27/13 06/15/20 History potassium chloride [Klor-Con M20] 20 meq PO DAILY 04/27/13 06/15/20 History simvastatin 40 mg PO DAILY 04/27/13 06/15/20 History Premarin 0.5 g VG DAILY #1 tube 11/24/13 06/15/20 History Refresh Celluvisc 1 drp OPHTHALMIC (EYE) QID PRN PRN 04/17/20 06/15/20 History albuterol sulfate [ProAir HFA] 2 puff INHALATION Q4H PRN PRN 04/17/20 06/15/20 History aspirin 81 mg PO DAILY 04/17/20 06/15/20 History escitalopram oxalate 5 mg PO DAILY 04/17/20 06/15/20 History polyethylene glycol 3350 17 g PO DAILY PRN PRN 04/17/20 06/15/20 History acidophilus-pectin, citrus 1 cap PO TID #90 tab 05/15/20 06/15/20 Rx diazepam 2 mg PO TID PRN PRN #20 tab 05/15/20 06/15/20 Rx diclofenac sodium [Voltaren] 2 g TOPICAL QID PRN PRN #100 g 05/15/20 06/15/20 Rx docusate sodium [Colace] 100 mg PO TID #60 cap 05/15/20 06/15/20 Rx gabapentin 100 mg PO TID #30 cap 05/15/20 06/15/20 Rx lidocaine [Lidoderm] 1 patch TOPICAL Q24H #15 ea 05/15/20 06/15/20 Rx lisinopril 20 mg PO DAILY #20 tab 05/15/20 06/15/20 Rx pantoprazole 40 mg PO DAILY@0730 #30 tab 05/15/20 06/15/20 Rx acetaminophen 650 mg PO Q4H PRN PRN 06/15/20 06/15/20 History calcium carbonate-vitamin D3 1 tab PO DAILY 06/15/20 06/15/20 History [Carlyle-600 With Vitamin D] Allergies Allergy/AdvReac Type Severity Reaction Status Date / Time No Known Allergies Allergy Unverified 06/15/20 10:07 Exam Narrative Exam Narrative: General: Very pleasant elderly female who looks as well as the last time I saw her, A&Ox3 Neurological: A&Ox3, unchanged from prior Psychiatric: appropriate speech pattern/content Skin: visible skin intact HEENT: Atraumatic, normocephalic, EOMI, MMM, thrush, no goiter or JVD, no submandibular or cervical lymphadenopathy Cardiovascular: RRR with many extra beats, no m/r/g Lungs: Diminished dull breath sounds on R, clear to auscultation on the L Gastrointestinal: soft, nontender, nondistended Genitourinary: deferred Extremities: no edema BLE's Results Imaging Additional studies: EKG #1: NSR, HR 87, J point elevation in V3, no other evidence of acute ischemia. EKG: #2: NSR, HR 78, unchanged from prior Echo: Left Ventricle : The left ventricle is normal size. The left ventricular systolic function is normal. The left ventricular ejection fraction is within the normal range. There is normal left ventricular wall thickness. There is normal LV segmental wall motion. The left ventricular diastolic function is normal. LVEF is 55%. Right Ventricle : The right ventricle is normal size. The right ventricular systolic function is normal. The RVSP is 29.6mmHg. Atria : Left atrium is borderline dilated. The right atrium size is normal. Valves: There are no hemodynamically significant valvular lesions. Great Vessels : The aortic root is normal in size. The ascending aorta is normal in size. Aortic arch is not well visualized. IVC is normal in size and collapses >50% with inspiration. Please see remainder of study for further details. CTA chest: 1. No evidence of acute pulmonary emboli. 2. Increasing size right pleural effusion which is most probably malignant as well as increasing pleural based and pulmonary right lung nodules which are most probably malignant. Large area involvement of the right lower lobe with neop lasm which is probably necrotic, given the appearance. Also right hilar and mediastinal adenopathy and subcarinal adenopathy again noted. 3. There is a lytic appearing lesion in the posterior aspect of the left 2nd rib which was not evident on CT scan of March 2020. CXR: Persistent right pleural effusion, unchanged in size from 05/21/2020. Also some infiltrate in the right lung base again noted. Labs Result diagrams: 06/15/20 10:05 06/15/20 10:05 Labs: Laboratory Results - last 24 hr 06/15/20 06/15/20 06/15/20 09:55 10:05 10:05 WBC RBC Hgb Hct MCV MCH MCHC RDW Plt Count MPV Immature Gran % Neutrophils % Lymphocytes % Monocytes % Eosinophils % Basophils % Nucleated RBC % Absolute Neutrophils Absolute Lymphocytes Absolute Monocytes Absolute Eosinophils Absolute Basophils VBG Lactate 1.4 Sodium 135 L Potassium 3.8 Chloride 102 Carbon Dioxide 28.3 Anion Gap 4.7 BUN 20 H Creatinine 1.0 Estimated GFR/1.73 m2 54.35 Glucose 140 H Calcium 7.7 L Total Bilirubin 0.5 AST 19 ALT 11 L Alkaline Phosphatase 84 Troponin I 0.70 H* NT-Pro-B Natriuret Pep Total Protein 7.1 Albumin 2.2 L Urine Color Urine Clarity Urine pH Ur Specific [place] Urine Protein Urine Ketones Urine Blood Urine Nitrite Urine Bilirubin Urine Urobilinogen Ur Leukocyte Esterase Urine Glucose COVID-19 Source Nasopharynx SARS-CoV-2 (PCR) Negative Influenza Type A (PCR) Negative Influenza Type B (PCR) Negative RSV (PCR) Negative 06/15/20 06/15/20 06/15/20 10:05 10:13 12:17 WBC 11.62 H RBC 4.70 Hgb 12.5 Hct 40.5 MCV 86.2 MCH 26.6 L MCHC 30.9 L RDW 15.9 H Plt Count 326 MPV 9.4 Immature Gran % 0.6 Neutrophils % 75.9 Lymphocytes % 11.9 Monocytes % 9.4 Eosinophils % 1.7 Basophils % 0.5 Nucleated RBC % 0 Absolute Neutrophils 8.82 H Absolute Lymphocytes 1.38 Absolute Monocytes 1.09 H Absolute Eosinophils 0.20 Absolute Basophils 0.06 VBG Lactate Sodium Potassium Chloride Carbon Dioxide Anion Gap BUN Creatinine Estimated GFR/1.73 m2 Glucose Calcium Total Bilirubin AST ALT Alkaline Phosphatase Troponin I 0.59 H* NT-Pro-B Natriuret Pep 3197 H Total Protein Albumin Urine Color Yellow Urine Clarity Clear Urine pH 6.0 Ur Specific [place] 1.020 Urine Protein Negative Urine Ketones Negative Urine Blood Negative Urine Nitrite Negative Urine Bilirubin Negative Urine Urobilinogen 0.2 Ur Leukocyte Esterase Negative Urine Glucose Negative COVID-19 Source SARS-CoV-2 (PCR) Influenza Type A (PCR) Influenza Type B (PCR) RSV (PCR) Last Vital Signs Temp 36.5 C 06/15/20 11:35 Pulse 83 06/15/20 15:18 Resp 21 06/15/20 15:30 BP 124/85 06/15/20 15:18 Pulse Ox 96 06/15/20 15:30 COVID-19 Screening Have you, or household traveled for leisure in last 14 days?: No Had IN PERSON contact w/suspected or confirmed C-19 person: No
[2020-06-15] MEDS: Aspirin 81 MG CHEW 324 MG CH (17:18)
[2020-06-15 18:03] LABS: PTT Activated 26.5 sec (21.0-27.5)
[2020-06-15] MEDS: Normal Saline 500 ML IV (20:39)
[2020-06-15] MEDS: PIPERACILLIN/TAZO 3.375 GM in Normal Saline 50 ML IVPB (20:42)
[2020-06-15] MEDS: Nystatin 500000 UNITS/5 ML SUSP 5ML CUP PO (21:02)
[2020-06-15] MEDS: Lactobacillus Acidophilus CAP 1 CAP PO (21:02)
[2020-06-15] MEDS: Gabapentin 100 MG CAP PO (21:02)
[2020-06-15] MEDS: Simvastatin 40 MG TAB PO (21:03)
[2020-06-15] MEDS: Lidocaine 5% Patch 1 PATCH TP (21:03)
[2020-06-15 21:26] LABS: Troponin I 0.53 ng/mL (<0.06)
[2020-06-16] VITALS (33 sets, daily range): BP systolic 88–119; BP diastolic 26–79; PULSE 74–104; RESP 19–34; TEMP 36.1–37.2; O2SAT 91–96
[2020-06-16 01:07] LABS: PTT Activated 43.6 sec (21.0-27.5)
[2020-06-16] MEDS: PIPERACILLIN/TAZO 3.375 GM in Normal Saline 50 ML IVPB ×4 (01:52→20:19)
[2020-06-16] MEDS: Nystatin 500000 UNITS/5 ML SUSP 5ML CUP PO ×5 (06:53→22:16)
[2020-06-16 07:21] LABS: Abs Immature Grans 0.05 10^3/uL (0.0-0.06); Absolute Basophil Count 0.05 10^3/uL (0.0-0.2); Absolute Eosinophil Count 0.27 10^3/uL (0.0-0.7); Absolute Neutrophil Count 8.81 10^3/uL (1.2-6.7); Basophils % 0.4; Eosinophils % 2.3; HCT 38.3 % (36.0-46.0); HGB 11.8 g/dL (11.2-15.7); Immature Grans % 0.4; Lymphocytes % 12.6; MCH 25.9 pg (27.0-33.0); MCHC 30.8 % (32.0-36.0); MCV 84.2 fL (80-95); MPV 9.3 fL (8.0-11.0); Monocytes % 9.1; Neutrophils % 75.2; Nucleated RBC 0 %; Platelet Count 323 10^3/uL (130-400); RBC 4.55 10^6/uL (3.93-5.22); RDW 15.9 % (11.7-14.6); RDW-SD 48.4 fL; WBC 11.71 10^3/uL (4.4-10.8)
[2020-06-16 07:24] LABS: Absolute Lymphocyte Count 1.48 10^3/uL (1.2-3.4); Absolute Monocyte Count 1.07 10^3/uL (0.1-0.8)
[2020-06-16 07:54] LABS: PTT Activated 38.5 sec (21.0-27.5)
[2020-06-16 07:56] LABS: Anion Gap 5.8 mmol/L (3-11); BUN 12 mg/dL (7-18); CO2 27.2 mmol/L (21.0-32.0); CREATININE 0.8 mg/dL (0.55-1.02); Calcium 7.8 mg/dL (8.5-10.1); Chloride 102 mmol/L (98-107); Glucose 111 mg/dL (74-106); Magnesium 1.8 mg/dL (1.8-2.4); Potassium 4.1 mmol/L (3.5-5.1); Sodium 135 mmol/L (136-145)
[2020-06-16] MEDS: Aspirin E.C. 81 MG TABEC PO (08:14)
[2020-06-16] MEDS: Pantoprazole 40 MG TABCR PO (08:14)
[2020-06-16] MEDS: Lactobacillus Acidophilus CAP 1 CAP PO ×3 (08:14→20:20)
[2020-06-16] MEDS: Calcium 600mg/Vit D 200U TAB 1 TAB PO (08:14)
[2020-06-16] MEDS: Acetaminophen 325 MG TAB 650 MG PO (08:16)
[2020-06-16] MEDS: Potassium Chloride 20 MEQ TABCR PO (08:16)
[2020-06-16] MEDS: Gabapentin 100 MG CAP PO ×3 (08:16→20:20)
[2020-06-16] MEDS: Escitalopram 10 MG TAB 5 MG PO (08:17)
--- NOTE | 2020-06-16 08:20 | PGE_ITS ---
Date of Service Date of service: 06/16/20 Time of Service: 10:53 Assessment and Plan Assessment and plan (1) NSTEMI (non-ST elevated myocardial infarction): Status: Acute Assessment and plan: Vs immune-mediated myocarditis. Consulting oncology this am - awaiting call back. Meanwhile, treating medically for NSTEMI. Continue asa, heparin drip, statin. Echo without wall motion abnormalities, and no PE on CTA. COVID-19 ruled out. Continue to monitor in the ICU. (2) Fever: Status: Acute Assessment and plan: ?Tumor fever/immune mediated? No evidence of PNA on CTA or UTI; however, there seems to be necrosis, which could be the cause of fever. Because it is hard to rule out infection in a necrotizing lung, continue zosyn. Await blood cultures. (3) Metastatic adenocarcinoma to lung: Status: Acute Assessment and plan: T3N3M1 (when bone mets were not yet known). Also, malignant pleural effusion suspected. General surgery is consulted for thoracenthesis. Awaiting conversation with [facility] oncology. We forwarded images to [facility] onc. Code status is now DNR/DNI. Awaiting palliative care consult. (4) Malignant pleural effusion: Status: Acute Assessment and plan: As above. (5) Chronic respiratory failure with hypoxia: Status: Chronic Assessment and plan: At baseline. Target O2 sat> 88% (6) Diarrhea: Status: Acute Assessment and plan: ?immune-mediated colitis. Patient has no pain. ?C.diff. Await C.Diff. Will discuss with oncology (7) Oral thrush: Status: Acute Assessment and plan: Change nystatin to swish and spit. (8) COVID-19 ruled out by laboratory testing: Status: Ruled-out (9) DVT prophylaxis: Status: Acute Assessment and plan: Therapeutic anticoagulation with heparin gtt (10) Discharge planning issues: Status: Acute Assessment and plan: DNR/DNI Consult palliative care Admit to the ICU Total Critical Care Time 45 minutes Subjective Subjective Interval history since last seen: Ms Marrufo had diarrhea overnight. C.diff pending. No abdominal pain. Nausea this morning with nystatin. Changing to swish and spit. Denies dizziness, chest pain, shortness of breath. Decided to go ahead with thoracenthesis. We discussed that I will speak with hem/onc today and let her know the outcome. On monitor: Sinus rhythm, PVCs, 80s-90s. 90-100 SBP. 1+ pitting edema BLEs on heparin gtt. No bleeding. Troponing 0.4 No fever. Exam Narrative Exam Narrative: General: Very pleasant elderly female, looks about the same as yesterday, A&Ox3 HEENT: EOMI, MMM Cardiovascular: RRR, fewer extra beats this morning Lungs: Diminished dull breath sounds on R, clear to auscultation on the L Gastrointestinal: soft, nontender, nondistended Extremities: trace edema BLE's Objective Last Vital Signs Temp 36.7 C 06/16/20 04:20 Pulse 88 06/16/20 04:20 Resp 25 H 06/16/20 04:20 BP 105/58 L 06/16/20 04:20 Pulse Ox 95 06/16/20 04:20 Laboratory Results - last 24 hr 06/15/20 06/15/20 06/15/20 09:55 10:05 10:05 WBC RBC Hgb Hct MCV MCH MCHC RDW Plt Count MPV Immature Gran % Neutrophils % Lymphocytes % Monocytes % Eosinophils % Basophils % Nucleated RBC % Absolute Neutrophils Absolute Lymphocytes Absolute Monocytes Absolute Eosinophils Absolute Basophils APTT VBG Lactate 1.4 Sodium 135 L Potassium 3.8 Chloride 102 Carbon Dioxide 28.3 Anion Gap 4.7 BUN 20 H Creatinine 1.0 Estimated GFR/1.73 m2 54.35 Glucose 140 H Calcium 7.7 L Magnesium Total Bilirubin 0.5 AST 19 ALT 11 L Alkaline Phosphatase 84 Troponin I 0.70 H* NT-Pro-B Natriuret Pep Total Protein 7.1 Albumin 2.2 L Urine Color Urine Clarity Urine pH Ur Specific [place] Urine Protein Urine Ketones Urine Blood Urine Nitrite Urine Bilirubin Urine Urobilinogen Ur Leukocyte Esterase Urine Glucose COVID-19 Source Nasopharynx SARS-CoV-2 (PCR) Negative Influenza Type A (PCR) Negative Influenza Type B (PCR) Negative RSV (PCR) Negative 06/15/20 06/15/20 06/15/20 10:05 10:13 12:17 WBC 11.62 H RBC 4.70 Hgb 12.5 Hct 40.5 MCV 86.2 MCH 26.6 L MCHC 30.9 L RDW 15.9 H Plt Count 326 MPV 9.4 Immature Gran % 0.6 Neutrophils % 75.9 Lymphocytes % 11.9 Monocytes % 9.4 Eosinophils % 1.7 Basophils % 0.5 Nucleated RBC % 0 Absolute Neutrophils 8.82 H Absolute Lymphocytes 1.38 Absolute Monocytes 1.09 H Absolute Eosinophils 0.20 Absolute Basophils 0.06 APTT VBG Lactate Sodium Potassium Chloride Carbon Dioxide Anion Gap BUN Creatinine Estimated GFR/1.73 m2 Glucose Calcium Magnesium Total Bilirubin AST ALT Alkaline Phosphatase Troponin I 0.59 H* NT-Pro-B Natriuret Pep 3197 H Total Protein Albumin Urine Color Yellow Urine Clarity Clear Urine pH 6.0 Ur Specific [place] 1.020 Urine Protein Negative Urine Ketones Negative Urine Blood Negative Urine Nitrite Negative Urine Bilirubin Negative Urine Urobilinogen 0.2 Ur Leukocyte Esterase Negative Urine Glucose Negative COVID-19 Source SARS-CoV-2 (PCR) Influenza Type A (PCR) Influenza Type B (PCR) RSV (PCR) 06/15/20 06/15/20 06/16/20 17:42 21:05 00:25 WBC RBC Hgb Hct MCV MCH MCHC RDW Plt Count MPV Immature Gran % Neutrophils % Lymphocytes % Monocytes % Eosinophils % Basophils % Nucleated RBC % Absolute Neutrophils Absolute Lymphocytes Absolute Monocytes Absolute Eosinophils Absolute Basophils APTT 26.5 43.6 H D VBG Lactate Sodium Potassium Chloride Carbon Dioxide Anion Gap BUN Creatinine Estimated GFR/1.73 m2 Glucose Calcium Magnesium Total Bilirubin AST ALT Alkaline Phosphatase Troponin I 0.53 H* NT-Pro-B Natriuret Pep Total Protein Albumin Urine Color Urine Clarity Urine pH Ur Specific [place] Urine Protein Urine Ketones Urine Blood Urine Nitrite Urine Bilirubin Urine Urobilinogen Ur Leukocyte Esterase Urine Glucose COVID-19 Source SARS-CoV-2 (PCR) Influenza Type A (PCR) Influenza Type B (PCR) RSV (PCR) 06/16/20 06/16/20 06/16/20 06:52 06:52 06:52 WBC 11.71 H RBC 4.55 Hgb 11.8 Hct 38.3 MCV 84.2 MCH 25.9 L MCHC 30.8 L RDW 15.9 H Plt Count 323 MPV 9.3 Immature Gran % 0.4 Neutrophils % 75.2 Lymphocytes % 12.6 Monocytes % 9.1 Eosinophils % 2.3 Basophils % 0.4 Nucleated RBC % 0 Absolute Neutrophils 8.81 H Absolute Lymphocytes 1.48 Absolute Monocytes 1.07 H Absolute Eosinophils 0.27 Absolute Basophils 0.05 APTT 38.5 H VBG Lactate Sodium 135 L Potassium 4.1 Chloride 102 Carbon Dioxide 27.2 Anion Gap 5.8 BUN 12 Creatinine 0.8 Estimated GFR/1.73 m2 >= 60.00 Glucose 111 H Calcium 7.8 L Magnesium 1.8 Total Bilirubin AST ALT Alkaline Phosphatase Troponin I 0.40 H* NT-Pro-B Natriuret Pep Total Protein Albumin Urine Color Urine Clarity Urine pH Ur Specific [place] Urine Protein Urine Ketones Urine Blood Urine Nitrite Urine Bilirubin Urine Urobilinogen Ur Leukocyte Esterase Urine Glucose COVID-19 Source SARS-CoV-2 (PCR) Influenza Type A (PCR) Influenza Type B (PCR) RSV (PCR)
[2020-06-16] MEDS: Normal Saline Flush 10 ML SYR IVP (08:39)
--- NOTE | 2020-06-16 13:11 | NUR.NOTE ---
[facility] and picked up a few of sheryls belongings. This includes: Pocket book, Blue vinyl book with phone numbers, Glasses, Kindel and ekg manager. AKOSUA Nursing Note:
--- NOTE | 2020-06-16 13:19 | PDOC.CMIN ---
- If Service Date Differs Date of service: 06/16/20 Time of Service: 13:19 Care Management Initial Assess REASON FOR HOSPITALIZATION:: NSTEMI, Tumor Fever PAST MEDICAL HISTORY/PAST SURGICAL HISTORY:: Medical History. Asthma. Cerebrovascular accident. Depression. Essential hypertension. Frequent falls. Gastroesophageal reflux disease. Goals of care, counseling/discussion. Hemiplegia. History of hemorrhagic stroke with residual hemiparesis. History of smoking 25-50 pack years. Hyperlipidemia. Lung cancer. Oxygen dependent. Palliative care patient. Polyp of colon. Wheelchair bound. Surgical History. Cerebral aneurysm repair. History of bronchoscopy. History of lung biopsy PREVIOUS FUNCTIONAL STATUS/SOCIAL/FAMILY SUPPORTS:: Francie currently resides at [facility]. She states that things are going well there, but she would still prefer to be in a home like setting. Her daughter, Karlene, is supportive and has kept the other family updated. She requires assistance with ADL's, which explains her shelter placement at a facility. She has shelter [facility] highest needs. CURRENT FUNCTIONAL STATUS:: Francie was lying in bed when CM met with her. She stated that she is not doing great at this time. She is being treated and monitored in the ICU currently. She stated that she has requested items to be brought to [facility] during this stay, which her DEPARTMENTAL SHIPPING CLERK has offered to facilitate. Per report, MD spoke to oncology at [facility], who stated that she has not yet had time to respond to therapy, therefore the possible malignant pleural effusion does not necessarily change her prognosis. If her body responds to therapy, her expected survival is 1.5-2 years. If it does not, this will be less. Palliative care has been consulted, and may be able to meet with her this afternoon, if time allows. CM will continue to follow. ADVANCE DIRECTIVES:: Not on file. Palliative Care has been consulted to complete a COLST form. Has patient been provided with info about the portal/API?: Yes Did the patient sign up for the portal?: No INSURANCE COVERAGE / FINANCIAL ISSUES:: Commercial MCR replacement/ [facility]- [facility] [facility] CURRENT HOME/COMMUNITY SERVICES/EQUIPMENT:: Francie currently resides at [facility], who assist her with ADL's. She has a w/c and a brace that she owns. PRIMARY CARE PHYSICIAN:: Lavon Pichardo POTENTIAL DISCHARGE NEEDS:: Follow up appointments PATIENT/FAMILY EDUCATION NEEDS:: Review discharge instructions with pt and facility, discussion of goals of care. ANTICIPATED BARRIERS TO DISCHARGE:: None identified. TRANSPORTATION:: via w/c van, provided by facility PLAN:: Francie continues to be treated and monitored at ICU level of care. Anticipate Francie will return to [facility] once she is medicallly cleared. Palliative care has been consulted. She will follow up with her oncologist and discharge plan of care. She will transport via w/c van, coordinated by CM. CM will continue to follow.
--- NOTE | 2020-06-16 13:29 | NUR.NOTE ---
No kindel membership director with belongings when I brought them in. SW Nursing Note:
--- NOTE | 2020-06-16 15:25 | PHA.REVIEW ---
Pharmacy Admission Review - Admission Clinical Review (Last Updated 05/23/20 @ 11:45 by Zena Aragon MD) Oral thrush (Acute) Diarrhea (Acute) Elevated troponin (Acute) Pneumonia (Acute) Malignant pleural effusion (Acute) Fever (Acute) NSTEMI (non-ST elevated myocardial infarction) (Acute) Malignant pleural effusion (Acute) Metastatic adenocarcinoma to lung (Acute) Discharge planning issues (Acute) DVT prophylaxis (Acute) No Known Allergies Allergy (Unverified 06/15/20 10:07) Height 5 ft 7 in Weight 73.8 kg - Comments Comments/Follow Ups: Zosyn 3.375mg q6h for fever possibly due to necrotizing lung - Renal Dosing Renal Dosing: BUN 12 mg/dL (7-18) 06/16/20 06:52 Creatinine 0.8 mg/dL (0.55-1.02) 06/16/20 06:52 Medications needing adjustments: Reviewed - Anticoagulation Anticoagulation: Hgb 11.8 g/dL (11.2-15.7) 06/16/20 06:52 Hct 38.3 % (36.0-46.0) 06/16/20 06:52 Plt Count 323 10^3/uL (130-400) 06/16/20 06:52 Creatinine 0.8 mg/dL (0.55-1.02) 06/16/20 06:52 Therapeutic Anticoagulation: Reviewed Medications: Heparin - Opiate Usage Evaluate Pain Scale/Pains Meds: N/A - Relevant Labs Sodium 135 mmol/L (136-145) L 06/16/20 06:52 Potassium 4.1 mmol/L (3.5-5.1) 06/16/20 06:52 Chloride 102 mmol/L (98-107) 06/16/20 06:52 Magnesium 1.8 mg/dL (1.8-2.4) 06/16/20 06:52 Electrolytes, C-Reactive P, ESR: Reviewed - DM Control DM Control: Glucose 111 mg/dL (74-106) H 06/16/20 06:52 Insulin Dosing: N/A - Heart Failure/NM Heart Failure/NM: Troponin I 0.40 ng/mL (<0.06) H* 06/16/20 06:52 NT-Pro-B Natriuret Pep 3197 pg/mL (<300) H 06/15/20 12:17 EF%, WHITLEY's, B-Blockers, Diuretics: Reviewed - BP Control BP Control: Blood Pressure [Right Arm] 105/58 Blood Pressure 88/44 Blood Pressure 91/43 Blood Pressure 100/41 Blood Pressure 115/51 Blood Pressure 110/45 Blood Pressure 117/55 Blood Pressure 119/47 Blood Pressure 114/45 Blood Pressure 108/58 If elevated: Reviewed - Qtc Review If Elevated: Reviewed List meds needing interventions: QTc 418 on admission - IV to PO Switch IV Medications: Reviewed - Home Meds Home Med List reviewed: Reviewed Relevent Home Meds Not ordered & why?: lisinopril, HCTZ - Current meds Current Medication Order Review: Reviewed
[2020-06-16 15:40] LABS: PTT Activated 32.8 sec (21.0-27.5)
--- NOTE | 2020-06-16 17:03 | W.SURGCON ---
Date of service: 06/16/20 Time of Service: 17:03 Assessment and Plan Assessment and plan (1) Oral thrush: Status: Acute (2) Elevated troponin: Status: Acute (3) Pneumonia: Status: Acute (4) Malignant pleural effusion: Status: Acute (5) Chronic respiratory failure with hypoxia: Status: Chronic (6) Fever: Status: Acute (7) NSTEMI (non-ST elevated myocardial infarction): Status: Acute (8) Malignant pleural effusion: Status: Acute (9) Metastatic adenocarcinoma to lung: Status: Acute (10) Pleural effusion, right: Status: Acute Assessment and plan: Thoracentesis was performed for the patient today. Please see the operative report for details of the procedure. Fluid was sent for culture and sensitivity, cytology, and for routine studies. AFB's were not ordered. (11) Adenocarcinoma of right lung: Status: Acute (12) Acute exacerbation of chronic obstructive pulmonary disease (COPD): Status: Resolved (13) Wheelchair bound: Status: Acute (14) History of smoking 25-50 pack years: Status: Acute (15) History of hemorrhagic stroke with residual hemiparesis: Status: Chronic History of Present Illness Narrative: pt had immunomodulating meds x1 wk as a start to chemo directed treatment of lung CA. She already carries a Dg. Pt is currently on heparin for ACS that is being treated medically. I d/w Margo and this will be turned on Friday night. will plan on thorcentisis on Friday. Patient has a known right adenocarcinoma of the lung. She is colonized for MRSA via nasal swab. She currently has C. difficile diarrhea and is being treated for this. Her heparin has been off for 12 hours at this point. I did review her CT of the chest. There is may be less than 500 cc in the chest. This is more for diagnostic than symptomatic. Patient does have a significant cough and does get shortness of breath quite easily she is on 2 L of oxygen. She has no hemoptysis. I discussed the procedure with her today what she could expect during the procedure post procedurally, read her recovery time, and risks include not limited to: Bleeding, infection, damage to lung, pneumothorax, need for additional procedures. Consults Consult date: 06/16/20 Review of Systems All systems reviewed & are unremarkable except as noted in HPI and below [facility] Medical History (Updated 06/17/20 @ 12:15 by Suresh Anderson) Asthma C. difficile colitis Cerebrovascular accident Depression Essential hypertension Frequent falls Gastroesophageal reflux disease Goals of care, counseling/discussion Hemiplegia History of hemorrhagic stroke with residual hemiparesis History of smoking 25-50 pack years Hyperlipidemia Lung cancer Oxygen dependent Palliative care patient Polyp of colon Vagina bleeding Wheelchair bound Surgical History (Updated 05/23/20 @ 11:45 by Zena Aragon MD) Cerebral aneurysm repair. History of bronchoscopy History of lung biopsy Family History Mother Personal history of malignant neoplasm colon cancer Father Heart disease Daughter No problems noted. Daughter No problems noted. Daughter No problems noted. Social History Smoking/Tobacco Use Status: Former Tobacco Use Tobacco: How many years used: 40 Smoking risk assessment performed?: Yes Alcohol Intake: never Drug use: Never Substance use type: does not use Caregiver/Support person: No Household members: none Housing: apartment Number of Children: 3 number of grandchildren: 4 Communication Needs: Corrective Lenses Education Level: high school Do you need help understanding health information?: Always current occupation: disabled since stroke age 59 Sexually active: No Current gender identity: female What is your relationship status?: How often do you talk on the phone with friends or family?: three or more times per week How often do you get together with friends or relatives?: never Panel score (0-1 are the most socially isolated patients): 1 What type of physical activity do you participate in: occasional exercise and wheelchair-bound Duration: 15-30 minutes/day Frequency: 3-4 times per week Special jac needs: No Seatbelt use: always Working smoke detector in home: Yes Fire extinguisher in home: Yes Do you feel safe at home: Yes Do you feel safe in your relationship?: Yes Additional Social history: Gerda and her late ex- Ismael after her stroke. He then of cancer soon thereafter. Gerda has 3 daughters, all of whom she is close to. Vimal, her eldest, is her DPOA. She has 4 grandsons, too. She is very proud of all of them. She has not smoked since her stroke. She [facility] the [facility]. Her daughters have talked to her about moving into a place with 24/7 care, such as a community mcc or SNF or Assisted Living. She has not investigated this seriously yet but now facing her likely new cancer diagnosis, she wants more help. Exam Narrative Exam Narrative: PHYSICAL EXAM GENERAL APPEARANCE: Alert, healthy appearance, oriented, in no acute distress. She does have a history of scoliosis and has a pronounced curvature to the spine. SKIN: No rashes. No breakdown HYDRATION: Well hydrated HEAD, EYES, EARS, NECK, THROAT: Head is normocephalic, pupils equal, round, reactive to light and accommodation, ocular movement intact, sclera clear and no jaundice. Dentition intact. No sore throat. No jaw pain. No thrush NECK: Supple, Trachea midline. No JVD. LUNGS: normal respiration/nl chest excursion. Clear to auscultation B/l no R/R/W HEART: Regular rate and rhythm, she has a pronounced dry cough. There is no hemoptysis. EXTREMITY: No edema or cyanosis no leg pain, redness, swelling. No IV infiltration ABDOMEN: non tender to palpation, no masses or distention, no hernias. Normal bowel sounds NEURO: no focal neuro deficits. Results Last Vital Signs Temp 36.3 C L 06/16/20 13:45 Pulse 93 H 06/16/20 16:01 Resp 22 06/16/20 16:01 BP 101/41 L 06/16/20 16:01 Pulse Ox 91 L 06/16/20 14:01 Labs Result diagrams: 06/18/20 06:18 06/17/20 05:30 Labs: Laboratory Results - last 24 hr 06/15/20 06/15/20 06/16/20 17:42 21:05 00:25 WBC RBC Hgb Hct MCV MCH MCHC RDW Plt Count MPV Immature Gran % Neutrophils % Lymphocytes % Monocytes % Eosinophils % Basophils % Nucleated RBC % Absolute Neutrophils Absolute Lymphocytes Absolute Monocytes Absolute Eosinophils Absolute Basophils APTT 26.5 43.6 H D Sodium Potassium Chloride Carbon Dioxide Anion Gap BUN Creatinine Estimated GFR/1.73 m2 Glucose Calcium Magnesium Troponin I 0.53 H* 06/16/20 06/16/20 06/16/20 06:52 06:52 06:52 WBC 11.71 H RBC 4.55 Hgb 11.8 Hct 38.3 MCV 84.2 MCH 25.9 L MCHC 30.8 L RDW 15.9 H Plt Count 323 MPV 9.3 Immature Gran % 0.4 Neutrophils % 75.2 Lymphocytes % 12.6 Monocytes % 9.1 Eosinophils % 2.3 Basophils % 0.4 Nucleated RBC % 0 Absolute Neutrophils 8.81 H Absolute Lymphocytes 1.48 Absolute Monocytes 1.07 H Absolute Eosinophils 0.27 Absolute Basophils 0.05 APTT 38.5 H Sodium 135 L Potassium 4.1 Chloride 102 Carbon Dioxide 27.2 Anion Gap 5.8 BUN 12 Creatinine 0.8 Estimated GFR/1.73 m2 >= 60.00 Glucose 111 H Calcium 7.8 L Magnesium 1.8 Troponin I 0.40 H* 06/16/20 15:16 WBC RBC Hgb Hct MCV MCH MCHC RDW Plt Count MPV Immature Gran % Neutrophils % Lymphocytes % Monocytes % Eosinophils % Basophils % Nucleated RBC % Absolute Neutrophils Absolute Lymphocytes Absolute Monocytes Absolute Eosinophils Absolute Basophils APTT 32.8 H Sodium Potassium Chloride Carbon Dioxide Anion Gap BUN Creatinine Estimated GFR/1.73 m2 Glucose Calcium Magnesium Troponin I
[2020-06-16 17:32] LABS: C Diff PCR Positive (Negative)
[2020-06-16] MEDS: Lidocaine 5% Patch 1 PATCH TP (20:19)
[2020-06-16] MEDS: Vancomycin 125 MG CAP PO (20:20)
[2020-06-16] MEDS: Simvastatin 40 MG TAB PO (20:20)
[2020-06-16] MEDS: Docusate Sodium 100 MG CAP PO (20:21)
[2020-06-16 22:48] LABS: PTT Activated 74.4 sec (21.0-27.5)
[2020-06-17] VITALS (39 sets, daily range): BP systolic 62–135; BP diastolic 43–100; PULSE 77–109; RESP 12–41; TEMP 36.6–37.3; O2SAT 87–96
[2020-06-17] MEDS: Vancomycin 125 MG CAP PO ×4 (01:16→20:41)
[2020-06-17] MEDS: PIPERACILLIN/TAZO 3.375 GM in Normal Saline 50 ML IVPB ×2 (01:16→08:30)
[2020-06-17 05:45] LABS: Abs Immature Grans 0.05 10^3/uL (0.0-0.06); Absolute Basophil Count 0.07 10^3/uL (0.0-0.2); Absolute Eosinophil Count 0.04 10^3/uL (0.0-0.7); Absolute Lymphocyte Count 1.67 10^3/uL (1.2-3.4); Absolute Monocyte Count 1.26 10^3/uL (0.1-0.8); Basophils % 0.5; Eosinophils % 0.3; HCT 36.8 % (36.0-46.0); HGB 11.5 g/dL (11.2-15.7); Immature Grans % 0.4; Lymphocytes % 12.2; MCH 26.4 pg (27.0-33.0); MCHC 31.3 % (32.0-36.0); MCV 84.4 fL (80-95); MPV 9.3 fL (8.0-11.0); Monocytes % 9.2; Neutrophils % 77.4; Nucleated RBC 0 %; Platelet Count 323 10^3/uL (130-400); RBC 4.36 10^6/uL (3.93-5.22); RDW 15.9 % (11.7-14.6); RDW-SD 49.1 fL; WBC 13.72 10^3/uL (4.4-10.8)
[2020-06-17 05:46] LABS: Absolute Neutrophil Count 10.62 10^3/uL (1.2-6.7)
[2020-06-17 05:53] LABS: Anion Gap 6.8 mmol/L (3-11); BUN 10 mg/dL (7-18); CO2 26.2 mmol/L (21.0-32.0); CREATININE 0.9 mg/dL (0.55-1.02); Calcium 7.5 mg/dL (8.5-10.1); Chloride 102 mmol/L (98-107); Glucose 135 mg/dL (74-106); Magnesium 1.8 mg/dL (1.8-2.4); Potassium 3.5 mmol/L (3.5-5.1); Sodium 135 mmol/L (136-145)
[2020-06-17 06:01] LABS: PTT Activated 74.1 sec (21.0-27.5)
[2020-06-17] MEDS: Nystatin 500000 UNITS/5 ML SUSP 5ML CUP PO (06:02)
[2020-06-17] MEDS: Pantoprazole 40 MG TABCR PO (09:17)
[2020-06-17] MEDS: Calcium 600mg/Vit D 200U TAB 1 TAB PO (09:18)
[2020-06-17] MEDS: Lactobacillus Acidophilus CAP 1 CAP PO ×3 (09:18→20:43)
[2020-06-17] MEDS: Gabapentin 100 MG CAP PO ×3 (09:18→20:43)
[2020-06-17] MEDS: Potassium Chloride 20 MEQ TABCR PO (09:18)
[2020-06-17] MEDS: Aspirin E.C. 81 MG TABEC PO (09:18)
[2020-06-17] MEDS: Escitalopram 10 MG TAB 5 MG PO (09:18)
--- NOTE | 2020-06-17 11:35 | W.PM.PROGNOT ---
Date of Service Date of service: 06/17/20 Time of Service: 10:40 Assessment and Plan Assessment and plan (1) NSTEMI (non-ST elevated myocardial infarction): Status: Acute Assessment and plan: Vs demand ischemia vs immune-mediated myocarditis. Treated medically for NSTEMI. This point its been about 48 hours on the heparin and given some bleeding, I will stop Continue asa, statin (and we would use high intensity statin but will clarify her history before changing). Echo without wall motion abnormalities, and no PE on CTA. COVID-19 ruled out. Consider transfer to floor (2) Fever: Status: Acute Assessment and plan: ?Tumor fever/immune mediated? No evidence of PNA on CTA or UTI; however, there seems to be necrosis, which could be the cause of fever. Now we have positive C. difficile could also explain. Because it is hard to rule out infection in a necrotizing lung, she has been on Zosyn. However, given never had signs of respiratory infection we have an alternative infectious source for the fever and the C. difficile, I will stop Zosyn. If fevers recur or fluid looks infectious on thoracentesis, I will reconsider. Await blood cultures, negative so far. (3) Metastatic adenocarcinoma to lung: Status: Acute Assessment and plan: T3N3M1 (when bone mets were not yet known). Also, malignant pleural effusion suspected. General surgery is consulted for thoracenthesis. Awaiting conversation with [facility] oncology. We forwarded images to [facility] onc. Code status is now DNR/DNI. Awaiting palliative care consult. (4) Malignant pleural effusion: Status: Acute Assessment and plan: As above. (5) Chronic respiratory failure with hypoxia: Status: Chronic Assessment and plan: At baseline. Target O2 sat> 88% (6) Oral thrush: Status: Acute Assessment and plan: Nystatin swish and spit. (7) C. difficile colitis: Status: Acute Assessment and plan: She is on oral vancomycin. Discontinuing antibiotics as above, which should also help. (8) Vagina bleeding: Status: Acute Assessment and plan: In the setting of heparin anticoagulation. She should have a work-up with postmenopausal bleeding. Make sense to start with a pelvic ultrasound, but this can be done not acutely unless the bleeding continues. My case will do a pelvic exam with bedside ultrasound. (9) DVT prophylaxis: Status: Acute Assessment and plan: High risk with malignancy. She did bleed with full dose heparin. I think prophylactic dose heparin is reasonable as long as her vaginal bleeding is not ongoing or life-threatening. (10) Discharge planning issues: Status: Acute Assessment and plan: DNR/DNI Palliative care Total Critical Care Time 45 minutes Subjective Subjective Interval history since last seen: 24 hr: MRSA nasal screen positive c. dificile stool PCR positive, started on oral vancomycin Continues on heparin drip per protocol S: Marissa still feels rundown, but she denies focal pain, including chest pain. Her breathing is about the same. Minimal cough. She gets nauseous with the nystatin, but otherwise no nausea and no vomiting. She did eat lunch. she does not feel like she has had a fever. Still having orangish liquid stool. After I saw her, report of vaginal bleeding. This is the second time she had bleeding, initially felt to be hemorrhoid but this time clearly vaginal. Exam Narrative Exam Narrative: General: Very pleasant elderly female, looks a bit uncomfortable lying sideways in the bed, A&Ox3 HEENT: EOMI, MMM Cardiovascular: RRR. Do appreciate 1-2 out of 6 systolic murmur at apex Lungs: Diminished dull breath sounds on R, clear to auscultation on the L, normal effort Gastrointestinal: soft, nontender, nondistended, active bowel sounds Extremities: trace edema BLE's, nontender. moves left side but limited, more stiff. Objective Last Vital Signs Temp 37.3 C 06/17/20 10:17 Pulse 96 H 06/17/20 10:17 Resp 24 06/17/20 10:17 BP 102/45 L 06/17/20 10:17 Pulse Ox 96 06/17/20 10:17 Laboratory Results - last 24 hr 06/16/20 06/16/20 06/16/20 15:16 15:55 18:54 WBC RBC Hgb Hct MCV MCH MCHC RDW Plt Count MPV Immature Gran % Neutrophils % Lymphocytes % Monocytes % Eosinophils % Basophils % Nucleated RBC % Absolute Neutrophils Absolute Lymphocytes Absolute Monocytes Absolute Eosinophils Absolute Basophils APTT 32.8 H Cancelled Sodium Potassium Chloride Carbon Dioxide Anion Gap BUN Creatinine Estimated GFR/1.73 m2 Glucose Calcium Magnesium Stl C.difficile Tox PCR Positive A 06/16/20 06/17/20 06/17/20 22:05 05:30 05:30 WBC 13.72 H RBC 4.36 Hgb 11.5 Hct 36.8 MCV 84.4 MCH 26.4 L MCHC 31.3 L RDW 15.9 H Plt Count 323 MPV 9.3 Immature Gran % 0.4 Neutrophils % 77.4 Lymphocytes % 12.2 Monocytes % 9.2 Eosinophils % 0.3 Basophils % 0.5 Nucleated RBC % 0 Absolute Neutrophils 10.62 H Absolute Lymphocytes 1.67 Absolute Monocytes 1.26 H Absolute Eosinophils 0.04 Absolute Basophils 0.07 APTT 74.4 H D Sodium 135 L Potassium 3.5 Chloride 102 Carbon Dioxide 26.2 Anion Gap 6.8 BUN 10 Creatinine 0.9 Estimated GFR/1.73 m2 >= 60.00 Glucose 135 H Calcium 7.5 L Magnesium 1.8 Stl C.difficile Tox PCR 06/17/20 05:30 WBC RBC Hgb Hct MCV MCH MCHC RDW Plt Count MPV Immature Gran % Neutrophils % Lymphocytes % Monocytes % Eosinophils % Basophils % Nucleated RBC % Absolute Neutrophils Absolute Lymphocytes Absolute Monocytes Absolute Eosinophils Absolute Basophils APTT 74.1 H Sodium Potassium Chloride Carbon Dioxide Anion Gap BUN Creatinine Estimated GFR/1.73 m2 Glucose Calcium Magnesium Stl C.difficile Tox PCR
[2020-06-17] MEDS: Enoxaparin 40 MG/0.4 ML SYR SC (14:00)
--- NOTE | 2020-06-17 16:06 | PDOC.CMPRO ---
- If Service Date Differs Date of service: 06/17/20 Time of Service: 16:06 Care Management Progress Note S/O: Francie remains at ICU level of care. Per report, she is C.Diff positive as well as MRSA positive. A surgical consult was placed, and thoracenthesis will likely occur tomorrow. She will return to [facility] once medically cleared. CM will continue to follow. A: Francie is a 74 year old female admitted to [facility] on 06/15/20 with NSTEMI, Tumor Fever. P: Francie will return to [facility] once she is medically cleared. A palliative care consult has been placed, but will not be able to meet with Gerda over the weekend. She will transport via facility w/c van, coordinated by CM. CM will continue to follow.
--- NOTE | 2020-06-17 16:55 | PGE_ITS ---
Date of Service Date of service: 06/18/20 Time of Service: 14:52 Assessment and Plan Assessment and plan (1) NSTEMI (non-ST elevated myocardial infarction): Status: Acute Assessment and plan: Vs demand ischemia vs immune-mediated myocarditis. Treated medically for NSTEMI. Status post 48 hours of heparin drip. Continue asa, statin. Changed to high intensity. Echo without wall motion abnormalities, and no PE on CTA. (2) Fever: Status: Acute Assessment and plan: ?Tumor fever/immune mediated? No evidence of PNA on CTA or UTI; however, there seems to be necrosis, which could be the cause of fever. Now we have positive C. difficile could also explain. Most and was discontinued yesterday without an increase in as per symptoms or recurrence of fever. If fevers recur or fluid looks infectious on thoracentesis, I will reconsider. Await blood cultures, negative so far. (3) Metastatic adenocarcinoma to lung: Status: Acute Assessment and plan: T3N3M1 (when bone mets were not yet known). Also, malignant pleural effusion suspected. General surgery is consulted for thoracenthesis. Awaiting input from [facility] oncology, I did contact again on Friday. We forwarded images to [facility] onc. Code status is now DNR/DNI. (4) Malignant pleural effusion: Status: Acute Assessment and plan: As above. Held for thoracentesis with Dr. Henry today. We discussed sending for cytology and cultures along with all counts and fluid analysis. (5) Chronic respiratory failure with hypoxia: Status: Chronic Assessment and plan: At baseline. Target O2 sat> 88% (6) Oral thrush: Status: Acute Assessment and plan: Nystatin swish and spit. Looks like it has cleared up, so we can discontinue this in another day or 2 as it is causing her nausea. (7) C. difficile colitis: Status: Acute Assessment and plan: She is on oral vancomycin. Discontined IV antibiotics as above, which should also help. Rectal do seem to be slowing down. (8) Vagina bleeding: Status: Acute Assessment and plan: In the setting of heparin anticoagulation, but has continued today. She has no history of bleeding since menopause, and has no history of abnormal Paps. She should have a work-up with postmenopausal bleeding. Plan to start with a pelvic ultrasound tomorrow. May be simply her atrophic vaginitis in the setting of anticoagulation, did her pelvic exam if this continues and ultrasound not revealing. (9) DVT prophylaxis: Status: Acute Assessment and plan: High risk with malignancy. She did bleed with full dose heparin. I think prophylactic dose heparin is reasonable as long as her vaginal bleeding is not ongoing or life-threatening, but holding for thoracentesis today, resume after (10) Discharge planning issues: Status: Acute Assessment and plan: DNR/DNI Palliative care Subjective Subjective Patient reports: no new complaints and diarrhea Interval history since last seen: 24-hour: Zosyn discontinued, no recurrence of fever Discontinued after 48 hours Patient improved from ICU to floor Patient feels the same. Still tired. [place] like she could get up and walk this morning, but more tired this afternoon. Denies chest pain or palpitations. Denies fevers. No vomiting, though she still nauseous after using this nystatin swish and swallow. Still getting a cough with some clear sputum, no change. Still getting loose stools, but small amount per nursing. Also continued small amounts of vaginal bleeding. Exam Narrative Exam Narrative: General: Pleasant elderly female, looks a bit uncomfortable but not in distress, A&Ox3 HEENT: EOMI, MMM Cardiovascular: RRR. 1 out of 6 systolic murmur at apex Lungs: Diminished dull breath sounds on R, clear to auscultation on the L, normal effort Gastrointestinal: soft, nontender, nondistended, active bowel sounds Extremities: trace edema BLE's, nontender. moves left side but limited, more stiff. Objective Last Vital Signs Temp 37.3 C 06/17/20 11:48 Pulse 96 H 06/17/20 11:48 Resp 24 06/17/20 11:48 BP 102/45 L 06/17/20 11:48 Pulse Ox 96 06/17/20 11:48 Laboratory Results - last 24 hr 06/16/20 06/16/20 06/16/20 15:55 18:54 22:05 WBC RBC Hgb Hct MCV MCH MCHC RDW Plt Count MPV Immature Gran % Neutrophils % Lymphocytes % Monocytes % Eosinophils % Basophils % Nucleated RBC % Absolute Neutrophils Absolute Lymphocytes Absolute Monocytes Absolute Eosinophils Absolute Basophils APTT Cancelled 74.4 H D Sodium Potassium Chloride Carbon Dioxide Anion Gap BUN Creatinine Estimated GFR/1.73 m2 Glucose Calcium Magnesium Stl C.difficile Tox PCR Positive A 06/17/20 06/17/20 06/17/20 05:30 05:30 05:30 WBC 13.72 H RBC 4.36 Hgb 11.5 Hct 36.8 MCV 84.4 MCH 26.4 L MCHC 31.3 L RDW 15.9 H Plt Count 323 MPV 9.3 Immature Gran % 0.4 Neutrophils % 77.4 Lymphocytes % 12.2 Monocytes % 9.2 Eosinophils % 0.3 Basophils % 0.5 Nucleated RBC % 0 Absolute Neutrophils 10.62 H Absolute Lymphocytes 1.67 Absolute Monocytes 1.26 H Absolute Eosinophils 0.04 Absolute Basophils 0.07 APTT 74.1 H Sodium 135 L Potassium 3.5 Chloride 102 Carbon Dioxide 26.2 Anion Gap 6.8 BUN 10 Creatinine 0.9 Estimated GFR/1.73 m2 >= 60.00 Glucose 135 H Calcium 7.5 L Magnesium 1.8 Stl C.difficile Tox PCR 06/17/20 12:40 WBC RBC Hgb Hct MCV MCH MCHC RDW Plt Count MPV Immature Gran % Neutrophils % Lymphocytes % Monocytes % Eosinophils % Basophils % Nucleated RBC % Absolute Neutrophils Absolute Lymphocytes Absolute Monocytes Absolute Eosinophils Absolute Basophils APTT 41.0 H D Sodium Potassium Chloride Carbon Dioxide Anion Gap BUN Creatinine Estimated GFR/1.73 m2 Glucose Calcium Magnesium Stl C.difficile Tox PCR
[2020-06-17] MEDS: Acetaminophen 325 MG TAB 650 MG PO (20:41)
[2020-06-17] MEDS: Simvastatin 40 MG TAB PO (20:42)
[2020-06-17] MEDS: Normal Saline Flush 10 ML SYR IVP (20:42)
[2020-06-17] MEDS: Refresh PLUS Eye Drops 0.4ml 1 EACH OP (20:42)
[2020-06-17] MEDS: diazePAM 2 MG TAB PO (20:43)
[2020-06-17] MEDS: Lidocaine 5% Patch 1 PATCH TP (20:47)
[2020-06-18] VITALS (10 sets, daily range): BP systolic 104–138; BP diastolic 56–68; PULSE 74–99; RESP 16–19; TEMP 36.3–37; O2SAT 92–94
[2020-06-18] MEDS: Normal Saline Flush 10 ML SYR IVP (02:35)
[2020-06-18] MEDS: Vancomycin 125 MG CAP PO ×4 (02:35→21:11)
[2020-06-18] MEDS: Acetaminophen 325 MG TAB 650 MG PO ×2 (05:07→14:25)
[2020-06-18 07:08] LABS: Abs Immature Grans 0.04 10^3/uL (0.0-0.06); Absolute Basophil Count 0.03 10^3/uL (0.0-0.2); Absolute Eosinophil Count 0.16 10^3/uL (0.0-0.7); Absolute Lymphocyte Count 1.54 10^3/uL (1.2-3.4); Absolute Monocyte Count 0.97 10^3/uL (0.1-0.8); Absolute Neutrophil Count 7.62 10^3/uL (1.2-6.7); Basophils % 0.3; Eosinophils % 1.5; HCT 36.6 % (36.0-46.0); HGB 11.2 g/dL (11.2-15.7); Immature Grans % 0.4; Lymphocytes % 14.9; MCH 26.4 pg (27.0-33.0); MCHC 30.6 % (32.0-36.0); MCV 86.1 fL (80-95); MPV 9.3 fL (8.0-11.0); Monocytes % 9.4; Neutrophils % 73.5; Nucleated RBC 0 %; Platelet Count 361 10^3/uL (130-400); RBC 4.25 10^6/uL (3.93-5.22); RDW 16.1 % (11.7-14.6); RDW-SD 50.3 fL; WBC 10.36 10^3/uL (4.4-10.8)
[2020-06-18] MEDS: Budesonide/Formoterol 160/4.5 6 GM 60 PUFF INH IH ×2 (08:08→21:09)
[2020-06-18] MEDS: Calcium 600mg/Vit D 200U TAB 1 TAB PO (09:25)
[2020-06-18] MEDS: Aspirin E.C. 81 MG TABEC PO (09:25)
[2020-06-18] MEDS: Gabapentin 100 MG CAP PO ×3 (09:25→21:12)
[2020-06-18] MEDS: Escitalopram 10 MG TAB 5 MG PO (09:25)
[2020-06-18] MEDS: Lactobacillus Acidophilus CAP 1 CAP PO ×3 (09:25→21:11)
[2020-06-18] MEDS: Potassium Chloride 20 MEQ TABCR PO (09:26)
[2020-06-18] MEDS: Pantoprazole 40 MG TABCR PO (09:26)
--- NOTE | 2020-06-18 15:00 | PAPNONF_PTH ---
PATIENT: HENRI JUSTICE LOC: U#:[id number] AGE/SX: 74/F ROOM: RE06/15/[address]: Zena Aragon : 1945 BED: A DIS: 06/20/2020 SPEC #: [id number] RECD: 06/19/20 13:16 STATUS: GOLDY REMicki #: [id number] LAMBERT: 06/18/20 15:[address]: Zena Aragon DEPT: [facility] Cytology RECD BY: Vanita Smith ENTERED: 06/19/20 13:17 SP TYPE: LEON BOWER DR: Lavon Pichardo Laura M Tissues: 1 - BODY FLUID CYTO(NOT S/U/N/EM)[facility] Procedures: BODY FLUID CYTO(NOT SPU/UR/NIP/ENDOM)[facility] IMMUNOPEROXIDASE STAIN CYTOLOGY CELL BLOCK Comments: [id number] (TOTAL VOLUME = 170 ml's, SENT FRESH)
--- NOTE | 2020-06-18 15:32 | DI.RAD_ITS ---
EXAM: XR PORTABLE CHEST AP CLINICAL HISTORY: post procedure TECHNIQUE: 2D digital imaging was performed. COMPARISON: CR XR PORTABLE CHEST AP from 06/15/2020 FINDINGS: LUNGS: Mild basilar atelectasis. Small right pleural effusion, slightly decreased from the previous exam. No evidence of pneumothorax.. Multiple leads are coiled over chest. Left lung is clear. HEART: Within normal limits for projection. . IMPRESSION: Mild interval decrease in size of right pleural effusion. No evidence of pneumothorax.. DATA REPOSITORY: RADIATION DOSE DELIVERED:
--- NOTE | 2020-06-18 15:38 | W.PM.OP ---
Date of service: 06/18/20 Time of Service: 15:38 Operative Note Operative Note DATE OF PROCEDURE: 06/18/20 PRE-OP DIAGNOSIS: malig pleural eff POST-OP DIAGNOSIS: same PROCEDURE: thorocentisis SURGEON: Latasha Henry ANESTHESIA: local ESTIMATED BLOOD LOSS: 0 PATHOLOGY: other COMPLICATIONS: None Patient was transported to: no change Findings: 300cc serous orange fluid removed. sent for fluid studies/ctyology adn culture. CXR shows no postOP PTX. pt tolerated procedure well. Procedure Description: Pt is here today for thoracentesis for symptoms of shortness of breath. Chest x-ray was reviewed prior to beginning the procedure. Informed consent was obtained explaining risks and benefits of the procedure, including but not limited to bleeding, infection, pneumothorax, recurrence, complications of anesthesia, and other unforetold complications. PROCEDURE: The patient is brought to the procedure room and placed in the seated position. Ultrasound is used to localize the pocket on the left chest. The area is marked and then prepped and draped in the usual sterile fashion using a ChloraPrep scrub solution. 10 cc's of 1% Lidocaine is used to anesthetize the T10 interspace. The small joan is made with a #11 blade. The needle and catheter is then inserted over the top of the rib, aspirating as it is inserted. The needle is then removed. The catheter is then hooked up to the Vacutainer system and 300 cc's of straw-colored, clear fluid is evacuated. The catheter is removed; pressure is held. Sterile compression dressing is applied. Portable chest x-ray shows no pneumothorax. Pt is given instructions in wound care, activity, medications, and warning signs: SOB, increasing in pain, chest pain, redness or temperature- if these occur, come to ED.
--- NOTE | 2020-06-18 16:03 | DI.VRAD_ITS ---
PROCEDURE INFORMATION: Exam: XR Chest, 1 View Exam date and time: 06/18/2020 3:33 PM Age: 74 years old Clinical indication: Other: Post procedure TECHNIQUE: Imaging protocol: XR of the chest Views: 1 view. COMPARISON: CR XR PORTABLE CHEST AP 06/15/2020 11:10 AM FINDINGS: Lungs: There is mild basilar atelectasis. There is no new lobar consolidation Pleural spaces: There is persistent small right pleural effusion. There is no evidence of pneumothorax. Heart/Mediastinum: Heart, mediastinum are unchanged. Bones/joints: The bony structures are osteopenic, unchanged. Degenerative changes are seen in the spine IMPRESSION: No new or acute findings. Persistent small right pleural effusion with associated basilar atelectasis. Dictated and Authenticated by: Katharine Allan MD. Ordering:RENATO Pagan MD
[2020-06-18 16:19] LABS: Source Pleural
[2020-06-18 16:20] LABS: Clarity Clear; Nucleated Cells 963 uL (0)
[2020-06-18 16:33] LABS: Mononuclear Cells 85 %; Polynuclear Cells 5 %
[2020-06-18 16:35] LABS: Other Cells 10 %
[2020-06-18 18:07] LABS: Source: Pleural; pH Body Fluid 7
--- NOTE | 2020-06-18 18:23 | CMPROGNOTE_ITS ---
- If Service Date Differs Date of service: 06/18/20 Time of Service: 18:23 Care Management Progress Note S/O: Francie was having a thoracentesis today with Dr. Henry. Per report, she feels tired today. She has been having frequent diarrhea, and is positive for C.Diff. CM was unable to meet with her today. CM will continue to follow. A: Francie is a 74 year old female admitted to [facility] on 06/15/20 with NSTEMI, Tumor Fever. P: Francie will return to [facility] once she is medically cleared. A palliative care consult has been placed, but will not be able to meet with Gerda over the weekend. She will transport via facility w/c van, coordinated by [facility]. CM will continue to follow.
[2020-06-18] MEDS: Refresh PLUS Eye Drops 0.4ml 1 EACH OP (21:08)
[2020-06-18] MEDS: Diclofenac 1% Gel 100 GM TUBE TP (21:09)
[2020-06-18] MEDS: Lidocaine 5% Patch 1 PATCH TP (21:10)
[2020-06-18] MEDS: Atorvastatin 40 MG TAB 80 MG PO (21:12)
[2020-06-19] VITALS (8 sets, daily range): BP systolic 114–124; BP diastolic 57–71; PULSE 79–97; RESP 17–18; TEMP 36.1–37.1; O2SAT 92–96
--- NOTE | 2020-06-19 | DI.US_ITS ---
EXAM: US PELVIS TRANSVAGINAL CLINICAL HISTORY: Heavy postmenopausal bleed. TECHNIQUE: Transabdominal and transvaginal pelvic ultrasound was performed using standard protocol. COMPARISON: No exams were available for comparison FINDINGS: KIDNEYS: Kidneys are symmetric in size. No evidence of renal calculi. No evidence of hydronephrosis. No renal mass or cyst identified. UTERUS: Position: Anteverted. Size: 9.1 long by 4.6 AP by 6.5 transverse cm Endometrium: The fundal endometrial stripe measures up to 1.9 cm. Within the lower uterine segment/c ervix of the endometrium there is a heterogeneously echogenic masslike region measuring 2.9 x 1.5 x 2 .4 cm. This may represent a mass or possible clot. Myometrium: Unremarkable. Cervix: Please see the above discussion. OVARIES: Right: 2 x 0.8 x 1.8 cm Cyst or mass: None. Left: 1.9 x 1.5 x 1.2 cm Cyst or mass: None. CUL-DE-SAC: Free fluid: None. Other: Incidental note is made of a 1.4 x 1 x 1.0 cm hypoechoic mass in the inferior right liver. Gi fiona the patient's clinical history, metastasis cannot be excluded. IMPRESSION: 1. Normal sonographic appearance of the kidneys. 2. Thickened heterogeneous endometrium. Endometrial mass/carcinoma should be considered. Metastatic d isease or clot may also be considered. 3. 1.4 x 1 x 1 cm hypoechoic mass in the right lobe of the liver. Metastasis should be considered. If further imaging is warranted, CT scan of the abdomen should be obtained. 4. Unremarkable bilateral ovaries. DATA REPOSITORY:
[2020-06-19] MEDS: Acetaminophen 325 MG TAB 650 MG PO ×2 (01:24→12:14)
[2020-06-19] MEDS: Vancomycin 125 MG CAP PO ×4 (01:25→20:41)
[2020-06-19] MEDS: Budesonide/Formoterol 160/4.5 6 GM 60 PUFF INH IH ×2 (08:08→20:40)
[2020-06-19] MEDS: Diclofenac 1% Gel 100 GM TUBE TP ×4 (08:12→20:40)
[2020-06-19] MEDS: Lactobacillus Acidophilus CAP 1 CAP PO ×3 (08:13→20:40)
[2020-06-19] MEDS: Gabapentin 100 MG CAP PO ×3 (08:13→20:41)
[2020-06-19] MEDS: Pantoprazole 40 MG TABCR PO (08:13)
[2020-06-19] MEDS: Potassium Chloride 20 MEQ TABCR PO (08:13)
[2020-06-19] MEDS: Aspirin E.C. 81 MG TABEC PO (08:13)
[2020-06-19] MEDS: Escitalopram 10 MG TAB 5 MG PO (08:13)
[2020-06-19] MEDS: Calcium 600mg/Vit D 200U TAB 1 TAB PO (08:14)
[2020-06-19 12:13] LABS: Campylobacter PCR Negative (Negative); Salmonella PCR Negative (Negative); Shiga Toxin PCR Negative (Negative); Shigella/Enteroinvasive Ecoli Negative (Negative)
[2020-06-19] MEDS: diazePAM 2 MG TAB PO ×2 (12:14→22:03)
--- NOTE | 2020-06-19 14:32 | W.NUTRFU ---
Date of service: 06/19/20 Time of Service: 14:32 Nutritional Follow up NOTE: 74 year old female admitted with c diff, thrush, Lung CA, respiratory failure with NSTEMI and tumor fever. s/p thoracentesis for malignant pleural effusion. Following Heart Healthy Diet with excellent intake. Recommend banana flakes to help with C diff. Not at nutritional risk at this clark. Will continue to follow. Time Spent in Nutritional Counseling and Treatment: 0
--- NOTE | 2020-06-19 16:14 | DI.VRAD_ITS ---
PROCEDURE INFORMATION: Exam: US Pelvis Complete, Transabdominal and US Pelvis, Transvaginal Exam date and time: 06/19/2020 3:43 PM Age: 74 years old Clinical indication: Menstruation abnormalities; Postmenopausal bleeding; Patient HX: Heavy post-menopausal bleeding. TECHNIQUE: Imaging protocol: Real-time transabdominal and transvaginal pelvic ultrasound (complete) with image documentation. Transvaginal imaging was used for better evaluation of the endometrium, adnexa, and/or cervix. COMPARISON: CT CHEST PE ABD PELVIS W 04/17/2020 9:18 AM FINDINGS: Uterus/cervix: The uterus measures 9.1 x 4.6 x 6.5 cm. The endometrial echo complex is expanded at the fundus measuring 1.9 cm. Within the lower uterine segment/cervix there is a heterogeneously echoic mass versus clot measuring 2.9 x 1.5 x 2.4 cm. Right adnexa: The right ovary measures 2.0 x 0.8 x 1.8 cm. Left adnexa: The left ovary measures 1.9 x 1.5 x 1.2 cm. No adnexa mass or cyst. Intraperitoneal space: No evidence for pelvic free fluid. Urinary bladder: Normal. Right kidney: The right kidney measures 10.6 cm. Left kidney: The left kidney measures 11.6 cm. No renal calculus, mass, hydronephrosis, or perinephric fluic collection. Liver: Incidentally visualized small inferior right hepatic hypoechoic finding likely representing a metastasis measuring 1.4 x 1.0 x 1.0 cm. IMPRESSION: 1. Distended uterine cavity with a mass representing primary endometrial carcinoma versus metastasis. 2. A 1.4 x 1.0 cm inferior right liver lobe hypoechoic finding suggestive of a metastasis. Dictated and Authenticated by: Raheem Arriaga MD. Ordering:KLAUDIA Prince MD
[2020-06-19 18:09] LABS: Albumin, Body FLuid 1.6 g/dL (See Note); Glucose, Fluid 107 mg/dL (See Note)
--- NOTE | 2020-06-19 20:05 | PGE_ITS ---
Date of Service Date of service: 06/19/20 Time of Service: 18:05 Assessment and Plan Assessment and plan (1) NSTEMI (non-ST elevated myocardial infarction): Status: Acute Assessment and plan: Vs demand ischemia vs immune-mediated myocarditis. Treated medically for NSTEMI. Status post 48 hours of heparin drip. Continue asa, statin. Changed to high intensity. Echo without wall motion abnormalities, and no PE on CTA. Continue to monitor for symptoms. (2) Fever: Status: Acute Assessment and plan: ?Tumor fever/immune mediated? No evidence of PNA on CTA or UTI; however, there seems to be necrosis, which could be the cause of fever. Now we have positive C. difficile could also explain fever. Pip/Tazo was discontinued 06/17/20 yesterday without an increase in respiratory symptoms or recurrence of fever. If fevers recur or fluid looks infectious on thoracentesis, I will reconsider. Some WBC in fluid but no bacteria, not purlulent. Await blood cultures, and now pleural fluid cultures, negative so far. (3) Metastatic adenocarcinoma to lung: Status: Acute Assessment and plan: T3N3M1 (when bone mets were not yet known). CT on admission shows additional lung lesions, malignant pleural effusion suspected. Cytology pending of pleural fluid.. Awaiting input from [facility] [place] [place] oncology, I did contact again on Friday. We forwarded images to [facility] [place] [place] onc. Code status is now DNR/DNI. (4) Malignant pleural effusion: Status: Acute Assessment and plan: As above. Thoracentesis with Dr. Henry 06/18/20. (5) Chronic respiratory failure with hypoxia: Status: Chronic Assessment and plan: At baseline. Target O2 sat> 88% (6) Oral thrush: Status: Acute Assessment and plan: Nystatin swish and spit. Looks like it has cleared up, so we can discontinue this 2/2 as it is causing her nausea. (7) C. difficile colitis: Status: Acute Assessment and plan: She is on oral vancomycin. Discontined IV antibiotics as above, which should also help. Stools are slowing down. (8) Vagina bleeding: Status: Acute Assessment and plan: In the setting of heparin anticoagulation, but has continued today. She had no history of bleeding since menopause. U/s shows endometrial mass, suspicious for primary malignancy vs metastasis. Consult CERTIFIED RECREATIONAL THERAPIST for possible biopsy and bleeding manangement suggestions. (9) DVT prophylaxis: Status: Acute Assessment and plan: High risk with malignancy. She did bleed with full dose heparin. I think prophylactic dose heparin is reasonable as long as her vaginal bleeding is not severe or life-threatening, but okay to hold for procedures. (10) Discharge planning issues: Status: Acute Assessment and plan: DNR/DNI Reconsult Palliative care tomorrow I talked to Daughter Afua. She would like help for her mom to set up [facility] portal access so she can review her mom's results with her mom's permission. Subjective Subjective Patient reports: tolerating a regular diet; denies blood in stool and vomiting Interval history since last seen: 24 hr: Throracentisis done by Dr. Henry Patient still feels tired. She is still a little SOB, but no worse. Cough is similar, not productive. She still getting vaginal bleeding, some clots today per nursing. Still nausea with nystatin. Stools are less today, improved. Exam Narrative Exam Narrative: General: Pleasant elderly female, looks a bit uncomfortable but not in distress, A&Ox3 HEENT: EOMI, MMM Cardiovascular: RRR. 1 out of 6 systolic murmur at apex Lungs: Diminished dull breath sounds on R, clear to auscultation on the L, normal effort Gastrointestinal: soft, nontender, nondistended, active bowel sounds Extremities: trace edema BLE's, nontender. moves left side but limited, more stiff. Objective Last Vital Signs Temp 36.6 C 06/19/20 15:49 Pulse 79 06/19/20 15:49 Resp 18 06/19/20 15:49 BP 118/71 06/19/20 15:49 Pulse Ox 94 06/19/20 15:49 Laboratory Results - last 24 hr 06/16/20 15:55 Stool Campylobacter PCR Negative Stool Salmonella PCR Negative Stool Shigella PCR Negative Shiga Toxin (PCR) Negative
--- NOTE | 2020-06-19 20:25 | CMPROGNOTE_ITS ---
- If Service Date Differs Date of service: 06/19/20 Time of Service: 20:25 Care Management Progress Note S/O: Francie was sitting up in bed when CM met with her. She reported that she wasn't feeling great today, specifically because she continues to have diarrhea. CM discussed her discharge plan, which will be for her to return to [facility] once she is medically cleared. CM also discussed this with her daughter, Karlene. Karlene asked about coordinating a zoom meeting with potential [facility] homes during this admission, which CM did not feel appropriate, as she is acutely ill, and has diarrhea which is at times unpredictable. CM will continue to follow. A: Francie is a 74 year old female admitted to [facility] on 06/15/20 with NSTEMI, Tumor Fever. P: Francie will return to [facility] once she is medically cleared. A palliative care consult has been placed, which will likely happen early this week. If not, she can follow up with Palliative as an outpatient, and they will visit her at [facility]. She will transport via facility w/c van, coordinated by [facility]. CM will continue to follow.
[2020-06-19] MEDS: Atorvastatin 40 MG TAB 80 MG PO (20:41)
[2020-06-19] MEDS: Lidocaine 5% Patch 1 PATCH TP (20:42)
[2020-06-20] MEDS: Vancomycin 125 MG CAP PO ×2 (02:34→08:46)
[2020-06-20 03:40] VITALS: BP 117/60; PULSE 85; RESP 18; TEMP 37.5; O2SAT 94
[2020-06-20 07:29] LABS: HCT 38.7 % (36.0-46.0); HGB 11.9 g/dL (11.2-15.7); MCHC 30.7 % (32.0-36.0); MCV 84.5 fL (80-95); MPV 9.2 fL (8.0-11.0); Platelet Count 356 10^3/uL (130-400); RBC 4.58 10^6/uL (3.93-5.22); RDW 16.1 % (11.7-14.6); RDW-SD 49.6 fL; WBC 11.34 10^3/uL (4.4-10.8)
[2020-06-20 07:31] VITALS: PULSE 80
[2020-06-20 07:47] LABS: Anion Gap 6.8 mmol/L (3-11); BUN 11 mg/dL (7-18); CO2 25.2 mmol/L (21.0-32.0); CREATININE 0.7 mg/dL (0.55-1.02); Calcium 8.1 mg/dL (8.5-10.1); Chloride 106 mmol/L (98-107); Glucose 111 mg/dL (74-106); Potassium 4.4 mmol/L (3.5-5.1); Sodium 138 mmol/L (136-145)
[2020-06-20] MEDS: Budesonide/Formoterol 160/4.5 6 GM 60 PUFF INH IH (08:18)
[2020-06-20 08:30] VITALS: BP 106/67; PULSE 72; RESP 17; TEMP 36.6; O2SAT 94
[2020-06-20] MEDS: Diclofenac 1% Gel 100 GM TUBE TP ×2 (08:45→11:28)
[2020-06-20] MEDS: Escitalopram 10 MG TAB 5 MG PO (08:45)
[2020-06-20] MEDS: Lactobacillus Acidophilus CAP 1 CAP PO (08:46)
[2020-06-20] MEDS: Potassium Chloride 20 MEQ TABCR PO (08:46)
[2020-06-20] MEDS: Pantoprazole 40 MG TABCR PO (08:46)
[2020-06-20] MEDS: Gabapentin 100 MG CAP PO (08:46)
[2020-06-20] MEDS: Aspirin E.C. 81 MG TABEC PO (08:46)
[2020-06-20] MEDS: Calcium 600mg/Vit D 200U TAB 1 TAB PO (08:46)
--- NOTE | 2020-06-20 10:41 | PDOC.CMDIS ---
LACE Index Scoring Tool - Questions: Length of Stay (in days): 4 - 6 Acuity (Admit via E.D.?): Yes Comorbidities: Any Tumor E.D. Visits: 2 - Answers: Total Score: 11 Risk of Readmission: High Risk Care Management Discharge Reason for Hospitalization: NSTEMI, Tumor Fever Discharge Plan: Francie will return to [facility] once she is medically cleared. She will transport via facility W/C van, coordinated by CM. CM will continue to follow. Patient/Family Education Needs: Review discharge instructions, discuss Ask Me Three. Services Needed at Discharge: Penitentiary Facility (Return to [facility] ), Transportation (Facility W/C Van )
[2020-06-20 10:51] LABS: Magnesium 2.2 mg/dL (1.8-2.4)
--- NOTE | 2020-06-20 11:18 | W.PM.DS.N ---
Date of service: 06/20/20 Time of Service: 11:18 DS: Diagnosis Discharge Diagnosis (1) NSTEMI (non-ST elevated myocardial infarction): Status: Acute (2) Fever: Status: Acute (3) Metastatic adenocarcinoma to lung: Status: Acute (4) Malignant pleural effusion: Status: Acute (5) Chronic respiratory failure with hypoxia: Status: Chronic (6) Oral thrush: Status: Acute (7) C. difficile colitis: Status: Acute (8) Vagina bleeding: Status: Acute (9) DVT prophylaxis: Status: Acute (10) Discharge planning issues: Status: Acute Discharge Plan Disposition Patient Disposition: SNF (LEVEL 1) [facility] Condition: Fair Discharge Details Reason For Visit: NSTEMI, TUMOR FEVER Admit Date/Time: 06/15/20 14:44 Admit Provider: Zena Aragon Attending Provider: Zena Aragon Primary Care Provider: Lavon Pichardo Home Meds and New Rx's Prescriptions: New vancomycin 125 mg Capsule 125 mg PO Q6H Qty: 28 RF: 0 Continued Premarin 45 GM cream 0.5 g VG DAILY Qty: 1 RF: 2 ibuprofen 600 MG tablet 600 mg PO TID PRNRF: 0 simvastatin 40 MG tablet 40 mg PO DAILY RF: 0 potassium chloride [Klor-Con M20] 20 MEQ tablet,ER particles/crystals 20 meq PO DAILY RF: 0 hydrochlorothiazide 25 MG tablet 12.5 mg PO DAILY RF: 0 Fish Oil 1 EACH capsule 1 cap PO TID RF: 0 docusate sodium [Colace] 100 mg Capsule 100 mg PO TID Qty: 60 RF: 0 diazepam 2 mg Tablet 2 mg PO TID PRN PRNQty: 20 RF: 0 diclofenac sodium [Voltaren] 1 % Gel 2 g topical QID PRN PRNQty: 100 RF: 0 gabapentin 100 mg Capsule 100 mg PO TID Qty: 30 RF: 0 lidocaine [Lidoderm] 5 % Adhesive Patch,Medicated 1 patch topical Q24H Qty: 15 RF: 0 acidophilus-pectin, citrus 25 million cell -100 mg Tablet 1 cap PO TID Qty: 90 RF: 0 lisinopril 20 mg Tablet 20 mg PO DAILY Qty: 20 RF: 0 pantoprazole 40 mg Tablet,Delayed Release (Dr/Ec) 40 mg PO DAILY@0730 Qty: 30 RF: 0 calcium carbonate-vitamin D3 600 mg(1,500mg) -200 unit Tablet 1 tab PO DAILY RF: 0 acetaminophen 325 mg Tablet 650 mg PO Q4H PRN PRNRF: 0 fluticasone propion-salmeterol 250-50 mcg/dose blister with device 1 inh INHALATION BID RF: 0 aspirin 81 mg tablet,delayed release (DR/EC) 81 mg PO DAILY RF: 0 escitalopram oxalate 10 mg tablet 5 mg PO DAILY RF: 0 Refresh Celluvisc 1 % dropperette,gel 1 drp ophthalmic (eye) QID PRN PRN (Reason: Eye Irritation) RF: 0 albuterol sulfate [ProAir HFA] 90 mcg/actuation HFA aerosol inhaler 2 puff inhalation Q4H PRN PRNRF: 0 polyethylene glycol 3350 17 gram/dose powder 17 g PO DAILY PRN PRNRF: 0 Discharge Instructions Activity:: Activity as Tolerated Equipment/Supplies:: No Equipment Needed Diet:: As Tolerated Discharge Orders Discharge Orders: Discharge Order (Routine); Ordered 06/20/20 Ordered By: Perry Alan DS: Summary Time Spent with Patient providing and/or coordinating discharge services: Greater than 30 minutes Status at Discharge Functional status at discharge: independent ambulation Overall status at discharge: patient is not back to baseline Mental Status: mental status grossly normal Speech and Movement: speech and movement normal Mood: congruent mood Affect: blunted Exam Const General: cooperative and no acute distress Nutritional Appearance: average body habitus Orientation: alert and oriented x3 Neck Neck: full ROM and nontender Resp Effort & Inspection: normal respiratory effort Auscultation: clear to auscultation bilaterally and diminished lung sounds on the right Cardio Rate: regular rate Rhythm: regular rhythm Heart Sounds: S1 normal, S2 normal and murmur GI Palpation: soft and nontender Neuro General: moves all extremities and no focal motor deficits (diminished strength of LUE, LLE) Extrem General: no calf tenderness and edema Laterality: bilateral (trace) Psych Mental Status: mental status grossly normal Speech and Movement: speech and movement normal Mood: congruent mood Affect: blunted DS: Data Vitals/I&O Vitals and I&O: Vital Signs Temperature 36.6 C 06/20/20 08:30 Temperature Source Temporal Artery Scan 06/20/20 08:30 Pulse 72 06/20/20 08:30 Pulse Rhythm Regular 06/20/20 03:11 Pulse 91 H 06/17/20 20:00 Respiratory Rate 17 06/20/20 08:30 Respiratory Effort Non-Labored 06/20/20 03:11 Respiratory Depth Normal 06/20/20 03:11 Respiratory Pattern Normal 06/20/20 03:11 Blood Pressure 106/67 06/20/20 08:30 Blood Pressure Mean 68 06/17/20 19:56 Blood Pressure Position Supine 06/17/20 11:48 Pulse Oximetry 94 06/20/20 08:30 Oxygen Delivery Method Nasal Cannula 06/20/20 08:30 Oxygen Flow Rate 3 06/20/20 08:30 Pain Level 0 06/20/20 08:48 Comment 06/20/20 08:48 Intake & Output 06/19/20 06/19/20 06/20/20 11:59 23:59 11:59 Intake Total 250 / 331.933 81.933 / 331.933 350 / 350 Balance 250 / 331.933 81.933 / 331.933 350 / 350 Weight 72.1 kg Intake: IV 81.933 / 81.933 Oral 250 / 250 350 / 350 Other: Urine Color Perez Dark Red Urine Appearance Clear Clear Clear Urine Odor Normal Comment diaper change. urine mix with moderate amount of vaginal bleeding , blood clot discharge noted. urine mixed with stool and vaginal spotting, full bed changed urine mixed with stool and vaginal spotting, full bed changed Stool Size Moderate Small Stool Characteristics Liquid Soft Soft Brown Brown Bloody Voiding Methods Diaper Incontinent Bedside Commode Data Completed and Pending Labs on day of discharge: Labs from last 24 hours 06/20/20 06/20/20 06/20/20 07:14 07:14 07:14 WBC 11.34 H RBC 4.58 Hgb 11.9 Hct 38.7 MCV 84.5 MCH 26.0 L MCHC 30.7 L RDW 16.1 H Plt Count 356 MPV 9.2 Sodium 138 Potassium 4.4 Chloride 106 Carbon Dioxide 25.2 Anion Gap 6.8 BUN 11 Creatinine 0.7 Estimated GFR/1.73 m2 >= 60.00 Glucose 111 H Calcium 8.1 L Magnesium 2.2 Fluid Glucose Fluid Albumin Stool Campylobacter PCR Stool Salmonella PCR Stool Shigella PCR Shiga Toxin (PCR) 06/18/20 06/16/20 15:00 15:55 WBC RBC Hgb Hct MCV MCH MCHC RDW Plt Count MPV Sodium Potassium Chloride Carbon Dioxide Anion Gap BUN Creatinine Estimated GFR/1.73 m2 Glucose Calcium Magnesium Fluid Glucose 107 Fluid Albumin 1.6 Stool Campylobacter PCR Negative Stool Salmonella PCR Negative Stool Shigella PCR Negative Shiga Toxin (PCR) Negative 06/18/20 15:00 Pleural Anaerobic Culture - Pending Preliminary micro results at discharge 06/18/20 15:00 Body Fluid Culture - Preliminary Pleural 06/15/20 10:25 Blood Culture - Preliminary Blood NO GROWTH 96 HOURS 06/15/20 10:05 Blood Culture - Preliminary Blood NO GROWTH 96 HOURS 06/18/20 15:00 Anaerobic Culture - Pending Pleural PFSH Medical History Asthma C. difficile colitis Cerebrovascular accident Depression Essential hypertension Frequent falls Gastroesophageal reflux disease Goals of care, counseling/discussion Hemiplegia History of hemorrhagic stroke with residual hemiparesis History of smoking 25-50 pack years Hyperlipidemia Lung cancer Oxygen dependent Palliative care patient Polyp of colon Vagina bleeding Wheelchair bound Surgical History Cerebral aneurysm repair. History of bronchoscopy History of lung biopsy Family History Mother Personal history of malignant neoplasm colon cancer Father Heart disease Daughter No problems noted. Daughter No problems noted. Daughter No problems noted. Social History Smoking/Tobacco Use Status: Former Tobacco Use Tobacco: How many years used: 40 Smoking risk assessment performed?: Yes Alcohol Intake: never Drug use: Never Substance use type: does not use Caregiver/Support person: No Household members: none Housing: apartment Number of Children: 3 number of grandchildren: 4 Communication Needs: Corrective Lenses Education Level: high school Do you need help understanding health information?: Always current occupation: disabled since stroke age 59 Sexually active: No Current gender identity: female What is your relationship status?: How often do you talk on the phone with friends or family?: three or more times per week How often do you get together with friends or relatives?: never Panel score (0-1 are the most socially isolated patients): 1 What type of physical activity do you participate in: occasional exercise and wheelchair-bound Duration: 15-30 minutes/day Frequency: 3-4 times per week Special jac needs: No Seatbelt use: always Working smoke detector in home: Yes Fire extinguisher in home: Yes Do you feel safe at home: Yes Do you feel safe in your relationship?: Yes Additional Social history: Gerda and her late ex- Ismael after her stroke. He then of cancer soon thereafter. Gerda has 3 daughters, all of whom she is close to. Vimal, her eldest, is her DPOA. She has 4 grandsons, too. She is very proud of all of them. She has not smoked since her stroke. She lives at the [facility]. Her daughters have talked to her about moving into a place with 24/7 care, such as a community long term or SNF or Assisted Living. She has not investigated this seriously yet but now facing her likely new cancer diagnosis, she wants more help.
[2020-06-20 11:23] VITALS: BP 126/68; PULSE 82; RESP 18; TEMP 36.6; O2SAT 92
[2020-06-20] MEDS: Acetaminophen 325 MG TAB 650 MG PO (11:27)
[2020-06-20 12:33] VITALS: PULSE 81
--- NOTE | 2020-06-20 13:58 | W.PALLCONSUL ---
Date of service: 06/20/20 Time of Service: 12:10 History of Present Illness History of Present Illness Chief Complaint: goals of care; lung cancer; NSTEMI; cdiff Narrative: Francie has had a series of bad news since she was diagnosed with lung cancer in March 2020. She has received one round of cancer treatment. She says it makes her feel very tired. She's not sure what she wants to do. She can no longer live alone (Up until her March 2020 admission, she was living alone in the [facility] She hates living at the Rehab; she's lonely and scared and cut off from her family due to COVID-19 restrictions. She's scared. She says sometimes her mother comes to her (her mother is ) and comforts her. She has no other premonitions about her . She is very undecided about how to proceed from here. She can't imagine having yet another health problem. She does feel better since Dr Henry's thorancentesis on 06/18. She's not acutely short of breath. She could have a conversation without being in any respiratory distress. She is due to return to [facility] later today; she still wants me to see her there in 2 days' time. She's strongly considering stopping her cancer treatment. She wants to think about it for a few days more. We did discuss hospice, and the fact that she can have hospice services while living at Rehab. She would benefit from more social interactions due to hospice. Will wait to see what she thinks in 2 days. Will want to consult with her daughter and DPOA, Vimal, too. Note that Francie did chose to change her code status from FULL to dnr/dni on this admission. We did do a COLST form to bring with her to Rehab, indicating her preferences. Consults Consult date: 06/20/20 Requesting physician: Zena Aragon Assessment and Plan Assessment and plan (1) POLST (Physician Orders for Life-Sustaining Treatment): Status: Acute Assessment and plan: done 06/20/20 bringing original to Rehab scanned into [facility] (2) C. difficile colitis: Status: Acute Assessment and plan: on precautions hates having diarrhea feels weak (3) Elevated troponin: Status: Acute Assessment and plan: has returned to normal following NSTEMI (4) Malignant pleural effusion: Status: Acute Assessment and plan: drained 06/18/[address] Henry 300 ccs expected to reaccumulate due to her lung cancer right sided (5) NSTEMI (non-ST elevated myocardial infarction): Status: Acute (6) Metastatic adenocarcinoma to lung: Status: Acute (7) Goals of care, counseling/discussion: Status: Acute Assessment and plan: Gerda is not sure what she wants to do. If her cancer treatment isn't obviously working, not sure she wants to continue. Both Dr Alan and I encouraged her to try another round of cancer treatment and see how she feels/if it is working. She feels overwhelmed by all the health problems she has had to endure over the last 3 months. Will call her daughter, Vimal, who is her DPOA, when I see Gerda again in 2 days at Rehab. (8) Palliative care patient: Status: Chronic (9) History of hemorrhagic stroke with residual hemiparesis: Status: Chronic (10) DNI (do not intubate): Status: Acute (11) DNR (do not resuscitate): Status: Acute (12) Encounter for hospice care discussion: Status: Acute Assessment and plan: Gerda is beginning to recognize/understand that her lung cancer will likely lead to her within the next 6 months or so. This is noted throughout her medical record. Given this, will bring up transitioning to hospice at conversation with her daughter. Need to touch base with oncology about their recommendations, too. F/u in 2 days. Review of Systems Constitutional Constitutional: Reports fatigue, Reports lethargy, Reports poor appetite, Reports weakness and Reports weight loss Eyes Eyes: Reports dry eyes and Reports requires corrective lenses ENT Ears, Nose, Mouth, and Throat: Reports dry mouth and Reports disequilibrium Cardiovascular Cardiovascular: Reports lightheadedness, Reports dyspnea on exertion and Reports orthopnea Respiratory Respiratory: Reports dyspnea on exertion Gastrointestinal Gastrointestinal: Reports constipation Genitourinary Genitourinary: Reports urinary incontinence Musculoskeletal Musculoskeletal: Reports abnormal gait (wheelchair bound), Reports atrophy, Reports limited range of motion, Reports muscle weakness and Reports stiffness Integumentary/Breasts Skin/Breast: Reports dry skin Neurologic Neurologic: Reports abnormal gait (wheelchair bound), Reports disequilibrium and Reports weakness Psychiatric Psychiatric: Reports anxiety, Reports depression, Reports difficulty concentrating, Reports hopelessness and Reports anhedonia Comments: feeling sad about returning to Rehab due to social isolation there Endocrine Endocrine: Reports fatigue Hematologic/Lymphatic Hematologic/Lymphatic: Reports easy bruising [facility] Medical History Asthma C. difficile colitis Cerebrovascular accident Depression DNI (do not intubate) DNR (do not resuscitate) Encounter for hospice care discussion Essential hypertension Frequent falls Gastroesophageal reflux disease Goals of care, counseling/discussion Hemiplegia History of hemorrhagic stroke with residual hemiparesis History of smoking 25-50 pack years Hyperlipidemia Lung cancer Oxygen dependent Palliative care patient POLST (Physician Orders for Life-Sustaining Treatment) signed 06/20/20 Polyp of colon Vagina bleeding Wheelchair bound Surgical History Cerebral aneurysm repair. History of bronchoscopy History of lung biopsy Family History Mother Personal history of malignant neoplasm colon cancer Father Heart disease Daughter No problems noted. Daughter No problems noted. Daughter No problems noted. Social History (Updated 06/20/20 @ 20:50 by Carmen Clifton MD) Smoking/Tobacco Use Status: Former Tobacco Use Tobacco: How many years used: 40 Smoking risk assessment performed?: Yes Alcohol Intake: never Drug use: Never Substance use type: does not use Caregiver/Support person: No Household members: none Housing: apartment Number of Children: 3 number of grandchildren: 4 Communication Needs: Corrective Lenses Education Level: high school Do you need help understanding health information?: Always current occupation: disabled since stroke age 59 Sexually active: No Current gender identity: female What is your relationship status?: How often do you talk on the phone with friends or family?: three or more times per week How often do you get together with friends or relatives?: never Panel score (0-1 are the most socially isolated patients): 1 What type of physical activity do you participate in: occasional exercise and wheelchair-bound Duration: 15-30 minutes/day Frequency: 3-4 times per week Special jac needs: No Seatbelt use: always Working smoke detector in home: Yes Fire extinguisher in home: Yes Do you feel safe at home: Yes Do you feel safe in your relationship?: Yes Additional Social history: Gerda and her late ex- Ismael after her stroke. He then of cancer soon thereafter. Gerda has 3 daughters, all of whom she is close to. Vimal, her eldest, is her DPOA. She has 4 grandsons, too. She is very proud of all of them. She has not smoked since her stroke. She used to live at the [facility]. She has lived at [facility] since her discharge from [facility] in April 2020, soon after her initial cancer diagnosis. She struggles with the social isolation at Rehab. She used to go to [place] daily and loves interacting with others. Exam Narrative Exam Narrative: General: Pleasant elderly female, looks a bit uncomfortable but not in distress, A&Ox3 HEENT: EOMI, MMM, no evidence of thrush Cardiovascular: RRR. 1 out of 6 systolic murmur at apex No JVD Neck: no lad Lungs: Diminished dull breath sounds on R, clear to auscultation on the L, normal effort, no increased WOB Gastrointestinal: soft, nontender, nondistended, active bowel sounds Extremities: trace edema BLE's, nontender. moves left side but limited, more stiff. psych: sad, introspective, more thoughtful than usual, struggling with decision making skin: no bruises or lesions neuro: A and O x 3, left hemiparesis Results Last Vital Signs Temp 97.9 F 06/20/20 11:23 Pulse 82 06/20/20 11:23 Resp 18 06/20/20 11:23 BP 126/68 06/20/20 11:23 Pulse Ox 92 06/20/20 11:23 Labs Result diagrams: 06/20/20 07:14 06/20/20 07:14 Labs: Laboratory Results - last 24 hr 06/18/20 06/20/20 06/20/20 15:00 07:14 07:14 WBC 11.34 H RBC 4.58 Hgb 11.9 Hct 38.7 MCV 84.5 MCH 26.0 L MCHC 30.7 L RDW 16.1 H Plt Count 356 MPV 9.2 Sodium 138 Potassium 4.4 Chloride 106 Carbon Dioxide 25.2 Anion Gap 6.8 BUN 11 Creatinine 0.7 Estimated GFR/1.73 m2 >= 60.00 Glucose 111 H Calcium 8.1 L Magnesium Fluid Glucose 107 Fluid Albumin 1.6 06/20/20 07:14 WBC RBC Hgb Hct MCV MCH MCHC RDW Plt Count MPV Sodium Potassium Chloride Carbon Dioxide Anion Gap BUN Creatinine Estimated GFR/1.73 m2 Glucose Calcium Magnesium 2.2 Fluid Glucose Fluid Albumin
[2020-06-20 15:13] LABS: Fluid Type, Lipase PLEURAL; Lipase, BF 3 U/L
[2020-06-20 16:01] LABS: Fluid Type PLEURAL; Lactate Dehydrogenase (LD), BF 290 U/L
== END 2020-06-20 13:22 | disposition skilled nursing facility (03) | DRG 281 ==
LOC: ER 15:41 → ICU 21:37 → MS 06-18 01:58 → ICU 06-23 17:02
PROVIDERS: Family Medicine; Internal Medicine; Surgery; Admitting Provider Internal Medicine; Emergency Provider Student in an Organized Health Care Education/Training Program; PCP Family Medicine; Visit Provider Internal Medicine
DX: I21.4 Non-ST elevation (NSTEMI) myocardial infarction (principal); J96.11 Chronic respiratory failure with hypoxia; J91.0 Malignant pleural effusion; C34.31 Malignant neoplasm of lower lobe, right bronchus or lung; A04.72 Enterocolitis due to Clostridium difficile, not specified as recurrent; B37.0 Candidal stomatitis; I69.354 Hemiplegia and hemiparesis following cerebral infarction affecting left non-dominant side; J44.9 Chronic obstructive pulmonary disease, unspecified; Z99.81 Dependence on supplemental oxygen; N93.8 Other specified abnormal uterine and vaginal bleeding; R50.81 Fever presenting with conditions classified elsewhere; Z11.52 Encounter for screening for COVID-19; I10 Essential (primary) hypertension; Z87.891 Personal history of nicotine dependence; Z99.3 Dependence on wheelchair; K21.9 Gastro-esophageal reflux disease without esophagitis; R29.6 Repeated falls; E78.5 Hyperlipidemia, unspecified; F32.9 Major depressive disorder, single episode, unspecified; Z22.322 Carrier or suspected carrier of Methicillin resistant Staphylococcus aureus; Z66 Do not resuscitate
CPT/HCPCS: 32554; 36415; 71275; 80048; 80053; 82042; 83690; 85027; 87040; 87081; 87493; 87505; 87637; 93005; 93306; 94640; 96365; 96367; 99221; 99232; 99233; 99239; 99255; 99285; 99291; J1650; 70450; 71045; 76830; 76856; 81003; 81373; 83605; 83615; 83735; 83880; 83986; 84484; 85025; 85730; 87070; 87075; 87205; 88104; 88305; 88361; 89051; 93010; J2543; J3490

== ENCOUNTER 2020-06-20 22:44 | Outpatient (REF) | payer OTHER, MEDICAID, SELFPAY ==
[2020-06-22 14:58] LABS: COVID-19 RT-PCR Result Not Detected ((See Note))
== END 2020-06-20 22:45 | disposition home or self-care (01) ==
LOC: LBN 22:44
PROVIDERS: PCP Family Medicine; Visit Provider Nurse Practitioner Adult Health
DX: Z11.52 Encounter for screening for COVID-19 (principal)
CPT/HCPCS: U0003